=== PATIENT | female | born 1945 | race Caucasian/White ===

== ENCOUNTER 2017-11-17 15:35 | Emergency (ER) | payer OTHER ==
[~2017-11-17] VITALS: Ht 170.2 cm; Wt 63.0 kg
[~2017-11-17 15:35] MED LIST: LITHIUM; NITR-5 PO; PHEN-876 PO; PRM625 PO; SYNTHROID; TRAZODONE; ZOLOFT
[2017-11-17 15:40] VITALS: TEMP 37.1; Ht 170.2 cm; Wt 63.0 kg
[2017-11-17] MEDS ORDERED: ASPIRIN 81 MG CHEW PO STA (15:40)
--- NOTE | 2017-11-17 15:54 | EMERGENCY ROOM VISIT NOTE ---
History Report prepared by Jose: Jerilyn Lira Under the Supervision of: Dr. Randolph Bethea M.D. First contact with patient: 15:35 Chief Complaint: FLU LIKE SX Stated Complaint: FLU LIKE SX, COUGHING History of Present Illness The patient is a 72 year old female who presents to the Emergency Room with complaints of worsening flu-like symptoms beginning on Monday, three days ago. The patient states her symptoms started with a sorethroat. The patient reports cough, shortness of breath, dizziness, decreased appetite, headache, right ear pain, and chest pressure. She denies any blood in her stool, abdominal pain, or vomiting. She denies any recent episodes of syncope. The patient wears 2 liters of oxygen at baseline. The patient denies any recent long travel. The patient has a history of interstitial lung disease, IBS, and hypotension. The patient is a former smoker of 30 years. The patient reports she has adverse reactions with albuterol, saying "do not give me that, it will kill me". Source of History: patient Onset: three days ago Position: other (generalized) Quality: other (flu-like symptoms) Timing: worsening Associated Symptoms: + headache, + sorethroat, + cough, + chest pain, + SOB , No vomiting Review of Systems See HPI for pertinent positives and negatives. A total of ten systems were reviewed and were otherwise negative. Past Medical & Surgical Medical Problems: (1) Hypotension (2) IBS (irritable bowel syndrome) (3) Interstitial lung disease Family History Patient reports no known family medical history. Social History Smoking Status: Former Smoker Marital Status: single Current/Historical Medications Scheduled Budesonide (Entocort Ec), 3 CAP PO HS Cholecalciferol (Vitamin D-3), 1 TAB PO QAM Cholestyramine Light (Cholestyramine Light), 4 GM PO BID Levothyroxine Sodium (Levothyroxine Sodium), 1 TAB PO QAM Multiple Vitamins W/ Minerals (Centrum), 1 TAB PO QAM Oseltamivir (Tamiflu), 75 MG PO BID Primidone (Mysoline), 150 MG PO HS Ranitidine Hcl (Zantac), 150 MG PO BID Sertraline (Zoloft), 50 MG PO HS Scheduled PRN Benzonatate (Tessalon Perles), 100 MG PO Q8 PRN for Cough Trazodone Hcl (Trazodone), 150-300 MG PO HS PRN for Sleep Allergies Coded Allergies: Albuterol (Unverified Allergy, Severe, CONVULTIONS, 11/17/17) Hydroxyzine (Unverified Allergy, Severe, MOOD SWINGS / OUT OF CONTROL, ) Latex (Unverified Allergy, Severe, ITCH/RASH/HIVES, 11/17/17) Acetaminophen (Unverified Allergy, Intermediate, UNKNOWN, 11/17/17) Milk (Unverified Allergy, Intermediate, UPSET STOMACH, 11/17/17) Physical Exam Vital Signs Date Time Temp Pulse Resp B/P (MAP) Pulse Ox O2 Delivery O2 Flow Rate FiO2 11/17/17 21:31 20 120/66 96 11/17/17 21:08 59 11/17/17 19:32 66 16 104/62 98 Nasal Cannula 2.0 11/17/17 17:41 68 20 103/60 97 2.0 11/17/17 16:17 55 11/17/17 15:56 Nasal Cannula 2.0 11/17/17 15:40 37.1 61 20 122/67 99 Nasal Cannula 2.0 Physical Exam Physical Exam GENERAL: She is oriented to person, place, and time. She appears well- developed and well-nourished. She does not appear distressed. ____ HENT: Exam performed. Head: Normocephalic and atraumatic. Right Ear: External ear normal. No mastoid tenderness. Left Ear: External ear normal. No mastoid tenderness. Mouth/Throat: The oropharynx is clear and moist. No trismus in the jaw. No dental abscesses or uvula swelling. No oropharyngeal exudate or tonsillar abscesses. ____ EYES: Conjunctivae and EOM are normal. Pupils are equal, round, and reactive to light. Right eye exhibits no discharge. Left eye exhibits no discharge. No scleral icterus. ____ NECK: Normal range of motion. Neck supple. No JVD present. No spinous process tenderness present. No carotid bruit present. No rigidity. No tracheal deviation and normal range of motion present. No Brudzinski's sign and no Kernig 's sign noted. ____ CV: Normal rate, regular rhythm, normal heart sounds and intact distal pulses. There is no peripheral edema. Palpable radial pulses bue. ____ PULM/CHEST: Scant expiratory wheezing bilaterally. Effort normal and breath sounds normal. No respiratory distress. No stridor. She has no rales. Chest Wall: She exhibits no tenderness. ____ ABD: The abdomen is soft. Bowel sounds are normal. She has no distension. No mass is present. There is no tenderness. There is no rebound, no guarding, no Davila's sign and no tenderness at McBurney's point. Rovsig negative MUSC/SKEL: Normal range of motion. There is no peripheral edema, tenderness or deformity. LYMPH: No cervical adenopathy. ____ NEURO: She is alert and oriented to person, place, and time. SHe has normal strength. No cranial nerve deficit or sensory deficit. Coordination and gait normal. GCS eye subscore is 4. GCS verbal subscore is 5. GCS motor subscore is 6. cerbellar tests wnl. ____ SKIN: Skin is warm and dry. She is not diaphoretic. ____ PSYCH: She has a normal mood and affect. Her behavior is normal. Judgment and thought content normal. ____ Medical Decision & Procedures ER Provider Diagnostic Interpretation: Radiology results as stated below per my review and radiologist interpretation: CHEST 2 VIEWS ROUTINE FINDINGS: Cardiomediastinal and hilar silhouettes are within normal limits. Atherosclerosis of the aorta. No pneumothorax, pleural effusion, focal airspace consolidation or overt pulmonary edema. Lungs are hyperinflated with increased lucency of the upper lung zones suggesting emphysema. Degenerative changes are seen within the shoulders and spine. IMPRESSION: 1. No acute process. 2. Hyperinflation with probable emphysema. The above report was generated using voice recognition software. It may contain grammatical, syntax or spelling errors. Electronically signed by: Rakesh Serrano M.D. Laboratory Results 11/17/17 15:47 Red Blood Count 4.08, Mean Corpuscular Volume 96.3, Mean Corpuscular Hemoglobin 32.1, Mean Corpuscular Hemoglobin Concent 33.3, Mean Platelet Volume 9.4, Neutrophils (%) (Auto) 60.6, Lymphocytes (%) (Auto) 24.2, Monocytes (%) (Auto) 7.4, Eosinophils (%) (Auto) 7.0, Basophils (%) (Auto) 0.6, Neutrophils # (Auto) 3.03, Lymphocytes # (Auto) 1.21, Monocytes # (Auto) 0.37, Eosinophils # (Auto) 0.35, Basophils # (Auto) 0.03 11/17/17 15:47 Test 11/17/17 15:43 11/17/17 15:47 11/17/17 16:16 11/17/17 17:07 Influenza Type A Antigen Neg for Influ A (NEG) Influenza Type B Antigen Neg for Influ B (NEG) White Blood Count 5.00 K/uL (4.8-10.8) Red Blood Count 4.08 M/uL (4.2-5.4) Hemoglobin 13.1 g/dL (12.0-16.0) Hematocrit 39.3 % (37-47) Mean Corpuscular Volume 96.3 fL (80-100) Mean Corpuscular Hemoglobin 32.1 pg (25-34) Mean Corpuscular Hemoglobin Concent 33.3 g/dl (32-36) Platelet Count 183 K/uL (130-400) Mean Platelet Volume 9.4 fL (7.4-10.4) Neutrophils (%) (Auto) 60.6 % Lymphocytes (%) (Auto) 24.2 % Monocytes (%) (Auto) 7.4 % Eosinophils (%) (Auto) 7.0 % Basophils (%) (Auto) 0.6 % Neutrophils # (Auto) 3.03 K/uL (1.4-6.5) Lymphocytes # (Auto) 1.21 K/uL (1.2-3.4) Monocytes # (Auto) 0.37 K/uL (0.11-0.59) Eosinophils # (Auto) 0.35 K/uL (0-0.5) Basophils # (Auto) 0.03 K/uL (0-0.2) RDW Standard Deviation 49.8 fL (36.4-46.3) RDW Coefficient of Variation 14.2 % (11.5-14.5) Immature Granulocyte % (Auto) 0.2 % Immature Granulocyte # (Auto) 0.01 K/uL (0.00-0.02) Anion Gap 4.0 mmol/L (3-11) Est Creatinine Clear Calc Drug Dose 70.7 ml/min Estimated GFR () 99.3 Estimated GFR (Non- 85.7 BUN/Creatinine Ratio 22.3 (10-20) Calcium Level 9.6 mg/dl (8.5-10.1) Total Bilirubin 0.4 mg/dl (0.2-1) Aspartate Amino Transf (AST/SGOT) 45 U/L (15-37) Alanine Aminotransferase (ALT/SGPT) 67 U/L (12-78) Alkaline Phosphatase 213 U/L (45-117) Total Protein 7.5 gm/dl (6.4-8.2) Albumin 3.3 gm/dl (3.4-5.0) Globulin 4.2 gm/dl (2.5-4.0) Albumin/Globulin Ratio 0.8 (0.9-2) Lactic Acid Level 0.7 mmol/L (0.4-2.0) Prothrombin Time 10.6 SECONDS (9.0-12.0) Prothromb Time International Ratio 1.0 (0.9-1.1) Activated Partial Thromboplast Time 26.4 SECONDS (21.0-31.0) Partial Thromboplastin Ratio 1.0 Test 11/17/17 17:30 11/17/17 19:49 Urine Color YELLOW Urine Appearance CLEAR (CLEAR) Urine pH 6.0 (4.5-7.5) Urine Specific [place] 1.022 (1.000-1.030) Urine Protein NEG (NEG) Urine Glucose (UA) NEG (NEG) Urine Ketones NEG (NEG) Urine Occult Blood NEG (NEG) Urine Nitrite NEG (NEG) Urine Bilirubin NEG (NEG) Urine Urobilinogen NEG (NEG) Urine Leukocyte Esterase TRACE (NEG) Urine WBC (Auto) 1-5 /hpf (0-5) Urine RBC (Auto) 5-10 /hpf (0-4) Urine Hyaline Casts (Auto) 0 /lpf (0-5) Urine Epithelial Cells (Auto) >30 /lpf (0-5) Urine Bacteria (Auto) NEG (NEG) Troponin I < 0.015 ng/ml (0-0.045) Laboratory results reviewed by me Medications Administered Medications (Trade) Dose Ordered Sig/Alex Route Start Time Stop Time Status Last Admin Dose Admin Aspirin (Aspirin Chew) 324 mg NOW STAT PO 11/17/17 15:40 11/17/17 15:42 DC 11/17/17 15:49 324 MG Ibuprofen (Advil Tab) 400 mg NOW STAT PO 11/17/17 19:13 11/17/17 19:14 DC 11/17/17 19:31 400 MG Oseltamivir Phosphate (Tamiflu Cap) 75 mg NOW STAT PO 11/17/17 21:21 11/17/17 21:23 DC 11/17/17 21:27 75 MG Oseltamivir Phosphate (Tamiflu Cap) 150 mg BID PO 11/18/17 09:00 11/18/17 09:00 DC 11/17/17 21:29 150 MG Benzonatate (Tessalon Perles Cap) 100 mg NOW PRN PO 11/17/17 21:30 11/17/17 22:46 DC 11/17/17 21:26 100 MG ECG Indication: SOB/dyspnea Rate (beats per minute): 71 Rhythm: sinus rhythm Findings: no acute ischemic change, no ectopy, other (IL, QRS, QTC within normal limits, no ST elevation or depression ) ED Course 153: The patient was evaluated in room C10. A complete history and physical exam was performed. 1540: Ordered Aspirin 324 mg PO. 1756: Ordered Acetaminophen 1000 mg PO. 1908: Vitals stable, physical examination within normal limits. Patient tolerating by mouth in the emergency department and in no acute distress. I discussed the patients results with her. I am trying to reach the patients PCP to discuss care of plans because her PCP referred her to ED. The patient states if she is discharged home she will need an ambulance to bring her home. 1912: Ordered Ibuprofen 400 mg PO. 1920: Discussed the patient's case with Dr. James- primary special education teacher for the patients PCP. I made him aware on the patient's negative workup and that her physical exam is within normal limits besides scant expiratory wheezing. I updated him on the patient refusing breathing treatments and he states if she is refusing breathing treatments she can follow up as an outpatient. He requested the patient be discharged with Tamiflu despite the negative flu swab given the patient's history of present illness and long history of interstitial lung disease. 1929: [employer] will arrange transport home for the patient. The patient will be discharged with Tamiflu and antitussive if second troponin comes back negative. 2115: The patient is saying she cannot get to pharmacy tonight. She will be given one dose of Tamiflu and Tessalon Perles in the ED. She will be given one homepack of two Tamiflu and Tessalon Perles. 2120: Ordered Tamiflu Cap 75 mg PO. 2129: Ordered Benzonatate 100 mg PO. 2124: DISCHARGE - Plan of care discussed with patient and questions answered. The patient was given both verbal and printed discharge instructions. The patient verbalized understanding and ability to comply. The patient is to seek outpatient follow up as noted in the discharge instructions. The patient verbalized understanding and ability to comply. The patient is discharged in stable condition. The patient was instructed to return for worsening symptoms. 899: Ordered Tamiflu Cap 150 mg PO. Medical Decision 1908: Vitals stable, physical examination within normal limits. Patient tolerating by mouth in the emergency department and in no acute distress. I discussed the patients results with her. I am trying to reach the patients PCP to discuss care of plans because her PCP referred her to ED. The patient states if she is discharged home she will need an ambulance to bring her home. 1920: Discussed the patient's case with Dr. James- primary special education teacher for the patients PCP. I made him aware on the patient's negative workup and that her physical exam is within normal limits besides scant expiratory wheezing. I updated him on the patient refusing breathing treatments and he states if she is refusing breathing treatments she can follow up as an outpatient. He requested the patient be discharged with Tamiflu despite the negative flu swab given the patient's history of present illness and long history of interstitial lung disease. 1929: [employer] will arrange transport home for the patient. The patient will be discharged with Tamiflu and antitussive if second troponin comes back negative. 2114: The patient is saying she cannot get to pharmacy tonight. She will be given one dose of Tamiflu and Tessalon Perles in the ED. She will be given one homepack of two Tamiflu and Tessalon Perles. DISCHARGE - Plan of care discussed with patient and questions answered. The patient was given both verbal and printed discharge instructions. The patient verbalized understanding and ability to comply. The patient is to seek outpatient follow up as noted in the discharge instructions. The patient verbalized understanding and ability to comply. The patient is discharged in stable condition. The patient was instructed to return for worsening symptoms. Medication Reconcilliation Current Medication List: was personally reviewed by me Blood Pressure Screening Patient's blood pressure: Normal blood pressure Consults Time Called: 1914 Consulting Physician: Dr. James- primary special education teacher for the patients PCP Returned Call: 1920 Discussed the patient's case with Dr. James- primary special education teacher for the patients PCP. I made him aware on the patient's negative workup and that her physical exam is within normal limits besides scant expiratory wheezing. I updated him on the patient refusing breathing treatments and he states if she is refusing breathing treatments she can follow up as an outpatient. Impression Primary Impression: Upper respiratory infection Additional Impression: Influenza-like symptoms Scribe Attestation The scribe's documentation has been prepared under my direction and personally reviewed by me in its entirety. I confirm that the note above accurately reflects all work, treatment, procedures, and medical decision making performed by me. The chart was completed utilizing [employer] Speech voice recognition software. Grammatical errors, random word insertions, pronoun errors, and incomplete sentences are an occasional consequence of this system due to software limitations, ambient noise, and hardware issues. Any formal questions or concerns about the content, text, or information contained within the body of this dictation should be directly addressed to the physician for clarification. Departure Information Dispostion Home / Self-Care Prescriptions Benzonatate (TESSALON PERLES) 100 Mg Cap 100 MG PO Q8 Y for Cough, #21 CAP Prov: Randolph Bethea M.D. 11/17/17 Oseltamivir (Tamiflu) 75 Mg Cap 75 MG PO BID for 5 Days, #10 CAP Prov: Randolph Bethea M.D. 11/17/17 Referrals No Doctor, Assigned (PCP) Forms HOME CARE DOCUMENTATION FORM, IMPORTANT VISIT INFORMATION Patient Instructions ED URI Viral, My [facility] Problem Qualifiers Primary Impression: Upper respiratory infection URI type: unspecified viral URI Qualified Codes: J06.9 - Acute upper respiratory infection, unspecified
[2017-11-17 16:11] LABS: BASO % 0.6 %; BASO ABS # 0.03 K/uL (0-0.2); EOS ABS # 0.35 K/uL (0-0.5); HEMATOCRIT 39.3 % (37-47); HEMOGLOBIN 13.1 g/dL (12.0-16.0); IG# 0.01 K/uL (0.00-0.02); LYMPH % 24.2 %; LYMPH ABS # 1.21 K/uL (1.2-3.4); MEAN CELL VOLUME 96.3 fL (80-100); MEAN CORPUSCULAR HEMOGLOBIN 32.1 pg (25-34); MEAN CORPUSCULAR HGB CONC 33.3 g/dl (32-36); MEAN PLATELET VOLUME 9.4 fL (7.4-10.4); MONO % 7.4 %; MONO ABS # 0.37 K/uL (0.11-0.59); NEUT % 60.6 %; NEUT ABS # 3.03 K/uL (1.4-6.5); PLATELET COUNT 183 K/uL (130-400); RED CELL DISTRIBUTION WIDTH CV 14.2 % (11.5-14.5); RED CELL DISTRIBUTION WIDTH SD 49.8 fL (36.4-46.3)
--- NOTE | 2017-11-17 16:19 | DIAGNOSTIC IMAGING REPORT ---
CHEST 2 VIEWS ROUTINE HISTORY: 72 years-old Female sob acute shortness of breath with cough and flulike symptoms COMPARISON: None available TECHNIQUE: AP and lateral views of the chest FINDINGS: Cardiomediastinal and hilar silhouettes are within normal limits. Atherosclerosis of the aorta. No pneumothorax, pleural effusion, focal airspace consolidation or overt pulmonary edema. Lungs are hyperinflated with increased lucency of the upper lung zones suggesting emphysema. Degenerative changes are seen within the shoulders and spine. IMPRESSION: 1. No acute process. 2. Hyperinflation with probable emphysema. The above report was generated using voice recognition software. It may contain grammatical, syntax or spelling errors. Electronically signed by: Rakesh Serrano M.D. 11/17/2017 4:18 PM Dictated Date/Time: 11/17/2017 4:16 PM
[2017-11-17 16:33] LABS: ALBUMIN 3.3 gm/dl (3.4-5.0); ALT/SGPT 67 U/L (12-78); AST/SGOT 45 U/L (15-37); BLOOD UREA NITROGEN 16 mg/dl (7-18); CALCIUM 9.6 mg/dl (8.5-10.1); CARBON DIOXIDE 32 mmol/L (21-32); CREATININE 0.71 mg/dl (0.60-1.20); GLUCOSE 81 mg/dl (70-99); POTASSIUM 4.1 mmol/L (3.5-5.1); SODIUM 137 mmol/L (136-145)
[2017-11-17 16:38] LABS: ALKALINE PHOSPHATASE 213 U/L (45-117); TOTAL PROTEIN 7.5 gm/dl (6.4-8.2)
[2017-11-17] MEDS ORDERED: MULTTAB5 PO (17:04)
[2017-11-17] MEDS ORDERED: CHOL1TAB2 PO (17:04)
[2017-11-17] MEDS ORDERED: PRIM50TA29 PO (17:05)
[2017-11-17] MEDS ORDERED: SERT50TA PO (17:11)
[2017-11-17] MEDS ORDERED: RANI150T3 PO (17:11)
[2017-11-17] MEDS ORDERED: BUDE1CAP6 PO (17:11)
[2017-11-17] MEDS ORDERED: TRAZ100T29 PO (17:11)
[2017-11-17] MEDS ORDERED: LEVO125T5 PO (17:11)
[2017-11-17] MEDS ORDERED: CHOL4POW PO (17:11)
[2017-11-17 17:40] LABS: PTT PATIENT 26.4 SECONDS (21.0-31.0)
[2017-11-17] MEDS ORDERED: ACETAMINOPHEN 500 MG TAB PO STA (17:57)
[2017-11-17 18:21] LABS: INFLUENZA B ANTIGEN Neg for Influ B (NEG)
[2017-11-17] MEDS ORDERED: IBUPROFEN 200 MG TAB PO STA (19:13)
[2017-11-17 21:08] VITALS: PULSE 59
[2017-11-17] MEDS ORDERED: OSEL75CA12 PO (21:09)
[2017-11-17] MEDS ORDERED: BENZ100C18 PO (21:10)
[2017-11-17] MEDS ORDERED: OSELTAMIVIR PHOSPHATE 75 MG CAP PO STA (21:21)
[2017-11-17] MEDS ORDERED: EMPTY 8 DRAM VIAL ONE (21:26)
[2017-11-17] MEDS ORDERED: BENZONATATE 100MG CAP PO PRN (21:30)
[2017-11-17 21:31] VITALS: BP 120/66; O2SAT 96
[2017-11-18] MEDS ORDERED: OSELTAMIVIR PHOSPHATE 75 MG CAP PO SCH (09:00)
== END 2017-11-17 21:33 | disposition home or self-care (01) ==
LOC: C.EDC 15:35 → EDBD 15:35 → C.EDC 21:33
DX: J06.9 Acute upper respiratory infection, unspecified (principal); Z99.81 Dependence on supplemental oxygen; K58.9 Irritable bowel syndrome, unspecified; Z87.891 Personal history of nicotine dependence; J84.9 Interstitial pulmonary disease, unspecified; Z79.899 Other long term (current) drug therapy

== ENCOUNTER → 2018-01-04 | Day surgery (SDC) | payer OTHER ==
[2017-12-26 11:40] VITALS: Ht 170.2 cm; Wt 63.6 kg
[~2018-01-04] VITALS: Ht 170.2 cm; Wt 63.6 kg
[~2018-01-04] MED LIST changes: +ALPR-385 PO; +BUDE1CAP6 PO; +CHOL1000 PO; +CHOL4POW2 PO; +COEN50CA22 PO; +DIVA250T PO; +EpHEDrine SULFATE 50MG/5ML SYR ONE; +FRCT/ PO; +IMD/2 PO; +LEVO125T5 PO; +LIDOCAINE HCL 2% 2 ML VIAL (20MG/ML) ONE; -LITHIUM; +MULT-506 PO; -NITR-5 PO; +ONDANSETRON INJ 2 MG/ML 2 ML VIAL IV PRN; +OXYC-57 PO; -PHEN-876 PO; +PRIM50TA29 PO; -PRM625 PO; +PROPOFOL IV EMULSION 10 MG/ML 20 ML VIAL IV ONE; +RANI150T85 PO; +SERT50TA PO; -SYNTHROID; +TRAZ1TAB52 PO; -TRAZODONE; -ZOLOFT
--- NOTE | 2018-01-04 10:54 | Endo History and Physical ---
History & Physical Date of Service: Jan 04, 2018. Chief Complaint: CHRONIC DIARRHEA Referring Physician: DR. CUEVAS History of Present Illness History of diarrhea, referred for flexible sigmoidoscopy to further evaluate Past Surgical History Hx Cardiac Surgery: No Hx Internal Defibrillator: No Hx Pacemaker: No Hx Abdominal Surgery: Yes (, ABDOMINAL TUMOR REMOVED, PARTIAL HYSTERECTOMY) Hx of Implantable Prosthesis: No Hx Post-Op Nausea and Vomiting: No Hx Cancer Surgery: Yes (COMPLETE HYSTERECTOMY) Hx Thoracic Surgery: No Hx Orthopedic: No Hx Urinary Tract Surgery: No Family History IBD Social History Smoking Status: Former Smoker Hx Substance Use: Yes Hx Alcohol Use: Yes (OCCASIONALLY) Allergies Coded Allergies: Albuterol (Verified Allergy, Severe, CONVULTIONS, 01/04/18) Hydroxyzine (Verified Allergy, Severe, MOOD SWINGS / OUT OF CONTROL, ) Latex (Verified Allergy, Severe, ITCH/RASH/HIVES, 01/04/18) Acetaminophen (Verified Allergy, Intermediate, ITCH ALL OVER, 01/04/18) Milk (Verified Allergy, Intermediate, UPSET STOMACH, 01/04/18) Uncoded Allergies: VISTARIL (Allergy, Unknown, AGITATED, 12/26/17) Current Medications Reported Home Medications Medications Dose Route/Sig Max Daily Dose Days Date Category Dose Instructions Desyrel (Trazodone Hcl) 150 Mg Tab 2 Tab PO HS 12/26/17 Reported Zoloft (Sertraline HCl) 50 Mg Tab 50 Mg PO HS 12/26/17 Reported Zantac (Ranitidine HCl) 150 Mg Tab 150 Mg PO DAILY PRN 12/26/17 Reported Mysoline (Primidone) 50 Mg Tab 3 Tab PO HS 12/26/17 Reported Percocet 5MG/325MG (Oxycodone/Acetaminophen) Tab 1-2 Tablets PO Q8H PRN 12/26/17 Reported PAIN Multivitamin (Multivitamins) Tab 1 Tab PO QAM 12/26/17 Reported Imodium (Loperamide HCl) 2 Mg Cap 2 Mg PO QAM 12/26/17 Reported Depakote Er (Divalproex Sodium) 250 Mg Tab 1 Tab PO HS 30 12/26/17 Reported Coq10 (Coenzyme Q10 (Ubidecarenone)) 50 Mg Cap 1 Cap PO QAM 12/26/17 Reported Questran Powder Light (Cholestyramine Light) 4 Gm Pow 1 Dose PO DAILY 12/26/17 Reported Vitamin D3 (Cholecalciferol) 1,000 Unit Tab 1 Tab PO QAM 12/26/17 Reported Fioricet (Acetaminophen/Butalbital/Caffeine) 1 Ea Tab 1 Tab PO DIRECTED PRN 12/26/17 Reported Entocort Ec (Budesonide) 3 Mg Cap 3 Cap PO HS 12/26/17 Reported Xanax (Alprazolam) 1 Mg Tab 1 Mg PO BID PRN 12/26/17 Reported Levothyroxine Sodium 125 Mcg Tab 1 Tab PO QAM 11/17/17 Reported Vital Signs Weight (Kilograms): 63.64 Height (Feet): 5 Height (Inches): 7 Date Time Temp Pulse Resp B/P (MAP) Pulse Ox O2 Delivery O2 Flow Rate FiO2 01/04/18 09:56 36.4 64 16 105/61 (76) 94 Room Air Physical Exam General Appearance: no apparent distress Respiratory/Chest: Auscultation: decreased breath sounds Abdomen: Inspection & Palpation: soft Assessment and Plan Paient for sigmoidoscopy to evaluate a history of diarrhea. We have discussed the risks to include bleeding, infection, perforation, pain and infection.
--- NOTE | 2018-01-04 11:14 | Discharge Instructions ---
Endoscopy Patient Instructions Date / Procedure(s) Performed Jan 04, 2018. Flex Sig Allergy Information Coded Allergies: Albuterol (Verified Allergy, Severe, CONVULTIONS, 01/04/18) Hydroxyzine (Verified Allergy, Severe, MOOD SWINGS / OUT OF CONTROL, ) Latex (Verified Allergy, Severe, ITCH/RASH/HIVES, 01/04/18) Acetaminophen (Verified Allergy, Intermediate, ITCH ALL OVER, 01/04/18) Milk (Verified Allergy, Intermediate, UPSET STOMACH, 01/04/18) Uncoded Allergies: VISTARIL (Allergy, Unknown, AGITATED, 12/26/17) Discharge Date / Findings Jan 04, 2018. Hemorrhoids Diverticulosis Medication Instructions Stopped Medication(s): IMODIUM CHOLESTYRAMINE POWDER Reported Home Medications Medications Dose Route/Sig Max Daily Dose Days Date Category Dose Instructions Desyrel (Trazodone Hcl) 150 Mg Tab 2 Tab PO HS 12/26/17 Reported Zoloft (Sertraline HCl) 50 Mg Tab 50 Mg PO HS 12/26/17 Reported Zantac (Ranitidine HCl) 150 Mg Tab 150 Mg PO DAILY PRN 12/26/17 Reported Mysoline (Primidone) 50 Mg Tab 3 Tab PO HS 12/26/17 Reported Percocet 5MG/325MG (Oxycodone/Acetaminophen) Tab 1-2 Tablets PO Q8H PRN 12/26/17 Reported PAIN Multivitamin (Multivitamins) Tab 1 Tab PO QAM 12/26/17 Reported Imodium (Loperamide HCl) 2 Mg Cap 2 Mg PO QAM 12/26/17 Reported Depakote Er (Divalproex Sodium) 250 Mg Tab 1 Tab PO HS 30 12/26/17 Reported Coq10 (Coenzyme Q10 (Ubidecarenone)) 50 Mg Cap 1 Cap PO QAM 12/26/17 Reported Questran Powder Light (Cholestyramine Light) 4 Gm Pow 1 Dose PO DAILY 12/26/17 Reported Vitamin D3 (Cholecalciferol) 1,000 Unit Tab 1 Tab PO QAM 12/26/17 Reported Fioricet (Acetaminophen/Butalbital/Caffeine) 1 Ea Tab 1 Tab PO DIRECTED PRN 12/26/17 Reported Entocort Ec (Budesonide) 3 Mg Cap 3 Cap PO HS 12/26/17 Reported Xanax (Alprazolam) 1 Mg Tab 1 Mg PO BID PRN 12/26/17 Reported Levothyroxine Sodium 125 Mcg Tab 1 Tab PO QAM 11/17/17 Reported Provider Instructions Activity Restrictions - No exercising or heavy lifting for 24 hours. - Do not drink alcohol the day of the procedure. - Do not drive a car or operate machinery until the day after the procedure. - Do not make any important decisions or sign important papers in 24 hours after the procedure. Following Day: - Return to full activity which may include returning to work/school. Diet Start your diet with liquids and light foods (jello, soup, juice, toast). Then eat your usual diet if not nauseated. Treatment For Common After Affects For mild abdominal pain, bloating, or excessive gas: - Rest - Eat lightly - Lie on right side Follow-Up Information Follow-up with DR. CUEVAS and Ms. Wang as scheduled If symptoms persist would consider a completion colonoscopy and evaluation for Celiac disease. Anesthesia Information What You Should Know You have had a procedure that required some medicine to reduce anxiety and discomfort. This treatment is called moderate sedation. After receiving the treatment, you may be sleepy, but you will be able to breathe on your own. The effects of the treatment may last for several hours. Follow these instructions along with Activity/Diet recommendations noted above: * Do NOT do anything where dizziness or clumsiness would be dangerous. * Rest quietly at home today, then you can be up and about tomorrow. * Have a responsible person stay with you the rest of today. * You may have had an I.V. today. If so, you may take the dressing off later today. Recommendations Call your doctor if: * Trouble breathing * Continuous vomiting for more than 24 hours * Temperature above 101 degrees * Severe abdominal pain or bloating * Pain not relieved by pain medicine ordered * There is increased drainage or redness from any incision * A large amount of rectal bleeding greater than 2-3 tablespoons. (If you had a polyp/s removed or have hemorrhoids, a small amount of blood - from the rectum is to be expected.) * You have any unanswered questions or concerns. IN THE EVENT OF A SERIOUS EMERGENCY, GO TO THE NEAREST EMERGENCY ROOM Your discharge instructions were prepared by provider River Mcgrath. Patient Instructions Signature Page Brittany Eric Patient (or Guardian) Signature/Date: I have read and understand the instructions given to me by my caregivers. Caregiver/RN/Doctor Signature/Date: The above-named patient and/or guardian has received patient instructions on this date. + Original Patient Signature Page (only) stays with chart. Please make copy for patient.
--- NOTE | 2018-01-04 11:30 | GI REPORT ---
Procedure Date: 01/04/2018 10:51 AM Procedure: Flexible Sigmoidoscopy Indications: Diarrhea Medicines: Monitored Anesthesia Care Complications: No immediate complications. Estimated blood loss: Minimal. Estimated Blood Loss: Estimated blood loss was minimal. Procedure: Pre-Anesthesia Assessment: - Prior to the procedure, a History and Physical was performed, and patient medications, allergies and sensitivities were reviewed. The patient's tolerance of previous anesthesia was reviewed. - The risks and benefits of the procedure and the sedation options and risks were discussed with the patient. All questions were answered and informed consent was obtained. - Patient identification and proposed procedure were verified prior to the procedure by the physician, the nurse and the lining finisher. The procedure was verified in the procedure room. - Pre-procedure physical examination revealed no contraindications to sedation. - ASA Grade Assessment: III - A patient with severe systemic disease. - After reviewing the risks and benefits, the patient was deemed in satisfactory condition to undergo the procedure. - The anesthesia plan was to use monitored anesthesia care (MAC). - Immediately prior to administration of medications, the patient was re-assessed for adequacy to receive sedatives. - The heart rate, respiratory rate, oxygen saturations, blood pressure, adequacy of pulmonary ventilation, and response to care were monitored throughout the procedure. - The physical status of the patient was re-assessed after the procedure. After obtaining informed consent, the endoscope was passed under direct vision. Throughout the procedure, the patient's blood pressure, pulse, and oxygen saturations were monitored continuously. The scope was introduced through the anus and advanced to the left transverse colon. The flexible sigmoidoscopy was accomplished without difficulty. The patient tolerated the procedure well. The quality of the bowel preparation was good. Findings: The digital rectal exam findings include non-thrombosed external hemorrhoids. Pertinent negatives include normal sphincter tone. Normal mucosa was found in the rectum, in the sigmoid colon, in the descending colon and in the transverse colon. Biopsies for histology were taken with a cold forceps from the entire colon for evaluation of microscopic colitis. Fluid aspiration was performed through the scope suction channel. Sample(s) were sent for bacterial cultures, Clostridium difficile and ova and parasites. There was evidence of a prior surgical anastomosis in the recto-sigmoid colon. This was patent and was characterized by healthy appearing mucosa. The anastomosis was traversed. A few medium-mouthed diverticula were found in the sigmoid colon. Internal hemorrhoids were found during retroflexion. The hemorrhoids were moderate. The exam was otherwise without abnormality. Impression: - Non-thrombosed external hemorrhoids found on digital rectal exam. - Normal mucosa in the rectum, in the sigmoid colon, in the descending colon and in the transverse colon. Biopsied. Fluid aspiration performed. - Patent surgical anastomosis, characterized by healthy appearing mucosa. - Internal hemorrhoids. - The examination was otherwise normal. Recommendation: - Discharge patient to home (ambulatory). - Advance diet as tolerated today. - Await pathology results. - If symptoms persist would consider a complete colonoscopy. River Mcgrath D.O. River Mcgrath, DO 01/04/2018 11:29:52 AM This report has been signed electronically. Note Initiated On: 01/04/2018 10:51 AM I attest to the content of the Intraoperative Record and orders documented therein, exceptions below
--- NOTE | 2018-01-04 11:31 | Discharge Instructions ---
Endoscopy Patient Instructions Date / Procedure(s) Performed Jan 04, 2018. Flex Sig Allergy Information Coded Allergies: Albuterol (Verified Allergy, Severe, CONVULTIONS, 01/04/18) Hydroxyzine (Verified Allergy, Severe, MOOD SWINGS / OUT OF CONTROL, ) Latex (Verified Allergy, Severe, ITCH/RASH/HIVES, 01/04/18) Acetaminophen (Verified Allergy, Intermediate, ITCH ALL OVER, 01/04/18) Milk (Verified Allergy, Intermediate, UPSET STOMACH, 01/04/18) Uncoded Allergies: VISTARIL (Allergy, Unknown, AGITATED, 12/26/17) Discharge Date / Findings Jan 04, 2018. Hemorrhoids Mild diverticulosis Normal appearing colonic mucosa to the transverse colon. Medication Instructions Stopped Medication(s): IMODIUM CHOLESTYRAMINE POWDER Provider Instructions Activity Restrictions - No exercising or heavy lifting for 24 hours. - Do not drink alcohol the day of the procedure. - Do not drive a car or operate machinery until the day after the procedure. - Do not make any important decisions or sign important papers in 24 hours after the procedure. Following Day: - Return to full activity which may include returning to work/school. Diet Start your diet with liquids and light foods (jello, soup, juice, toast). Then eat your usual diet if not nauseated. Treatment For Common After Affects For mild abdominal pain, bloating, or excessive gas: - Rest - Eat lightly - Lie on right side Follow-Up Information Follow-up with DR. CUEVAS and Ms. Wang as scheduled Anesthesia Information What You Should Know You have had a procedure that required some medicine to reduce anxiety and discomfort. This treatment is called moderate sedation. After receiving the treatment, you may be sleepy, but you will be able to breathe on your own. The effects of the treatment may last for several hours. Follow these instructions along with Activity/Diet recommendations noted above: * Do NOT do anything where dizziness or clumsiness would be dangerous. * Rest quietly at home today, then you can be up and about tomorrow. * Have a responsible person stay with you the rest of today. * You may have had an I.V. today. If so, you may take the dressing off later today. Recommendations Call your doctor if: * Trouble breathing * Continuous vomiting for more than 24 hours * Temperature above 101 degrees * Severe abdominal pain or bloating * Pain not relieved by pain medicine ordered * There is increased drainage or redness from any incision * A large amount of rectal bleeding greater than 2-3 tablespoons. (If you had a polyp/s removed or have hemorrhoids, a small amount of blood - from the rectum is to be expected.) * You have any unanswered questions or concerns. IN THE EVENT OF A SERIOUS EMERGENCY, GO TO THE NEAREST EMERGENCY ROOM Your discharge instructions were prepared by provider River Mcgrath. Patient Instructions Signature Page Brittany Eric Patient (or Guardian) Signature/Date: I have read and understand the instructions given to me by my caregivers. Caregiver/RN/Doctor Signature/Date: The above-named patient and/or guardian has received patient instructions on this date. + Original Patient Signature Page (only) stays with chart. Please make copy for patient.
--- NOTE | 2018-01-04 11:40 | Anesthesiology Progress Note ---
Anesthesia Post Op Note Date & Time Jan 04, 2018 at 11:40 Vital Signs Pain Intensity: 0 Vital Signs Past 12 Hours Date Time Temp Pulse Resp B/P (MAP) Pulse Ox O2 Delivery O2 Flow Rate FiO2 01/04/18 11:35 80 16 123/66 (85) 97 Room Air 01/04/18 11:18 72 16 108/56 (73) 94 Room Air 01/04/18 09:56 36.4 64 16 105/61 (76) 94 Room Air Notes Mental Status: alert / awake / arousable, participated in evaluation Pt Amnestic to Procedure: Yes Nausea / Vomiting: adequately controlled Pain: adequately controlled Airway Patency, RR, SpO2: stable & adequate BP & HR: stable & adequate Hydration State: stable & adequate Anesthetic Complications: no major complications apparent
[2018-01-04 12:01] VITALS: BP 120/64; PULSE 72; O2SAT 95
== END | disposition home or self-care (01) ==
LOC: C.GI 09:38
PROVIDERS: ATTEND Internal Medicine Gastroenterology
DX: K52.9 Noninfective gastroenteritis and colitis, unspecified (principal); K64.4 Residual hemorrhoidal skin tags; K64.8 Other hemorrhoids; Z90.710 Acquired absence of both cervix and uterus; Z87.891 Personal history of nicotine dependence; Z88.8 Allergy status to other drugs, medicaments and biological substances; Z91.040 Latex allergy status; Z88.6 Allergy status to analgesic agent; Z91.011 Allergy to milk products; J44.9 Chronic obstructive pulmonary disease, unspecified; I34.1 Nonrheumatic mitral (valve) prolapse; F41.9 Anxiety disorder, unspecified; F32.9 Major depressive disorder, single episode, unspecified

== ENCOUNTER 2019-07-15 16:42 | Inpatient (IN) ==
[2019-07-15] MEDS ORDERED: fentaNYL citrate 100 MCG/2 ML VIAL IV STA (17:57)
[2019-07-15] MEDS ORDERED: ONDANSETRON INJ 2 MG/ML 2 ML VIAL IV STA (17:57)
[2019-07-15] MEDS ORDERED: SODIUM CHLORIDE 0.9% 1000ML 1,000 ML IV ONE (17:57)
[2019-07-15 18:07] LABS: Basophils # (auto) 0.03 K/uL (0-0.2); Basophils % (auto) 0.6 %; Eosinophils # (auto) 0.42 K/uL (0-0.5); Eosinophils % (auto) 7.8 %; Hematocrit (blood only) 40.9 % (37-47); Hemoglobin 13.6 g/dL (12.0-16.0); Immature Granulocytes # (auto) 0.01 K/uL (0.00-0.02); Immature Granulocytes % (auto) 0.2 %; Lymphocytes # (auto) 1.04 K/uL (1.2-3.4); Lymphocytes % (auto) 19.3 %; Mean Corpuscular Hemoglobin 31.8 pg (25-34); Mean Corpuscular Hgb Conc 33.3 g/dL (32-36); Mean Corpuscular Volume 95.6 fL (80-100); Mean Platelet Volume 10.1 fL (7.4-10.4); Monocytes # (auto) 0.36 K/uL (0.11-0.59); Monocytes % (auto) 6.7 %; Neutrophils # (auto) 3.54 K/uL (1.4-6.5); Neutrophils % (auto) 65.4 %; Platelet Count 225 K/uL (130-400); RDW Standard Deviation 48.5 fL (36.4-46.3); Red Blood Count 4.28 M/uL (4.2-5.4)
[2019-07-15 18:39] LABS: Alanine Aminotransferase 46 U/L (12-78); Albumin Globulin Ratio 0.9 (0.9-2); Albumin Level 3.6 gm/dl (3.4-5.0); Alkaline Phosphatase 145 U/L (45-117); BUN Creatinine Ratio 14.2 (10-20); Bilirubin,Total 0.4 mg/dl (0.2-1); Blood Urea Nitrogen 12 mg/dl (7-18); Calcium 9.9 mg/dl (8.5-10.1); Carbon Dioxide 30 mmol/L (21-32); Chloride 105 mmol/L (98-107); Est GFR (African American) 79.9; Globulin 4.1 gm/dl (2.5-4.0); Glucose 113 mg/dl (70-99); Lipase 94 U/L (73-393); NT Pro B Type Natriuretic Pept 69 pg/ml (0-900); Sodium 140 mmol/L (136-145); Thyroid Stimulating Hormone 0.318 uIu/ml (0.300-4.500); Total Protein 7.7 gm/dl (6.4-8.2); Troponin I < 0.015 ng/ml (0-0.045)
[2019-07-15 19:14] LABS: Appearance Urine Clear (Clear); Bilirubin Urine Negative (Negative); Blood Urine Negative (Negative); Color Urine Yellow; Glucose Urine UA Negative (Negative); Ketones Urine Negative (Negative); Leukocyte Esterase Urine Negative (Negative); Nitrite Urine Negative (Negative); Protein Urine Negative (Negative); Specific Gravity Urine 1.015 (1.000-1.030); Urobilinogen Urine Negative (Negative)
[2019-07-15 19:19] LABS: Potassium 4.1 mmol/L (3.5-5.1)
[2019-07-15 19:24] LABS: Magnesium 2.1 mg/dl (1.8-2.4)
[2019-07-15] MEDS ORDERED: OPTIRAY 320 125ml IV PRN (19:43)
--- NOTE | 2019-07-15 20:02 | CT Scan Report ---
CT head/brain wo con CLINICAL HISTORY: 74 years-old Female with atypical headache. Acute headache TECHNIQUE: Multiple axial CT images of the head were obtained without contrast. A dose lowering tech nique was utilized adhering to the principles of ALARA. CT DOSE: 1088.90 mGy.cm COMPARISON: CTA head neck of same day FINDINGS: No acute intracranial hemorrhage, midline shift, intracranial mass, hydrocephalus, territorial ischem ia or abnormal extra-axial collection. Age-related involutional changes. Mild patchy white matter hyp odensities suggest microvascular ischemic disease. Streak artifact from metallic density structure of the right sylvian fissure distribution limits evaluation of the adjacent structures. Prominent periv ascular space versus remote lacunar infarct of the left lentiform nucleus distribution, 5 mm. The calvarium is intact. The paranasal sinuses, mastoid air cells, and middle ear cavities are clear . IMPRESSION: No acute intracranial abnormality. The above report was generated using voice recognition software. It may contain grammatical, syntax o r spelling errors. Electronically signed by: Rakesh Serrano M.D. 07/15/2019 8:00 PM
--- NOTE | 2019-07-15 20:16 | CT Scan Report ---
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 Acute atypical headache with history of aneurysm COMPARISON STUDY: Head CT of same day TECHNIQUE: Following the IV administration of 120 mL of Optiray 320, CT angiogram of the head and nec k was performed from the aortic arch to the skull base. Images are reviewed in the axial, sagittal, a nd coronal planes. 3-D MIPS images are created and assessed. IV contrast was administered without com plication. All measurements were calculated based on NASCET criteria. A dose lowering technique was utilized adhering to the principles of ALARA. FINDINGS: Imaged pulmonary arteries appear unremarkable. Three-vessel morphology of aortic arch. Patency of the imaged bilateral subclavian arteries. Bilateral common carotid arteries are widely patent. Mild mixe d plaque of the bilateral carotid bulbs results in less than 50% luminal narrowing bilaterally. Metal lic density structure of the right sylvian fissure distribution is suggestive of prior aneurysm repai r. Streak artifact limits evaluation of the adjacent structures. Bilateral middle and anterior cerebr al arteries appear patent. Dominant left vertebral artery. Bilateral vertebral arteries appear patent . The right PICA originates from the distal portion of the right V3 segment. Basilar artery and bilat eral posterior cerebral arteries are unremarkable. Mild multifocal luminal narrowing of less than 50% involves the bilateral posterior cerebral arteries, likely secondary to atherosclerotic vascular dis ease. No aneurysm, dissection, high-grade stenosis or proximal branch occlusion identified. Cerebral venous sinuses appear patent. Emphysema with bilateral bronchial wall thickening suggestive of bronchitis. No pneumothorax. Calcifi cations noted about the bilateral parotid glands. Prior bilateral cataract repair. Degenerative black es of the spine. IMPRESSION: 1. Evidence of prior aneurysm repair in the distribution of the right carotid terminus. Otherwise unr emarkable CTA of the head and neck. 2. Emphysema with bronchitis. The above report was generated using voice recognition software. It may contain grammatical, syntax o r spelling errors. Electronically signed by: Rakesh Serrano M.D. 07/15/2019 8:14 PM
[2019-07-15] MEDS ORDERED: KETOROLAC TROMETHAMINE 15 MG/ML VIAL IV STA (20:22)
[2019-07-15] MEDS ORDERED: MoRPHine SULFATE 4 MG/ML 1 ML CARP\\VIAL IV STA (22:27)
[2019-07-15] MEDS ORDERED: PHARMACIST DISCHARGE MED REC CONSULT PRN (23:32)
[2019-07-15] MEDS ORDERED: ALBUTEROL 0.083% NEBU SOLN 3 ML VIAL INH PRN (23:32)
[2019-07-15] MEDS ORDERED: CHOLESTYRAMINE LIGHT 4 GM PKT PO PRN (23:32)
[2019-07-15] MEDS ORDERED: NITROGLYCERIN SL 0.4 MG/TAB TAB SL PRN (23:32)
[2019-07-15] MEDS ORDERED: BUTALBITAL/ACETAMIN/CAFFEINE TAB PO PRN (23:32)
[2019-07-15] MEDS ORDERED: ONDANSETRON INJ 2 MG/ML 2 ML VIAL IV PRN (23:32)
[2019-07-15] MEDS ORDERED: LOPERAMIDE LIQUID 120 ML BOTTLE PO PRN (23:40)
--- NOTE | 2019-07-16 01:09 | Emergency Department Note ---
Entered by Katherine Traylor acting as a scribe for Yanira Johnson DO History of Present Illness General Chief complaint: Stroke/CVA Symptoms Stated complaint: SHORTNESS OF BREATH, POSSIBLE STROKE Time Seen by Provider: 07/15/19 17:34 Source: patient History of Present Illness Onset (ago): hour(s) 6 Location: head Severity: similar to prior episodes Pain Consistency: + constant Maximum Pain Intensity: 8 Quality: + other (Headache) Associated symptoms: + confusion, + fever/chills (Positive chills. Negative fever.), + headaches, + shortness of breath and + other (Lower back pain, abdominal cramping); no syncope Treatments prior to arrival: other (Supplemental oxygen) The patient is a 74 year old female presenting to the Emergency Department complaining of constant headache starting 6 hours ago. The patient reports that she has a severe headache. She states that earlier at her home she became very confused while playing a computer game that she normally plays every day. She ex plains that she experienced chills and now has lower back pain and abdominal cramping. She notes that she was off balance and bumping into palmer almost causing her to fall PLANT CHIEF. She adds that her ears are ringing. Patient takes it took 3 to 4 hours before she felt like she was getting back to normal again. The patient reports that she has had multiple brain aneurysms and that she current has one that is growing. She states that PL[employer] she had to use supplemental oxygen via nasal cannula because she was short of breath. She explains that she doesnt use supplemental oxygen all the time, only as needed. The patient denies fevers, syncope, vision changes and recently being around anybody who has been sick. Patient states she does have a prior history of strokes. No recent illness or change in medications. Patient denies any trauma. Home Medications Home Medications Medication Instructions Recorded Confirmed Type albuterol sulfate 2.5 mg INHALATION Q4 PRN 07/15/19 07/15/19 History alprazolam [Xanax] 1 mg PO BID PRN 07/15/19 07/15/19 History [id number]-[id number]-[id number] 1 cap PO TID PRN 07/15/19 07/15/19 History [Fioricet] cholestyramine (with sugar) 4 g PO BID PRN 07/15/19 07/15/19 History [Questran] coenzyme Q10 [CoQ-10] 50 mg PO DAILY 07/15/19 07/15/19 History cyanocobalamin (vitamin B-12) 100 mcg PO DAILY 07/15/19 07/15/19 History [Vitamin B-12] famotidine [Pepcid] 40 mg PO DAILY 07/15/19 07/15/19 History levothyroxine 112 mcg PO DAILY 07/15/19 07/15/19 History loperamide [Imodium A-D] 1 mg PO DAILY PRN 07/15/19 07/15/19 History multivitamin 1 tab PO DAILY 07/15/19 07/15/19 History primidone [Mysoline] 100 mg PO HS 07/15/19 07/15/19 History sertraline [Zoloft] 50 mg PO DAILY 07/15/19 07/15/19 History trazodone 100 mg PO HS 07/15/19 07/15/19 History turmeric root extract 500 mg PO DAILY 07/15/19 07/15/19 History umeclidinium-vilanterol [Anoro 1 inh INHALATION DAILY 07/15/19 07/15/19 History Ellipta] Allergies Allergy/AdvReac Type Severity Reaction Status Date / Time albuterol Allergy Severe CONVULTIONS Verified 07/15/19 17:49 hydroxyzine Allergy Severe MOOD Verified 07/15/19 17:49 SWINGS / OUT OF CONTROL latex Allergy Severe ITCH/RASH/H Verified 07/15/19 17:49 MAIA acetaminophen Allergy Intermediate ITCH ALL Verified 07/15/19 17:49 OVER milk Allergy Intermediate UPSET Verified 07/15/19 17:49 STOMACH VISTARIL Allergy Unknown AGITATED Uncoded 07/15/19 17:49 Past Med/Surg History Medical History History of CVA (cerebrovascular accident) History of migraine Brain aneurysm COPD (chronic obstructive pulmonary disease) Interstitial lung disease (Chronic) Hypotension (Chronic) IBS (irritable bowel syndrome) (Chronic) Surgical History History of brain surgery Social History Preferred Language: Italian Communication Ability: Effective Director Of Strategic Programs Required: No Beliefs That Will Affect Care: None Current Living Situation: Alone Other Information That Helps Us Care for You: No Feels Safe at Home: Yes Safety Concerns: Feels Safe At This Time Smoking Status: Former smoker Hx Alcohol Use: Yes Alcohol type: wine Hx Substance Use: No Review of Systems See HPI for pertinent positives & negatives. and A total of 10 systems reviewed and were otherwise negative Physical Exam Vital Signs Vital Signs - 24 hr 07/15/19 16:46 07/15/19 19:02 07/15/19 19:54 Temperature 36.8 C Temperature Source Oral Sepsis Recent Fever Within 48 Hours No Sepsis Action Taken by Nursing No Action Required Pulse Rate 72 Pulse Rate [Apical] 60 77 Pulse Rate from SpO2 Sensor Respiratory Rate 20 15 20 Respiratory Effort / Characteristics Non-Labored Respiratory Depth Normal Blood Pressure 117/74 Blood Pressure [Left Arm] 131/71 127/68 Blood Pressure Mean 88 Blood Pressure Mean [Left Arm] 91 87 Blood Pressure Position [Left Arm] Pulse Oximetry 93 99 96 Oxygen Delivery Method Nasal Cannula Nasal Cannula Oxygen Flow Rate 2 2 07/15/19 19:55 07/15/19 20:30 07/15/19 22:00 Temperature Temperature Source Sepsis Recent Fever Within 48 Hours Sepsis Action Taken by Nursing Pulse Rate 59 L Pulse Rate [Apical] 76 52 L Pulse Rate from SpO2 Sensor 58 L Respiratory Rate 24 22 15 Respiratory Effort / Characteristics Respiratory Depth Blood Pressure 141/71 H Blood Pressure [Left Arm] 127/68 127/68 Blood Pressure Mean 94 Blood Pressure Mean [Left Arm] 87 87 Blood Pressure Position [Left Arm] Lying Pulse Oximetry 97 96 100 Oxygen Delivery Method Nasal Cannula Nasal Cannula Oxygen Flow Rate 2 2 GENERAL: alert, well appearing, well nourished, no distress, non-toxic EYE EXAM: normal conjunctiva, PERRL and EOM's grossly intact. No nystagmus. OROPHARYNX: no exudate, no erythema, lips, buccal mucosa, and tongue normal and mucous membranes are moist NECK: supple, no nuchal rigidity, no adenopathy, non-tender LUNGS: Clear to auscultation. Normal chest wall mechanics, no w/r/r HEART: no murmurs, S1 normal and S2 normal ABDOMEN: abdomen soft, non-tender, normo-active bowel sounds, no masses, no rebound or guarding. BACK: Back is symmetrical on inspection and there is no deformity, no midline tenderness, no CVA tenderness. SKIN: no rashes and no bruising UPPER EXTREMITIES: upper extremities are grossly normal. FROM, nml pulses b/l. LOWER EXTREMITIES: No pitting edema. FROM, nml pulses b/l. NEURO EXAM: Odd affect. cranial nerves II-XII grossly intact, normal speech, no gross weakness of arms, no gross weakness of legs. No drift. Finger to nose intact. Gross sensation intact. NIH stroke score 0 Course 1751: The patient was evaluated in room A10, and a complete history and physical examination were performed. 1758: I spoke to the patient at this time. Patient is a poor historian. 2049: I reevaluated the patient at this time who reports that her headache is gone. She is agreeable to inpatient evaluation. 2100: I discussed the patients case with Dr. Jose Benito hospitalist. He will evaluate the patient for further management. Consultations Consultation #1: I discussed the patients case with Dr. Jose Benito hospitaljs. He will evaluate the patient for further management. Time: 21:00 Administered Medications Miscellaneous (Order Awaiting Action) 1 ea N/A QS BEENA Stop: 08/15/19 00:00 Last Admin: 07/16/19 00:19 Dose: Not Given Documented by: [id number] Discontinued Medications Fentanyl Citrate (Fentanyl Citrate) 50 mcg IV NOW STA Stop: 07/15/19 17:58 Last Admin: 07/15/19 18:57 Dose: 50 mcg Documented by: [id number] Sodium Chloride (Nss 1000ml) 1,000 mls @ 999 mls/hr IV .Q1H1M ONE Stop: 07/15/19 18:57 Last Infusion: 07/15/19 19:56 Dose: 0 mls/hr Documented by: [id number] Admin: 07/15/19 18:55 Dose: 999 mls/hr Documented by: [id number] Ioversol (Optiray 320 125ml) 120 ml IV ONCE PRN PRN Reason: Interaction Checking Stop: 07/19/19 19:42 Last Admin: 07/15/19 19:43 Dose: 120 ml Documented by: [id number] Ketorolac Tromethamine (Toradol) 10 mg IV NOW STA Stop: 07/15/19 20:23 Last Admin: 07/15/19 20:27 Dose: 10 mg Documented by: [id number] Morphine Sulfate (Morphine Sulfate) 3 mg IV NOW STA Stop: 07/15/19 22:28 Last Admin: 07/15/19 22:33 Dose: 3 mg Documented by: [id number] Ondansetron HCl (Zofran) 4 mg IV NOW STA Stop: 07/15/19 17:58 Last Admin: 07/15/19 18:56 Dose: 4 mg Documented by: [id number] Medical Decision Making Differential Diagnosis Differential Diagnosis includes but is not limited to headache, tension headache, cluster headache, migraine, subarachnoid hemorrhage, meningitis, mass, central venous thrombus, concussion, trauma and epidural/subdural hemorrhage. Medical Records Attestation: I reviewed the patient's medical records. Home Medications Current Medication List: was personally reviewed by me Laboratory Data Attestation: I reviewed the patient's lab results. Result diagrams: 07/15/19 17:05 07/15/19 19:00 Lab Results 07/15/19 07/15/19 07/15/19 Range/Units 17:05 17:05 19:00 WBC 5.40 (4.8-10.8) K/uL RBC 4.28 (4.2-5.4) M/uL Hgb 13.6 (12.0-16.0) g/dL Hct 40.9 (37-47) % MCV 95.6 (80-100) fL MCH 31.8 (25-34) pg MCHC 33.3 (32-36) g/dL RDW Std Deviation 48.5 H (36.4-46.3) fL RDW Coeff of Kimberly 14.0 (11.5-14.5) % Plt Count 225 (130-400) K/uL MPV 10.1 (7.4-10.4) fL Immature Gran % (Auto) 0.2 % Neut % (Auto) 65.4 % Lymph % (Auto) 19.3 % [place] % (Auto) 6.7 % Eos % (Auto) 7.8 % Baso % (Auto) 0.6 % Immature Gran # (Auto) 0.01 (0.00-0.02) K/uL Neut # (Auto) 3.54 (1.4-6.5) K/uL Lymph # (Auto) 1.04 L (1.2-3.4) K/uL [place] # (Auto) 0.36 (0.11-0.59) K/uL Eos # (Auto) 0.42 (0-0.5) K/uL Baso # (Auto) 0.03 (0-0.2) K/uL Sodium 140 (136-145) mmol/L Potassium 4.1 (3.5-5.1) mmol/L Chloride 105 (98-107) mmol/L Carbon Dioxide 30 (21-32) mmol/L Anion Gap 6.0 (3-11) BUN 12 (7-18) mg/dl Creatinine 0.84 (0.6-1.2) mg/dl Est Cr Clr Drug Dosing Not Reportable Est GFR ( Amer) 79.9 Est GFR (Non-Af Amer) 69.0 BUN/Creatinine Ratio 14.2 (10-20) Glucose 113 H (70-99) mg/dl Calcium 9.9 (8.5-10.1) mg/dl Magnesium 2.1 (1.8-2.4) mg/dl Total Bilirubin 0.4 (0.2-1) mg/dl AST 20 (15-37) U/L ALT 46 (12-78) U/L Alkaline Phosphatase 145 H (45-117) U/L Troponin I < 0.015 (0-0.045) ng/ml NT-Pro-B Natriuret Pep 69 (0-900) pg/ml Total Protein 7.7 (6.4-8.2) gm/dl Albumin 3.6 (3.4-5.0) gm/dl Globulin 4.1 H (2.5-4.0) gm/dl Albumin/Globulin Ratio 0.9 (0.9-2) Lipase 94 (73-393) U/L TSH 0.318 (0.300-4.500) uIu/ml Urine Color Urine Appearance (Clear) Urine pH (4.5-7.5) Ur Specific [place] (1.000-1.030) Urine Protein (Negative) Urine Glucose (UA) (Negative) Urine Ketones (Negative) Urine Blood (Negative) Urine Nitrite (Negative) Urine Bilirubin (Negative) Urine Urobilinogen (Negative) Ur Leukocyte Esterase (Negative) 07/15/19 Range/Units 19:04 WBC (4.8-10.8) K/uL RBC (4.2-5.4) M/uL Hgb (12.0-16.0) g/dL Hct (37-47) % MCV (80-100) fL MCH (25-34) pg MCHC (32-36) g/dL RDW Std Deviation (36.4-46.3) fL RDW Coeff of Kimberly (11.5-14.5) % Plt Count (130-400) K/uL MPV (7.4-10.4) fL Immature Gran % (Auto) % Neut % (Auto) % Lymph % (Auto) % [place] % (Auto) % Eos % (Auto) % Baso % (Auto) % Immature Gran # (Auto) (0.00-0.02) K/uL Neut # (Auto) (1.4-6.5) K/uL Lymph # (Auto) (1.2-3.4) K/uL [place] # (Auto) (0.11-0.59) K/uL Eos # (Auto) (0-0.5) K/uL Baso # (Auto) (0-0.2) K/uL Sodium (136-145) mmol/L Potassium (3.5-5.1) mmol/L Chloride (98-107) mmol/L Carbon Dioxide (21-32) mmol/L Anion Gap (3-11) BUN (7-18) mg/dl Creatinine (0.6-1.2) mg/dl Est Cr Clr Drug Dosing Est GFR ( Amer) Est GFR (Non-Af Amer) BUN/Creatinine Ratio (10-20) Glucose (70-99) mg/dl Calcium (8.5-10.1) mg/dl Magnesium (1.8-2.4) mg/dl Total Bilirubin (0.2-1) mg/dl AST (15-37) U/L ALT (12-78) U/L Alkaline Phosphatase (45-117) U/L Troponin I (0-0.045) ng/ml NT-Pro-B Natriuret Pep (0-900) pg/ml Total Protein (6.4-8.2) gm/dl Albumin (3.4-5.0) gm/dl Globulin (2.5-4.0) gm/dl Albumin/Globulin Ratio (0.9-2) Lipase (73-393) U/L TSH (0.300-4.500) uIu/ml Urine Color Yellow Urine Appearance Clear (Clear) Urine pH 7.0 (4.5-7.5) Ur Specific [place] 1.015 (1.000-1.030) Urine Protein Negative (Negative) Urine Glucose (UA) Negative (Negative) Urine Ketones Negative (Negative) Urine Blood Negative (Negative) Urine Nitrite Negative (Negative) Urine Bilirubin Negative (Negative) Urine Urobilinogen Negative (Negative) Ur Leukocyte Esterase Negative (Negative) Imaging Data Radiologist's Impression: Radiology results as stated below per my review and the radiologist's interpretation: CT angio neck with con, CT angio head w con CLINICAL HISTORY: 74 years-old Female with prior aneurysm. Acute atypical headache with history of aneurysm COMPARISON STUDY: Head CT of same day TECHNIQUE: Following the IV administration of 120 mL of Optiray 320, CT angiogram of the head and neck was performed from the aortic arch to the skull base. Images are reviewed in the axial, sagittal, and coronal planes. 3-D MIPS images are created and assessed. IV contrast was administered without complication. All measurements were calculated based on NASCET criteria. A dose lowering technique was utilized adhering to the principles of ALARA. FINDINGS: Imaged pulmonary arteries appear unremarkable. Three-vessel morphology of aortic arch. Patency of the imaged bilateral subclavian arteries. Bilateral common carotid arteries are widely patent. Mild mixed plaque of the bilateral carotid bulbs results in less than 50% luminal narrowing bilaterally. Metallic density structure of the right sylvian fissure distribution is suggestive of prior aneurysm repair. Streak artifact limits evaluation of the adjacent structures. Bilateral middle and anterior cerebral arteries appear patent. Dominant left vertebral artery. Bilateral vertebral arteries appear patent. The right PICA originates from the distal portion of the right V3 segment. Basilar artery and bilateral posterior cerebral arteries are unremarkable. Mild multifocal luminal narrowing of less than 50% involves the bilateral posterior cerebral arteries, likely secondary to atherosclerotic vascular disease. No aneurysm, dissection, high-grade stenosis or proximal branch occlusion identified. Cerebral venous sinuses appear patent. Emphysema with bilateral bronchial wall thickening suggestive of bronchitis. No pneumothorax. Calcifications noted about the bilateral parotid glands. Prior bilateral cataract repair. Degenerative changes of the spine. IMPRESSION: 1. Evidence of prior aneurysm repair in the distribution of the right carotid terminus. Otherwise unremarkable CTA of the head and neck. 2. Emphysema with bronchitis. The above report was generated using voice recognition software. It may contain grammatical, syntax or spelling errors. Electronically signed by: Rakesh Serrano M.D. 07/15/2019 8:[address] head/brain wo con CLINICAL HISTORY: 74 years-old Female with atypical headache. Acute headache TECHNIQUE: Multiple axial CT images of the head were obtained without contrast. A dose lowering technique was utilized adhering to the principles of ALARA. CT DOSE: 1088.90 mGy.cm COMPARISON: CTA head neck of same day FINDINGS: No acute intracranial hemorrhage, midline shift, intracranial mass, hydrocephalus, territorial ischemia or abnormal extra-axial collection. Age- related involutional changes. Mild patchy white matter hypodensities suggest microvascular ischemic disease. Streak artifact from metallic density structure of the right sylvian fissure distribution limits evaluation of the adjacent structures. Prominent perivascular space versus remote lacunar infarct of the left lentiform nucleus distribution, 5 mm. The calvarium is intact. The paranasal sinuses, mastoid air cells, and middle ear cavities are clear. IMPRESSION: No acute intracranial abnormality. The above report was generated using voice recognition software. It may contain grammatical, syntax or spelling errors. Electronically signed by: Rakesh Serrano M.D. 07/15/2019 8:[address] angio neck with con, CT angio head w con CLINICAL HISTORY: 74 years-old Female with prior aneurysm. Acute atypical headache with history of aneurysm COMPARISON STUDY: Head CT of same day TECHNIQUE: Following the IV administration of 120 mL of Optiray 320, CT angiogram of the head and neck was performed from the aortic arch to the skull base. Images are reviewed in the axial, sagittal, and coronal planes. 3-D MIPS images are created and assessed. IV contrast was administered without complication. All measurements were calculated based on NASCET criteria. A dose lowering technique was utilized adhering to the principles of ALARA. FINDINGS: Imaged pulmonary arteries appear unremarkable. Three-vessel morphology of aortic arch. Patency of the imaged bilateral subclavian arteries. Bilateral common carotid arteries are widely patent. Mild mixed plaque of the bilateral carotid bulbs results in less than 50% luminal narrowing bilaterally. Metallic density structure of the right sylvian fissure distribution is suggestive of prior aneurysm repair. Streak artifact limits evaluation of the adjacent structures. Bilateral middle and anterior cerebral arteries appear patent. Dominant left vertebral artery. Bilateral vertebral arteries appear patent. The right PICA originates from the distal portion of the right V3 segment. Basilar artery and bilateral posterior cerebral arteries are unremarkable. Mild multifocal luminal narrowing of less than 50% involves the bilateral posterior cerebral arteries, likely secondary to atherosclerotic vascular disease. No aneurysm, dissection, high-grade stenosis or proximal branch occlusion identified. Cerebral venous sinuses appear patent. Emphysema with bilateral bronchial wall thickening suggestive of bronchitis. No pneumothorax. Calcifications noted about the bilateral parotid glands. Prior bilateral cataract repair. Degenerative changes of the spine. IMPRESSION: 1. Evidence of prior aneurysm repair in the distribution of the right carotid terminus. Otherwise unremarkable CTA of the head and neck. 2. Emphysema with bronchitis. The above report was generated using voice recognition software. It may contain grammatical, syntax or spelling errors. Electronically signed by: Rakesh Serrano M.D. 07/15/2019 8:14 PM ECG Data Attestation: I personally reviewed and interpreted this ECG as follows: Indication: other (Stroke/CVA symptoms, headache) Rate (beats per minute): 64 Rhythm: sinus rhythm Findings: + other (Normal axis. Normal intervals. Low voltage throughout. ); no acute ischemic change Blood Pressure Blood Pressure Findings: Elevated blood pressure Blood Pressure Disposition: further management by hospitalist KAREEN Narrative Patient here well-appearing at this time, however with concerning story for acute confusion and ataxia happening at home. Patient states symptoms took approximately 3 to 4 hours to resolve at which time she called family and friends who eventually brought her to the emergency room. Concern given patient's prior history of strokes. Patient sent for CT including angiography of the head neck due to prior history of aneurysm and repair. These are reassuring. Patient's other labs reassuring. Headache improved with additional medications and IV fluids here. Due to atypical episode and concern for recurrent stroke, as well as patient's past medical history, case discussed with hospitalist for additional evaluation and management. Patient was in agreement with this plan. Patient remained hemodynamically stable in the emergency room. Impression & Plan TIA (transient ischemic attack), Headache Discharge Plan Visit Data *Final* Discharge Date/Time: 07/15/19 23:13 Chief Complaint: Stroke/CVA Symptoms Stated Complaint: SHORTNESS OF BREATH, POSSIBLE STROKE ED Provider: Yanira Johnson Discharge Problem: TIA (transient ischemic attack), Headache Patient Disposition: Admitted As Inpatient Discharge Instructions Interventions: ED Discharge Assessment Last Done: 07/15/19 23:13 Discharge Problem: Headache Qualifiers: Headache type: unspecified Headache chronicity pattern: acute headache Intractability: not intractable Qualified Code(s): R51 - Headache The scribe's documentation has been prepared under my direction and personally reviewed by me in its entirety. I confirm that the note above accurately reflects all work, treatment, procedures, and medical decision making performed by me.
--- NOTE | 2019-07-16 01:26 | History and Physical Report ---
DATE OF ADMISSION: 07/15/2019 CHIEF COMPLAINT: Stroke-like symptoms. HISTORY OF PRESENT ILLNESS: This is a 74-year-old female with past medical history significant for chronic hypoxic respiratory failure, COPD, questionable possible interstitial lung disease, hypothyroidism, right pulmonary nodule, history of SVT, GERD, depression, bipolar disorder, history of tobacco abuse, history of brain aneurysm repair a few years back in [place]. The patient says after the procedure she had stroke and she could not walk, could not talk for some time and after that she also had few TIAs. She moved to [place] about 2 years ago to live close with her son. Son lives about 5 miles from her house. Son and [id number]-od-ukh went to [place] about 8 days ago and they would come back tomorrow. She plays solitaire and puzzles online. At 11:00am, she started to play and they were easy puzzles where she could not figure it out. She seemed confused. She states when she was walking she was falling into the palmer and she felt very cold. She went to bed and put a quilt and slept and then she called her friend and she advised to call the doctor. She called her PCP and advised to come to the ER . Seems she is back to her baseline. Seems her episode lasted a few hours. Her initial CT of the head and CTA of the head and neck are unremarkable. Vitals are stable, labs are okay. So we are consulted for admitting her for workup for stroke-like symptoms. She also recently saw pulmonary for her lung disease and the plan is for CAT scan in the near future. The patient has a cane at home, but she ambulates without any help. Currently, she is having headache. She is requesting for some pain medication. No blurred visions, no earache. She always has a runny nose, no sore throat. She on and off sometimes gets difficulty swallowing both solids and liquids. No cough, no shortness of breath, no nausea, no vomiting, no chest pain, no abdominal pain. She always has chronic diarrhea. She uses Imodium at home. She did not check color of her stools recently. Normal bladder movements. No burning micturitions, no hematuria. She says she lately has some ankle swelling, no rash. Currently, resting comfortably and hemodynamically stable. ALLERGIES: ALBUTEROL, HYDROXYZINE, LATEX, ACETAMINOPHEN, MILK, VISTARIL. PAST MEDICAL HISTORY: As mentioned above. PAST SURGICAL HISTORY: Sigmoidoscopy with biopsy, brain aneurysm repair. MEDICATIONS: The patient is on Pepcid 40 mg p.o. daily, oxygen 2 liters with moderate exertion and 2.5 liters during sleep, [id number] mg p.o. at bedtime, Zoloft 50 mg p.o. daily, trazodone 100 mg p.o. at bedtime, Anoro Ellipta 62.5/25 mcg 1 dose inhalation daily, vitamin B12 100 mcg daily, turmeric 500 mg p.o. daily, cholestyramine 4 grams 1 or 2 times daily, levothyroxine 112 mcg daily, alprazolam 1 mg p.o. b.i.d. p.r.n., vitamin D 1000 units p.o. daily, Coenzyme Q10 daily, Imodium 2 mg daily p.r.n., Centrum Silver one tablet daily, Fioricet 1 tablet every 4 hours p.r.n. FAMILY HISTORY: No family history on file. SOCIAL HISTORY: Single, son and [id number] live close by. Quit smoking in 2011, smoked 1/4 pack a day for 35 years. No drug use. REVIEW OF SYSTEMS: As per HPI. Rest of review of systems negative. PHYSICAL EXAMINATION: GENERAL: The patient is of moderate build, not in acute distress. VITAL SIGNS: Temperature 36.8, pulse 59, respiratory rate 15, blood pressure 141/71, oxygen 100% on 2 liters. HEENT: No pallor, no icterus. Pupils equal, round, reactive to light. Extraocular muscles intact. NECK: No JVD, no neck masses, no carotid bruits. CARDIOVASCULAR: S1, S2 heard, regular rate and rhythm, no murmur, no gallop. RESPIRATORY SYSTEM: Normal AP diameter. No accessory muscle use. No wheezing, no crackles. ABDOMEN: Soft, bowel sounds present, nontender. No distention. CENTRAL NERVOUS SYSTEM: Alert and oriented x3. Recent and remote memory intact. Power 5/5 in all extremities. Sensation is intact. Position is intact. Coordination of movements normal. No pronator drift. Dyfkbo-tv-jdkr test normal. EXTREMITIES: No edema, no erythema. LABORATORY DATA: WBC 5.4, hemoglobin 13.6, hematocrit 40.9, platelets 225. Sodium 140, potassium 4.1, chloride 105, CO2 of 30, BUN 12, creatinine 0.8, serum glucose 113, calcium 9.9, magnesium 2.1, total bilirubin 0.4, AST 20, ALT 46, alkaline phosphatase 145. Troponin I less than 0.015. BNP 69, lipase 94. TSH 0.3. Urinalysis negative. IMAGING DATA: CT of the head, no acute intracranial abnormality seen. CT of the head and neck, evidence of prior aneurysm repair in the distribution of the right carotid terminus. Otherwise unremarkable CT of the head and neck. Emphysema with bronchitis. EKG: Normal sinus rhythm, rate of 64, no acute ST changes seen. ASSESSMENT AND PLAN: This is a 74-year-old female who presents with stroke-like symptoms. 1. Stroke-like symptoms, was confused and somewhat imbalanced for a few hours starting at 11:00 a.m. History of transient ischemic attacks in the past, history of stroke post brain aneurysm repair a few years back. Initial workup with CT of the head and CT head and neck unremarkable. We will admit to tele floor. We will get MRI scan of the head. To get records of aneurysm repair before MRI is done.. Neuro checks per protocol. Neurology consult in a.m. Speech evaluation and PT/OT. Social service to help with discharge planning. Monitor on the tele floor. 3. History of chronic respiratory failure, history of chronic obstructive pulmonary disease, interstitial lung disease. Follow with pulmonary. Continue her home inhalers, currently stable. 4. History of bipolar depression. Continue Zoloft, trazodone, also on Ativan p.r.n. 5. Hypothyroidism. Continue Synthroid. 6. Chronic diarrhea, on Imodium p.r.n. 7. Gastroesophageal reflux disease, on Pepcid. 8. Deep venous thrombosis prophylaxis, sequential compression devices for now. 9. Disposition: Monitor in tele floor. Expect to discharge home. PT/OT prior to discharge. Social service to help with discharge planning. Level 1 full code. MTDD
[2019-07-16] MEDS: ALPRAZolam 0.5 MG TABLET PO PRN ×2 (02:32→23:21)
[2019-07-16] MEDS: LEVOTHYROXINE SODIUM 112 MCG TABLET PO SCH (05:38)
[2019-07-16 06:56] LABS: Basophils # (auto) 0.03 K/uL (0-0.2); Basophils % (auto) 0.5 %; Eosinophils # (auto) 0.53 K/uL (0-0.5); Eosinophils % (auto) 8.9 %; Hematocrit (blood only) 37.9 % (37-47); Hemoglobin 12.5 g/dL (12.0-16.0); Immature Granulocytes # (auto) 0.02 K/uL (0.00-0.02); Immature Granulocytes % (auto) 0.3 %; Lymphocytes # (auto) 1.05 K/uL (1.2-3.4); Lymphocytes % (auto) 17.6 %; Mean Corpuscular Hemoglobin 31.9 pg (25-34); Mean Corpuscular Volume 96.7 fL (80-100); Mean Platelet Volume 8.9 fL (7.4-10.4); Monocytes # (auto) 0.42 K/uL (0.11-0.59); Monocytes % (auto) 7.1 %; Neutrophils % (auto) 65.6 %; Platelet Count 172 K/uL (130-400); RDW Standard Deviation 49.9 fL (36.4-46.3); Red Blood Count 3.92 M/uL (4.2-5.4); White Blood Count 5.95 K/uL (4.8-10.8)
[2019-07-16 07:26] LABS: BUN Creatinine Ratio 15.8 (10-20); Calcium 9.3 mg/dl (8.5-10.1); Creatinine Clr Calc Pharmacy 71.8 ml/min; Est GFR (African American) 90.2; Est GFR (Non-African American) 77.8; Potassium 3.8 mmol/L (3.5-5.1)
[2019-07-16 07:37] LABS: Estimated Average Glucose 91 mg/dl; Hemoglobin A1C 4.8 % (4.5-5.6)
[2019-07-16] MEDS ORDERED: INFLUENZA VIRUS QUAD VACCINE 0.5 ML SYR IM ONE (08:00)
[2019-07-16] MEDS ORDERED: INFLUENZA ADMINISTRATION CHARGE ONE (08:00)
[2019-07-16] MEDS ORDERED: ACETAMINOPHEN 325 MG TAB PO STA (08:09)
[2019-07-16] MEDS ORDERED: DiphenhydrAMINE HCL 50 MG/ML VIAL IV PRN (08:10)
[2019-07-16] MEDS ORDERED: OXYCODONE HCL IR 5 MG TAB (IMMEDIATE RELEASE) PO PRN (08:10)
[2019-07-16] MEDS: SERTRALINE HCL 50 MG TABLET PO SCH (08:47)
[2019-07-16] MEDS: FAMOTIDINE 20 MG TAB PO SCH (08:47)
[2019-07-16] MEDS: MULTIVITAMIN TAB PO SCH (08:47)
[2019-07-16] MEDS: ASPIRIN 81 MG ECTAB PO SCH (08:47)
[2019-07-16] MEDS: CYANOCOBALAMIN (VITAMIN B-12) 100 MCG TABLET PO SCH (08:48)
[2019-07-16] MEDS ORDERED: COENZYME Q10 50 MG PO SCH (09:00)
--- NOTE | 2019-07-16 09:48 | Hospitalist Progress Note ---
Date of Service July 16, 2019 Assessment & Plan (1) Headache: Migraine Headache admission concerns for "Stroke -Like Symptoms" Brain Aneurysms (reported) -This is a 74 year old patient who has history of brain aneurysms (history of brain aneurysm repair a few years back in [place]) -who as per patient's reported baseline has trouble with walking at home - she reports that she would hold on to the palmer to ambulate when not using her cane or rolling walker -history of migraine headaches -who at home enjoys doing online puzzle activities and at night of 07/15/19 felt unwell and she reported that she could not feel that she could complete the online activities, then felt like she was stumbling around in her house, and went to her bed to try to sleep, also developed headaches. She became concerned that she was having an acute brain event given her history of aneurysm. Her son is out of town. she called her primary care doctor's office who instructed her to go to the emergency room but patient able to call neighbor to drive her by car. -Head CT: No acute intracranial abnormality. Prominent perivascular space versus remote lacunar infarct of the left lentiform nucleus distribution, 5 mm -Head CTA/ Neck CTA: Evidence of prior aneurysm repair in the distribution of the right carotid terminus. Otherwise unremarkable CTA of the head and neck. Emphysema with bronchitis. -No acute telemetry events to date. has been in normal sinus rhythm -analgesics for headache -brain MRI was ordered by admitting hospitalist but it is uncertain at this time whether history of aneurysm repair consists of MRI compatibility -Neurology consult requested -Patient also passed initial speech and swallow screening and was seen in 07/16/19 AM drinking liquids and eating the bed. but patient complaint of feeling more issues with swallowing. Nurse have re-called speech and swallow services to re-assess -PT/OT chronic hypoxemic respiratory failure chronic obstructive pulmonary disease (COPD, Gold D) History of tobacco use (26 yr smoking history, quit 2011. 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 Hypothyroidism. -continue Levothyroxine history of Chronic diarrhea -on Imodium p.r.n. Gastroesophageal reflux disease -on Pepcid. Deep venous thrombosis prophylaxis, sequential compression devices for now son Devyn [phone] who is returning form out of state on 07/16/19 upcoming PCP appointment 07/22/2019 2:20 PM Provider John Roa MD [facility] Subjective -This is a 74 year old patient who has history of brain aneurysms (history of brain aneurysm repair a few years back in [place]) -who as per patient's reported baseline has trouble with walking at home - she reports that she would hold on to the palmer to ambulate when not using her cane or rolling walker -history of migraine headaches -who at home enjoys doing online puzzle activities and at night of 07/15/19 felt unwell and she reported that she could not feel that she could complete the online activities, then felt like she was stumbling around in her house, and went to her bed to try to sleep, also developed headaches. She became concerned that she was having an acute brain event given her history of aneurysm. Her son is out of town. she called her primary care doctor's office who instructed her to go to the emergency room but patient able to call neighbor to drive her by car. -Patient also passed initial speech and swallow screening and was seen in 07/16/19 AM drinking liquids and eating the bed. but patient complaint of feeling more issues with swallowing. Nurse have re-called speech and swallow services to re-assess on exam in AM patient also complained of headache coming back again. No focal motor or sensory deficits on exam Physical Exam Constitutional: WD/WN, vitals as above Eyes: PERRL, conjunctivae normal, anicteric sclerae EOM intact bilaterally ENMT: external ear and nose normal, oropharynx normal Neck: normal visual inspection Respiratory: normal respiratory effort, lungs clear to auscultation Cardiovascular: Rate/Rhythm: regular rhythm and + bradycardic Gastrointestinal (Abdomen): normal bowel sounds, soft, nontender, no hepatosplenomegaly Musculoskeletal: no cyanosis or clubbing, extremities motor strength 5/5 Head/Neck/Chest: normocephalic and head atraumatic Neurologic: PERRL, EOMI, accommodation nl, no face palsy, no dysarthria CN's II-XI intact bilaterally Psychiatric: A+Ox3, euthymic affect Results & Data Vital Signs (Past 12 Hours) Vital Signs Temp Pulse Pulse Pulse Resp BP BP 07/16/19 07:48 36.4 C L 67 16 07/16/19 03:24 36.5 C 65 15 07/15/19 23:47 36.5 C 60 20 110/67 07/15/19 23:01 58 L 13 152/79 H 07/15/19 22:30 53 L 21 134/73 07/15/19 22:00 59 L 15 141/71 H BP Pulse Ox 07/16/19 07:48 97/63 L 98 07/16/19 03:24 96/61 L 99 07/15/19 23:47 97 07/15/19 23:01 99 07/15/19 22:30 99 07/15/19 22:00 100 (1) Headache Headache chronicity pattern: acute headache Headache type: unspecified Intractability: not intractable Qualified Code(s): R51 - Headache
[2019-07-16] MEDS ORDERED: SODIUM CHLORIDE 0.9% 1000ML 250 ML IV ONE (12:16)
[2019-07-16] MEDS ORDERED: GADOBUTROL 65ML VIAL IV PRN (13:37)
--- NOTE | 2019-07-16 13:50 | Magnetic Resonance Report ---
MR brain wo/w con HISTORY: 74 years-old Female cva/tia acute headaches with fall. History of prior aneurysm repair wit h coiling COMPARISON: CTA head and neck 07/15/2019 TECHNIQUE: Multiplanar multisequence MRI of the brain was obtained both with and without the use of 8 .0 mL Gadavist FINDINGS: The large field of view precision lens grinder apprentice localizer images demonstrate no gross extracranial abnormality. There i s no restricted diffusion to suggest acute or subacute infarction. Midline structures including the c orpus callosum, brainstem, optic chiasm, pituitary and pineal glands appear unremarkable on the sagit luis T1 series. No cerebellar tonsillar herniation. Degenerative changes noted about the imaged cervic al spine. No acute intracranial hemorrhage, midline shift, abnormal extra axial collection, hydrocephalus or in tracranial mass. Mild age-related involutional changes. There are a few subtle subcentimeter scattere d foci of T2/FLAIR hyperintensity throughout the white matter suggestive of probable mild chronic mayra rovascular ischemic disease. Mildly increased cortically based T2/STIR signal about the right occipit al lobe, for example image 21 series 8 may reflect gliosis from chronic infarct. Major flow voids at the level of the skull base appear patent. Prominent perivascular space about the left inferior lenti form nucleus is noted. Trace bilateral mastoid effusions. Mild mucosal thickening of the nasal turbin ates, nasopharynx and ethmoid air cells. Prior bilateral cataract repair. Skull and soft tissues are unremarkable. No abnormal intra-axial or extra-axial enhancement. IMPRESSION: 1. No acute intracranial abnormality. 2. No abnormal enhancement. 3. Chronic appearing findings as above. The above report was generated using voice recognition software. It may contain grammatical, syntax o r spelling errors. Electronically signed by: Rakesh Serrano M.D. 07/16/2019 1:48 PM
[2019-07-16] MEDS: TIOTROPIUM BROMIDE 5 PUFF/90 MCG INH INH SCH (14:40)
--- NOTE | 2019-07-16 14:49 | Neurology Consultation ---
Date of Consultation July 16, 2019 Assessment & Plan (1) TIA (transient ischemic attack): 1. MRI no evidence of new stroke 2. CTA head and neck no new vascular findings 3. TTE- pendings 4. PT/OT speech for discharge needs 5. optimize HTN, HLD LDL <70 6. polypharmacy treatment for migraine headache- may medication can cause dizziness, and confusion in woman this age 7. post aneurysm treat for headaches gabepentin may be helpful and change current regime. this can be worked on as outpatient 8. home safety check for help with medications compliance 9. EEG as an outpatient (2) Headache: Supervising Physician Co-Signing Physician Notes Patient was seen and examined. No family at bedside. Reports having daily headaches and using Fioricet or NSAID. SHe has history of migraines headaches with visual aura. Complaining of 8/10 headache currently. She states yesterday she had a felt confused when attempted to solve her puzzles and felt like " i lost my brain". She did note a severe headache. She called for help and was directed to the ED. She was admitted due to concern for stroke and had MRI imaging and CTA imaging which showed no LVO or high grade stenosis or no evidence of acute ischemic stroke. A/P: A 74 year old woman admitted with subjective confusion in the setting of a severe headache. Differential diagnosis certainly includes migraine headache with language aura. Patient has known history of migraine with visua aura. Neuro examine non focal. MRI brain reviewed and shows no acute intracranial process. - Recommend migraine cocktail while inpatient (Reglan 10 mg IV Q8hr, Benadryl 25 mg IV Q8hr, Magsulfate 1000 mg IV Q8hr, Toradol 30 IV Q8hr). - Recommend starting Gabapentin 100 mg TID for headache prophylaxis - Would avoid Narcotics or Fioricet which was discussed with patient. - Routine EEG as outpatient Neurology follow up as outpatient. History of Present Illness Reason for Consultation: Confusion Requesting Physician: Ramu Ramos MD Attending Physician: Ramu Ramos MD History of Present Illness Brittany is a 74 year old female with a H brain aneurysm s/p coiling, stroke, IBS, COPD, interstitial lung disease who presented to [facility] with a constant headache starting 6 hours prior to her arrival. She moved to [place] about 2 years ago to be closer to her son but currently he is out of town. At home she became very confused while playing a computer game that she normally plays every day. She explains that she experienced chills and now has lower back pain and abdominal cramping. She was off balance and bumping into palmer almost causing her to fall and her ears were ringing. She states the confusion took about 3 to 4 hours before she felt like she was getting back to normal again. She uses supplemental oxygen via nasal cannula because she was short of breath. She explains that she doesnt use supplemental oxygen all the time, only as needed. She does not sellp well at night because her father was a convicted pedophile so she takes Xanax prn, trazadone hs, and primidone hs. She has been trying to cut back on these medications. she has chronic migraines and takes fiorocet, oxycodone, motrin and Excedrin migraine. She was a 35 year ppd smoker. denies CP, SOB, abdominal pain, one sided weakness, numbness tingling slurred speech, bowel or bladder issues, falls, vision changes, swallowing issues, +headaches Allergies Allergy/AdvReac Type Severity Reaction Status Date / Time albuterol Allergy Severe CONVULSIONS Verified 07/16/19 12:14 latex Allergy Severe ITCH/RASH/H Verified 07/15/19 17:49 MAIA acetaminophen Allergy Intermediate ITCH ALL Verified 07/15/19 17:49 OVER hydroxyzine AdvReac Severe MOOD Verified 07/16/19 10:25 SWINGS / OUT OF CONTROL Home Medications Home Medications Medication Instructions Recorded Confirmed Type albuterol sulfate 2.5 mg INHALATION Q4 PRN 07/15/19 07/15/19 History alprazolam [Xanax] 1 mg PO BID PRN 07/15/19 07/15/19 History mokqcwfjvk-vzexpjyocycyy-gojq 1 cap PO TID PRN 07/15/19 07/15/19 History [Fioricet] cholestyramine (with sugar) 4 g PO BID PRN 07/15/19 07/15/19 History [Questran] coenzyme Q10 [CoQ-10] 50 mg PO DAILY 07/15/19 07/15/19 History cyanocobalamin (vitamin B-12) 100 mcg PO DAILY 07/15/19 07/15/19 History [Vitamin B-12] famotidine [Pepcid] 40 mg PO DAILY 07/15/19 07/15/19 History levothyroxine 112 mcg PO DAILY 07/15/19 07/15/19 History loperamide [Imodium A-D] 1 mg PO DAILY PRN 07/15/19 07/15/19 History multivitamin 1 tab PO DAILY 07/15/19 07/15/19 History primidone [Mysoline] 100 mg PO HS 07/15/19 07/15/19 History sertraline [Zoloft] 50 mg PO DAILY 07/15/19 07/15/19 History trazodone 100 mg PO HS 07/15/19 07/15/19 History turmeric root extract 500 mg PO DAILY 07/15/19 07/15/19 History umeclidinium-vilanterol [Anoro 1 inh INHALATION DAILY 07/15/19 07/15/19 History Ellipta] Patient History Medical History History of CVA (cerebrovascular accident) History of migraine Brain aneurysm COPD (chronic obstructive pulmonary disease) Interstitial lung disease (Chronic) Hypotension (Chronic) IBS (irritable bowel syndrome) (Chronic) Surgical History History of brain surgery Social History Preferred Language: Wolof Communication Ability: Effective Econometrician Required: No Beliefs That Will Affect Care: None Current Living Situation: Alone Other Information That Helps Us Care for You: No Feels Safe at Home: Yes Safety Concerns: Feels Safe At This Time Smoking Status: Former smoker Hx Alcohol Use: Yes Alcohol type: wine Hx Substance Use: No Physical Exam Physical Exam: Physical Exam: Constitutional: appearance nourished, healthy and normal, wearing NC O2 2L Ears, Nose, Mouth and Throat: mucous membranes moist, no injection and skin normal, eyes normal Cardiovascular: normal S-1 and S-2 and regular rate and rhythm Respiratory: course breath sounds Musculoskeletal: no peripheral edema and good distal pulses Skin: no stigmata of neurocutaneous disease noted and normal and intact Eyes: extraocular muscles intact (EOMI) and pupils equal, round and reactive to light (PERRL) NEUROLOGIC EXAMINATION: Mental status: Alert and interactive Oriented to full date and location Oriented to person Speech fluent with no evidence of aphasia Cranial Nerves smile eye brow raise symmetric, tongue midline Reflexes: Deep tendon reflexes were symmetrical and graded 2/5. down going toes. Sensory: intact to light and cool touch Coordination: finger to nose no bi pass Gait/Stance: Posture normal. lying in bed able to move and reposition without assistance . Motor: Negative for pronator drift of out stretched arms with eyes closed. Strength: biceps triceps hand bit setter bilaterally 5/5, hip flex 5/5 bilaterally Results & Data Vital Signs (Past 12 Hours) Vital Signs Temp Pulse Pulse Resp BP Pulse Ox 07/16/19 11:28 36.4 C L 52 L 16 83/52 L 99 07/16/19 08:00 61 07/16/19 07:48 36.4 C L 67 16 97/63 L 98 07/16/19 03:24 36.5 C 65 15 96/61 L 99 Laboratory Results Abnormal lab results 07/15/19 07/15/19 07/16/19 Range/Units 17:05 17:05 06:42 RBC 3.92 L (4.2-5.4) M/uL RDW Std Deviation 48.5 H 49.9 H (36.4-46.3) fL Lymph # (Auto) 1.04 L 1.05 L (1.2-3.4) K/uL Eos # (Auto) 0.53 H (0-0.5) K/uL Glucose 113 H (70-99) mg/dl Alkaline Phosphatase 145 H (45-117) U/L Globulin 4.1 H (2.5-4.0) gm/dl Diagnostic Findings MRI brain -No acute intracranial abnormality. No abnormal enhancement. Chronic appearing findings CT head- No acute intracranial abnormality. CTA head and neck -evidence of prior aneurysm repair in the distribution of the right carotid terminus. Otherwise unremarkable CTA of the head and neck. Emphysema with bronchitis. (1) Headache Headache chronicity pattern: acute headache Headache type: unspecified Intractability: not intractable Qualified Code(s): R51 - Headache
[2019-07-16] MEDS: ACETAMINOPHEN 325 MG TAB PO PRN (17:05)
[2019-07-16] MEDS ORDERED: KETOROLAC TROMETHAMINE 15 MG/ML VIAL IV PRN (17:52)
[2019-07-16] MEDS ORDERED: PRIMIDONE 50 MG TAB PO SCH (21:00)
[2019-07-16] MEDS ORDERED: TRAZODONE HCL 100 MG TAB PO SCH (21:00)
[2019-07-17] MEDS: LEVOTHYROXINE SODIUM 112 MCG TABLET PO SCH (05:42)
[2019-07-17 06:53] LABS: Basophils # (auto) 0.03 K/uL (0-0.2); Basophils % (auto) 0.8 %; Eosinophils # (auto) 0.53 K/uL (0-0.5); Eosinophils % (auto) 13.5 %; Lymphocytes # (auto) 1.21 K/uL (1.2-3.4); Lymphocytes % (auto) 30.7 %; Mean Corpuscular Hemoglobin 31.7 pg (25-34); Mean Corpuscular Hgb Conc 32.4 g/dL (32-36); Mean Corpuscular Volume 97.6 fL (80-100); Monocytes # (auto) 0.35 K/uL (0.11-0.59); Monocytes % (auto) 8.9 %; Neutrophils # (auto) 1.82 K/uL (1.4-6.5); Neutrophils % (auto) 46.1 %; Platelet Count 172 K/uL (130-400); RDW Coefficient of Variation 13.9 % (11.5-14.5); RDW Standard Deviation 49.5 fL (36.4-46.3); Red Blood Count 3.79 M/uL (4.2-5.4); White Blood Count 3.94 K/uL (4.8-10.8)
[2019-07-17 07:31] LABS: BUN Creatinine Ratio 16.1 (10-20); Calcium 9.1 mg/dl (8.5-10.1); Creatinine Clr Calc Pharmacy 61.9 ml/min; Est GFR (African American) 75.5; Est GFR (Non-African American) 65.2; Potassium 4.2 mmol/L (3.5-5.1)
[2019-07-17] MEDS: CYANOCOBALAMIN (VITAMIN B-12) 100 MCG TABLET PO SCH (08:00)
[2019-07-17] MEDS: FAMOTIDINE 20 MG TAB PO SCH (08:00)
[2019-07-17] MEDS: SERTRALINE HCL 50 MG TABLET PO SCH (08:00)
[2019-07-17] MEDS: MULTIVITAMIN TAB PO SCH (08:00)
[2019-07-17] MEDS: ASPIRIN 81 MG ECTAB PO SCH (08:00)
[2019-07-17] MEDS: TIOTROPIUM BROMIDE 5 PUFF/90 MCG INH INH SCH (08:04)
[2019-07-17] MEDS: ACETAMINOPHEN 325 MG TAB PO PRN ×2 (08:12→14:59)
[2019-07-17] MEDS ORDERED: TRAMADOL HCL 50 MG TABLET PO SCH (12:45)
--- NOTE | 2019-07-17 14:00 | Discharge Summary ---
Date of Service July 17, 2019 Discharge Data Allergies Allergy/AdvReac Type Severity Reaction Status Date / Time albuterol Allergy Severe CONVULSIONS Verified 07/16/19 12:14 latex Allergy Severe ITCH/RASH/H Verified 07/15/19 17:49 MAIA acetaminophen Allergy Intermediate ITCH ALL Verified 07/15/19 17:49 OVER hydroxyzine AdvReac Severe MOOD Verified 07/16/19 10:25 SWINGS / OUT OF CONTROL Consultations 07/15/19 21:03 ED Decision to Admit Stat 07/15/19 23:32 Consult Case Management - Discharge Planning Routine Consult Case Management - Discharge Planning Routine 07/16/19 08:00 Consult Neurology Routine Ordered Studies 07/15/19 17:57 CT angio head w con Stat CT angio neck with con Stat CT head/brain wo con Stat 07/16/19 05:02 MR brain wo/w con Routine Hospital Course (1) Headache: Migraine Headache admission concerns for "Stroke -Like Symptoms" Brain Aneurysms (reported) -This is a 74 year old patient who has history of brain aneurysms (history of brain aneurysm repair a few years back in [place]) -who as per patient's reported baseline has trouble with walking at home - she reports that she would hold on to the palmer to ambulate when not using her cane or rolling walker -history of migraine headaches -who at home enjoys doing online puzzle activities and at night of 07/15/19 felt unwell and she reported that she could not feel that she could complete the online activities, then felt like she was stumbling around in her house, and went to her bed to try to sleep, also developed headaches. She became concerned that she was having an acute brain event given her history of aneurysm. Her son is out of town. she called her primary care doctor's office who instructed her to go to the emergency room but patient able to call neighbor to drive her by car. -Head CT: No acute intracranial abnormality. Prominent perivascular space versus remote lacunar infarct of the left lentiform nucleus distribution, 5 mm -Head CTA/ Neck CTA: Evidence of prior aneurysm repair in the distribution of the right carotid terminus. Otherwise unremarkable CTA of the head and neck. Emphysema with bronchitis. -No acute telemetry events to date. has been in normal sinus rhythm -analgesics for headache -brain MRI was ordered by admitting hospitalist but it is uncertain at this time whether history of aneurysm repair consists of MRI compatibility -Neurology consult requested -Patient also passed initial speech and swallow screening and was seen in 07/16/19 AM drinking liquids and eating the bed. but patient complaint of feeling more issues with swallowing. Nurse have re-called speech and swallow services to re-assess -PT/OT chronic hypoxemic respiratory failure chronic obstructive pulmonary disease (COPD, Gold D) History of tobacco use (26 yr smoking history, quit 2011. 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 Hypothyroidism. -continue Levothyroxine history of Chronic diarrhea -on Imodium p.r.n. Gastroesophageal reflux disease -on Pepcid. Deep venous thrombosis prophylaxis, sequential compression devices for now son Devyn [phone] who is returning form out of state on 07/16/19 upcoming PCP appointment 07/22/2019 2:20 PM Provider John Roa MD Department [facility] Discharge Plan Discharge Items Patient Disposition: Home - Self-Care Reason For Visit: STROKE LIKE SYMPTOMS Discharge Diagnosis: TIA Uncontrolled migraine headaches Condition on Discharge: Good Goals: Achieve control of daily headaches. Activity: Resume your previous activity Non-emergency contact: Primary Care Provider and Neurologist Call non-emergency contact if: you have any medication questions, your symptoms worsen, your pain is not controlled, your pain is worsening, your pain is unusual for you and your pain is concerning for you Follow-up/Referrals: John Roa MD [Primary Care Provider] - Tesha Sanchez MD [Physician] - Diet: Heart Healthy Addtl Attending Provider Instructions: Risk Factors for Stroke: You can reduce your chances of stroke by working with your medical provider to adopt a healthy lifestyle. Some specific ways to lower your chance of stroke are: * If you are a smoker, now is the time to stop smoking cigarettes * If you are diabetic, improve the control of your blood sugars * Avoid excessive amounts of alcohol * Control high blood pressure * Lose weight if you are overweight * Be sure to lead an active lifestyle * Eat a healthy diet low in salt, cholesterol and fat You should know about other risk factors for stroke that you are unable to control. These include: * Age 55 years or older * Male gender * Certain racial groups: , or / * Family History of Stroke, Mini stroke or Heart Attack * Sickle Cell Disease Follow Up: It is important for you to keep your follow up appointments with your medical provider. Who to Call and When: Medical Emergencies: Call 911 immediately if you experience any of the following warning signs and symptoms of Stroke: * Sudden numbness or weakness of the face, arm or leg, especially on one side of the body * Sudden confusion, trouble speaking or understanding * Sudden trouble seeing in one or both eyes * Sudden trouble walking, dizziness, loss of balance or coordination * Sudden severe headache with no cause Do not delay calling 911 if you experience any warning signs or symptoms of a stroke. Delay in seeking medical attention may affect what treatments can be given to you. . Please take all medications as instructed on discharge list below. It is recommended that you follow-up with your primary care provider within 1 week of discharge from the hospital. The following appointment has been booked for you: 07/22/2019 2:20 PM [address]a MD [facility] Please follow-up with [facility] Neurology in 4 to 6 weeks for continued management of your headache medications. It is recommended that you undergo an outpatient electroencephalogram (EEG), which can be ordered by your neurologist. Please continue to work with your providers to avoid taking narcotics such as oxycodone for headache treatment. It was a pleasure taking care of you! Please call if you have any questions or problems. You can reach a [facility] hospitalist on duty at [facility] 24 hours a day by calling [phone]. Take care of yourself. Reanna Go, [facility] Pending Studies at Discharge: No Stand-Alone Forms: My [facility] Medications and DC Order Prescriptions: Continued multivitamin Tablet 1 tab PO DAILY RF: 0 primidone [Mysoline] 50 mg tablet 100 mg PO HS RF: 0 cyanocobalamin (vitamin B-12) [Vitamin B-12] 100 mcg Tablet 100 mcg PO DAILY RF: 0 albuterol sulfate 2.5 mg /3 mL (0.083 %) Solution For Nebulization 2.5 mg INHALATION Q4 PRN (Reason: Shortness Of Breath Or Wheezing) RF: 0 loperamide [Imodium A-D] 2 mg Capsule 1 mg PO DAILY PRN (Reason: Diarrhea) RF: 0 alprazolam [Xanax] 1 mg Tablet 1 mg PO BID PRN (Reason: nerves) RF: 0 sertraline [Zoloft] 50 mg tablet 50 mg PO DAILY RF: 0 levothyroxine 112 mcg tablet 112 mcg PO DAILY RF: 0 coenzyme Q10 [CoQ-10] 100 mg Capsule 50 mg PO DAILY RF: 0 cholestyramine (with sugar) [Questran] 4 gram powder in packet 4 g PO BID PRN (Reason: Constipation) RF: 0 hrzmfnsryd-kjlmwcapbvtpd-crpc [Fioricet] 50-300-40 mg Capsule 1 cap PO TID PRN (Reason: Migraine Headache) RF: 0 turmeric root extract 500 mg Capsule 500 mg PO DAILY RF: 0 Anoro Ellipta 62.5-25 mcg/actuation blister with device 1 inh inhalation DAILY RF: 0 famotidine [Pepcid] 40 mg tablet 40 mg PO DAILY RF: 0 Discontinued trazodone 100 mg tablet 100 mg PO HS RF: 0 Admission Data Admit Date/Time: 07/15/19 22:26 Attending Provider: Reanna Go Admit Provider: Shaun Garcia Primary Care Provider: John Roa Other Providers: Shaun Garcia ; Tesha Sanchez
[2019-07-17] MEDS ORDERED: STROKE PATIENT DISCHARGE STA (16:50)
--- NOTE | 2019-07-23 06:17 | Discharge Summary ---
Date of Service July 23, 2019 Admission HPI Per Admitting Provider HISTORY OF PRESENT ILLNESS: This is a 74-year-old female with past medical history significant for chronic hypoxic respiratory failure, COPD, questionable possible interstitial lung disease, hypothyroidism, right pulmonary nodule, history of SVT, GERD, depression, bipolar disorder, history of tobacco abuse, history of brain aneurysm repair a few years back in [place]. The patient says after the procedure she had stroke and she could not walk, could not talk for some time and after that she also had few TIAs. She moved to [place] about 2 years ago to live close with her son. Son lives about 5 miles from her house. Son and [id number] went to [place] about 8 days ago and they would come back tomorrow. She plays solitaire and puzzles online. At 11:00am, she started to play and they were easy puzzles where she could not figure it out. She seemed confused. She states when she was walking she was falling into the palmer and she felt very cold. She went to bed and put a quilt and slept and then she called her friend and she advised to call the doctor. She called her PCP and advised to come to the ER . Seems she is back to her baseline. Seems her episode lasted a few hours. Her initial CT of the head and CTA of the head and neck are unremarkable. Vitals are stable, labs are okay. So we are consulted for admitting her for workup for stroke-like symptoms. She also recently saw pulmonary for her lung disease and the plan is for CAT scan in the near future. The patient has a cane at home, but she ambulates without any help. Currently, she is having headache. She is requesting for some pain medication. No blurred visions, no earache. She always has a runny nose, no sore throat. She on and off sometimes gets difficulty swallowing both solids and liquids. No cough, no shortness of breath, no nausea, no vomiting, no chest pain, no abdominal pain. She always has chronic diarrhea. She uses Imodium at home. She did not check color of her stools recently. Normal bladder movements. No burning micturitions, no hematuria. She says she lately has some ankle swelling, no rash. Currently, resting comfortably and hemodynamically stable. Admission Exam Per Admitting Provider PHYSICAL EXAMINATION: GENERAL: The patient is of moderate build, not in acute distress. VITAL SIGNS: Temperature 36.8, pulse 59, respiratory rate 15, blood pressure 141/71, oxygen 100% on 2 liters. HEENT: No pallor, no icterus. Pupils equal, round, reactive to light. Extraocular muscles intact. NECK: No JVD, no neck masses, no carotid bruits. CARDIOVASCULAR: S1, S2 heard, regular rate and rhythm, no murmur, no gallop. RESPIRATORY SYSTEM: Normal AP diameter. No accessory muscle use. No wheezing, no crackles. ABDOMEN: Soft, bowel sounds present, nontender. No distention. CENTRAL NERVOUS SYSTEM: Alert and oriented x3. Recent and remote memory intact. Power 5/5 in all extremities. Sensation is intact. Position is intact. Coordination of movements normal. No pronator drift. Fjmktp-vf-kodf test normal. EXTREMITIES: No edema, no erythema. Principal Diagnosis TIA Uncontrolled migraine headaches Discharge Data Allergies Allergy/AdvReac Type Severity Reaction Status Date / Time albuterol Allergy Severe CONVULSIONS Verified 07/16/19 12:14 latex Allergy Severe ITCH/RASH/H Verified 07/15/19 17:49 MAIA acetaminophen Allergy Intermediate ITCH ALL Verified 07/15/19 17:49 OVER hydroxyzine AdvReac Severe MOOD Verified 07/16/19 10:25 SWINGS / OUT OF CONTROL Consultations 07/15/19 21:03 ED Decision to Admit Stat 07/15/19 23:32 Consult Case Management - Discharge Planning Routine Consult Case Management - Discharge Planning Routine 07/16/19 08:00 Consult Neurology Routine Ordered Studies 07/15/19 17:57 CT angio head w con Stat CT angio neck with con Stat CT head/brain wo con Stat 07/16/19 05:02 MR brain wo/w con Routine Hospital Course (1) TIA (transient ischemic attack): (2) Headache: 34-year-old female presented to the ER after periods of confusion while at home alone. She was admitted to the hospitalist service for workup of stroke. Initial work-up with CT studies, including vascular studies, were unremarkable. Neurology consultation was placed. Brain MRI revealed no acute intracranial abnormality, no abnormal enhancement and chronic appearing findings. She was seen by physical and Occupational Therapy and deemed safe to return home. She was seen by speech therapy and they regular diet was continued with aspiration precautions recommended. No overt aspiration was noted on evaluation. An echocardiogram with bubble study was performed revealing no evidence of atrial septal defect. Study notes the resolution of the test did not allow assessment for patent foramen ovale. Left ventricular wall motion was normal and a calculated EF was 69%. The patient was always also reporting daily headaches and using Fioricet or NSAIDs for these she has a history of migraine headaches with visual aura. She reported to neurology that she was having a severe headache at the time of her confusion at home. Gabapentin was initially recommended for headache prophylaxis, however, after speaking with the patient she has dysequilibrium at baseline. Topamax was thought to be a better alternative to this, however, the patient was more comfortable with the primary care doctor starting this. Of note, gabapentin was the initial recommendation for headache prophylaxis in the post-aneurysm setting. Neurology recommended avoiding narcotics or Fioricet and a routine EEG as outpatient. Differential diagnosis for the episode at home included but was not limited to migraine headache with aura versus TIA. At time of discharge she was placed on a baby aspirin daily and should follow-up with neurology. At time of discharge a heyb-ea-miee examination was performed revealing hemodynamically stable and afebrile patient whose headache was controlled. Neurology exam revealed no gross focal deficits. Heart and lung exam were otherwise normal. She was mentating ambulating at baseline. She was discharged in stable condition with close primary care follow-up recommended. Total Time Total Time Spent Total Time Spent (In Minutes): 60 Total Time Includes: Examination of the Patient, Discharge Planning, Medication Reconciliation and Communication With Other Providers Discharge Plan Discharge Items Patient Disposition: Home - Home Health Services Reason For Visit: STROKE LIKE SYMPTOMS Discharge Diagnosis: TIA Uncontrolled migraine headaches Condition on Discharge: Good Goals: Achieve control of daily headaches. Activity: Resume your previous activity Non-emergency contact: Primary Care Provider and Neurologist Call non-emergency contact if: you have any medication questions, your symptoms worsen, your pain is not controlled, your pain is worsening, your pain is unusual for you and your pain is concerning for you Follow-up/Referrals: John Roa MD [Primary Care Provider] - Tesha Sanchez MD [Physician] - Diet: Heart Healthy Addtl Attending Provider Instructions: Risk Factors for Stroke: You can reduce your chances of stroke by working with your medical provider to adopt a healthy lifestyle. Some specific ways to lower your chance of stroke are: * If you are a smoker, now is the time to stop smoking cigarettes * If you are diabetic, improve the control of your blood sugars * Avoid excessive amounts of alcohol * Control high blood pressure * Lose weight if you are overweight * Be sure to lead an active lifestyle * Eat a healthy diet low in salt, cholesterol and fat You should know about other risk factors for stroke that you are unable to control. These include: * Age 55 years or older * Male gender * Certain racial groups: , or / * Family History of Stroke, Mini stroke or Heart Attack * Sickle Cell Disease Follow Up: It is important for you to keep your follow up appointments with your medical provider. Who to Call and When: Medical Emergencies: Call 911 immediately if you experience any of the following warning signs and symptoms of Stroke: * Sudden numbness or weakness of the face, arm or leg, especially on one side of the body * Sudden confusion, trouble speaking or understanding * Sudden trouble seeing in one or both eyes * Sudden trouble walking, dizziness, loss of balance or coordination * Sudden severe headache with no cause Do not delay calling 911 if you experience any warning signs or symptoms of a stroke. Delay in seeking medical attention may affect what treatments can be given to you. . Please take all medications as instructed on discharge list below. It is recommended that you follow-up with your primary care provider within 1 week of discharge from the hospital. Please discuss using TOPIRAMATE as a possible medication to prevent daily headaches, which was a recommendation by the Neurologist who saw you in the hospital. The following appointment has been booked for you: 07/22/2019 2:20 PM John Roa MD [facility] Please follow-up with [facility] Neurology in 4 to 6 weeks for continued management of your headache medications. It is recommended that you undergo an outpatient electroencephalogram (EEG), which can be ordered by your neurologist. Please continue to work with your providers to avoid taking narcotics such as oxycodone for headache treatment. It was a pleasure taking care of you! Please call if you have any questions or problems. You can reach a [facility] Hospitalist on duty at [facility] 24 hours a day by calling [phone]. Take care of yourself. Reanna Go, [facility] Hospitalist Pending Studies at Discharge: No Stand-Alone Forms: My [facility] Medications and DC Order Prescriptions: New aspirin 81 mg tablet,delayed release (DR/EC) 81 mg PO DAILY Qty: 90 RF: 1 Continued multivitamin Tablet 1 tab PO DAILY RF: 0 primidone [Mysoline] 50 mg tablet 100 mg PO HS RF: 0 cyanocobalamin (vitamin B-12) [Vitamin B-12] 100 mcg Tablet 100 mcg PO DAILY RF: 0 albuterol sulfate 2.5 mg /3 mL (0.083 %) Solution For Nebulization 2.5 mg INHALATION Q4 PRN (Reason: Shortness Of Breath Or Wheezing) RF: 0 loperamide [Imodium A-D] 2 mg Capsule 1 mg PO DAILY PRN (Reason: Diarrhea) RF: 0 alprazolam [Xanax] 1 mg Tablet 1 mg PO BID PRN (Reason: nerves) RF: 0 sertraline [Zoloft] 50 mg tablet 50 mg PO DAILY RF: 0 levothyroxine 112 mcg tablet 112 mcg PO DAILY RF: 0 coenzyme Q10 [CoQ-10] 100 mg Capsule 50 mg PO DAILY RF: 0 cholestyramine (with sugar) [Questran] 4 gram powder in packet 4 g PO BID PRN (Reason: Constipation) RF: 0 [id number]-njlcywzggdkoq-eguv [Fioricet] 50-300-40 mg Capsule 1 cap PO TID PRN (Reason: Migraine Headache) RF: 0 turmeric root extract 500 mg Capsule 500 mg PO DAILY RF: 0 Anoro Ellipta 62.5-25 mcg/actuation blister with device 1 inh inhalation DAILY RF: 0 famotidine [Pepcid] 40 mg tablet 40 mg PO DAILY RF: 0 Discontinued trazodone 100 mg tablet 100 mg PO HS RF: 0 Discharge Orders: Discharge Order (Routine); Ordered 07/17/19 Ordered By: Reanna Go Admission Data Admit Date/Time: 07/15/19 22:26 Attending Provider: Reanna Go Admit Provider: Shaun Garcia Primary Care Provider: John Roa Other Providers: Shaun Garcia ; Tesha Sanchez ; [facility] Other Interventions: Discharge Summary Assessment (RN) Last Done: 07/17/19 17:35 DC Date/Time DO NOT enter until pt leaves facility: 07/17/19 18:01
== END 2019-07-17 18:01 | disposition home health service (06) | DRG 69 ==
LOC: ED 16:42 → 2S 22:26 → SUATTDRO 22:26 → 2S 23:13

== ENCOUNTER 2020-06-07 14:34 | Observation (INO) ==
[2020-06-07] MEDS ORDERED: ASPIRIN CHEW 324 MG PO STA (15:07)
--- NOTE | 2020-06-07 15:07 | Emergency Department Note ---
Impression & Plan Chest pain, COPD (chronic obstructive pulmonary disease), Abnormal albumin ED Provider Note NAME: ALIX ANTONY AGE: 75 SEX: F : 1945 ARRIVES VIA: Walk-In INFORMANT: Patient ED PROVIDER(S): Tahir Olivares DO CHIEF COMPLAINT: Chest pain and abnormal EKG HPI: Patient is a 75-year-old female who presents the ER referred in by PCP. Patient has been sleeping almost constantly for the past 48 hours. She notes she has only been awake for about 7 to 8 hours. She has been feeling very weak and rundown. In combination with this she has been having chest pressure over her left chest. This has been coming and going for the past 3 days. It has been fairly constant today but now has completely resolved. Pain is a 0 out of 10. Was focal over the left chest. She did have some left shoulder pain but is uncertain if this is completely related. She admits to shortness of breath as well. She does have a slight change in sputum. Always has a runny nose and no change. Chronically wearing 2 L nasal cannula. No exposure to anyone with COVID or any recent trips or travel. ROS: See above HPI for pertinent positives & negatives. A total of 10 systems reviewed and were otherwise negative. PAST MEDICAL HISTORY:See Below PAST SURGICAL HISTORY:See Below FAMILY HISTORY:See Below SOCIAL HISTORY:See Below HOME MEDICATIONS:See Below ALLERGIES:See Below VITALS:See Below PHYSICAL EXAMINATION: GENERAL: Sitting up in bed, alert, Chronically ill-appearing, disheveled on 2 L nasal cannula EYE EXAM: normal conjunctiva. OROPHARYNX: no exudate, no erythema, lips, buccal mucosa, and tongue normal and mucous membranes are moist NECK: supple, no nuchal rigidity, no adenopathy, non-tender LUNGS: Clear to auscultation. Normal chest wall mechanics HEART: no murmurs, S1 normal and S2 normal ABDOMEN: abdomen soft, non-tender, normo-active bowel sounds, no masses, no rebound or guarding. BACK: Back is symmetrical on inspection and there is no deformity, no midline tenderness, no CVA tenderness. SKIN: no rashes and no bruising UPPER EXTREMITIES: upper extremities are grossly normal. LOWER EXTREMITIES: No pitting edema. NEURO EXAM: Normal sensorium, cranial nerves II-XII grossly intact, normal speech, no gross weakness of arms, no gross weakness of legs. MEDICAL DECISION MAKING: Patient is a 75-year-old female referred in by PCP for chest pain associate with shortness of breath. Mild change in cough. Cough is chronic. Chronically on 2 L. No exposure for COVID. Labs show no significant leukocytosis or anemia. INR unremarkable. BMP low with LFTs bilirubin was unremarkable as well. Troponin was undetectable. Lipase was normal. Chest x-ray without any focal infiltrate. Patient had no pain upon arrival. She was given aspirin. She was updated at bedside. Discussed with the hospitalist for further evaluation due to her chest pain. Triage Nursing notes reviewed. Prior medical records reviewed Vital Signs: reviewed and remarkable for HTN Differential diagnosis: Differential diagnoses includes but is not limited to acute coronary syndrome, myocardial infarction, pericarditis, pulmonary embolus, aortic dissection, pneumonia, pneumothorax, musculoskeletal, shingles, esophageal. ER treatment provided: See below Diagnostics interpreted by me: ECG: Sinus bradycardia rate of 57 Normal axis No PVCs Low voltage Normal QTC T wave flattening in aVL T wave flattening is new from June 2019 Cardiac Monitoring: An order was placed for continuous cardiac monitoring. The monitor shows a rate of 62 with sinus rhythm. Laboratory studies: As stated above and show below. Imaging studies: Portable AP upright 1 view of the chest shows no focal infiltrate or pneumothorax Consultation(s): Discussed with hospitalist for further evaluation ED COURSE: Procedures: none Critical Care: None Past Med/Surg History Medical History (Updated 06/07/20 @ 19:01 by Tahir Olivares DO) Brain aneurysm COPD (chronic obstructive pulmonary disease) Depression History of CVA (cerebrovascular accident) History of migraine Hypotension Hypothyroidism IBS (irritable bowel syndrome) Interstitial lung disease Surgical History (Updated 06/07/20 @ 17:28 by Krystle Kellogg PA-C) History of brain surgery s/p coil and stent History of cholecystectomy History of colonoscopy Family History Denies family history of Diabetes Heart disease Social History Smoking Status: Former smoker Tobacco Type: Cigarettes packs per day: 1; Years Smoked: 35; Number of Years Since Quit: 10; Hx Alcohol Use: Yes Alcohol type: wine Alcohol Intake Frequency: 2-3 x/Week Hx Substance Use: No Preferred Language: Bengali Communication Ability: Effective 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 Beliefs That Will Affect Care: None marital status: Single Current Living Situation: Alone Feels Safe at Home: No Is there a partner from a previous relationship who is making you feel unsafe now?: No Allergies Allergies Allergy/AdvReac Type Severity Reaction Status Date / Time albuterol Allergy Severe CONVULSIONS Verified 06/07/20 16:20 latex Allergy Severe ITCH/RASH/H Verified 06/07/20 16:20 MAIA acetaminophen Allergy Intermediate ITCH ALL Verified 06/07/20 16:20 OVER hydroxyzine AdvReac Severe MOOD Verified 06/07/20 16:20 SWINGS / OUT OF CONTROL Home Meds Home Medications Medication Instructions Recorded Confirmed Anoro Ellipta 1 inh INHALATION Q OTHER DAY 07/15/19 06/07/20 alprazolam [Xanax] 1 mg PO BID PRN 07/15/19 06/07/20 [id number]-tzjjanxtkmwwk-[id number] 1 cap PO TID PRN 07/15/19 06/07/20 [Fioricet] cholestyramine (with sugar) 4 g PO BID PRN 07/15/19 06/07/20 [Questran] coenzyme Q10 [CoQ-10] 50 mg PO DAILY 07/15/19 06/07/20 cyanocobalamin (vitamin B-12) 100 mcg PO DAILY 07/15/19 06/07/20 [Vitamin B-12] levothyroxine 112 mcg PO DAILY 07/15/19 06/07/20 loperamide [Imodium A-D] 1 mg PO DAILY 07/15/19 06/07/20 multivitamin 1 tab PO DAILY 07/15/19 06/07/20 primidone [Mysoline] 100 mg PO HS 07/15/19 06/07/20 turmeric root extract 500 mg PO DAILY 07/15/19 06/07/20 [id number]-balfxexmq-pvqxyahb 1 inh INHALATION Q OTHER DAY 06/07/20 06/07/20 [Trelegy Ellipta] gabapentin [Neurontin] 100 mg PO AMHS 06/07/20 06/07/20 omeprazole magnesium [Prilosec OTC] 20 mg PO DAILY PRN 06/07/20 06/07/20 sertraline [Zoloft] 100 mg PO DAILY 06/07/20 06/07/20 trazodone 100 mg PO HS 06/07/20 06/07/20 Previous Rx's Medication Instructions Recorded aspirin 81 mg PO DAILY #90 tab 07/17/19 Results & Data (ED) Vital Signs Vital Signs - 24 hr 06/07/20 14:42 06/07/20 15:06 06/07/20 15:11 Temperature 36.9 C Temperature Source Oral Pulse Rate 65 54 L 55 L Pulse Rate from SpO2 Sensor Respiratory Rate 20 18 20 Respiratory Effort / Characteristics Non-Labored Spontaneous Respiratory Depth Normal Blood Pressure 158/74 H 128/112 H Blood Pressure Mean 102 117 Blood Pressure Position Sitting Pulse Oximetry 96 96 Oxygen Delivery Method Nasal Cannula Oxygen Flow Rate 2 Sepsis Recent Fever Within 48 Hours No Sepsis New/Unexplained Change in Mental Status N/A Sepsis Action Taken by Nursing No Action Required 06/07/20 15:12 06/07/20 15:16 06/07/20 15:30 Temperature Temperature Source Pulse Rate 58 L 55 L 65 Pulse Rate from SpO2 Sensor 58 L 61 Respiratory Rate 20 Respiratory Effort / Characteristics Respiratory Depth Blood Pressure Blood Pressure Mean Blood Pressure Position Pulse Oximetry 97 95 92 Oxygen Delivery Method Room Air Oxygen Flow Rate Sepsis Recent Fever Within 48 Hours Sepsis New/Unexplained Change in Mental Status Sepsis Action Taken by Nursing 06/07/20 15:31 06/07/20 15:32 06/07/20 16:00 Temperature Temperature Source Pulse Rate 57 L 56 L 52 L Pulse Rate from SpO2 Sensor 57 L 58 L 53 L Respiratory Rate Respiratory Effort / Characteristics Respiratory Depth Blood Pressure 154/85 H 133/75 Blood Pressure Mean 122 89 Blood Pressure Position Pulse Oximetry 95 96 94 Oxygen Delivery Method Oxygen Flow Rate Sepsis Recent Fever Within 48 Hours Sepsis New/Unexplained Change in Mental Status Sepsis Action Taken by Nursing 06/07/20 16:01 06/07/20 16:30 06/07/20 16:31 Temperature Temperature Source Pulse Rate 54 L 52 L 54 L Pulse Rate from SpO2 Sensor 54 L 52 L 55 L Respiratory Rate Respiratory Effort / Characteristics Respiratory Depth Blood Pressure 146/66 H Blood Pressure Mean 89 Blood Pressure Position Pulse Oximetry 94 99 99 Oxygen Delivery Method Nasal Cannula Nasal Cannula Oxygen Flow Rate 2 2 Sepsis Recent Fever Within 48 Hours Sepsis New/Unexplained Change in Mental Status Sepsis Action Taken by Nursing 06/07/20 17:00 06/07/20 17:01 06/07/20 17:02 Temperature Temperature Source Pulse Rate 53 L 53 L 54 L Pulse Rate from SpO2 Sensor 53 L 54 L Respiratory Rate Respiratory Effort / Characteristics Respiratory Depth Blood Pressure 132/68 Blood Pressure Mean 76 Blood Pressure Position Pulse Oximetry 100 100 Oxygen Delivery Method Nasal Cannula Nasal Cannula Oxygen Flow Rate 2 2 Sepsis Recent Fever Within 48 Hours Sepsis New/Unexplained Change in Mental Status Sepsis Action Taken by Nursing 06/07/20 17:30 06/07/20 17:31 06/07/20 18:00 Temperature Temperature Source Pulse Rate 52 L 54 L 56 L Pulse Rate from SpO2 Sensor 52 L 53 L 58 L Respiratory Rate 21 Respiratory Effort / Characteristics Respiratory Depth Blood Pressure 137/61 Blood Pressure Mean 81 Blood Pressure Position Pulse Oximetry 99 99 Oxygen Delivery Method Nasal Cannula Nasal Cannula Oxygen Flow Rate 2 2 Sepsis Recent Fever Within 48 Hours Sepsis New/Unexplained Change in Mental Status Sepsis Action Taken by Nursing 06/07/20 18:02 06/07/20 18:03 06/07/20 18:30 Temperature Temperature Source Pulse Rate 56 L 66 57 L Pulse Rate from SpO2 Sensor 57 L 56 L Respiratory Rate 23 19 17 Respiratory Effort / Characteristics Respiratory Depth Blood Pressure 96/57 L 117/68 Blood Pressure Mean 60 75 Blood Pressure Position Pulse Oximetry 100 Oxygen Delivery Method Nasal Cannula Oxygen Flow Rate 2 Sepsis Recent Fever Within 48 Hours Sepsis New/Unexplained Change in Mental Status Sepsis Action Taken by Nursing 06/07/20 18:31 Temperature Temperature Source Pulse Rate 56 L Pulse Rate from SpO2 Sensor 57 L Respiratory Rate 18 Respiratory Effort / Characteristics Respiratory Depth Blood Pressure Blood Pressure Mean Blood Pressure Position Pulse Oximetry 98 Oxygen Delivery Method Nasal Cannula Oxygen Flow Rate 2 Sepsis Recent Fever Within 48 Hours Sepsis New/Unexplained Change in Mental Status Sepsis Action Taken by Nursing Laboratory Data Result diagrams: 06/07/20 15:10 06/07/20 15:10 Lab Results 06/07/20 06/07/20 06/07/20 Range/Units 15:10 15:10 15:10 WBC 4.81 (4.8-10.8) K/uL RBC 4.15 L (4.2-5.4) M/uL Hgb 12.6 (12.0-16.0) g/dL Hct 39.2 (37-47) % MCV 94.5 (80-100) fL MCH 30.4 (25-34) pg MCHC 32.1 (32-36) g/dL RDW Std Deviation 49.0 H (36.4-46.3) fL RDW Coeff of Kimberly 14.3 (11.5-14.5) % Plt Count 236 (130-400) K/uL MPV 9.0 (7.4-10.4) fL Immature Gran % (Auto) 0.0 % Neut % (Auto) 63.2 % Lymph % (Auto) 24.7 % [place] % (Auto) 7.1 % Eos % (Auto) 4.4 % Baso % (Auto) 0.6 % Neut # (Auto) 3.04 (1.4-6.5) K/uL Lymph # (Auto) 1.19 L (1.2-3.4) K/uL [place] # (Auto) 0.34 (0.11-0.59) K/uL Eos # (Auto) 0.21 (0-0.5) K/uL Baso # (Auto) 0.03 (0-0.2) K/uL Immature Gran # (Auto) 0.00 (0.00-0.02) K/uL PT 10.2 (9.0-12.0) Seconds INR 1.0 (0.9-1.1) APTT 24.6 (21.0-31.0) Seconds PTT Ratio 0.9 ABG pH (7.35-7.45) ABG pCO2 (35-46) mmHg ABG pO2 (80-95) mmHg ABG HCO3 (19-24) mmol/L ABG O2 Saturation (90-95) % ABG Base Excess (-9-1.8) mEq/L Sharan Test (Pos) Barometric Pressure mm/Hg Oxygen Given Sodium 138 (136-145) mmol/L Potassium 3.8 (3.5-5.1) mmol/L Chloride 105 (98-107) mmol/L Carbon Dioxide 30 (21-32) mmol/L Anion Gap 3.0 (3-11) BUN 12 (7-18) mg/dl Creatinine 0.79 (0.6-1.2) mg/dl Est Cr Clr Drug Dosing 68.8 ml/min Est GFR ( Amer) 85.5 Est GFR (Non-Af Amer) 73.7 BUN/Creatinine Ratio 14.6 (10-20) Glucose 74 (70-99) mg/dl Calcium 9.5 (8.5-10.1) mg/dl Total Bilirubin 0.4 (0.2-1) mg/dl AST 18 (15-37) U/L ALT 33 (12-78) U/L Alkaline Phosphatase 119 H (45-117) U/L Total Creatine Kinase (26-192) U/L Troponin I < 0.015 (0-0.045) ng/ml Total Protein 7.0 (6.4-8.2) gm/dl Albumin 3.3 L (3.4-5.0) gm/dl Globulin 3.7 (2.5-4.0) gm/dl Albumin/Globulin Ratio 0.9 (0.9-2) Lipase 90 (73-393) U/L TSH (0.300-4.500) uIu/ml COVID-19 Eval Order COVID-19 PCR (Negative) 06/07/20 06/07/20 06/07/20 Range/Units 15:10 17:24 17:34 WBC (4.8-10.8) K/uL RBC (4.2-5.4) M/uL Hgb (12.0-16.0) g/dL Hct (37-47) % MCV (80-100) fL MCH (25-34) pg MCHC (32-36) g/dL RDW Std Deviation (36.4-46.3) fL RDW Coeff of Kimberly (11.5-14.5) % Plt Count (130-400) K/uL MPV (7.4-10.4) fL Immature Gran % (Auto) % Neut % (Auto) % Lymph % (Auto) % [place] % (Auto) % Eos % (Auto) % Baso % (Auto) % Neut # (Auto) (1.4-6.5) K/uL Lymph # (Auto) (1.2-3.4) K/uL [place] # (Auto) (0.11-0.59) K/uL Eos # (Auto) (0-0.5) K/uL Baso # (Auto) (0-0.2) K/uL Immature Gran # (Auto) (0.00-0.02) K/uL PT (9.0-12.0) Seconds INR (0.9-1.1) APTT (21.0-31.0) Seconds PTT Ratio ABG pH 7.38 (7.35-7.45) ABG pCO2 48 H (35-46) mmHg ABG pO2 112 H (80-95) mmHg ABG HCO3 28 H (19-24) mmol/L ABG O2 Saturation 98.1 H (90-95) % ABG Base Excess 2.4 H (-9-1.8) mEq/L Sharan Test Pos (Pos) Barometric Pressure 729.9 mm/Hg Oxygen Given 2L Sodium (136-145) mmol/L Potassium (3.5-5.1) mmol/L Chloride (98-107) mmol/L Carbon Dioxide (21-32) mmol/L Anion Gap (3-11) BUN (7-18) mg/dl Creatinine (0.6-1.2) mg/dl Est Cr Clr Drug Dosing ml/min Est GFR ( Amer) Est GFR (Non-Af Amer) BUN/Creatinine Ratio (10-20) Glucose (70-99) mg/dl Calcium (8.5-10.1) mg/dl Total Bilirubin (0.2-1) mg/dl AST (15-37) U/L ALT (12-78) U/L Alkaline Phosphatase (45-117) U/L Total Creatine Kinase 39 (26-192) U/L Troponin I (0-0.045) ng/ml Total Protein (6.4-8.2) gm/dl Albumin (3.4-5.0) gm/dl Globulin (2.5-4.0) gm/dl Albumin/Globulin Ratio (0.9-2) Lipase (73-393) U/L TSH 0.522 (0.300-4.500) uIu/ml COVID-19 Eval Order Covid19 Done at [facility] COVID-19 PCR (Negative) 06/07/20 Range/Units 17:34 WBC (4.8-10.8) K/uL RBC (4.2-5.4) M/uL Hgb (12.0-16.0) g/dL Hct (37-47) % MCV (80-100) fL MCH (25-34) pg MCHC (32-36) g/dL RDW Std Deviation (36.4-46.3) fL RDW Coeff of Kimberly (11.5-14.5) % Plt Count (130-400) K/uL MPV (7.4-10.4) fL Immature Gran % (Auto) % Neut % (Auto) % Lymph % (Auto) % [place] % (Auto) % Eos % (Auto) % Baso % (Auto) % Neut # (Auto) (1.4-6.5) K/uL Lymph # (Auto) (1.2-3.4) K/uL [place] # (Auto) (0.11-0.59) K/uL Eos # (Auto) (0-0.5) K/uL Baso # (Auto) (0-0.2) K/uL Immature Gran # (Auto) (0.00-0.02) K/uL PT (9.0-12.0) Seconds INR (0.9-1.1) APTT (21.0-31.0) Seconds PTT Ratio ABG pH (7.35-7.45) ABG pCO2 (35-46) mmHg ABG pO2 (80-95) mmHg ABG HCO3 (19-24) mmol/L ABG O2 Saturation (90-95) % ABG Base Excess (-9-1.8) mEq/L Sharan Test (Pos) Barometric Pressure mm/Hg Oxygen Given Sodium (136-145) mmol/L Potassium (3.5-5.1) mmol/L Chloride (98-107) mmol/L Carbon Dioxide (21-32) mmol/L Anion Gap (3-11) BUN (7-18) mg/dl Creatinine (0.6-1.2) mg/dl Est Cr Clr Drug Dosing ml/min Est GFR ( Amer) Est GFR (Non-Af Amer) BUN/Creatinine Ratio (10-20) Glucose (70-99) mg/dl Calcium (8.5-10.1) mg/dl Total Bilirubin (0.2-1) mg/dl AST (15-37) U/L ALT (12-78) U/L Alkaline Phosphatase (45-117) U/L Total Creatine Kinase (26-192) U/L Troponin I (0-0.045) ng/ml Total Protein (6.4-8.2) gm/dl Albumin (3.4-5.0) gm/dl Globulin (2.5-4.0) gm/dl Albumin/Globulin Ratio (0.9-2) Lipase (73-393) U/L TSH (0.300-4.500) uIu/ml COVID-19 Eval Order COVID-19 PCR NEGATIVE (Negative) Administered Medications Discontinued Medications Aspirin (Aspirin Chew 324 Mg) 324 mg PO NOW STA Stop: 06/07/20 15:08 Last Admin: 06/07/20 15:22 Dose: 324 mg Documented by: [id number] Sodium Chloride (Nss 1000ml) 1,000 mls @ 999 mls/hr IV .Q1H1M BEENA Stop: 06/07/20 16:15 Last Infusion: 06/07/20 16:29 Dose: 0 mls/hr Documented by: [id number] Admin: 06/07/20 15:22 Dose: 999 mls/hr Documented by: [id number] Discharge Plan Visit Data Chief Complaint: Cardiac Assessment Stated Complaint: SENT BY DR - HEART PAIN ED Provider: Tahir Olivares Discharge Problem: Chest pain, COPD (chronic obstructive pulmonary disease), Abnormal albumin Discharge Instructions Soniyames/Other Patient Handouts: 2019-nCoV Forms Stand Alone Forms: My Mosa Records Prescriptions Prescriptions: No Action multivitamin Tablet 1 tab PO DAILY RF: 0 primidone [Mysoline] 50 mg tablet 100 mg PO HS RF: 0 cyanocobalamin (vitamin B-12) [Vitamin B-12] 100 mcg Tablet 100 mcg PO DAILY RF: 0 loperamide [Imodium A-D] 2 mg Capsule 1 mg PO DAILY RF: 0 alprazolam [Xanax] 1 mg Tablet 1 mg PO BID PRN (Reason: nerves) RF: 0 levothyroxine 112 mcg tablet 112 mcg PO DAILY RF: 0 coenzyme Q10 [CoQ-10] 100 mg Capsule 50 mg PO DAILY RF: 0 cholestyramine (with sugar) [Questran] 4 gram powder in packet 4 g PO BID PRN (Reason: Constipation) RF: 0 zkgdnrjybv-aihklkjrpgqdm-pfiy [Fioricet] 50-300-40 mg Capsule 1 cap PO TID PRN (Reason: Migraine Headache) RF: 0 turmeric root extract 500 mg Capsule 500 mg PO DAILY RF: 0 Anoro Ellipta 62.5-25 mcg/actuation blister with device 1 inh inhalation Q OTHER DAY RF: 0 aspirin 81 mg tablet,delayed release (DR/EC) 81 mg PO DAILY Qty: 90 RF: 1 sertraline [Zoloft] 100 mg tablet 100 mg PO DAILY RF: 0 trazodone 100 mg tablet 100 mg PO HS RF: 0 gabapentin [Neurontin] 100 mg capsule 100 mg PO AMHS RF: 0 omeprazole magnesium [Prilosec OTC] 20 mg Tablet,Delayed Release (Dr/Ec) 20 mg PO DAILY PRN (Reason: Acid Reflux) RF: 0 Trelegy Ellipta 100-62.5-25 mcg blister with device 1 inh INHALATION Q OTHER DAY RF: 0 Referrals Referrals: John Roa MD [Primary Care Provider] - Discharge Problem: Chest pain Qualifiers: Chest pain type: unspecified Qualified Code(s): R07.9 - Chest pain, unspecified COPD (chronic obstructive pulmonary disease) Qualifiers: COPD type: unspecified COPD Qualified Code(s): J44.9 - Chronic obstructive pulmonary disease, unspecified
[2020-06-07] MEDS ORDERED: SODIUM CHLORIDE 0.9% 1000ML 1,000 ML IV SCH (15:15)
[2020-06-07 15:22] LABS: Basophils # (auto) 0.03 K/uL (0-0.2); Basophils % (auto) 0.6 %; Eosinophils # (auto) 0.21 K/uL (0-0.5); Eosinophils % (auto) 4.4 %; Hematocrit (blood only) 39.2 % (37-47); Hemoglobin 12.6 g/dL (12.0-16.0); Lymphocytes # (auto) 1.19 K/uL (1.2-3.4); Lymphocytes % (auto) 24.7 %; Mean Corpuscular Hemoglobin 30.4 pg (25-34); Mean Corpuscular Hgb Conc 32.1 g/dL (32-36); Mean Corpuscular Volume 94.5 fL (80-100); Monocytes # (auto) 0.34 K/uL (0.11-0.59); Monocytes % (auto) 7.1 %; Neutrophils # (auto) 3.04 K/uL (1.4-6.5); Neutrophils % (auto) 63.2 %; Platelet Count 236 K/uL (130-400); RDW Coefficient of Variation 14.3 % (11.5-14.5); Red Blood Count 4.15 M/uL (4.2-5.4); White Blood Count 4.81 K/uL (4.8-10.8)
--- NOTE | 2020-06-07 15:30 | XRay Report ---
XR chest 1V portable HISTORY: 75 years-old Female Chest Pain acute atypical chest pain COMPARISON: Chest radiograph 11/17/2017 TECHNIQUE: Portable AP view of the chest FINDINGS: Cardiomediastinal and hilar silhouettes are within normal limits. Calcified plaque of the thoracic ao rtic arch. No pneumothorax, pleural effusion, airspace consolidation or overt pulmonary edema. Degene rative changes of the shoulders and spine. IMPRESSION: No acute process. ACT 112: Negative or not required by law. The above report was generated using voice recognition software. It may contain grammatical, syntax o r spelling errors. Electronically signed by: Rakesh Serrano M.D. 06/07/2020 3:29 PM
[2020-06-07 15:35] LABS: Partial Thromboplastin Ratio 0.9; Partial Thromboplastin Time 24.6 Seconds (21.0-31.0); Prothrombin Time 10.2 Seconds (9.0-12.0)
[2020-06-07 15:39] LABS: Alanine Aminotransferase 33 U/L (12-78); Albumin Level 3.3 gm/dl (3.4-5.0); Aspartate Aminotransferase 18 U/L (15-37); BUN Creatinine Ratio 14.6 (10-20); Blood Urea Nitrogen 12 mg/dl (7-18); Calcium 9.5 mg/dl (8.5-10.1); Carbon Dioxide 30 mmol/L (21-32); Chloride 105 mmol/L (98-107); Creatinine Clr Calc Pharmacy 68.8 ml/min; Est GFR (African American) 85.5; Est GFR (Non-African American) 73.7; Glucose 74 mg/dl (70-99); Lipase 90 U/L (73-393); Potassium 3.8 mmol/L (3.5-5.1); Sodium 138 mmol/L (136-145)
[2020-06-07 15:43] LABS: Albumin Globulin Ratio 0.9 (0.9-2); Alkaline Phosphatase 119 U/L (45-117); Bilirubin,Total 0.4 mg/dl (0.2-1); Globulin 3.7 gm/dl (2.5-4.0); Troponin I < 0.015 ng/ml (0-0.045)
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
[2020-06-07 17:34] LABS: Allen Test Pos (Pos); Base Excess ABG 2.4 mEq/L (-9-1.8); HCO3 ABG 28 mmol/L (19-24); Oxygen Saturation ABG 98.1 % (90-95); PCO2 ABG 48 mmHg (35-46); PO2 ABG 112 mmHg (80-95); pH ABG 7.38 (7.35-7.45)
[2020-06-07 17:59] LABS: Thyroid Stimulating Hormone 0.522 uIu/ml (0.300-4.500)
[2020-06-07] MEDS ORDERED: ALPRAZolam 0.5 MG TABLET PO PRN (19:41)
[2020-06-07] MEDS ORDERED: ONDANSETRON INJ 2 MG/ML 2 ML VIAL IV PRN (19:41)
[2020-06-07] MEDS ORDERED: POLYETHYLENE (MIRALAX) 17 GM PACK PO PRN (19:41)
[2020-06-07] MEDS ORDERED: ALUMINUM/MAGNESIUM SUSP 30 ML UDC PO PRN (19:41)
[2020-06-07] MEDS ORDERED: NITROGLYCERIN SL 0.4 MG/TAB TAB SL PRN (19:41)
[2020-06-07] MEDS ORDERED: CHOLESTYRAMINE LIGHT 4 GM PKT PO PRN (19:53)
[2020-06-07] MEDS ORDERED: PANTOprazole 40 MG TAB PO PRN (19:56)
[2020-06-07] MEDS ORDERED: PRIMIDONE 50 MG TAB PO SCH (21:00)
[2020-06-07] MEDS ORDERED: TRAZODONE HCL 100 MG TAB PO SCH (21:00)
[2020-06-07] MEDS: predniSONE 20 MG TAB PO SCH (21:16)
[2020-06-07] MEDS: GABAPENTIN 100 MG CAP PO SCH (21:18)
[2020-06-07] MEDS: DOXYCYCLINE HYCLATE 100 MG CAP PO SCH (21:18)
[2020-06-07 21:33] LABS: Appearance Urine Clear (Clear); Bilirubin Urine Negative (Negative); Blood Urine Trace (Negative); Color Urine Yellow; Glucose Urine UA Negative (Negative); Ketones Urine Negative (Negative); Leukocyte Esterase Urine Trace (Negative); Nitrite Urine Negative (Negative); Protein Urine Negative (Negative); Specific Gravity Urine 1.015 (1.000-1.030); Urobilinogen Urine Negative (Negative)
[2020-06-07 21:42] LABS: Bacteria Urine Negative (Negative); Hyaline Casts Urine 0-5 /lpf (0-5); RBC Urine 0-4 /hpf (0-4); WBC Urine 0-5 /hpf (0-5)
[2020-06-07 21:54] LABS: Amphetamines+Metham, Urine Neg (Neg); Barbiturates, Urine Pos (Neg); Benzodiazepine, Urine Pos (Neg); Cocaine, Urine Neg (Neg); MDMA (Ecstacy), Urine Neg (Neg); Methadone, Urine Neg (Neg); Opiate, Urine Neg (Neg); Phencyclidine, Urine Neg (Neg)
[2020-06-07] MEDS ORDERED: GUAIFENESIN/CODEINE 200MG/20MG 10ML UDC PO PRN (22:25)
[2020-06-07] MEDS ORDERED: GUAIFENESIN/CODEINE 200MG/20MG 10ML UDC PO ONE (22:30)
[2020-06-07] MEDS ORDERED: SERTRALINE HCL 100 MG TABLET PO SCH (22:30)
--- NOTE | 2020-06-08 00:07 | Electrocardiogram Report ---
Test Reason : Blood Pressure : / mmHG Vent. Rate : 057 BPM Atrial Rate : 057 BPM P-R Int : 156 ms QRS Dur : 084 ms QT Int : 404 ms P-R-T Axes : 076 -05 059 degrees QTc Int : 393 ms Sinus bradycardia with Premature supraventricular complexes Low voltage QRS Possible Inferior infarct , age undetermined Abnormal ECG When compared with ECG of 15-JUL-2019 16:58, Premature supraventricular complexes are now Present Borderline criteria for Inferior infarct are now Present Nonspecific T wave abnormality no longer evident in Anterior leads Confirmed by Rene Spann ([id number]) on 06/08/2020 12:07:29 AM Referred By: REFERRED SELF Confirmed By:Rene Spann
[2020-06-08 03:29] LABS: Chol HDL Ratio 2; Cholesterol 204 mg/dl (0-200); HDL Cholesterol 86 mg/dl; LDL Cholesterol Calculated 105 mg/dl; Triglycerides 65 mg/dl (0-150); Troponin I < 0.015 ng/ml (0-0.045); VLDL Cholesterol 13 mg/dl
[2020-06-08] MEDS: BUTALBITAL/ACETAMIN/CAFFEINE TAB PO PRN ×2 (05:50→11:10)
[2020-06-08 05:56] LABS: Estimated Average Glucose 88 mg/dl; Hemoglobin A1C 4.7 % (4.5-5.6)
[2020-06-08] MEDS ORDERED: LEVOTHYROXINE SODIUM 112 MCG TABLET PO SCH (06:30)
--- NOTE | 2020-06-08 07:50 | Hospitalist Progress Note ---
Date of Service June 08, 2020 Assessment & Plan (1) Chest pain: This is a 75-year-old female who has significant past medical history of chronic respiratory failure secondary to COPD on 2.5 L of O2, hypothyroidism, bipolar disorder, depression, GERD, history of TIA, migraine, mitral regurg who presents to ED secondary to chest pain x1.5 days of hypersomnolence x2 days. In ED she remained hemodynamically stable. Her lab work was generally unremarkable including CBC, CMP, troponin WNL. Chest x-ray revealed no acute process. She received ASA 325mg while in ED. She has been chest pain free while in ED. EKG revealed 57 bpm, sinus bradycardia, low voltage QRS, PAC, QTC 393 MS, no ST or T wave changes. Chest pain reproducible. CP possibly secondary to MSK but must rule out ACS vs arrhythmia given pt complaint of palpitations Chest pain although constant past 1.5 days is not new and patient has been experiencing off and on for some time. Pt does appear to be anxious. Currently denies any chest pain. Admitted to [facility] troponins x3 - negative repeat ECG unremarkable Consulted cardiology -believe her chest pain is noncardiac, musculoskeletal in origin, no further testing recommended Placed on prednisone for COPD, which may help if related to inflammation from MSK continue daily ASA obtained lipid panel, a1c 4.7% (2) Chronic respiratory failure: on 2.5L O2 via NC 2/2 to COPD no increase O2 requirement (3) COPD exacerbation: Follows [facility] pulmonology Recently stepped up from anoro to Trelegy Allergy to ZULEMA pt reports worsening shortness of breath, wheezing and increased sputum production, no wheezing on my exam Currently breathing comfortably, on her baseline oxygen Placed on oral prednisone 40 mg daily x5 days and doxycycline 100 mg twice daily x7 days pt requested covid testing on admission, this was negative (4) Hypersomnolence: Patient reports hypersomnolence for the past 48 hours, sleeping well but 7 to 8 hours on admission Patient is now alert and oriented ABG without hypercapnia, unremarkable, TSH wnl Monitor (5) Hypothyroidism: continue levothyroxine check tsh (6) History of migraine: Had SAINI this AM, responded to fioricet prn fioricet Discussed possible polypharmacy with the patient, recommend follow-up with PCP (7) Depression: pt tearful, mood otherwise stable continue zoloft, trazodone pt with hx of bipoloar disorder Discussed possible polypharmacy with the patient, and recommended follow-up with PCP (8) DVT prophylaxis: SCDS/TEDS Disposition:d/c home Follow up: PCP Dr. Roa upon discharge Admission and Anticipated Discharge Date Admission Date: June 07, 2020 Subjective Patient is currently lying in bed, in no acute distress. She had her echocardiogram done, and was evaluated by cardiology. Chest pain believed to be musculoskeletal in nature, troponins were negative. Echocardiogram unremarkable. Currently denies any chest pain, shortness of breath, abdominal pain, nausea vomiting. She is complaining of headache. States that her breathing is been getting progressively worse, however she remains on her home baseline oxygen. Denies any fevers or chills. Occasionally gets teary, says that COVID time has been very difficult for her, as she lives alone. She does have a son who visits her about every 2 weeks. Review of Systems Review of Systems: All systems reviewed & are unremarkable except as noted in HPI & below Constitutional: no fever and no chills Respiratory: no cough and no dyspnea Cardiovascular: no chest pain and no palpitations Gastrointestinal: no abdominal pain and no vomiting Physical Exam Physical Exam: Constitutional: WD/WN, female sitting up in bed, vitals as above, NAD Head: Normocephalic, Atraumatic Eyes: PERRL, conjunctivae normal, anicteric sclerae ENMT: external ear and nose normal, oropharynx normal Neck: trachea midline, no thyromegaly normal visual inspection Respiratory: normal respiratory effort, lungs clear to auscultation, no wheeze, rales, rhonchi. Normal insp/exp effort, no accessory muscle use Cardiovascular: RRR, no murmur, no edema Vessels: no JVD or carotid bruit Chest: normal inspection of chest, pain to palpation of left anterior chest wall and pain with range of motion to left upper extremity Abdomen: normal bowel sounds, soft, nontender Musculoskeletal: no cyanosis or clubbing, extremities motor strength 5/5 Skin: no rashes, warm and dry normal turgor Neurologic: PERRL, EOMI, accommodation nl, no face palsy, no dysarthria CN's II-XI intact bilaterally and moves all extremities Psychiatric: A+Ox3, euthymic affect Results & Data Results & Data (MN) Vital Signs (Past 12 Hours) Vital Signs Temp Pulse Pulse Resp BP Pulse Ox 06/08/20 04:50 36.6 C 59 L 18 97/64 L 97 06/08/20 01:15 57 L 06/07/20 23:33 36.6 C 57 L 18 142/63 H 95 Laboratory Results 06/08/20 06/08/20 06/08/20 Range/Units 02:51 02:51 02:51 WBC (4.8-10.8) K/uL RBC (4.2-5.4) M/uL Hgb (12.0-16.0) g/dL Hct (37-47) % MCV (80-100) fL MCH (25-34) pg MCHC (32-36) g/dL RDW Std Deviation (36.4-46.3) fL RDW Coeff of Kimberly (11.5-14.5) % Plt Count (130-400) K/uL MPV (7.4-10.4) fL Immature Gran % (Auto) % Neut % (Auto) % Lymph % (Auto) % Bartholomew % (Auto) % Eos % (Auto) % Baso % (Auto) % Neut # (Auto) (1.4-6.5) K/uL Lymph # (Auto) (1.2-3.4) K/uL Bartholomew # (Auto) (0.11-0.59) K/uL Eos # (Auto) (0-0.5) K/uL Baso # (Auto) (0-0.2) K/uL Immature Gran # (Auto) (0.00-0.02) K/uL PT (9.0-12.0) Seconds INR (0.9-1.1) APTT (21.0-31.0) Seconds PTT Ratio ABG pH (7.35-7.45) ABG pCO2 (35-46) mmHg ABG pO2 (80-95) mmHg ABG HCO3 (19-24) mmol/L ABG O2 Saturation (90-95) % ABG Base Excess (-9-1.8) mEq/L Sharan Test (Pos) Barometric Pressure mm/Hg Oxygen Given Sodium (136-145) mmol/L Potassium (3.5-5.1) mmol/L Chloride (98-107) mmol/L Carbon Dioxide (21-32) mmol/L Anion Gap (3-11) BUN (7-18) mg/dl Creatinine (0.6-1.2) mg/dl Est Cr Clr Drug Dosing ml/min Est GFR ( Amer) Est GFR (Non-Af Amer) BUN/Creatinine Ratio (10-20) Glucose (70-99) mg/dl Estimat Average Glucose 88 mg/dl Hemoglobin A1c 4.7 (4.5-5.6) % Calcium (8.5-10.1) mg/dl Total Bilirubin (0.2-1) mg/dl AST (15-37) U/L ALT (12-78) U/L Alkaline Phosphatase (45-117) U/L Total Creatine Kinase (26-192) U/L Troponin I < 0.015 (0-0.045) ng/ml Total Protein (6.4-8.2) gm/dl Albumin (3.4-5.0) gm/dl Globulin (2.5-4.0) gm/dl Albumin/Globulin Ratio (0.9-2) Triglycerides 65 (0-150) mg/dl Cholesterol 204 H (0-200) mg/dl LDL Cholesterol, Calc 105 mg/dl VLDL Cholesterol, Calc 13 mg/dl HDL Cholesterol 86 mg/dl Cholesterol/HDL Ratio 2 Lipase (73-393) U/L TSH (0.300-4.500) uIu/ml Urine Color Urine Appearance (Clear) Urine pH (4.5-7.5) Ur Specific [place] (1.000-1.030) Urine Protein (Negative) Urine Glucose (UA) (Negative) Urine Ketones (Negative) Urine Blood (Negative) Urine Nitrite (Negative) Urine Bilirubin (Negative) Urine Urobilinogen (Negative) Ur Leukocyte Esterase (Negative) Urine RBC (0-4) /hpf Urine WBC (0-5) /hpf Ur Epithelial Cells (0-5) /lpf Urine Bacteria (Negative) Hyaline Casts (0-5) /lpf Urine Butalbital Urine Opiates Screen (Neg) Ur Methadone, Qual (Neg) Urine Barbiturates (Neg) Ur Phencyclidine (PCP) (Neg) U Amphetamin/Meth Scrn (Neg) MDMA (Ecstasy) Screen (Neg) Urine Amobarbital Urine Pentobarbital Urine Phenobarbital Urine Secobarbital U OH-Alprazolam Confrm U Benzodiazepines Scrn (Neg) 7-Amino Clonazepam Ur Nordiazepam Confirm U OH-ethylflurazepam U Lorazepam Cnf GC/MS U Oxazepam Confm GC/MS Ur Temazepam Confirm U OH-Triazolam Confirm U OH-Midazolam Confirm Ur Cocaine Metabolite (Neg) U Marijuana (THC) Screen (Neg) Drug Screen Comment COVID-19 Eval Order COVID-19 PCR (Negative) Hepatitis C Ab Screen Neg (Neg) 06/07/20 06/07/20 06/07/20 Range/Units 21:00 21:00 21:00 WBC (4.8-10.8) K/uL RBC (4.2-5.4) M/uL Hgb (12.0-16.0) g/dL Hct (37-47) % MCV (80-100) fL MCH (25-34) pg MCHC (32-36) g/dL RDW Std Deviation (36.4-46.3) fL RDW Coeff of Kimberly (11.5-14.5) % Plt Count (130-400) K/uL MPV (7.4-10.4) fL Immature Gran % (Auto) % Neut % (Auto) % Lymph % (Auto) % Bartholomew % (Auto) % Eos % (Auto) % Baso % (Auto) % Neut # (Auto) (1.4-6.5) K/uL Lymph # (Auto) (1.2-3.4) K/uL Bartholomew # (Auto) (0.11-0.59) K/uL Eos # (Auto) (0-0.5) K/uL Baso # (Auto) (0-0.2) K/uL Immature Gran # (Auto) (0.00-0.02) K/uL PT (9.0-12.0) Seconds INR (0.9-1.1) APTT (21.0-31.0) Seconds PTT Ratio ABG pH (7.35-7.45) ABG pCO2 (35-46) mmHg ABG pO2 (80-95) mmHg ABG HCO3 (19-24) mmol/L ABG O2 Saturation (90-95) % ABG Base Excess (-9-1.8) mEq/L Sharan Test (Pos) Barometric Pressure mm/Hg Oxygen Given Sodium (136-145) mmol/L Potassium (3.5-5.1) mmol/L Chloride (98-107) mmol/L Carbon Dioxide (21-32) mmol/L Anion Gap (3-11) BUN (7-18) mg/dl Creatinine (0.6-1.2) mg/dl Est Cr Clr Drug Dosing ml/min Est GFR ( Amer) Est GFR (Non-Af Amer) BUN/Creatinine Ratio (10-20) Glucose (70-99) mg/dl Estimat Average Glucose mg/dl Hemoglobin A1c (4.5-5.6) % Calcium (8.5-10.1) mg/dl Total Bilirubin (0.2-1) mg/dl AST (15-37) U/L ALT (12-78) U/L Alkaline Phosphatase (45-117) U/L Total Creatine Kinase (26-192) U/L Troponin I (0-0.045) ng/ml Total Protein (6.4-8.2) gm/dl Albumin (3.4-5.0) gm/dl Globulin (2.5-4.0) gm/dl Albumin/Globulin Ratio (0.9-2) Triglycerides (0-150) mg/dl Cholesterol (0-200) mg/dl LDL Cholesterol, Calc mg/dl VLDL Cholesterol, Calc mg/dl HDL Cholesterol mg/dl Cholesterol/HDL Ratio Lipase (73-393) U/L TSH (0.300-4.500) uIu/ml Urine Color Yellow Urine Appearance Clear (Clear) Urine pH 6.0 (4.5-7.5) Ur Specific [place] 1.015 (1.000-1.030) Urine Protein Negative (Negative) Urine Glucose (UA) Negative (Negative) Urine Ketones Negative (Negative) Urine Blood Trace H (Negative) Urine Nitrite Negative (Negative) Urine Bilirubin Negative (Negative) Urine Urobilinogen Negative (Negative) Ur Leukocyte Esterase Trace H (Negative) Urine RBC 0-4 (0-4) /hpf Urine WBC 0-5 (0-5) /hpf Ur Epithelial Cells 5-10 H (0-5) /lpf Urine Bacteria Negative (Negative) Hyaline Casts 0-5 (0-5) /lpf Urine Butalbital Pending Urine Opiates Screen Neg (Neg) Ur Methadone, Qual Neg (Neg) Urine Barbiturates Pos H (Neg) Ur Phencyclidine (PCP) Neg (Neg) U Amphetamin/Meth Scrn Neg (Neg) MDMA (Ecstasy) Screen Neg (Neg) Urine Amobarbital Pending Urine Pentobarbital Pending Urine Phenobarbital Pending Urine Secobarbital Pending U OH-Alprazolam Confrm Pending U Benzodiazepines Scrn Pos H (Neg) 7-Amino Clonazepam Pending Ur Nordiazepam Confirm Pending U OH-ethylflurazepam Pending U Lorazepam Cnf GC/MS Pending U Oxazepam Confm GC/MS Pending Ur Temazepam Confirm Pending U OH-Triazolam Confirm Pending U OH-Midazolam Confirm Pending Ur Cocaine Metabolite Neg (Neg) U Marijuana (THC) Screen Neg (Neg) Drug Screen Comment Pending COVID-19 Eval Order COVID-19 PCR (Negative) Hepatitis C Ab Screen (Neg) 06/07/20 06/07/20 06/07/20 Range/Units 20:49 17:34 17:34 WBC (4.8-10.8) K/uL RBC (4.2-5.4) M/uL Hgb (12.0-16.0) g/dL Hct (37-47) % MCV (80-100) fL MCH (25-34) pg MCHC (32-36) g/dL RDW Std Deviation (36.4-46.3) fL RDW Coeff of Kimberly (11.5-14.5) % Plt Count (130-400) K/uL MPV (7.4-10.4) fL Immature Gran % (Auto) % Neut % (Auto) % Lymph % (Auto) % Bartholomew % (Auto) % Eos % (Auto) % Baso % (Auto) % Neut # (Auto) (1.4-6.5) K/uL Lymph # (Auto) (1.2-3.4) K/uL Bartholomew # (Auto) (0.11-0.59) K/uL Eos # (Auto) (0-0.5) K/uL Baso # (Auto) (0-0.2) K/uL Immature Gran # (Auto) (0.00-0.02) K/uL PT (9.0-12.0) Seconds INR (0.9-1.1) APTT (21.0-31.0) Seconds PTT Ratio ABG pH (7.35-7.45) ABG pCO2 (35-46) mmHg ABG pO2 (80-95) mmHg ABG HCO3 (19-24) mmol/L ABG O2 Saturation (90-95) % ABG Base Excess (-9-1.8) mEq/L Sharan Test (Pos) Barometric Pressure mm/Hg Oxygen Given Sodium (136-145) mmol/L Potassium (3.5-5.1) mmol/L Chloride (98-107) mmol/L Carbon Dioxide (21-32) mmol/L Anion Gap (3-11) BUN (7-18) mg/dl Creatinine (0.6-1.2) mg/dl Est Cr Clr Drug Dosing ml/min Est GFR ( Amer) Est GFR (Non-Af Amer) BUN/Creatinine Ratio (10-20) Glucose (70-99) mg/dl Estimat Average Glucose mg/dl Hemoglobin A1c (4.5-5.6) % Calcium (8.5-10.1) mg/dl Total Bilirubin (0.2-1) mg/dl AST (15-37) U/L ALT (12-78) U/L Alkaline Phosphatase (45-117) U/L Total Creatine Kinase (26-192) U/L Troponin I < 0.015 (0-0.045) ng/ml Total Protein (6.4-8.2) gm/dl Albumin (3.4-5.0) gm/dl Globulin (2.5-4.0) gm/dl Albumin/Globulin Ratio (0.9-2) Triglycerides (0-150) mg/dl Cholesterol (0-200) mg/dl LDL Cholesterol, Calc mg/dl VLDL Cholesterol, Calc mg/dl HDL Cholesterol mg/dl Cholesterol/HDL Ratio Lipase (73-393) U/L TSH (0.300-4.500) uIu/ml Urine Color Urine Appearance (Clear) Urine pH (4.5-7.5) Ur Specific [place] (1.000-1.030) Urine Protein (Negative) Urine Glucose (UA) (Negative) Urine Ketones (Negative) Urine Blood (Negative) Urine Nitrite (Negative) Urine Bilirubin (Negative) Urine Urobilinogen (Negative) Ur Leukocyte Esterase (Negative) Urine RBC (0-4) /hpf Urine WBC (0-5) /hpf Ur Epithelial Cells (0-5) /lpf Urine Bacteria (Negative) Hyaline Casts (0-5) /lpf Urine Butalbital Urine Opiates Screen (Neg) Ur Methadone, Qual (Neg) Urine Barbiturates (Neg) Ur Phencyclidine (PCP) (Neg) U Amphetamin/Meth Scrn (Neg) MDMA (Ecstasy) Screen (Neg) Urine Amobarbital Urine Pentobarbital Urine Phenobarbital Urine Secobarbital U OH-Alprazolam Confrm U Benzodiazepines Scrn (Neg) 7-Amino Clonazepam Ur Nordiazepam Confirm U OH-ethylflurazepam U Lorazepam Cnf GC/MS U Oxazepam Confm GC/MS Ur Temazepam Confirm U OH-Triazolam Confirm U OH-Midazolam Confirm Ur Cocaine Metabolite (Neg) U Marijuana (THC) Screen (Neg) Drug Screen Comment COVID-19 Eval Order Covid[address] [facility] COVID-19 PCR NEGATIVE (Negative) Hepatitis C Ab Screen (Neg) 06/07/20 06/07/20 06/07/20 Range/Units 17:24 15:10 15:10 WBC (4.8-10.8) K/uL RBC (4.2-5.4) M/uL Hgb (12.0-16.0) g/dL Hct (37-47) % MCV (80-100) fL MCH (25-34) pg MCHC (32-36) g/dL RDW Std Deviation (36.4-46.3) fL RDW Coeff of Kimberly (11.5-14.5) % Plt Count (130-400) K/uL MPV (7.4-10.4) fL Immature Gran % (Auto) % Neut % (Auto) % Lymph % (Auto) % Bartholomew % (Auto) % Eos % (Auto) % Baso % (Auto) % Neut # (Auto) (1.4-6.5) K/uL Lymph # (Auto) (1.2-3.4) K/uL Bartholomew # (Auto) (0.11-0.59) K/uL Eos # (Auto) (0-0.5) K/uL Baso # (Auto) (0-0.2) K/uL Immature Gran # (Auto) (0.00-0.02) K/uL PT (9.0-12.0) Seconds INR (0.9-1.1) APTT (21.0-31.0) Seconds PTT Ratio ABG pH 7.38 (7.35-7.45) ABG pCO2 48 H (35-46) mmHg ABG pO2 112 H (80-95) mmHg ABG HCO3 28 H (19-24) mmol/L ABG O2 Saturation 98.1 H (90-95) % ABG Base Excess 2.4 H (-9-1.8) mEq/L Sharan Test Pos (Pos) Barometric Pressure 729.9 mm/Hg Oxygen Given 2L Sodium 138 (136-145) mmol/L Potassium 3.8 (3.5-5.1) mmol/L Chloride 105 (98-107) mmol/L Carbon Dioxide 30 (21-32) mmol/L Anion Gap 3.0 (3-11) BUN 12 (7-18) mg/dl Creatinine 0.79 (0.6-1.2) mg/dl Est Cr Clr Drug Dosing 68.8 ml/min Est GFR ( Amer) 85.5 Est GFR (Non-Af Amer) 73.7 BUN/Creatinine Ratio 14.6 (10-20) Glucose 74 (70-99) mg/dl Estimat Average Glucose mg/dl Hemoglobin A1c (4.5-5.6) % Calcium 9.5 (8.5-10.1) mg/dl Total Bilirubin 0.4 (0.2-1) mg/dl AST 18 (15-37) U/L ALT 33 (12-78) U/L Alkaline Phosphatase 119 H (45-117) U/L Total Creatine Kinase 39 (26-192) U/L Troponin I < 0.015 (0-0.045) ng/ml Total Protein 7.0 (6.4-8.2) gm/dl Albumin 3.3 L (3.4-5.0) gm/dl Globulin 3.7 (2.5-4.0) gm/dl Albumin/Globulin Ratio 0.9 (0.9-2) Triglycerides (0-150) mg/dl Cholesterol (0-200) mg/dl LDL Cholesterol, Calc mg/dl VLDL Cholesterol, Calc mg/dl HDL Cholesterol mg/dl Cholesterol/HDL Ratio Lipase 90 (73-393) U/L TSH 0.522 (0.300-4.500) uIu/ml Urine Color Urine Appearance (Clear) Urine pH (4.5-7.5) Ur Specific [place] (1.000-1.030) Urine Protein (Negative) Urine Glucose (UA) (Negative) Urine Ketones (Negative) Urine Blood (Negative) Urine Nitrite (Negative) Urine Bilirubin (Negative) Urine Urobilinogen (Negative) Ur Leukocyte Esterase (Negative) Urine RBC (0-4) /hpf Urine WBC (0-5) /hpf Ur Epithelial Cells (0-5) /lpf Urine Bacteria (Negative) Hyaline Casts (0-5) /lpf Urine Butalbital Urine Opiates Screen (Neg) Ur Methadone, Qual (Neg) Urine Barbiturates (Neg) Ur Phencyclidine (PCP) (Neg) U Amphetamin/Meth Scrn (Neg) MDMA (Ecstasy) Screen (Neg) Urine Amobarbital Urine Pentobarbital Urine Phenobarbital Urine Secobarbital U OH-Alprazolam Confrm U Benzodiazepines Scrn (Neg) 7-Amino Clonazepam Ur Nordiazepam Confirm U OH-ethylflurazepam U Lorazepam Cnf GC/MS U Oxazepam Confm GC/MS Ur Temazepam Confirm U OH-Triazolam Confirm U OH-Midazolam Confirm Ur Cocaine Metabolite (Neg) U Marijuana (THC) Screen (Neg) Drug Screen Comment COVID-19 Eval Order COVID-19 PCR (Negative) Hepatitis C Ab Screen (Neg) 06/07/20 06/07/20 Range/Units 15:10 15:10 WBC 4.81 (4.8-10.8) K/uL RBC 4.15 L (4.2-5.4) M/uL Hgb 12.6 (12.0-16.0) g/dL Hct 39.2 (37-47) % MCV 94.5 (80-100) fL MCH 30.4 (25-34) pg MCHC 32.1 (32-36) g/dL RDW Std Deviation 49.0 H (36.4-46.3) fL RDW Coeff of Kimberly 14.3 (11.5-14.5) % Plt Count 236 (130-400) K/uL MPV 9.0 (7.4-10.4) fL Immature Gran % (Auto) 0.0 % Neut % (Auto) 63.2 % Lymph % (Auto) 24.7 % Bartholomew % (Auto) 7.1 % Eos % (Auto) 4.4 % Baso % (Auto) 0.6 % Neut # (Auto) 3.04 (1.4-6.5) K/uL Lymph # (Auto) 1.19 L (1.2-3.4) K/uL Bartholomew # (Auto) 0.34 (0.11-0.59) K/uL Eos # (Auto) 0.21 (0-0.5) K/uL Baso # (Auto) 0.03 (0-0.2) K/uL Immature Gran # (Auto) 0.00 (0.00-0.02) K/uL PT 10.2 (9.0-12.0) Seconds INR 1.0 (0.9-1.1) APTT 24.6 (21.0-31.0) Seconds PTT Ratio 0.9 ABG pH (7.35-7.45) ABG pCO2 (35-46) mmHg ABG pO2 (80-95) mmHg ABG HCO3 (19-24) mmol/L ABG O2 Saturation (90-95) % ABG Base Excess (-9-1.8) mEq/L Sharan Test (Pos) Barometric Pressure mm/Hg Oxygen Given Sodium (136-145) mmol/L Potassium (3.5-5.1) mmol/L Chloride (98-107) mmol/L Carbon Dioxide (21-32) mmol/L Anion Gap (3-11) BUN (7-18) mg/dl Creatinine (0.6-1.2) mg/dl Est Cr Clr Drug Dosing ml/min Est GFR ( Amer) Est GFR (Non-Af Amer) BUN/Creatinine Ratio (10-20) Glucose (70-99) mg/dl Estimat Average Glucose mg/dl Hemoglobin A1c (4.5-5.6) % Calcium (8.5-10.1) mg/dl Total Bilirubin (0.2-1) mg/dl AST (15-37) U/L ALT (12-78) U/L Alkaline Phosphatase (45-117) U/L Total Creatine Kinase (26-192) U/L Troponin I (0-0.045) ng/ml Total Protein (6.4-8.2) gm/dl Albumin (3.4-5.0) gm/dl Globulin (2.5-4.0) gm/dl Albumin/Globulin Ratio (0.9-2) Triglycerides (0-150) mg/dl Cholesterol (0-200) mg/dl LDL Cholesterol, Calc mg/dl VLDL Cholesterol, Calc mg/dl HDL Cholesterol mg/dl Cholesterol/HDL Ratio Lipase (73-393) U/L TSH (0.300-4.500) uIu/ml Urine Color Urine Appearance (Clear) Urine pH (4.5-7.5) Ur Specific [place] (1.000-1.030) Urine Protein (Negative) Urine Glucose (UA) (Negative) Urine Ketones (Negative) Urine Blood (Negative) Urine Nitrite (Negative) Urine Bilirubin (Negative) Urine Urobilinogen (Negative) Ur Leukocyte Esterase (Negative) Urine RBC (0-4) /hpf Urine WBC (0-5) /hpf Ur Epithelial Cells (0-5) /lpf Urine Bacteria (Negative) Hyaline Casts (0-5) /lpf Urine Butalbital Urine Opiates Screen (Neg) Ur Methadone, Qual (Neg) Urine Barbiturates (Neg) Ur Phencyclidine (PCP) (Neg) U Amphetamin/Meth Scrn (Neg) MDMA (Ecstasy) Screen (Neg) Urine Amobarbital Urine Pentobarbital Urine Phenobarbital Urine Secobarbital U OH-Alprazolam Confrm U Benzodiazepines Scrn (Neg) 7-Amino Clonazepam Ur Nordiazepam Confirm U OH-ethylflurazepam U Lorazepam Cnf GC/MS U Oxazepam Confm GC/MS Ur Temazepam Confirm U OH-Triazolam Confirm U OH-Midazolam Confirm Ur Cocaine Metabolite (Neg) U Marijuana (THC) Screen (Neg) Drug Screen Comment COVID-19 Eval Order COVID-19 PCR (Negative) Hepatitis C Ab Screen (Neg) Medications Administered Current Inpatient Medications Acetaminophen/Butalbital/Caffeine (Butalbital/Acetamin/Caffeine Tab) 1 tab PO TID PRN PRN Reason: Migraine Headache Stop: 07/07/20 20:00 Last Admin: 06/08/20 05:50 Dose: 1 tab Documented by: Al Hydrox/Mg Hydrox/Simethicone (Aluminum/Magnesium Susp 30 Ml Udc) 15 ml PO Q4H PRN PRN Reason: Dyspepsia Stop: 07/07/20 19:40 Alprazolam (Alprazolam 0.5 Mg Tablet) 1 mg PO BID PRN PRN Reason: nerves Stop: 07/07/20 19:40 Aspirin (Aspirin 81 Mg Ectab) 81 mg PO DAILY [facility] Stop: 07/08/20 08:59 Cholestyramine Resin (Cholestyramine Light 4 Gm Pkt) 4 gm PO BID PRN PRN Reason: Constipation Stop: 07/07/20 19:52 Cyanocobalamin (Cyanocobalamin (Vitamin B-12) 100 Mcg Tablet) 100 mcg PO DAILY [facility] Stop: 07/08/20 08:59 Doxycycline Hyclate (Doxycycline Hyclate 100 Mg Cap) 100 mg PO BID [facility]; Protocol Stop: 06/14/20 20:59 Last Admin: 06/07/20 21:18 Dose: 100 mg Documented by: Fluticasone Furoate (Fluticasone Furoate 100mcg 14 Puffs/Inhaler) 1 puffs INH Q2D [facility] Stop: 07/08/20 08:59 Gabapentin (Gabapentin 100 Mg Cap) 100 mg PO [facility] Stop: 07/07/20 20:59 Last Admin: 06/07/20 21:18 Dose: 100 mg Documented by: Guaifenesin/Codeine Phosphate (Guaifenesin/Codeine 200mg/20mg 10ml Udc) 10 ml PO Q6H PRN PRN Reason: Cough Stop: 07/07/20 22:24 Levothyroxine Sodium (Levothyroxine Sodium 112 Mcg Tablet) 112 mcg PO DAILYBB [facility] Stop: 07/08/20 06:29 Last Admin: 06/08/20 05:30 Dose: 112 mcg Documented by: Loperamide HCl (Loperamide Hcl 2 Mg Cap) 1 mg PO DAILY [facility] Stop: 07/08/20 08:59 Multivitamins (Multivitamin Tab) 1 tab PO DAILY [facility] Stop: 07/08/20 08:59 Nitroglycerin (Nitroglycerin Sl 0.4 Mg/Tab Tab) 0.4 mg SL PRN PRN PRN Reason: chest pain Stop: 07/07/20 19:40 Ondansetron HCl (Ondansetron Inj 2 Mg/Ml 2 Ml Vial) 4 mg IV Q6H PRN PRN Reason: Nausea Stop: 07/07/20 19:40 Last Admin: 06/08/20 05:24 Dose: 4 mg Documented by: Pantoprazole Sodium (Pantoprazole 40 Mg Tab) 40 mg PO DAILY PRN PRN Reason: Acid Reflux Stop: 07/07/20 19:55 Polyethylene Glycol (Polyethylene (Miralax) 17 Gm Pack) 17 gm PO DAILY PRN PRN Reason: Constipation Stop: 07/07/20 19:40 Prednisone (Prednisone 20 Mg Tab) 40 mg PO DAILY [facility] Stop: 06/11/20 20:14 Last Admin: 06/07/20 21:16 Dose: 40 mg Documented by: Primidone (Primidone 50 Mg Tab) 100 mg PO HS [facility] Stop: 07/07/20 20:59 Last Admin: 06/07/20 21:18 Dose: 100 mg Documented by: Sertraline HCl (Sertraline Hcl 100 Mg Tablet) 100 mg PO HS [facility] Stop: 07/07/20 22:29 Last Admin: 06/07/20 23:49 Dose: 100 mg Documented by: Trazodone HCl (Trazodone Hcl 100 Mg Tab) 100 mg PO HS [facility] Stop: 07/07/20 20:59 Last Admin: 06/07/20 21:17 Dose: 100 mg Documented by: Umeclidinium/Vilanterol (Umeclidinium/Vilanterol 62.5/25mcg 7 Puffs/Inhaler) 1 puffs INH DAILY [facility] Stop: 07/08/20 08:59 (1) Chest pain Chest pain type: unspecified Qualified Code(s): R07.9 - Chest pain, unspecified
[2020-06-08] MEDS: predniSONE 20 MG TAB PO SCH (08:44)
[2020-06-08] MEDS: GABAPENTIN 100 MG CAP PO SCH (08:44)
[2020-06-08] MEDS: DOXYCYCLINE HYCLATE 100 MG CAP PO SCH (08:45)
[2020-06-08] MEDS ORDERED: ASPIRIN 81 MG ECTAB PO SCH (09:00)
[2020-06-08] MEDS ORDERED: CYANOCOBALAMIN (VITAMIN B-12) 100 MCG TABLET PO SCH (09:00)
[2020-06-08] MEDS ORDERED: FLUTICASONE FUROATE 100MCG 14 PUFFS/INHALER INH SCH (09:00)
[2020-06-08] MEDS ORDERED: UMECLIDINIUM/VILANTEROL 62.5/25MCG 7 PUFFS/INHALER INH SCH ×2 (09:00)
[2020-06-08] MEDS ORDERED: SERTRALINE HCL 100 MG TABLET PO SCH (09:00)
[2020-06-08] MEDS ORDERED: COENZYME Q10 50 MG PO SCH (09:00)
[2020-06-08] MEDS ORDERED: LOPERAMIDE HCL 2 MG CAP PO SCH ×2 (09:00)
[2020-06-08] MEDS ORDERED: MULTIVITAMIN TAB PO SCH (09:00)
--- NOTE | 2020-06-08 10:09 | Cardiology Consultation ---
Date of Consultation June 08, 2020 Assessment & Plan (1) Chest pain: (2) Depression: (3) Hypersomnolence: (4) COPD exacerbation: (5) History of CVA (cerebrovascular accident): (6) Mitral regurgitation: Given that her chest pain is reproducible along with an unremarkable work- up including negative troponins, unremarkable EKG and 2D echocardiogram showing normal wall motion abnormality no further cardiac testing or intervention is necessary at this time. Her pain is musculoskeletal in nature and suggest supportive care. She also states that she has a history of mitral valve prolapse which the most 2 recent echocardiograms have shown normal mitral valve anatomy with mild mitral r egurgitation. Okay to discharge from a cardiac standpoint. Would not schedule cardiac follow-up at this time but would recommend follow-up with PCP as an outpatient. She is welcome return to see us should the need arise. History of Present Illness Reason for Consultation: chest pain Requesting Physician: Dr. Chaves Attending Physician: Riley Chaves MD History of Present Illness Ms. Nino is a 75-year-old woman who presented to [facility] emergency department with complaints of fatigue. She states that over 48 hours she slept for approximately 40 hours which is very unusual for her. She fell asleep upright in a chair and came into the emergency department. She also states that her chronic left-sided chest pain seems to be worsening. She states it is very tender to the touch and worse with inspiration. She describes as a sharp stabbing pain without radiation and she denies any associated shortness of breath, nausea, diaphoresis, lightheadedness, dizziness or syncope. She states that the pain is similar to the pain she had in 2018 when she was seen by Dr. Canales of our cardiology practice and her ischemic work-up came back unremarkable. Allergies Allergy/AdvReac Type Severity Reaction Status Date / Time albuterol Allergy Severe CONVULSIONS Verified 06/07/20 16:20 latex Allergy Severe ITCH/RASH/H Verified 06/07/20 16:20 MAIA acetaminophen Allergy Intermediate ITCH ALL Verified 06/07/20 16:20 OVER hydroxyzine AdvReac Severe MOOD Verified 06/07/20 16:20 SWINGS / OUT OF CONTROL Home Medications Home Medications Medication Instructions Recorded Confirmed Type Anoro Ellipta 1 inh INHALATION Q OTHER DAY 07/15/19 06/07/20 History alprazolam [Xanax] 1 mg PO BID PRN 07/15/19 06/07/20 History [id number]-jjnj 1 cap PO TID PRN 07/15/19 06/07/20 History [Fioricet] cholestyramine (with sugar) 4 g PO BID PRN 07/15/19 06/07/20 History [Questran] coenzyme Q10 [CoQ-10] 50 mg PO DAILY 07/15/19 06/07/20 History cyanocobalamin (vitamin B-12) 100 mcg PO DAILY 07/15/19 06/07/20 History [Vitamin B-12] levothyroxine 112 mcg PO DAILY 07/15/19 06/07/20 History loperamide [Imodium A-D] 1 mg PO DAILY 07/15/19 06/07/20 History multivitamin 1 tab PO DAILY 07/15/19 06/07/20 History primidone [Mysoline] 100 mg PO HS 07/15/19 06/07/20 History turmeric root extract 500 mg PO DAILY 07/15/19 06/07/20 History aspirin 81 mg PO DAILY #90 tab 07/17/19 06/07/20 Rx [id number]-[id number] 1 inh INHALATION Q OTHER DAY 06/07/20 06/07/20 History [Trelegy Ellipta] gabapentin [Neurontin] 100 mg PO AMHS 06/07/20 06/07/20 History omeprazole magnesium [Prilosec OTC] 20 mg PO DAILY PRN 06/07/20 06/07/20 History sertraline [Zoloft] 100 mg PO DAILY 06/07/20 06/07/20 History trazodone 100 mg PO HS 06/07/20 06/07/20 History Patient History Medical History Brain aneurysm COPD (chronic obstructive pulmonary disease) Depression History of CVA (cerebrovascular accident) History of migraine Hypotension Hypothyroidism IBS (irritable bowel syndrome) Interstitial lung disease Surgical History History of brain surgery s/p coil and stent History of cholecystectomy History of colonoscopy Family History Denies family history of Diabetes Heart disease Social History Smoking Status: Former smoker Tobacco Type: Cigarettes packs per day: 1; Years Smoked: 35; Smoking End Date: 10 years ago, smoked for 30 years; Number of Years Since Quit: 10; Hx Alcohol Use: Yes Alcohol type: wine Alcohol Intake Frequency: 2-3 x/Week Hx Substance Use: No Preferred Language: Frisian Communication Ability: Effective Storage Manager Required: No Beliefs That Will Affect Care: None marital status: Single Current Living Situation: Alone Feels Safe at Home: Yes Safety Concerns: Feels Safe At This Time Review of Systems Review of Systems: All systems reviewed & are unremarkable except as noted in HPI & below Physical Exam Physical Exam: General: Awake, alert and oriented x 3. No acute distress. HEENT: Normocephalic, atraumatic. Pupils equal, round and reactive to light and accommodation. Extraocular muscles are intact. Anicteric sclera. Moist mucous membranes. Neck: No JVD. No bruit. Cardiovascular: Regular. Positive S-4. Normal S-1 and S-2. No S-3. 3/6 holosystolic ejection murmur, left sternal border, mid-clavicular line with radiation to the axilla. No rubs. Pulmonary: Clear to auscultation bilaterally. No rales, rhonchi, or wheezing. Abdomen: Bowel sounds x 4, soft. No rebound, guarding or tenderness. No organomegaly. Extremities: No clubbing, cyanosis or edema. +2 pedal pulses bilaterally. Skin: Warm and dry. Musculoskeletal: Left ribs 4 and 5 stuck in exhalation. Direct palpation was able to reproduce her chest pain. Results & Data ([facility]) Vital Signs (Past 12 Hours) Vital Signs Temp Pulse Pulse Resp BP Pulse Ox 06/08/20 09:00 54 L 06/08/20 07:26 36.6 C 54 L 18 127/80 98 06/08/20 04:50 36.6 C 59 L 18 97/64 L 97 06/08/20 01:15 57 L 06/07/20 23:33 36.6 C 57 L 18 142/63 H 95 Laboratory Results Laboratory Results - last 24 hr 06/07/20 06/07/20 06/07/20 15:10 15:10 15:10 WBC 4.81 RBC 4.15 L Hgb 12.6 Hct 39.2 MCV 94.5 MCH 30.4 MCHC 32.1 RDW Std Deviation 49.0 H RDW Coeff of Kimberly 14.3 Plt Count 236 MPV 9.0 Immature Gran % (Auto) 0.0 Neut % (Auto) 63.2 Lymph % (Auto) 24.7 [place] % (Auto) 7.1 Eos % (Auto) 4.4 Baso % (Auto) 0.6 Neut # (Auto) 3.04 Lymph # (Auto) 1.19 L [place] # (Auto) 0.34 Eos # (Auto) 0.21 Baso # (Auto) 0.03 Immature Gran # (Auto) 0.00 PT 10.2 INR 1.0 APTT 24.6 PTT Ratio 0.9 ABG pH ABG pCO2 ABG pO2 ABG HCO3 ABG O2 Saturation ABG Base Excess Sharan Test Barometric Pressure Oxygen Given Sodium 138 Potassium 3.8 Chloride 105 Carbon Dioxide 30 Anion Gap 3.0 BUN 12 Creatinine 0.79 Est Cr Clr Drug Dosing 68.8 Est GFR ( Amer) 85.5 Est GFR (Non-Af Amer) 73.7 BUN/Creatinine Ratio 14.6 Glucose 74 Estimat Average Glucose Hemoglobin A1c Calcium 9.5 Total Bilirubin 0.4 AST 18 ALT 33 Alkaline Phosphatase 119 H Total Creatine Kinase Troponin I < 0.015 Total Protein 7.0 Albumin 3.3 L Globulin 3.7 Albumin/Globulin Ratio 0.9 Triglycerides Cholesterol LDL Cholesterol, Calc VLDL Cholesterol, Calc HDL Cholesterol Cholesterol/HDL Ratio Lipase 90 TSH Urine Color Urine Appearance Urine pH Ur Specific Weed Urine Protein Urine Glucose (UA) Urine Ketones Urine Blood Urine Nitrite Urine Bilirubin Urine Urobilinogen Ur Leukocyte Esterase Urine RBC Urine WBC Ur Epithelial Cells Urine Bacteria Hyaline Casts Urine Butalbital Urine Opiates Screen Ur Methadone, Qual Urine Barbiturates Ur Phencyclidine (PCP) U Amphetamin/Meth Scrn MDMA (Ecstasy) Screen Urine Amobarbital Urine Pentobarbital Urine Phenobarbital Urine Secobarbital U OH-Alprazolam Confrm U Benzodiazepines Scrn 7-Amino Clonazepam Ur Nordiazepam Confirm U OH-ethylflurazepam U Lorazepam Cnf GC/MS U Oxazepam Confm GC/MS Ur Temazepam Confirm U OH-Triazolam Confirm U OH-Midazolam Confirm Ur Cocaine Metabolite U Marijuana (THC) Screen Drug Screen Comment COVID-19 Eval Order COVID-19 PCR Hepatitis C Ab Screen 06/07/20 06/07/20 06/07/20 15:10 17:24 17:34 WBC RBC Hgb Hct MCV MCH MCHC RDW Std Deviation RDW Coeff of Kimberly Plt Count MPV Immature Gran % (Auto) Neut % (Auto) Lymph % (Auto) [place] % (Auto) Eos % (Auto) Baso % (Auto) Neut # (Auto) Lymph # (Auto) [place] # (Auto) Eos # (Auto) Baso # (Auto) Immature Gran # (Auto) PT INR APTT PTT Ratio ABG pH 7.38 ABG pCO2 48 H ABG pO2 112 H ABG HCO3 28 H ABG O2 Saturation 98.1 H ABG Base Excess 2.4 H Sharan Test Pos Barometric Pressure 729.9 Oxygen Given 2L Sodium Potassium Chloride Carbon Dioxide Anion Gap BUN Creatinine Est Cr Clr Drug Dosing Est GFR ( Amer) Est GFR (Non-Af Amer) BUN/Creatinine Ratio Glucose Estimat Average Glucose Hemoglobin A1c Calcium Total Bilirubin AST ALT Alkaline Phosphatase Total Creatine Kinase 39 Troponin I Total Protein Albumin Globulin Albumin/Globulin Ratio Triglycerides Cholesterol LDL Cholesterol, Calc VLDL Cholesterol, Calc HDL Cholesterol Cholesterol/HDL Ratio Lipase TSH 0.522 Urine Color Urine Appearance Urine pH Ur Specific Weed Urine Protein Urine Glucose (UA) Urine Ketones Urine Blood Urine Nitrite Urine Bilirubin Urine Urobilinogen Ur Leukocyte Esterase Urine RBC Urine WBC Ur Epithelial Cells Urine Bacteria Hyaline Casts Urine Butalbital Urine Opiates Screen Ur Methadone, Qual Urine Barbiturates Ur Phencyclidine (PCP) U Amphetamin/Meth Scrn MDMA (Ecstasy) Screen Urine Amobarbital Urine Pentobarbital Urine Phenobarbital Urine Secobarbital U OH-Alprazolam Confrm U Benzodiazepines Scrn 7-Amino Clonazepam Ur Nordiazepam Confirm U OH-ethylflurazepam U Lorazepam Cnf GC/MS U Oxazepam Confm GC/MS Ur Temazepam Confirm U OH-Triazolam Confirm U OH-Midazolam Confirm Ur Cocaine Metabolite U Marijuana (THC) Screen Drug Screen Comment COVID-19 Eval Order Covid19 Done at [facility] COVID-19 PCR Hepatitis C Ab Screen 06/07/20 06/07/20 06/07/20 17:34 20:49 21:00 WBC RBC Hgb Hct MCV MCH MCHC RDW Std Deviation RDW Coeff of Kimberly Plt Count MPV Immature Gran % (Auto) Neut % (Auto) Lymph % (Auto) [place] % (Auto) Eos % (Auto) Baso % (Auto) Neut # (Auto) Lymph # (Auto) [place] # (Auto) Eos # (Auto) Baso # (Auto) Immature Gran # (Auto) PT INR APTT PTT Ratio ABG pH ABG pCO2 ABG pO2 ABG HCO3 ABG O2 Saturation ABG Base Excess Sharan Test Barometric Pressure Oxygen Given Sodium Potassium Chloride Carbon Dioxide Anion Gap BUN Creatinine Est Cr Clr Drug Dosing Est GFR ( Amer) Est GFR (Non-Af Amer) BUN/Creatinine Ratio Glucose Estimat Average Glucose Hemoglobin A1c Calcium Total Bilirubin AST ALT Alkaline Phosphatase Total Creatine Kinase Troponin I < 0.015 Total Protein Albumin Globulin Albumin/Globulin Ratio Triglycerides Cholesterol LDL Cholesterol, Calc VLDL Cholesterol, Calc HDL Cholesterol Cholesterol/HDL Ratio Lipase TSH Urine Color Yellow Urine Appearance Clear Urine pH 6.0 Ur Specific Weed 1.015 Urine Protein Negative Urine Glucose (UA) Negative Urine Ketones Negative Urine Blood Trace H Urine Nitrite Negative Urine Bilirubin Negative Urine Urobilinogen Negative Ur Leukocyte Esterase Trace H Urine RBC 0-4 Urine WBC 0-5 Ur Epithelial Cells 5-10 H Urine Bacteria Negative Hyaline Casts 0-5 Urine Butalbital Urine Opiates Screen Ur Methadone, Qual Urine Barbiturates Ur Phencyclidine (PCP) U Amphetamin/Meth Scrn MDMA (Ecstasy) Screen Urine Amobarbital Urine Pentobarbital Urine Phenobarbital Urine Secobarbital U OH-Alprazolam Confrm U Benzodiazepines Scrn 7-Amino Clonazepam Ur Nordiazepam Confirm U OH-ethylflurazepam U Lorazepam Cnf GC/MS U Oxazepam Confm GC/MS Ur Temazepam Confirm U OH-Triazolam Confirm U OH-Midazolam Confirm Ur Cocaine Metabolite U Marijuana (THC) Screen Drug Screen Comment COVID-19 Eval Order COVID-19 PCR NEGATIVE Hepatitis C Ab Screen 06/07/20 06/07/20 06/08/20 21:00 21:00 02:51 WBC RBC Hgb Hct MCV MCH MCHC RDW Std Deviation RDW Coeff of Kimberly Plt Count MPV Immature Gran % (Auto) Neut % (Auto) Lymph % (Auto) [place] % (Auto) Eos % (Auto) Baso % (Auto) Neut # (Auto) Lymph # (Auto) [place] # (Auto) Eos # (Auto) Baso # (Auto) Immature Gran # (Auto) PT INR APTT PTT Ratio ABG pH ABG pCO2 ABG pO2 ABG HCO3 ABG O2 Saturation ABG Base Excess Sharan Test Barometric Pressure Oxygen Given Sodium Potassium Chloride Carbon Dioxide Anion Gap BUN Creatinine Est Cr Clr Drug Dosing Est GFR ( Amer) Est GFR (Non-Af Amer) BUN/Creatinine Ratio Glucose Estimat Average Glucose Hemoglobin A1c Calcium Total Bilirubin AST ALT Alkaline Phosphatase Total Creatine Kinase Troponin I < 0.015 Total Protein Albumin Globulin Albumin/Globulin Ratio Triglycerides 65 Cholesterol 204 H LDL Cholesterol, Calc 105 VLDL Cholesterol, Calc 13 HDL Cholesterol 86 Cholesterol/HDL Ratio 2 Lipase TSH Urine Color Urine Appearance Urine pH Ur Specific Weed Urine Protein Urine Glucose (UA) Urine Ketones Urine Blood Urine Nitrite Urine Bilirubin Urine Urobilinogen Ur Leukocyte Esterase Urine RBC Urine WBC Ur Epithelial Cells Urine Bacteria Hyaline Casts Urine Butalbital Pending Urine Opiates Screen Neg Ur Methadone, Qual Neg Urine Barbiturates Pos H Ur Phencyclidine (PCP) Neg U Amphetamin/Meth Scrn Neg MDMA (Ecstasy) Screen Neg Urine Amobarbital Pending Urine Pentobarbital Pending Urine Phenobarbital Pending Urine Secobarbital Pending U OH-Alprazolam Confrm Pending U Benzodiazepines Scrn Pos H 7-Amino Clonazepam Pending Ur Nordiazepam Confirm Pending U OH-ethylflurazepam Pending U Lorazepam Cnf GC/MS Pending U Oxazepam Confm GC/MS Pending Ur Temazepam Confirm Pending U OH-Triazolam Confirm Pending U OH-Midazolam Confirm Pending Ur Cocaine Metabolite Neg U Marijuana (THC) Screen Neg Drug Screen Comment Pending COVID-19 Eval Order COVID-19 PCR Hepatitis C Ab Screen 06/08/20 06/08/20 02:51 02:51 WBC RBC Hgb Hct MCV MCH MCHC RDW Std Deviation RDW Coeff of Kimberly Plt Count MPV Immature Gran % (Auto) Neut % (Auto) Lymph % (Auto) [place] % (Auto) Eos % (Auto) Baso % (Auto) Neut # (Auto) Lymph # (Auto) [place] # (Auto) Eos # (Auto) Baso # (Auto) Immature Gran # (Auto) PT INR APTT PTT Ratio ABG pH ABG pCO2 ABG pO2 ABG HCO3 ABG O2 Saturation ABG Base Excess Sharan Test Barometric Pressure Oxygen Given Sodium Potassium Chloride Carbon Dioxide Anion Gap BUN Creatinine Est Cr Clr Drug Dosing Est GFR ( Amer) Est GFR (Non-Af Amer) BUN/Creatinine Ratio Glucose Estimat Average Glucose 88 Hemoglobin A1c 4.7 Calcium Total Bilirubin AST ALT Alkaline Phosphatase Total Creatine Kinase Troponin I Total Protein Albumin Globulin Albumin/Globulin Ratio Triglycerides Cholesterol LDL Cholesterol, Calc VLDL Cholesterol, Calc HDL Cholesterol Cholesterol/HDL Ratio Lipase TSH Urine Color Urine Appearance Urine pH Ur Specific Weed Urine Protein Urine Glucose (UA) Urine Ketones Urine Blood Urine Nitrite Urine Bilirubin Urine Urobilinogen Ur Leukocyte Esterase Urine RBC Urine WBC Ur Epithelial Cells Urine Bacteria Hyaline Casts Urine Butalbital Urine Opiates Screen Ur Methadone, Qual Urine Barbiturates Ur Phencyclidine (PCP) U Amphetamin/Meth Scrn MDMA (Ecstasy) Screen Urine Amobarbital Urine Pentobarbital Urine Phenobarbital Urine Secobarbital U OH-Alprazolam Confrm U Benzodiazepines Scrn 7-Amino Clonazepam Ur Nordiazepam Confirm U OH-ethylflurazepam U Lorazepam Cnf GC/MS U Oxazepam Confm GC/MS Ur Temazepam Confirm U OH-Triazolam Confirm U OH-Midazolam Confirm Ur Cocaine Metabolite U Marijuana (THC) Screen Drug Screen Comment COVID-19 Eval Order COVID-19 PCR Hepatitis C Ab Screen Neg Medications Administered Current Inpatient Medications Acetaminophen/Butalbital/Caffeine (Butalbital/Acetamin/Caffeine Tab) 1 tab PO TID PRN PRN Reason: Migraine Headache Stop: 07/07/20 20:00 Last Admin: 06/08/20 05:50 Dose: 1 tab Documented by: Al Hydrox/Mg Hydrox/Simethicone (Aluminum/Magnesium Susp 30 Ml Udc) 15 ml PO Q4H PRN PRN Reason: Dyspepsia Stop: 07/07/20 19:40 Alprazolam (Alprazolam 0.5 Mg Tablet) 1 mg PO BID PRN PRN Reason: nerves Stop: 07/07/20 19:40 Aspirin (Aspirin 81 Mg Ectab) 81 mg PO DAILY [facility] Stop: 07/08/20 08:59 Last Admin: 06/08/20 08:45 Dose: 81 mg Documented by: Cholestyramine Resin (Cholestyramine Light 4 Gm Pkt) 4 gm PO BID PRN PRN Reason: Constipation Stop: 07/07/20 19:52 Cyanocobalamin (Cyanocobalamin (Vitamin B-12) 100 Mcg Tablet) 100 mcg PO DAILY [facility] Stop: 07/08/20 08:59 Last Admin: 06/08/20 08:45 Dose: 100 mcg Documented by: Doxycycline Hyclate (Doxycycline Hyclate 100 Mg Cap) 100 mg PO BID [facility]; Protocol Stop: 06/14/20 20:59 Last Admin: 06/08/20 08:45 Dose: 100 mg Documented by: Fluticasone Furoate (Fluticasone Furoate 100mcg 14 Puffs/Inhaler) 1 puffs INH Q2D [facility] Stop: 07/08/20 08:59 Last Admin: 06/08/20 08:44 Dose: Not Given Documented by: Gabapentin (Gabapentin 100 Mg Cap) 100 mg PO AMHS [facility] Stop: 07/07/20 20:59 Last Admin: 06/08/20 08:44 Dose: 100 mg Documented by: Guaifenesin/Codeine Phosphate (Guaifenesin/Codeine 200mg/20mg 10ml Udc) 10 ml PO Q6H PRN PRN Reason: Cough Stop: 07/07/20 22:24 Levothyroxine Sodium (Levothyroxine Sodium 112 Mcg Tablet) 112 mcg PO DAILYBB [facility] Stop: 07/08/20 06:29 Last Admin: 06/08/20 05:30 Dose: 112 mcg Documented by: Loperamide HCl (Loperamide Hcl 2 Mg Cap) 2 mg PO DAILY [facility] Stop: 07/08/20 08:59 Last Admin: 06/08/20 09:20 Dose: 2 mg Documented by: Multivitamins (Multivitamin Tab) 1 tab PO DAILY [facility] Stop: 07/08/20 08:59 Last Admin: 06/08/20 08:45 Dose: 1 tab Documented by: Nitroglycerin (Nitroglycerin Sl 0.4 Mg/Tab Tab) 0.4 mg SL PRN PRN PRN Reason: chest pain Stop: 07/07/20 19:40 Ondansetron HCl (Ondansetron Inj 2 Mg/Ml 2 Ml Vial) 4 mg IV Q6H PRN PRN Reason: Nausea Stop: 07/07/20 19:40 Last Admin: 06/08/20 05:24 Dose: 4 mg Documented by: Pantoprazole Sodium (Pantoprazole 40 Mg Tab) 40 mg PO DAILY PRN PRN Reason: Acid Reflux Stop: 07/07/20 19:55 Polyethylene Glycol (Polyethylene (Miralax) 17 Gm Pack) 17 gm PO DAILY PRN PRN Reason: Constipation Stop: 07/07/20 19:40 Prednisone (Prednisone 20 Mg Tab) 40 mg PO DAILY [facility] Stop: 06/11/20 20:14 Last Admin: 06/08/20 08:44 Dose: 40 mg Documented by: Primidone (Primidone 50 Mg Tab) 100 mg PO HS [facility] Stop: 07/07/20 20:59 Last Admin: 06/07/20 21:18 Dose: 100 mg Documented by: Sertraline HCl (Sertraline Hcl 100 Mg Tablet) 100 mg PO HS [facility] Stop: 07/07/20 22:29 Last Admin: 06/07/20 23:49 Dose: 100 mg Documented by: Trazodone HCl (Trazodone Hcl 100 Mg Tab) 100 mg PO HS [facility] Stop: 07/07/20 20:59 Last Admin: 06/07/20 21:17 Dose: 100 mg Documented by: Umeclidinium/Vilanterol (Umeclidinium/Vilanterol 62.5/25mcg 7 Puffs/Inhaler) 1 puffs INH DAILY [facility] Stop: 07/08/20 08:59 Last Admin: 06/08/20 08:43 Dose: 1 puffs Documented by: (1) Chest pain Chest pain type: unspecified Qualified Code(s): R07.9 - Chest pain, unspecified
--- NOTE | 2020-06-08 12:50 | Electrocardiogram Report ---
Test Reason : Blood Pressure : / mmHG Vent. Rate : 059 BPM Atrial Rate : 059 BPM P-R Int : 156 ms QRS Dur : 084 ms QT Int : 422 ms P-R-T Axes : 065 002 061 degrees QTc Int : 417 ms Sinus bradycardia Low voltage QRS Borderline ECG When compared with ECG of 07-JUN-2020 15:01, Premature supraventricular complexes are no longer Present Borderline criteria for Inferior infarct are no longer Present Confirmed by Jus José ([id number]) on 06/08/2020 12:50:05 PM Referred By: Gray Cordon Confirmed By:Jus José
[2020-06-08] MEDS ORDERED: BUTALBITAL/ACETAMIN/CAFFEINE TAB PO STA (15:44)
--- NOTE | 2020-06-08 19:05 | Discharge Summary ---
Date of Service June 08, 2020 Admission HPI Per Admitting Provider This is a 75-year-old female who has significant past medical history of chronic respiratory failure secondary to COPD on 2.5 L of O2, hypothyroidism, bipolar disorder, depression, GERD, history of TIA, migraine, mitral regurg who presents to ED secondary to chest pain x1.5 days of hypersomnolence x2 days. She elicits not including today, but the past 2 days she has only been awake for 7 to 8 hours and has slept the rest of the 48 hours. This is never happened to her before. Yesterday afternoon she developed left anterior chest wall discomfort with radiation to left shoulder. Pain was worse with movement on the left arm. Also elicits pins and needles sensation down left arm but this has been present for, "weeks." Does not feel pain was related to exertion and would occur at rest. Nothing seemed to improve symptoms, they would just resolve on own. Left-sided chest discomfort returned this morning at rest and was constant. Pain was present for approximately 4 to 5 hours. Seen and evaluated by out patient [facility] PCP who sent patient to ED due to concern for possible EKG changes. She denies any prior history of heart disease. She also elicits associated with palpitations, which is not new for her. She does also elicit a recent fall approximately 3 days ago which she hit her left hip on a countertop. She further elicits increased arthralgias and myalgias including neck, shoulder, hips and legs. She further elicits worsening COPD symptoms including a productive cough of occasionally purulent sputum, increasing dyspnea on exertion. "I think my COPD is getting worse." She is requesting a COVID-19 test. She denies any known positive exposures but states she had a 3 and 5-year-old in house and is unknown of their status. She denies any documented fever but does complain of night sweats. She also elicits dizziness and feelings of passing out but denies any paresh syncope. She denies any nausea, vomiting, abdominal pain, diarrhea, dysuria, increased urgency or frequency with urination, melena, hematochezia, hematuria. Her appetite has been reduced. She also feels she has increased swelling in her lower extremities and has been reducing her salt intake. In ED she remained hemodynamically stable. Her lab work was generally unremarkable including CBC, CMP, troponin WNL. Chest x-ray revealed no acute process. She received ASA 325mg while in ED. She has been chest pain free while in ED. EKG revealed 57 bpm, sinus bradycardia, low voltage QRS, PAC, QTC 393 MS, no ST or T wave changes. Admission Exam Per Admitting Provider Constitutional: WD/WN, female, vitals as above, NAD, sitting up in bed, pleasant, conversing easily, flight of ideas Head: Normocephalic, Atraumatic Eyes: PERRL, conjunctivae normal, anicteric sclerae ENMT: external ear and nose normal, oropharynx normal Neck: trachea midline, no thyromegaly normal visual inspection Respiratory: normal respiratory effort, lungs clear to auscultation, no wheeze, rales, rhonchi. Normal insp/exp effort, no accessory muscle use Cardiovascular: RRR, no murmur, no edema Vessels: no JVD or carotid bruit Chest: normal inspection of chest, pain to palpation of left anterior chest wall and pain with range of motion to left upper extremity but patient expresses pain is different than, "heart pain" she experienced earlier Abdomen: normal bowel sounds, soft, nontender, no hepatosplenomegaly Musculoskeletal: no cyanosis or clubbing, extremities motor strength 5/5 Skin: no rashes, warm and dry normal turgor Neurologic: PERRL, EOMI, accommodation nl, no face palsy, no dysarthria CN's II-XI intact bilaterally and moves all extremities Psychiatric: A+Ox3, euthymic affect Lymphatic: no cervical or axillary lymphadenopathy : deferred Principal Diagnosis Chest pain, noncardiac Somnolence, likely secondary to polypharmacy COPD exacerbation Discharge Exam Constitutional: WD/WN, female sitting up in bed, vitals as above, NAD Head: Normocephalic, Atraumatic Eyes: PERRL, conjunctivae normal, anicteric sclerae ENMT: external ear and nose normal, oropharynx normal Neck: trachea midline, no thyromegaly normal visual inspection Respiratory: normal respiratory effort, lungs clear to auscultation, no wheeze, rales, rhonchi. Normal insp/exp effort, no accessory muscle use Cardiovascular: RRR, no murmur, no edema Vessels: no JVD or carotid bruit Chest: normal inspection of chest, pain to palpation of left anterior chest wall and pain with range of motion to left upper extremity Abdomen: normal bowel sounds, soft, nontender Musculoskeletal: no cyanosis or clubbing, extremities motor strength 5/5 Skin: no rashes, warm and dry normal turgor Neurologic: PERRL, EOMI, accommodation nl, no face palsy, no dysarthria CN's II-XI intact bilaterally and moves all extremities Psychiatric: A+Ox3, euthymic affect Discharge Data Allergies Allergy/AdvReac Type Severity Reaction Status Date / Time albuterol Allergy Severe CONVULSIONS Verified 06/07/20 16:20 latex Allergy Severe ITCH/RASH/H Verified 06/07/20 16:20 MAIA acetaminophen Allergy Intermediate ITCH ALL Verified 06/07/20 16:20 OVER hydroxyzine AdvReac Severe MOOD Verified 06/07/20 16:20 SWINGS / OUT OF CONTROL Consultations 06/07/20 16:02 ED Decision to Admit Stat 06/07/20 19:41 Consult Cardiology Routine Hospital Course (1) Chest pain: This is a 75-year-old female who has significant past medical history of chronic respiratory failure secondary to COPD on 2.5 L of O2, hypothyroidism, bipolar disorder, depression, GERD, history of TIA, migraine, mitral regurg who presents to ED secondary to chest pain x1.5 days of hypersomnolence x2 days. In ED she remained hemodynamically stable. Her lab work was generally unremarkable including CBC, CMP, troponin WNL. Chest x-ray revealed no acute process. She received ASA 325mg while in ED. She has been chest pain free while in ED. EKG revealed 57 bpm, sinus bradycardia, low voltage QRS, PAC, QTC 393 MS, no ST or T wave changes. Chest pain reproducible. CP possibly secondary to MSK but must rule out ACS vs arrhythmia given pt complaint of palpitations Chest pain although constant past 1.5 days is not new and patient has been experiencing off and on for some time. Pt does appear to be anxious. Currently denies any chest pain. Admitted to [facility] tele troponins x3 - negative repeat ECG unremarkable Consulted cardiology - believe her chest pain is noncardiac, musculoskeletal in origin, no further testing recommended Placed on prednisone for COPD, which may help if related to inflammation from MSK continue daily ASA obtained lipid panel, a1c 4.7% (2) Chronic respiratory failure: on 2.5L O2 via [place] 11/24 to COPD no increase O2 requirement (3) COPD exacerbation: Follows [facility] pulmonology Recently stepped up from anoro to Trelegy Allergy to ZULEMA pt reports worsening shortness of breath, wheezing and increased sputum production, no wheezing on my exam Currently breathing comfortably, on her baseline oxygen Placed on oral prednisone 40 mg daily x5 days and doxycycline 100 mg twice daily x7 days pt requested covid testing on admission, this was negative (4) Hypersomnolence: Patient reports hypersomnolence for the past 48 hours, sleeping well but 7 to 8 hours on admission Patient is now alert and oriented ABG without hypercapnia, unremarkable, TSH wnl Monitor (5) Hypothyroidism: continue levothyroxine check tsh (6) History of migraine: Had SAINI this AM, responded to fioricet prn fioricet Discussed possible polypharmacy with the patient, recommend follow-up with PCP (7) Depression: pt tearful, mood otherwise stable continue zoloft, trazodone pt with hx of bipoloar disorder Discussed possible polypharmacy with the patient, and recommended follow-up with PCP (8) DVT prophylaxis: SCDS/TEDS Disposition:d/c home Follow up: PCP Dr. Roa upon discharge Total Time Total Time Spent Total Time Spent (In Minutes): 40 Total Time Includes: Examination of the Patient, Discharge Planning and Medication Reconciliation Discharge Plan Discharge Items Patient Disposition: Home - Self-Care Reason For Visit: CHEST PAIN,SOB Discharge Diagnosis: Chest pain, noncardiac Somnolence, likely secondary to polypharmacy Activity: Per Instructions section Non-emergency contact: Primary Care Provider and Break Out Worker Call non-emergency contact if: you have any medication questions and your symptoms worsen Follow-up/Referrals: John Roa MD [Primary Care Provider] - Diet: Heart Healthy Addtl Attending Provider Instructions: Recommend to follow-up with your primary care provider within 1 week. You may also need to follow-up with your criminal researcher. Please take doxycycline and prednisone as prescribed. Pending Studies at Discharge: No Stand-Alone Forms: My [facility], Smoking Cessation Medications and DC Order Prescriptions: New doxycycline hyclate 100 mg Capsule 100 mg PO BID 6 Days Qty: 12 RF: 0 prednisone 20 mg Tablet 40 mg PO DAILY 3 Days Qty: 6 RF: 0 Continued multivitamin Tablet 1 tab PO DAILY RF: 0 primidone [Mysoline] 50 mg tablet 100 mg PO HS RF: 0 cyanocobalamin (vitamin B-12) [Vitamin B-12] 100 mcg Tablet 100 mcg PO DAILY RF: 0 loperamide [Imodium A-D] 2 mg Capsule 1 mg PO DAILY RF: 0 alprazolam [Xanax] 1 mg Tablet 1 mg PO BID PRN (Reason: nerves) RF: 0 levothyroxine 112 mcg tablet 112 mcg PO DAILY RF: 0 coenzyme Q10 [CoQ-10] 100 mg Capsule 50 mg PO DAILY RF: 0 cholestyramine (with sugar) [Questran] 4 gram powder in packet 4 g PO BID PRN (Reason: Constipation) RF: 0 [id number] [Fioricet] 50-300-40 mg Capsule 1 cap PO TID PRN (Reason: Migraine Headache) RF: 0 turmeric root extract 500 mg Capsule 500 mg PO DAILY RF: 0 Anoro Ellipta 62.5-25 mcg/actuation blister with device 1 inh inhalation Q OTHER DAY RF: 0 aspirin 81 mg tablet,delayed release (DR/EC) 81 mg PO DAILY Qty: 90 RF: 1 sertraline [Zoloft] 100 mg tablet 100 mg PO DAILY RF: 0 trazodone 100 mg tablet 100 mg PO HS RF: 0 gabapentin [Neurontin] 100 mg capsule 100 mg PO AMHS RF: 0 omeprazole magnesium [Prilosec OTC] 20 mg Tablet,Delayed Release (Dr/Ec) 20 mg PO DAILY PRN (Reason: Acid Reflux) RF: 0 Trelegy Ellipta 100-62.5-25 mcg blister with device 1 inh INHALATION Q OTHER DAY RF: 0 Discharge Orders: Discharge Order (Routine); Ordered 06/08/20 Ordered By: Riley Chaves Admission Data Admit Date/Time: 06/07/20 16:12 Attending Provider: Riley Chaves Admit Provider: Reanna Go Primary Care Provider: John Roa Other Providers: Reanna Go ; Vick Josue
[2020-06-08 19:47] VITALS: BP 118/78; PULSE 54; TEMP 98.2; O2SAT 93
[2020-06-10 14:38] LABS: 7-Aminoclonaz, Confirm NEGATIVE ng/mL (<25); Amobarbital, Urine Conf NEGATIVE ng/mL (<100); Butalbital, Urine NEGATIVE ng/mL (<100); Hydro-Alp Ur, GC/MS 88 ng/mL (<25); Hydroxyethylflurazepam, Conf NEGATIVE ng/mL (<50); Hydroxymidazolam Ur, GC/MS NEGATIVE ng/mL (<50); Hydroxytriazolam NEGATIVE ng/mL (<50); Lorazepam, Ur GC/MS NEGATIVE ng/mL (<50); Nordiazepam, Confirm NEGATIVE ng/mL (<50); Oxazepam Ur, GC/MS NEGATIVE ng/mL (<50); Pentobarbital, Urine Conf NEGATIVE ng/mL (<100); Phenobarbital, Urine 936 ng/mL (<100); Secobarbital, Urine Conf NEGATIVE ng/mL (<100); Temazepam, Confirm NEGATIVE ng/mL (<50)
== END 2020-06-08 20:23 | disposition home or self-care (01) ==
LOC: ED 14:34 → 2W 14:34 → SUATTDRO 16:12 → 2W 19:37

== ENCOUNTER 2024-03-19 11:38 | Inpatient (IN) ==
[2024-03-19 13:01] LABS: Albumin Globulin Ratio 1.4 (0.9-2); BUN Creatinine Ratio 26.9 (10-20); Bilirubin,Total 0.6 mg/dl (0.2-1.0); Calcium 9.9 mg/dl (8.6-10.3); Creatinine Clr Calc Pharmacy 60.8 ml/min; Est GFR (Non-African American) 73.3 ml/min; Globulin 2.8 gm/dl (2.5-4.0); Potassium 3.9 mmol/L (3.5-5.1); Total Protein 6.8 gm/dl (6.0-8.3)
[2024-03-19 13:05] LABS: Basophils # (auto) 0.05 K/uL (0.00-0.20); Basophils % (auto) 0.6 %; Eosinophils # (auto) 0.74 K/uL (0.00-0.50); Eosinophils % (auto) 9.4 %; Hematocrit (blood only) 41.4 % (37.0-47.0); Hemoglobin 13.5 g/dl (12.0-16.0); Immature Granulocytes # (auto) 0.03 K/uL (0.01-0.20); Immature Granulocytes % (auto) 0.4 %; Lymphocytes # (auto) 0.93 K/uL (1.20-3.40); Lymphocytes % (auto) 11.8 %; Mean Corpuscular Hemoglobin 31.2 pg (25.0-34.0); Mean Corpuscular Hgb Conc 32.6 g/dL (32.0-36.0); Mean Corpuscular Volume 95.6 fL (80.0-100.0); Mean Platelet Volume 9.6 fL (9.4-12.4); Monocytes # (auto) 0.59 K/uL (0.11-0.59); Monocytes % (auto) 7.5 %; Neutrophils # (auto) 5.53 K/uL (1.40-6.50); Neutrophils % (auto) 70.3 %; Platelet Count 236 K/uL (130-400); RDW Coefficient of Variation 14.6 % (11.5-14.5); RDW Standard Deviation 51.2 fL (36.4-46.3); Red Blood Count 4.33 M/uL (4.20-5.40); White Blood Count 7.87 K/ul (4.8-10.8)
--- NOTE | 2024-03-19 13:28 | Emergency Department Note ---
Impression & Plan Compression fracture of T11 vertebra, Nausea, GERD (gastroesophageal reflux disease) ED Provider Note Provider: Memo Bustamante MD DATE OF SERVICE: 03/19/2024 CHIEF COMPLAINT: Left back and side pain, cough, fell, urinary symptoms/burning HISTORY OF PRESENT ILLNESS: Patient is a 78-year-old female history of hypothyroidism, TIA, COPD on 2 L of oxygen, CVA, interstitial lung disease, and IBS presenting via ambulance from home today. States last week started have some breathing issues. Seen by her doctor and started on a steroid pack and later concern for pneumonia on Monday when seen in the [facility] office after x- rays started on doxycycline and azithromycin. No improvement in pain with movement of the left flank and low back region. Reports some burning with urination and some persistent cough issues. States the other day she did fall when she was trying to use her cane to adjust the ceiling fan and did strike her head but did not lose consciousness. Patient is on aspirin. Received some fentanyl Zofran and route with minimal improvement of her pain and minimal improvement of nausea she has had for a day or 2. No vomiting. No diarrhea. Did finish the steroid course and states her breathing still not back to normal. Is normally again on 2 L which she is stable on at this time. PAST MEDICAL HISTORY: As noted above MEDICATIONS: Reviewed home medications SOCIAL HISTORY: Lives by herself PHYSICAL EXAM: GENERAL: alert and oriented in no acute distress on stretcher Head: normocephalic and atraumatic EYES: No injection, discharge or icterus. NECK: Trachea midline. ENT: Mucous membranes pink and moist. LUNGS: Airway patent. No retractions. Breath sounds faint expiratory wheeze, occasionally coughing HEART: Regular rate and rhythm. No chest wall tenderness ABDOMEN: Soft and non-tender, without guarding or rebound. No significant flank tenderness. Pain worse with certain movements however on exam such as abdominal and left lower leg flexion. SKIN: Acyanotic, warm, dry EXTREMITIES: Without swelling, tenderness or deformity patient with resolving rash over the right thumb she states she gets every time she has steroids as well as a little bit of soreness to her left grove. NEUROLOGICAL: No focal deficits. No aphasia. No facial droop or slurred speech. Normal strength and tone in the extremities. Sensation to gross touch normal. EK bpm normal sinus rhythm. No PVC or PAC. No acute ST segment elevation or depression with a QTc of 387. Nonspecific T wave flattening. CONTINUOUS CARDIAC MONITORING: was ordered and showed a heart rate of 50s-60s bpm in normal sinus rhythm to sinus bradycardia PDMP was checked without noted issue. GCS 15. Patient's laboratory studies and imaging reviewed. Differential includes Renal colic, UTI, appendicitis, diverticulitis, mesenteric ischemia, aortic pathology, infections, inflammatory bowel disease, PUD, biliary pathology, pneumonia, ACS, PE, head injury, as well as other pathologies. IMPRESSION/MEDICAL DECISION MAKING: Patient with several complaints. Having ongoing cough and some breathing issues with pain into the left flank and side from lower chest wall but not significant tender but is worse with movement. Does report that she also fell and did strike her head several days ago. Is on aspirin. Patient stable on her chronic 2 L of oxygen. Will complete respiratory viral panel and incomplete imaging given the fact she fell of the head as well as a CT of the chest and abdomen pelvis to look for possible etiology of her pain. Will complete a PE study to exclude this as well. Given a bit of regular she did have that much improvement with Zofran for nausea as well as a little bit of morphine and some IV fluid as she is report some decreased intake. CT of the head without acute abnormality per radiology. CT of the chest as well as abdomen pelvis per radiology report with evidence of PE, pneumonia, or kidney stone with a right adrenal nodule incidentally noted as well as some possible esophagitis and likely an acute T11 compression fracture but no rib fractures. This thoracic fracture could be explaining her pain prickly with movement that she is experiencing. Morphine minimal help and given some fentanyl here. Will need to monitor given her history of COPD. Urinalysis not indicative of infection at this time. No clear explanation for the mild dysuria she is experiencing. Respiratory viral panel negative and troponin normal I doubt acute ACS. Discussed with the patient. Given her poor pain control and chronic oxygen use in shared decision-making the patient wishes to come in for further symptom control and pain control. For further pain control and symptom control. Given a dose of Toradol here. Did make patient aware of an incidental small right adrenal nodule for follow-up purposes. Esophagitis noted and again the patient is normally on a PPI but has been using doxycycline may be irritating this will give additional PPI here. Hospitalist contacted for further evaluation and observation. Patient eager for intake and given some water here and a sandwich. DIAGNOSIS: T11 compression fracture, cough, COPD, nausea DISPOSITION: Hospitalist will evaluate Patient was agreeable with this plan. Past Med/Surg History Problem List (Updated 03/19/24 @ 15:29 by Memo Bustamante M.D.) GERD (gastroesophageal reflux disease) (Acute) Nausea (Acute) Compression fracture of T11 vertebra (Acute) Mitral regurgitation Abnormal albumin (Acute) Depression Hypothyroidism DVT prophylaxis Hypersomnolence COPD exacerbation Chronic respiratory failure Chest pain (Acute) History of hysterectomy TIA (transient ischemic attack) (Acute) Headache (Acute) History of brain surgery s/p coil and stent History of CVA (cerebrovascular accident) History of migraine Brain aneurysm COPD (chronic obstructive pulmonary disease) (Acute) Interstitial lung disease (Chronic) Hypotension (Chronic) IBS (irritable bowel syndrome) (Chronic) Surgical History History of colonoscopy History of cholecystectomy Family History Denies family history of Diabetes Heart disease Social History Smoking Status: Never smoker Tobacco Type: Cigarettes packs per day: 1; Hx Alcohol Use: Yes Alcohol type: wine Alcohol Intake Frequency: 2-3 x/Week Hx Substance Use: No Preferred Language: Danish Communication Ability: Effective 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 Beliefs That Will Affect Care: None marital status: Single Current Living Situation: Alone Feels Safe at Home: Yes Assistive Devices: Oxygen - Continuous Allergies Allergies Allergy/AdvReac Type Severity Reaction Status Date / Time albuterol Allergy Severe CONVULSIONS Verified 06/07/20 16:20 latex Allergy Severe ITCH/RASH/H Verified 06/07/20 16:20 MAIA acetaminophen Allergy Intermediate ITCH ALL Verified 06/07/20 16:20 OVER hydroxyzine AdvReac Severe MOOD Verified 06/07/20 16:20 SWINGS / OUT OF CONTROL Home Meds Home Medications Medication Instructions Recorded Confirmed alprazolam 1 mg tablet (Xanax) 1 mg PO BID PRN nerves 07/15/19 06/07/20 idotcwxwxu-[id number]-[id number] 1 cap PO TID PRN Migraine Headache 07/15/19 06/07/20 50 mg-300 mg-40 mg capsule (Fioricet) cholestyramine (with sugar) 4 gram 4 g PO BID PRN Constipation 07/15/19 06/07/20 powder for susp in a packet (Questran) coenzyme Q10 100 mg capsule 50 mg PO DAILY 07/15/19 06/07/20 (CoQ-10) cyanocobalamin (vitamin B-12) 100 100 mcg PO DAILY 07/15/19 06/07/20 mcg tablet (Vitamin B-12) levothyroxine 112 mcg tablet 112 mcg PO DAILY 07/15/19 06/07/20 loperamide 2 mg capsule (Imodium 1 mg PO DAILY 07/15/19 06/07/20 A-D) multivitamin 1 tab PO DAILY 07/15/19 06/07/20 primidone 50 mg tablet (Mysoline) 100 mg PO HS 07/15/19 06/07/20 turmeric root extract 500 mg 500 mg PO DAILY 07/15/19 06/07/20 capsule umeclidinium 62.5 mcg-vilanterol 1 inh inhalation Q OTHER DAY 07/15/19 06/07/20 25 mcg/actuation powdr for inhalation (Anoro Ellipta) fluticasone fur. 100 mcg-umeclid 1 inh inhalation Q OTHER DAY 06/07/20 06/07/20 62.5 mcg-vilant 25 mcg inhalat.powder (Trelegy Ellipta) gabapentin 100 mg capsule 100 mg PO AMHS 06/07/20 06/07/20 (Neurontin) omeprazole magnesium 20 mg 20 mg PO DAILY PRN Acid Reflux 06/07/20 06/07/20 tablet,delayed release (Prilosec OTC) sertraline 100 mg tablet (Zoloft) 100 mg PO DAILY 06/07/20 06/07/20 trazodone 100 mg tablet 100 mg PO HS 06/07/20 06/07/20 Previous Rx's Medication Instructions Recorded aspirin 81 mg tablet,delayed 81 mg PO DAILY #90 tabs 07/17/19 release Results & Data (ED) Vital Signs Vital Signs - 24 hr 03/19/24 11:43 03/19/24 11:43 03/19/24 11:44 Temperature Temperature Source Pulse Rate 71 71 Pulse Rate from SpO2 Sensor 72 Respiratory Rate 18 Blood Pressure 137/80 Blood Pressure Mean 94 Pulse Oximetry 98 Oxygen Delivery Method Oxygen Flow Rate Sepsis Recent Fever Within 48 Hours Sepsis New/Unexplained Change in Mental Status Sepsis Action Taken by Nursing 03/19/24 11:49 03/19/24 12:00 03/19/24 12:30 Temperature 37.1 C Temperature Source Oral Pulse Rate 74 63 Pulse Rate from SpO2 Sensor 63 Respiratory Rate 20 12 Blood Pressure 134/84 121/72 Blood Pressure Mean 100 86 Pulse Oximetry 97 97 Oxygen Delivery Method Room Air Oxygen Flow Rate Sepsis Recent Fever Within 48 Hours No Sepsis New/Unexplained Change in Mental Status No Sepsis Action Taken by Nursing No Action Required 03/19/24 12:30 03/19/24 13:00 03/19/24 13:00 Temperature Temperature Source Pulse Rate 63 58 L Pulse Rate from SpO2 Sensor 63 58 L Respiratory Rate 17 15 Blood Pressure 133/74 Blood Pressure Mean 89 Pulse Oximetry 97 99 Oxygen Delivery Method Oxygen Flow Rate Sepsis Recent Fever Within 48 Hours Sepsis New/Unexplained Change in Mental Status Sepsis Action Taken by Nursing 03/19/24 13:30 03/19/24 13:32 03/19/24 13:32 Temperature Temperature Source Pulse Rate 57 L 65 Pulse Rate from SpO2 Sensor 58 L 63 Respiratory Rate 16 24 Blood Pressure 152/69 H Blood Pressure Mean 92 Pulse Oximetry 97 98 Oxygen Delivery Method Oxygen Flow Rate Sepsis Recent Fever Within 48 Hours Sepsis New/Unexplained Change in Mental Status Sepsis Action Taken by Nursing 03/19/24 14:04 03/19/24 14:30 03/19/24 14:30 Temperature Temperature Source Pulse Rate 54 L Pulse Rate from SpO2 Sensor 52 L Respiratory Rate 17 16 Blood Pressure 141/72 H Blood Pressure Mean 97 Pulse Oximetry 97 95 Oxygen Delivery Method Nasal Cannula Oxygen Flow Rate 4 Sepsis Recent Fever Within 48 Hours Sepsis New/Unexplained Change in Mental Status Sepsis Action Taken by Nursing 03/19/24 15:00 03/19/24 15:42 Temperature Temperature Source Pulse Rate 58 L 55 L Pulse Rate from SpO2 Sensor 57 L Respiratory Rate 15 Blood Pressure Blood Pressure Mean Pulse Oximetry 98 Oxygen Delivery Method Oxygen Flow Rate Sepsis Recent Fever Within 48 Hours Sepsis New/Unexplained Change in Mental Status Sepsis Action Taken by Nursing Laboratory Data 03/19/24 11:46 03/19/24 11:46 Lab Results 03/19/24 03/19/24 03/19/24 Range/Units 11:46 13:40 13:50 WBC 7.87 (4.8-10.8) K/ul RBC 4.33 (4.20-5.40) M/uL Hgb 13.5 (12.0-16.0) g/dl Hct 41.4 (37.0-47.0) % MCV 95.6 (80.0-100.0) fL MCH 31.2 (25.0-34.0) pg MCHC 32.6 (32.0-36.0) g/dL RDW Std Deviation 51.2 H (36.4-46.3) fL RDW Coeff of Kimberly 14.6 H (11.5-14.5) % Plt Count 236 (130-400) K/uL MPV 9.6 (9.4-12.4) fL Immature Gran % (Auto) 0.4 % Neut % (Auto) 70.3 % Lymph % (Auto) 11.8 % [place] % (Auto) 7.5 % Eos % (Auto) 9.4 % Baso % (Auto) 0.6 % Neut # (Auto) 5.53 (1.40-6.50) K/uL Lymph # (Auto) 0.93 L (1.20-3.40) K/uL [place] # (Auto) 0.59 (0.11-0.59) K/uL Eos # (Auto) 0.74 H (0.00-0.50) K/uL Baso # (Auto) 0.05 (0.00-0.20) K/uL Immature Gran # (Auto) 0.03 (0.01-0.20) K/uL Sodium 138 (136-145) mmol/L Potassium 3.9 (3.5-5.1) mmol/L Chloride 101 (98-107) mmol/L Carbon Dioxide 32 (21-32) mmol/L Anion Gap 5 (3-11) BUN 21 (6-23) mg/dl Creatinine 0.78 (0.6-1.2) mg/dl Est Cr Clr Drug Dosing 60.8 ml/min Est GFR ( Amer) 85.0 ml/min Est GFR (Non-Af Amer) 73.3 ml/min BUN/Creatinine Ratio 26.9 H (10-20) Glucose 82 (70-99(Fasting)) mg/dl Calcium 9.9 (8.6-10.3) mg/dl Total Bilirubin 0.6 (0.2-1.0) mg/dl AST 16 (13-39) U/L ALT 24 (7-52) U/L Alkaline Phosphatase 248 H (34-104) U/L Troponin I High Sens 2.6 (0-14) pg/ml Total Protein 6.8 (6.0-8.3) gm/dl Albumin 4.0 (3.4-5.0) gm/dl Globulin 2.8 (2.5-4.0) gm/dl Albumin/Globulin Ratio 1.4 (0.9-2) Urine Color Yellow Urine Appearance Clear (Clear) Urine pH 6.5 (4.5-7.5) Ur Specific [place] 1.012 (1.000-1.030) Urine Protein Negative (Negative) Urine Glucose (UA) Negative (Negative) Urine Ketones Negative (Negative) Urine Blood Negative (Negative) Urine Nitrite Negative (Negative) Urine Bilirubin Negative (Negative) Urine Urobilinogen Negative (Negative) Ur Leukocyte Esterase Trace H (Negative) Urine WBC (Auto) 0-5 (0-5) /hpf Urine RBC (Auto) 0-2 (0-2) /hpf U Hyaline Cast (Auto) 0-2 (0-2) /lpf U Epithel Cells (Auto) 0-2 (0-2) /hpf Urine Bacteria (Auto) None Seen (None Seen) Adenovirus (PCR) Not Detected (NotDetected) B. pertussis DNA (PCR) Not Detected (NotDetected) B.parapertussis DNA PCR Not Detected (NotDetected) C. pneumoniae DNA (PCR) Not Detected (NotDetected) Coronavirus OC43 (PCR) Not Detected (NotDetected) Coronavirus HKU1 (PCR) Not Detected (NotDetected) Coronavirus 229E (PCR) Not Detected (NotDetected) SARS-CoV-2 (PCR) Not Detected (NotDetected) Coronavirus NL63 (PCR) Not Detected (NotDetected) Human Metapneumovir PCR Not Detected (NotDetected) Influenza Type A (PCR) Not Detected (NotDetected) Influenza Type B (PCR) Not Detected (NotDetected) M. pneumoniae (PCR) Not Detected (NotDetected) Parainfluenza 1 (PCR) Not Detected (NotDetected) Parainfluenza 2 (PCR) Not Detected (NotDetected) Parainfluenza 3 (PCR) Not Detected (NotDetected) Parainfluenza 4 (PCR) Not Detected (NotDetected) RSV (PCR) Not Detected (NotDetected) Entero/Rhino (PCR) Not Detected (NotDetected) Administered Medications Discontinued Medications Fentanyl Citrate (Fentanyl Citrate Pf 100 Mcg/2 Ml Vial) 100 mcg IV NOW STA Stop: 03/19/24 14:25 Last Admin: 03/19/24 14:30 Dose: 100 mcg Documented By: PROSPER Sodium Chloride (Nss) 500 mls @ 999 mls/hr IV .Q31M ONE Stop: 03/19/24 13:45 Last Infusion: 03/19/24 14:43 Dose: Infused Documented By: Admin: 03/19/24 13:41 Dose: 999 mls/hr Documented By: PROSPER Famotidine (Pepcid 20mg Iv Push) 20 mg in 5 mls @ 2.5 mls/min IV NOW STA Stop: 03/19/24 15:30 Last Admin: 03/19/24 15:42 Dose: 2.5 mls/min Documented By: RAKAN Ioversol (Optiray 320 125ml) 120 ml IV ONCE ONE Stop: 03/19/24 13:55 Last Admin: 03/19/24 13:54 Dose: 120 ml Documented By: VICKIE Ketorolac Tromethamine (Ketorolac Tromethamine 15 Mg/Ml Vial) 10 mg IV NOW STA Stop: 03/19/24 15:25 Last Admin: 03/19/24 15:42 Dose: 10 mg Documented By: RAKAN Metoclopramide HCl (Metoclopramide Hcl Inj 5 Mg/Ml 2 Ml Vial) 5 mg IV ONE ONE Stop: 03/19/24 13:18 Last Admin: 03/19/24 13:45 Dose: 5 mg Documented By: PROSPER Morphine Sulfate (Morphine Sulfate 2 Mg/Ml Carp) 2 mg IV NOW STA Stop: 03/19/24 13:16 Last Admin: 03/19/24 13:46 Dose: 2 mg Documented By: Admin: 03/19/24 13:41 Dose: 2 mg Documented By: HS Imaging Data Radiologist's Impression: Abdomen/Pelvis CT 03/19/24 13:13 CT abd pelvis IV con only CLINICAL HISTORY: left flank pain urinary symptoms, sob TECHNIQUE: Helical axial images of the abdomen and pelvis were obtained and displayed. Automated dose lowering techniques and/or adjustment according to patient size were utilized for this exam. This exam was performed with intravenous contrast. COMPARISON: None available at the time of this dictation. FINDINGS: Lower chest: Emphysema is seen. Liver: Unremarkable. No focal lesions are seen. Gallbladder and biliary tree: Patient is status post cholecystectomy. Physiologic prominence of the biliary ducts is noted. Pancreas: Unremarkable, no focal lesions. Spleen: Hypodensity in the spleen measuring 14 mm. Adrenals: Right adrenal nodule measuring 16 mm noted. Kidneys and ureters: Renal cysts are seen. Bladder: Limited evaluation due to underdistention. Reproductive organs: Patient is status post hysterectomy. Bowel: Postsurgical changes of partial colectomy noted. Diverticulosis without diverticulitis. Patient is status post appendectomy. There is a small hiatal hernia. Lymph nodes Retroperitoneal: Unremarkable. Pelvic: Unremarkable. Mesenteric: Unremarkable. Peritoneum: Normal. Vessels: Atherosclerotic calcifications are seen. Infrarenal aortic aneurysm measures 23 mm. Abdominal wall: Fat-containing midline hernia is seen above the umbilicus. Bones: Minimal degenerative changes are seen. IMPRESSION: 1. No acute abnormality to explain left-sided flank pain, in particular there is no evidence of obstructive stones. 2. Postsurgical changes of cholecystomy. 3. Right adrenal nodule is seen. If not previously evaluated, nonemergent adrenal mass protocol CT or MRI can be performed. 4. Additional findings as above. ACT 112: Negative or not required by law. Electronically signed by: Harpreet Sommer M.D. 03/19/2024 2:15 PM Chest CTA 03/19/24 13:13 CT ANGIOGRAPHY OF THE CHEST, PULMONARY EMBOLUS PROTOCOL CLINICAL HISTORY: PE, cough, recent pna, Left chest to flank pain COMPARISON STUDY: Chest radiograph March 14, 2023. TECHNIQUE: Following IV administration of 120 mL of Optiray, helical axial images of the chest were obtained utilizing the pulmonary embolus protocol. Maximal intensity projections and sagittal and coronal reformats were viewed on an independent 3D workstation. IV contrast was administered without complication. Automated exposure control was utilized for the study. A dose lowering technique was utilized adhering to the principles of ALARA. CT DOSE: 2889.39 mGy.cm FINDINGS: No pulmonary emboli are identified. There is no pericardial effusion. Size of the heart is at the upper limits of normal. There is no thoracic aortic dissection although opacification is suboptimal. No enlarged thoracic lymph nodes are present. Mild wall thickening of the midesophagus is present. There is moderate emphysema. Groundglass subpleural right lower opacities favor atelectasis. There is no consolidation to suggest pneumonia. There are no pulmonary nodules. No pneumothorax or pleural effusion is present. No acute rib fractures are identified. Concavity of the inferior endplate of T11 is noted with 30% loss of vertebral body height. There is no retropulsion. There is mild paravertebral stranding. Slight loss of height of the superior endplate of T4 is likely chronic. IMPRESSION: 1. No pulmonary emboli identified. 2. Mild compression fracture of the inferior endplate of T11 with 30% loss of vertebral body height. This fracture is likely acute. No acute rib fractures. 3. Emphysema. No consolidation to suggest pneumonia. 4. Mild circumferential wall thickening of the mid esophagus. This may reflect esophagitis. ACT 112: Negative or not required by law. Electronically signed by: Terry López M.D. 03/19/2024 2:[address] 03/19/24 13:14 CT SCAN OF THE BRAIN WITHOUT IV CONTRAST CLINICAL HISTORY: Fall. Head injury. COMPARISON STUDY: CT of the brain dated 03/11/2022. TECHNIQUE: Unenhanced axial CT scan of the brain is performed from the vertex to the skull base. A dose lowering technique was utilized adhering to the principles of ALARA. FINDINGS: Brain parenchyma: There is age-related involutional change noting mild to moderate subcortical and periventricular microangiopathic disease. There is no hemorrhage, mass effect, or evidence of acute territorial ischemia by CT criteria. Tracy-white matter differentiation is preserved. No extra-axial fluid collection is seen. Ventricles, sulci, cisterns: Prominent secondary to involutional change. Intracranial vasculature: There is atherosclerotic calcification of the cavernous carotid arteries. Aneurysm coils are noted in the right suprasellar region. Calvarium: Unremarkable. Sinuses and mastoids: The visualized paranasal sinuses are clear. The mastoid air cells are well pneumatized. Orbits: The bony orbits are grossly intact. There are bilateral ocular lens implants. IMPRESSION: There is no hemorrhage, mass effect, or evidence of acute territorial ischemia by CT criteria. ACT 112: Negative or not required by law. Electronically signed by: Sean Baugh M.D. 03/19/2024 2:12 PM Discharge Plan Visit Data Chief Complaint: Flank Pain Stated Complaint: FLANK PAIN ED Provider: Memo Bustamante Discharge Problem: Compression fracture of T11 vertebra, Nausea, GERD (gastroesophageal reflux disease) Patient Disposition: Being Evaluated by Hospitalist Forms Stand Alone Forms: [facility] Prescriptions Prescriptions: No Action multivitamin Tablet 1 tab PO DAILY primidone [Mysoline] 50 mg tablet 100 mg PO HS cyanocobalamin (vitamin B-12) [Vitamin B-12] 100 mcg Tablet 100 mcg PO DAILY loperamide [Imodium A-D] 2 mg Capsule 1 mg PO DAILY alprazolam [Xanax] 1 mg Tablet 1 mg PO BID PRN (Reason: nerves) levothyroxine 112 mcg tablet 112 mcg PO DAILY coenzyme Q10 [CoQ-10] 100 mg Capsule 50 mg PO DAILY cholestyramine (with sugar) [Questran] 4 gram powder in packet 4 g PO BID PRN (Reason: Constipation) ledsvuryeu-qoiuvjqubvqfu-qzbv [Fioricet] 50-300-40 mg Capsule 1 cap PO TID PRN (Reason: Migraine Headache) turmeric root extract 500 mg Capsule 500 mg PO DAILY Anoro Ellipta 62.5-25 mcg/actuation blister with device 1 inh inhalation Q OTHER DAY Rx Instructions: is alternating with trelegy QOD UNIL ANORO IS USED UP aspirin 81 mg tablet,delayed release (DR/EC) 81 mg PO DAILY Qty: 90 1RF sertraline [Zoloft] 100 mg tablet 100 mg PO DAILY trazodone 100 mg tablet 100 mg PO HS gabapentin [Neurontin] 100 mg capsule 100 mg PO AMHS omeprazole magnesium [Prilosec OTC] 20 mg Tablet,Delayed Release (Dr/Ec) 20 mg PO DAILY PRN (Reason: Acid Reflux) Trelegy Ellipta 100-62.5-25 mcg blister with device 1 inh INHALATION Q OTHER DAY Rx Instructions: IS ALTERNATING WITH ANORA QOD Referrals Referrals: John Roa MD [Primary Care Provider] -
[2024-03-19] MEDS: SODIUM CHLORIDE 0.9% 500 ML IV ONE (13:41)
[2024-03-19] MEDS: MoRPHine SULFATE 2 MG/ML CARP IV STA (13:41)
[2024-03-19] MEDS: METOCLOPRAMIDE HCL INJ 5 MG/ML 2 ML VIAL IV ONE (13:45)
[2024-03-19] MEDS: OPTIRAY 320 125ml IV ONE (13:54)
[2024-03-19 14:08] LABS: Appearance Urine Clear (Clear); Bacteria Urine Automated None Seen (None Seen); Bilirubin Urine Negative (Negative); Blood Urine Negative (Negative); Cast Urine Automated 0-2 /lpf (0-2); Color Urine Yellow; Epithelial Cell Urine Auto 0-2 /hpf (0-2); Glucose Urine UA Negative (Negative); Ketones Urine Negative (Negative); Leukocyte Esterase Urine Trace (Negative); Nitrite Urine Negative (Negative); Protein Urine Negative (Negative); RBC Urine Automated 0-2 /hpf (0-2); Specific Gravity Urine 1.012 (1.000-1.030); Urobilinogen Urine Negative (Negative); WBC Urine Automated 0-5 /hpf (0-5); pH Urine 6.5 (4.5-7.5)
--- NOTE | 2024-03-19 14:14 | CT Scan Report ---
CT SCAN OF THE BRAIN WITHOUT IV CONTRAST CLINICAL HISTORY: Fall. Head injury. COMPARISON STUDY: CT of the brain dated 03/11/2022. TECHNIQUE: Unenhanced axial CT scan of the brain is performed from the vertex to the skull base. A do se lowering technique was utilized adhering to the principles of ALARA. FINDINGS: Brain parenchyma: There is age-related involutional change noting mild to moderate subcortical and pe riventricular microangiopathic disease. There is no hemorrhage, mass effect, or evidence of acute ter ritorial ischemia by CT criteria. Tracy-white matter differentiation is preserved. No extra-axial flui d collection is seen. Ventricles, sulci, cisterns: Prominent secondary to involutional change. Intracranial vasculature: There is atherosclerotic calcification of the cavernous carotid arteries. A neurysm coils are noted in the right suprasellar region. Calvarium: Unremarkable. Sinuses and mastoids: The visualized paranasal sinuses are clear. The mastoid air cells are well pneu matized. Orbits: The bony orbits are grossly intact. There are bilateral ocular lens implants. IMPRESSION: There is no hemorrhage, mass effect, or evidence of acute territorial ischemia by CT roberto nash. ACT 112: Negative or not required by law. Electronically signed by: Sean Baugh M.D. 03/19/2024 2:12 PM
--- NOTE | 2024-03-19 14:17 | CT Scan Report ---
CT abd pelvis IV con only CLINICAL HISTORY: left flank pain urinary symptoms, sob TECHNIQUE: Helical axial images of the abdomen and pelvis were obtained and displayed. Automated dose lowering techniques and/or adjustment according to patient size were utilized for this exam. This e xam was performed with intravenous contrast. COMPARISON: None available at the time of this dictation. FINDINGS: Lower chest: Emphysema is seen. Liver: Unremarkable. No focal lesions are seen. Gallbladder and biliary tree: Patient is status post cholecystectomy. Physiologic prominence of the b iliary ducts is noted. Pancreas: Unremarkable, no focal lesions. Spleen: Hypodensity in the spleen measuring 14 mm. Adrenals: Right adrenal nodule measuring 16 mm noted. Kidneys and ureters: Renal cysts are seen. Bladder: Limited evaluation due to underdistention. Reproductive organs: Patient is status post hysterectomy. Bowel: Postsurgical changes of partial colectomy noted. Diverticulosis without diverticulitis. Patien t is status post appendectomy. There is a small hiatal hernia. Lymph nodes Retroperitoneal: Unremarkable. Pelvic: Unremarkable. Mesenteric: Unremarkable. Peritoneum: Normal. Vessels: Atherosclerotic calcifications are seen. Infrarenal aortic aneurysm measures 23 mm. Abdominal wall: Fat-containing midline hernia is seen above the umbilicus. Bones: Minimal degenerative changes are seen. IMPRESSION: 1. No acute abnormality to explain left-sided flank pain, in particular there is no evidence of obst ructive stones. 2. Postsurgical changes of cholecystomy. 3. Right adrenal nodule is seen. If not previously evaluated, nonemergent adrenal mass protocol CT o r MRI can be performed. 4. Additional findings as above. ACT 112: Negative or not required by law. Electronically signed by: Harpreet Sommer M.D. 03/19/2024 2:15 PM
--- NOTE | 2024-03-19 14:17 | CT Scan Report ---
CT ANGIOGRAPHY OF THE CHEST, PULMONARY EMBOLUS PROTOCOL CLINICAL HISTORY: PE, cough, recent pna, Left chest to flank pain COMPARISON STUDY: Chest radiograph March 14, 2023. TECHNIQUE: Following IV administration of 120 mL of Optiray, helical axial images of the chest were o btained utilizing the pulmonary embolus protocol. Maximal intensity projections and sagittal and cor onal reformats were viewed on an independent 3D workstation. IV contrast was administered without co mplication. Automated exposure control was utilized for the study. A dose lowering technique was ut ilized adhering to the principles of ALARA. CT DOSE: 2889.39 mGy.cm FINDINGS: No pulmonary emboli are identified. There is no pericardial effusion. Size of the heart is at the upper limits of normal. There is no thoracic aortic dissection although opacification is subo ptimal. No enlarged thoracic lymph nodes are present. Mild wall thickening of the midesophagus is pre sent. There is moderate emphysema. Groundglass subpleural right lower opacities favor atelectasis. Th ere is no consolidation to suggest pneumonia. There are no pulmonary nodules. No pneumothorax or pleu ral effusion is present. No acute rib fractures are identified. Concavity of the inferior endplate of T11 is noted with 30% loss of vertebral body height. There is no retropulsion. There is mild paraver tebral stranding. Slight loss of height of the superior endplate of T4 is likely chronic. IMPRESSION: 1. No pulmonary emboli identified. 2. Mild compression fracture of the inferior endplate of T11 with 30% loss of vertebral body height. This fracture is likely acute. No acute rib fractures. 3. Emphysema. No consolidation to suggest pneumonia. 4. Mild circumferential wall thickening of the mid esophagus. This may reflect esophagitis. ACT 112: Negative or not required by law. Electronically signed by: Terry López M.D. 03/19/2024 2:16 PM
[2024-03-19] MEDS: fentaNYL citrate PF 100 MCG/2 ML VIAL IV STA (14:30)
[2024-03-19 14:59] LABS: Adenovirus PCR Not Detected (NotDetected); Bordetella parapertussis PCR Not Detected (NotDetected); Bordetella pertussis PCR Not Detected (NotDetected); Chlamydia pneumoniae PCR Not Detected (NotDetected); Coronavirus 229E PCR Not Detected (NotDetected); Coronavirus CoV-2 (COVID19)PCR Not Detected (NotDetected); Coronavirus HKU1 PCR Not Detected (NotDetected); Coronavirus NL63 PCR Not Detected (NotDetected); Coronavirus OC43PCR Not Detected (NotDetected); Human Metapneumovirus PCR Not Detected (NotDetected); Influenza A PCR Not Detected (NotDetected); Influenza B PCR Not Detected (NotDetected); Mycoplasma pneumoniae PCR Not Detected (NotDetected); Parainfluenza Virus 1 PCR Not Detected (NotDetected); Parainfluenza Virus 2 PCR Not Detected (NotDetected); Parainfluenza Virus 3 PCR Not Detected (NotDetected); Parainfluenza Virus 4 PCR Not Detected (NotDetected); Respiratory Syncytial VirusPCR Not Detected (NotDetected); Rhinovirus/Enterovirus PCR Not Detected (NotDetected)
[2024-03-19] MEDS: KETOROLAC TROMETHAMINE 15 MG/ML VIAL IV STA (15:42)
[2024-03-19] MEDS: FAMOTIDINE 20MG IV PUSH 20 MG/5 ML SYR IV STA (15:42)
[2024-03-19] MEDS: PANTOprazole 80 MG in DEXTROSE 5% 100 ML IV STA (16:07)
--- NOTE | 2024-03-19 16:14 | History & Physical Report ---
Date of Service March 19, 2024 Assessment & Plan (1) Compression fracture of T11 vertebra: (2) GERD (gastroesophageal reflux disease): (3) Hypothyroidism: (4) Chronic respiratory failure: (5) COPD (chronic obstructive pulmonary disease): (6) Interstitial lung disease: Plan: T11 compression fracture - Admit to [facility] - Fall 4 days ago, from small step stool while reaching to turn on a ceiling fan - Ortho consult for possible TSLO bracing - Pain control with lidocaine patch, heat, toradol IV. Pt has listed allergy to acetaminophen, reports it makes her itch all over, but at home she states that she trialed Tylenol/Aleve without improvement. Unsure that this is really a true allergy. May consider MS at low-dose for severe/breakthrough pain - PT/OT consults Chronic respiratory failure Supplemental O2 2 L at all times History of COPD History of tobacco use remotely Interstitial lung disease -Patient recently completed a course of Medrol Dosepak last evening, and is on doxycycline 100 mg twice daily which is scheduled to finish on 03/25 for COPD exacerbation -She reports her breathing is improved at this point - Cont trelegy, and rescue inhalers GERD Hiatal hernia -Patient reports history of nausea/vomiting, here vomited in the ER, denies history of aspiration, she states hiatal hernia is stable, follows with GI as outpatient -Soft bite sized foods allowed for now Hypothyroidism - Chronic, stable, continue levothyroxine Anxiety Depression Bipolar Type II - Continue on sertraline 100 mg daily - Pt uses lorazepam for anxiety: takes 0.5 mg maybe 2-3 times per week per report, is prescribed 1 mg BID daily on Rx. - Hold trazodone with hx of falls DVT ppx: teds, scds Lines: 2 PIV FEN/GI: Soft bite sized foods CODE: Full code Dispo: From home, likely to remain in the hospital x 1-2 days A total of 75 minutes were spent with greater than 50% of that time face to face with the patient, personally reviewing all current laboratories, imaging studies, past medication reconciliation, outpatient chart review, and discussion with specialists to collaborate care for the patient with attending. Please see attending documentation for corrections and/or additions. History of Present Illness Primary Care Provider: John Roa MD This is a 78 yo F with PMHx of chronic respiratory failure secondary to COPD on 2 L nasal cannula O2 at all times, hypothyroidism, hiatal hernia, hx of severe colon injury during colonoscopy s/p colostomy and reversal over 10 years ago, bipolar disorder, depression, GERD, history of TIA, migraine mitral regurg who presents with complaints of back pain. Pt with recent bronchitis/pneumonia where she completed a course of steroid yesterday and was placed on a course of doxycycline for suspected COPD exacerbation. Pt has been home and fell 4 days ago while she was reaching up with her cane on a small step stool while trying trying to turn the ceiling fan on by pulling the little cord. She admits to some weakness back at that time, but didn't seem out of the normal. She was sore around both sides of her chest, the following day after her fall. She did not seek out medical care at that time as her son is currently out of town, scheduled to come back at the end of the week from a trip. The pain seems to have concentrated around the left flank region. Pt reports at home trialed tylenol, aleve and even had a leftover oxycodone tablet which she took last night to help her sleep her pain was so bad. She now presents with flank pain, back pain, and feeling sore all over. She has a life alert bracelet and hit the button this morning due to her pain and was transported by EMS here to the hospital. Pt is slightly nauseated here and vomited up a sandwich in the ER. She has been found to have a new T11 compression fracture. Allergies Allergy/AdvReac Type Severity Reaction Status Date / Time albuterol Allergy Severe CONVULSIONS Verified 03/19/24 16:19 latex Allergy Severe ITCH/RASH/H Verified 03/19/24 16:19 MAIA acetaminophen Allergy Intermediate ITCH ALL Verified 03/19/24 16:19 OVER hydroxyzine AdvReac Severe MOOD Verified 03/19/24 16:19 SWINGS / OUT OF CONTROL Home Medications Medication Instructions Recorded Confirmed Type alprazolam 1 mg tablet (Xanax) 0.5 mg PO DAILY PRN Anxiety 07/15/19 03/19/24 History coenzyme Q10 100 mg capsule 50 mg PO DAILY 07/15/19 03/19/24 History (CoQ-10) cyanocobalamin (vitamin B-12) 100 100 mcg PO .MON/MON/FRI ONLY 07/15/19 03/19/24 History mcg tablet (Vitamin B-12) levothyroxine 112 mcg tablet 112 mcg PO DAILY 07/15/19 03/19/24 History aspirin 81 mg tablet,delayed 81 mg PO DAILY #90 tabs 07/17/19 03/19/24 Rx release fluticasone fur. 100 mcg-umeclid 1 inh inhalation DAILY 06/07/20 03/19/24 History 62.5 mcg-vilant 25 mcg inhalat.powder (Trelegy Ellipta) omeprazole magnesium 20 mg 20 mg PO DAILY PRN Acid Reflux 06/07/20 03/19/24 History tablet,delayed release (Prilosec OTC) sertraline 100 mg tablet (Zoloft) 100 mg PO DAILY 06/07/20 03/19/24 History trazodone 100 mg tablet 100 mg PO HS 06/07/20 03/19/24 History atorvastatin 20 mg tablet 20 mg PO DAILY 03/19/24 03/19/24 History clindamycin phosphate 1 % topical 1 applic topical BID PRN acne 03/19/24 03/19/24 History gel flares doxycycline hyclate 100 mg capsule 100 mg PO AMHS 03/19/24 03/19/24 History ipratropium bromide 17 2 puff inhalation Q6 PRN as 03/19/24 03/19/24 History mcg/actuation HFA aerosol inhaler directed (Atrovent HFA) ketoconazole 2 % shampoo 1 applic topical [id number] 03/19/24 03/19/24 History [id number] 8 mg-folic 400 1 tab PO DAILY 03/19/24 03/19/24 History mcg-K 50 mcg-lutein 300 mcg tablet (Centrum Silver Women) Past Med/Surg History Problem List (Updated 03/19/24 @ 15:29 by Memo Bustamante M.D.) GERD (gastroesophageal reflux disease) (Acute) Nausea (Acute) Compression fracture of T11 vertebra (Acute) Mitral regurgitation Abnormal albumin (Acute) Depression Hypothyroidism DVT prophylaxis Hypersomnolence COPD exacerbation Chronic respiratory failure Chest pain (Acute) History of hysterectomy TIA (transient ischemic attack) (Acute) Headache (Acute) History of brain surgery s/p coil and stent History of CVA (cerebrovascular accident) History of migraine Brain aneurysm COPD (chronic obstructive pulmonary disease) (Acute) Interstitial lung disease (Chronic) Hypotension (Chronic) IBS (irritable bowel syndrome) (Chronic) Surgical History History of colonoscopy History of cholecystectomy Family History Denies family history of Diabetes Heart disease Social History Smoking Status: Former smoker Tobacco Type: Cigarettes packs per day: 1; Second Hand Exposure: No; Do You Dip or Chew Tobacco: No; Hx Alcohol Use: Yes Alcohol type: wine Alcohol Intake Frequency: 2-3 x/Week Hx Substance Use: No Preferred Language: Dutch Communication Ability: Effective Meter Reader Inspector Required: No Beliefs That Will Affect Care: None marital status: Single Current Living Situation: Alone Other Information That Helps Us Care for You: No Feels Safe at Home: Yes Safety Concerns: Feels Safe At This Time Assistive Devices: Cane and Walker Review of Systems Review of Systems: Constitutional: No fever, sweats or chills, +soreness Eyes: No diplopia, no worsening or blurred vision ENT: normal hearing, no trouble swallowing Respiratory: No cough, sputum, dyspnea at rest or on exertion Cardiovascular: No chest pain, tightness or palpitations Abdomen: No pain, +nausea, +vomiting, no diarrhea or constipation Musculoskeletal: No joint pain, calf pain, swelling, + lesion over the left grove, R hand with increased erythema pt reports worsens with taking steroids. Neurologic: No weakness, numbness/tingling, or balance problems Psychiatric: No anxiety or depression Skin: No rash or itch Physical Exam Physical Exam: General: awake, alert, no apparent distress, unkempt Head: Normocephalic, atraumatic ENT: PERRL, EOMI, no pharyngeal exudate, mucous membranes moist Chest: Clear to auscultation, on 2L via NC, no adventitious breath sounds Cardiac: Regular rate and rhythm, no murmur, no JVD, normal peripheral pulses, good capillary refill Abdominal: NABS x 4 quadrants, soft, nondistended, nontender to palpation, no rebound or guarding Back: tenderness over T11 spinal process, radiates pain around the left flank region Extremities: Normal inspection, no peripheral edema or erythema, calfs nontender to palpation, + lesion over the left grove, R hand with increased erythema Psych: Normal mood and affect Neuro: AAO x 3, strength intact bilaterally and rated 5/5, no motor deficits, speech is clear, no peripheral sensory deficits Results & Data Results & Data Vital Signs (Past 12 Hours) Vital Signs Temp Pulse Resp BP Pulse Ox O2 Del Method O2 Flow Rate 03/19/24 15:42 55 L 03/19/24 15:00 58 L 15 98 03/19/24 14:30 141/72 H 03/19/24 14:30 54 L 16 95 03/19/24 14:04 17 97 Nasal Cannula 4 03/19/24 13:32 152/69 H 03/19/24 13:32 65 24 98 03/19/24 13:30 57 L 16 97 03/19/24 13:00 133/74 03/19/24 13:00 58 L 15 99 03/19/24 12:30 63 17 97 03/19/24 12:30 121/72 03/19/24 12:00 63 12 97 03/19/24 11:49 37.1 C 74 20 134/84 97 Room Air 03/19/24 11:44 71 03/19/24 11:43 71 18 98 03/19/24 11:43 137/80 Laboratory Results 03/19/24 03/19/24 03/19/24 13:50 13:40 11:46 WBC 7.87 RBC 4.33 Hgb 13.5 Hct 41.4 MCV 95.6 MCH 31.2 MCHC 32.6 RDW Std Deviation 51.2 H RDW Coeff of Kimberly 14.6 H Plt Count 236 MPV 9.6 Immature Gran % (Auto) 0.4 Neut % (Auto) 70.3 Lymph % (Auto) 11.8 Jefferson % (Auto) 7.5 Eos % (Auto) 9.4 Baso % (Auto) 0.6 Neut # (Auto) 5.53 Lymph # (Auto) 0.93 L Jefferson # (Auto) 0.59 Eos # (Auto) 0.74 H Baso # (Auto) 0.05 Immature Gran # (Auto) 0.03 Sodium 138 Potassium 3.9 Chloride 101 Carbon Dioxide 32 Anion Gap 5 BUN 21 Creatinine 0.78 Est Cr Clr Drug Dosing 60.8 Est GFR ( Amer) 85.0 Est GFR (Non-Af Amer) 73.3 BUN/Creatinine Ratio 26.9 H Glucose 82 Calcium 9.9 Total Bilirubin 0.6 AST 16 ALT 24 Alkaline Phosphatase 248 H Troponin I High Sens 2.6 Total Protein 6.8 Albumin 4.0 Globulin 2.8 Albumin/Globulin Ratio 1.4 Urine Color Yellow Urine Appearance Clear Urine pH 6.5 Ur Specific [place] 1.012 Urine Protein Negative Urine Glucose (UA) Negative Urine Ketones Negative Urine Blood Negative Urine Nitrite Negative Urine Bilirubin Negative Urine Urobilinogen Negative Ur Leukocyte Esterase Trace H Urine WBC (Auto) 0-5 Urine RBC (Auto) 0-2 U Hyaline Cast (Auto) 0-2 U Epithel Cells (Auto) 0-2 Urine Bacteria (Auto) None Seen Adenovirus (PCR) Not Detected B. pertussis DNA (PCR) Not Detected B.parapertussis DNA PCR Not Detected C. pneumoniae DNA (PCR) Not Detected Coronavirus OC43 (PCR) Not Detected Coronavirus HKU1 (PCR) Not Detected Coronavirus 229E (PCR) Not Detected SARS-CoV-2 (PCR) Not Detected Coronavirus NL63 (PCR) Not Detected Human Metapneumovir PCR Not Detected Influenza Type A (PCR) Not Detected Influenza Type B (PCR) Not Detected M. pneumoniae (PCR) Not Detected Parainfluenza 1 (PCR) Not Detected Parainfluenza 2 (PCR) Not Detected Parainfluenza 3 (PCR) Not Detected Parainfluenza 4 (PCR) Not Detected RSV (PCR) Not Detected Entero/Rhino (PCR) Not Detected Diagnostic Findings Abdomen/Pelvis CT 03/19/24 13:13 CT abd pelvis IV con only CLINICAL HISTORY: left flank pain urinary symptoms, sob TECHNIQUE: Helical axial images of the abdomen and pelvis were obtained and displayed. Automated dose lowering techniques and/or adjustment according to patient size were utilized for this exam. This exam was performed with intravenous contrast. COMPARISON: None available at the time of this dictation. FINDINGS: Lower chest: Emphysema is seen. Liver: Unremarkable. No focal lesions are seen. Gallbladder and biliary tree: Patient is status post cholecystectomy. Physiologic prominence of the biliary ducts is noted. Pancreas: Unremarkable, no focal lesions. Spleen: Hypodensity in the spleen measuring 14 mm. Adrenals: Right adrenal nodule measuring 16 mm noted. Kidneys and ureters: Renal cysts are seen. Bladder: Limited evaluation due to underdistention. Reproductive organs: Patient is status post hysterectomy. Bowel: Postsurgical changes of partial colectomy noted. Diverticulosis without diverticulitis. Patient is status post appendectomy. There is a small hiatal hernia. Lymph nodes Retroperitoneal: Unremarkable. Pelvic: Unremarkable. Mesenteric: Unremarkable. Peritoneum: Normal. Vessels: Atherosclerotic calcifications are seen. Infrarenal aortic aneurysm lissy sures 23 mm. Abdominal wall: Fat-containing midline hernia is seen above the umbilicus. Bones: Minimal degenerative changes are seen. IMPRESSION: 1. No acute abnormality to explain left-sided flank pain, in particular there is no evidence of obstructive stones. 2. Postsurgical changes of cholecystomy. 3. Right adrenal nodule is seen. If not previously evaluated, nonemergent adrenal mass protocol CT or MRI can be performed. 4. Additional findings as above. ACT 112: Negative or not required by law. Electronically signed by: Harpreet Sommer M.D. 03/19/2024 2:15 PM Chest CTA 03/19/24 13:13 CT ANGIOGRAPHY OF THE CHEST, PULMONARY EMBOLUS PROTOCOL CLINICAL HISTORY: PE, cough, recent pna, Left chest to flank pain COMPARISON STUDY: Chest radiograph March 14, 2023. TECHNIQUE: Following IV administration of 120 mL of Optiray, helical axial images of the chest were obtained utilizing the pulmonary embolus protocol. Maximal intensity projections and sagittal and coronal reformats were viewed on an independent 3D workstation. IV contrast was administered without complication. Automated exposure control was utilized for the study. A dose lowering technique was utilized adhering to the principles of ALARA. CT DOSE: 2889.39 mGy.cm FINDINGS: No pulmonary emboli are identified. There is no pericardial effusion. Size of the heart is at the upper limits of normal. There is no thoracic aortic dissection although opacification is suboptimal. No enlarged thoracic lymph nodes are present. Mild wall thickening of the midesophagus is present. There is moderate emphysema. Groundglass subpleural right lower opacities favor atelectasis. There is no consolidation to suggest pneumonia. There are no pulmonary nodules. No pneumothorax or pleural effusion is present. No acute rib fractures are identified. Concavity of the inferior endplate of T11 is noted with 30% loss of vertebral body height. There is no retropulsion. There is mild paravertebral stranding. Slight loss of height of the superior endplate of T4 is likely chronic. IMPRESSION: 1. No pulmonary emboli identified. 2. Mild compression fracture of the inferior endplate of T11 with 30% loss of vertebral body height. This fracture is likely acute. No acute rib fractures. 3. Emphysema. No consolidation to suggest pneumonia. 4. Mild circumferential wall thickening of the mid esophagus. This may reflect esophagitis. ACT 112: Negative or not required by law. Electronically signed by: Terry López M.D. 03/19/2024 2:[address] 03/19/24 13:14 CT SCAN OF THE BRAIN WITHOUT IV CONTRAST CLINICAL HISTORY: Fall. Head injury. COMPARISON STUDY: CT of the brain dated 03/11/2022. TECHNIQUE: Unenhanced axial CT scan of the brain is performed from the vertex to the skull base. A dose lowering technique was utilized adhering to the principles of ALARA. FINDINGS: Brain parenchyma: There is age-related involutional change noting mild to moderate subcortical and periventricular microangiopathic disease. There is no hemorrhage, mass effect, or evidence of acute territorial ischemia by CT criteria. Tracy-white matter differentiation is preserved. No extra-axial fluid collection is seen. Ventricles, sulci, cisterns: Prominent secondary to involutional change. Intracranial vasculature: There is atherosclerotic calcification of the cavernous carotid arteries. Aneurysm coils are noted in the right suprasellar region. Calvarium: Unremarkable. Sinuses and mastoids: The visualized paranasal sinuses are clear. The mastoid air cells are well pneumatized. Orbits: The bony orbits are grossly intact. There are bilateral ocular lens implants. IMPRESSION: There is no hemorrhage, mass effect, or evidence of acute territorial ischemia by CT criteria. ACT 112: Negative or not required by law. Electronically signed by: Sean Baugh M.D. 03/19/2024 2:12 PM Code Status & VTE Plan Code Status Full code -discussed with pt at bedside Supervising Physician Co-Signing Physician Notes Pt was seen and examined by myself, Mali Hooker MD on the day of service. Care was coordinated with Alaina Alejo PA-C. 78yoF admitted with concern for SOB and compression fracture after presenting with trouble breathing and back pain after a fall. Was being treated outpt with antibiotics and steroids, uses 2L of oxygen at baseline. CTA chest noting emphysema and acute T1 fracture. XRAY thoracic spine order, consider MRI, ortho spine consult, pain control. Completed course of steroids. No indication of pneumonia, pt on baseline oxygen requirement. Otherwise as above. I spent a total [id number] coordinating, documenting, and providing care for this patient excluding time spent in the performance of separately billed services (5) COPD (chronic obstructive pulmonary disease) COPD type: unspecified COPD Qualified Code(s): J44.9 - Chronic obstructive pulmonary disease, unspecified
--- NOTE | 2024-03-19 17:50 | Electrocardiogram Report ---
Test Reason : Blood Pressure : / mmHG Vent. Rate : 064 BPM Atrial Rate : 064 BPM P-R Int : 130 ms QRS Dur : 078 ms QT Int : 376 ms P-R-T Axes : 047 -13 028 degrees QTc Int : 387 ms Normal sinus rhythm Low voltage QRS Diffuse Minor Nonspecific T wave abnormality Abnormal ECG When compared with ECG of 14-MAR-2023 16:22, Premature atrial complexes are no longer Present Borderline criteria for Anterolateral infarct are no longer Present Nonspecific T wave abnormality now present Confirmed by Alexis Lim ([id number]) on 03/19/2024 5:50:12 PM Referred By: REFERRED SELF Confirmed By:Alexis Lim
[2024-03-19] MEDS ORDERED: ONDANSETRON INJ 2 MG/ML 2 ML VIAL IV PRN (21:18)
[2024-03-19] MEDS: MoRPHine SULFATE 2 MG/ML CARP IV PRN (21:44)
[2024-03-19] MEDS: LIDOCAINE 5% 1 PATCH TD STA (22:09)
[2024-03-19] MEDS: DOXYCYCLINE HYCLATE 100 MG CAP PO SCH (22:11)
--- OUTSIDE RECORDS SUMMARY | 2024-03-19 23:21 | External Medical Summary ---
Author Name Unknown Address Unknown Organization [id number] [place] [id number] Laboratory Report Ordering Provider Test Date Status WILFRED BURNETT JR 03/16/2024 13:45:58 Final Observation Date Value Abnormality Reference (Units ) Status BUN 03/16/2024 13:45:58 19 6-20 (mg/dL) Final Creatinine 03/16/2024 13:45:58 0.9 0.5-1.0 (mg/dL) Final Glomerular filtration rate/1.73 sq M.predicted [Volume Rate/Area] in Serum, Plasma or Blood by Creatinine-based formula (CKD-EPI) 03/16/2024 13:45:58 68 >=60 (mL/min) Final eGFR is calculated based on the CKD-EPI 2020 equation Sodium 03/16/2024 13:45:58 140 135-146 (m mol/L) Final Potassium 03/16/2024 13:45:58 4.5 3.5-5.1 (m mol/L) Final Cl 03/16/2024 13:45:58 101 98-107 (mm ol/L) Final CO2 03/16/2024 13:45:58 28 22-32 (mmo l/L) Final Anion gap 03/16/2024 13:45:58 11 7-15 (mmol /L) Final Glucose 03/16/2024 13:45:58 95 70-120 (mg /dL) Final Calcium 03/16/2024 13:45:58 10.5 Above high normal 8. 4-10.2 (mg/dL) Final Performing Location [facility] [place] [id number]
--- OUTSIDE RECORDS SUMMARY | 2024-03-19 23:21 | External Medical Summary | Summary of Care ---
Author Name Unknown Organization [facility] Address [address] [place] [address] Phone [phone] Care Team Providers Care [employer] Name Role Phone John Roa MD Primary Care Provider [phone] Reason for Visit * Reason Comments Outpatient Testing Encounter Details Date Type Department Care Team (Late st Contact Info) Description 03/16/2024 1:40 PM EDT Laboratory Laboratory, [facility] [address] [place] [id number] [facility] [address] [place] [address] SOB (shortness of breath); Rib pain Allergies Active Allergy Reactions Criticality Noted Date Comments Acetaminophen Abdominal pain High 08/17/2017 Other reaction(s): ITCH ALL OVER Albuterol High 09/07/2017 States was given during a breathing test and had convulsions. Other reaction(s): CONVULSIONS Hydroxyzine High 06/07/2020 Other reaction(s): MOOD SWINGS / OUT OF CONTROL Latex Itching Low 11/27/2017 Hydroxyzine Pamoate Psych complications 017 documented as of this encounter (statuses as of 03/16/2024) Medications Medication Sig Dispensed Refills Start Date End Date Status Multiple Vitamins-Minerals (CENTRUM SILVER 50+WOMEN) TABS Take by mouth. Active Coenzyme Q10 50 MG Oral Tablet Chewable Take by mouth. Active Turmeric 500 MG CapsuleIndications:U nsure of dosage Take 1 Capsule by mouth once a week. Active Cyanocobalamin (VITAMIN B12) 100 MCG TABSIndications:Unsu re of dosage Take 1 Tablet by mouth once a day on Monday, Monday, and Monday only. Active Aspirin 81 MG Oral Tablet Delayed Release Take 1 Tablet by mouth in the morning. Active ibuprofen (MOTRIN) 200 MG Tablet Take 1 Tablet by mouth every 4 hours as needed for Pain. Active omeprazole (PRILOSEC) 20 MG CPDR Take 1 Capsule by mouth in the morning. Active Ginseng 100 MG Oral Capsule Take by mouth. Active oxygen IN GASIndications:or as directed via nasal cannula 1 LPM with exertion, 2.5 LPM during sleep. Keep sats 89-94%. 1 Each 02/22/2022 Active Betamethasone Dipropionate 0.05 % External Cream (Diprosone)Indicatio ns:Dermatitis Apply sparingly to affected area of right hand twice per day as needed for up to 1 week 15 g 06/01/2022 Active Loperamide HCl 2 MG Oral Capsule (Imodium) TAKE 1 CAPSULE BY MOUTH THREE TIMES DAILY 90 Capsule 5 07/06/2022 Active Fluocinonide 0.05 % External CreamIndications:Davin matitis Apply topically to affected area 2 times a day. Apply sparingly to affected area of hands twice per day as needed for up to 1 week at a time. 30 g 11/28/2022 Active Dextromethorphan-gua iFENesin 10-100 MG/5ML Oral Liquid (Robitussin DM) Take 5 mL by mouth every 4 hours as needed for Cough. 120 mL 03/29/2023 Active Trelegy Ellipta 100-62.5-25 MCG/ACT Aerosol Powder Breath Activated (Fluticasone-Umeclid inium-Vilanterol)Ind ications:Chronic hypoxemic respiratory failure (HCC) INHALE ONE PUFF BY MOUTH daily. rinse mouth after use 180 Blister Dosing Unit 3 05/19/2023 Active Levothyroxine Sodium 112 MCG Oral Tablet (Levoxyl) Take one tablet by mouth daily at least 30 minutes before breakfast and other medications 90 Tablet 1 08/14/2023 Active oxyCODONE HCl 5 MG Oral Tablet Abuse-DeterrentIndic ations:Migraine without aura and without status migrainosus, not intractable Take 5 mg by mouth every 8 hours as needed for Pain, Severe. 6 Tablet 12/18/2023 Active ALPRAZolam 1 MG Oral Tablet (xaNAX)Indications:A nxiety TAKE ONE TABLET BY MOUTH TWICE DAILY NEEDED FOR ANXIETY 180 Tablet 12/18/2023 Active Ipratropium [place] HFA 17 MCG/ACT Inhalation Aerosol Solution (Atrovent Hfa)Indications:COPD , group D, by GOLD 2017 classification ([facility]) Inhale 2 puffs every 6 hours as needed 12.9 g 5 12/18/2023 Active Clindamycin Phosphate 1 % External GelIndications:Acne vulgaris Apply to acne lesions on face 2x daily until resolved, then when flaring 60 g 2 01/11/2024 Active Ketoconazole 2 % External Shampoo (Nizoral)Indications :Seborrheic dermatitis of scalp Massage into scalp, rinse out after 5-10 minutes, use 3x weekly. 120 mL 2 01/11/2024 Active traZODone HCl 100 MG Oral Tablet (Desyrel) TAKE 1 TABLET BY MOUTH ONCE DAILY 90 Tablet 1 02/13/2024 Active Sertraline HCl 100 MG Oral Tablet (Zoloft) TAKE 1 TABLET BY MOUTH ONCE DAILY 90 Tablet 1 02/13/2024 Active Atorvastatin Calcium 20 MG Oral Tablet (Lipitor)Indications :Dyslipidemia, goal LDL below 130 Take 1 Tablet by mouth daily. 90 Tablet 3 02/23/2024 Active Azithromycin 250 MG Oral Tablet (Zithromax)Indicatio ns:COPD, group D, by GOLD 2017 classification ([facility]) Take 2 tabs by mouth on the first day, then 1 tab daily on days two through five 6 Tablet 03/12/2024 4 Active methylPREDNISolone 4 MG Oral Tablet Therapy Pack (Medrol Dosepack)Indications :COPD, group D, by GOLD 2017 classification ([facility]) follow package directions 21 Tablet 03/12/2024 Active Doxycycline Hyclate 100 MG Oral Capsule Take 1 Capsule by mouth in the morning and 1 Capsule before bedtime. Do all this for 10 days. Until gone.. 20 Capsule 03/15/2024 4 Active documented as of this encounter (statuses as of 03/16/2024) Active Problems Problem Noted Date Diagnosed Date Food insecurity 06/05/2023 Overview: Per [facility] Protocol Leg mass, left 10/13/2022 Migraine 02/23/2022 Pulmonary nodule, right 05/17/2019 History of tobacco use 03/28/2019 COPD, group D, by GOLD 2017 classification 03/20 Bipolar disorder, in full re mission, most recent episode depressed 02/06/2018 Hypothyroidism 12/23/2017 Gastroesophageal reflux disease 12/23/2017 Major depressive disorder wi th single episode, in partial remission 12/23/2017 documented as of this encounter (statuses as of 03/16/2024) Resolved Problems Problem Noted Date Diagnosed Date Resolved Date Food insecurity 05/31/2021 02/03/2022 Overview: Per [facility] Protocol Chronic hypoxemic respiratory failure 03/28/2019 01/08/2024 SVT (supraventricular tachycardia) 03/20/2019 06/07/2020 Interstitial lung disease 03/20/2019 documented as of this encounter (statuses as of 03/16/2024) Immunizations Name Administration Dates Next Due COVID-19 mRNA, LNP-s, No Pre serve, 2-Dose Series (Moderna) 08/31/2021,12/25/2020,11/27/2020 COVID-19, LNP-s, No Preserve , Bk-sucrose, Ages 12+ (Pfizer) 02/22/2022 Covid-19, Mrna, Lnp-s, Pf, B ivalent, 30 Mcg, IM, 12 yrs and above (Pfizer) 09/29/2022,07/29/2022 Pneumococcal Conjugate Vacc, 13 Valent (Prevnar) 08/22/2018 Pneumococcal Polysaccharide PPV23 (Pneumovax) 11/13/2019 Rabies Vaccine Diploid cell (Imovax) ,07/06/2022,07/02/2022,06/29 Season Influenza, Quad, PF, Adjuvanted, 65+ Yrs, IM (FLUAD) 08/13/2020 Seasonal Influenza, PF, 6 M & above, IM , (FluLaval or Fluzone) 07/21/2021,07/16/2019,08/22/2018,06/22 Seasonal Influenza, Quadriva lent Hd (Fluzone Hd) 12/18/2023,07/28/2022 TDAP (age 10 and older)(Boostrix) 06/19/2020 Zoster Vaccine Recombinant (Shingrix) 07/21/2021 ,04/13/2021 documented as of this encounter Social History Tobacco Use Types Packs/Day Years Used Date Smoking Tobacco: Former Cigarettes 0.8 35 1 - 08/17/2012 Smokeless Tobacco: Never Alcohol Use Standard Drinks/Week Comments Yes 4 (1 standard drink = 0.6 oz pur e alcohol) 2 shots several times a week PHQ-2 Answer Date Recorded PHQ Adult Total Score 3 06/02/2022 Hunger Vital Sign Answer Date Recorded Within the past 12 months, y ou worried that your food would run out before you got the money to buy more. Sometimes true Within the past 12 months, t he food you bought just didn't last and you didn't have money to get more. Sometimes true 09/2024 Sex and Gender Information Value Date Recorded Sex Assigned at Female 11/13/2019 3:20 PM EST Gender Identity Female 11/13/2019 3:20 PM EST Sexual Orientation Straight 11/13/2019 3: 20 PM EST Job Start Date Occupation Industry Not on file Not on file Not on file documented as of this encounter Plan of Treatment Upcoming Encounters Date Type Department Care Team (Late st Contact Info) Description 04/02/2024 1:30 PM EDT Imaging Radiology [address] [address] 04/03/2024 1:00 PM EDT Telemedicine Psychiatry [facility] [place] [address] [place] [phone] Arleen Crowder, [address] [facility] [place] [address] 07/03/2024 1:30 PM EDT Cardiac Studies Cardiac Studies, [address] [place] [address] 07/25/2024 11:20 AM EDT Office Visit Dermatology[address] [address] Renetta Clay PA-C [address] [place] [address] [place] [address] 08/29/2024 1:30 PM EST Office Visit Cardiology, [facility] [address] [place] [address] Leonel Wilde PA-C [address] [place] [address] Pending Results Name Type Priority Associated Diagnoses Date /Time D-DIMER Lab Routine SOB (shortness of breath) Rib pain 03/16/2024 1:45 PM EDT BASIC METABOLIC PANEL Lab Routine SOB (shortness of breath) Rib pain 03/16/2024 1:45 PM EDT Health Maintenance Due Date Last Done Comments Alpha-1 Antitrypsin 1963 Hepatitis C Screening 1963 *ADVANCE DIRECTIVE NOT ON FILE 05/12/2019 COVID-19 Vaccine ( season) 2023 09/29/2022, 07/29/2022, 02/22/2022, Additional history exists TSH 11/15/2024 11/15/2023, 03/2022, 01/20/2022, Additional history exists O2 ASSESSMENT COMPLETED IN PAST YEAR FOR COPD 03/12/2025 03/12/2024 DXA Scan 03/07/2026 03/07/2019 DTaP,Tdap,and Td Vaccines (2 - Td or Tdap) 06/19/2030 06/19/2020 Pneumococcal Vaccine: 65+ Years Completed 11/13/2019, 08/22/2018 Zoster Vaccines Completed 07/21/2021, 04/13/2021 Influenza Vaccine (FLU shot) Completed , 07/28/2022, 07/21/2021, Additional history exists GARDASIL-HPV IMMUNIZATION SERIES Aged Out No longer eligible based on patient's age to complete this topic Hepatitis B Aged Out No longer eligi ble based on patient's age to complete this topic MENINGOCOCCAL (MENACTRA/MENVEO) Aged Out No longer eligible based on patient's age to complete this topic documented as of this encounter Medical Devices Not on filedocumented as of this encounter Procedures Procedure Name Priority Date/Time Associated Diagnosis Comments DIFFERENTIAL, AUTOMATED Routine 03/16/2024 1:45 PM EDT SOB (shortness of breath) Rib pain CBC Routine 03/16/2024 1:45 PM EDT SOB (shortness of breath) Rib pain CBC Routine 03/16/2024 1:45 PM EDT SOB (shortness of breath) Rib pain documented in this encounter Results * (ABNORMAL) DIFFERENTIAL, AUTOMATED (03/16/2024 1:45 PM EDT) WBC 7.96 4.00 - 10.80 K/uL 03/16/2024 2:01 PM EDT [facility] Neutrophils % 74.8 40.0 - 75.0 % 03/16/2024 2:01 PM EDT [facility] [place] [facility] Lymphocytes % 15.6(L) 18.0 - 42.0 % 03/16/2024 2:01 PM EDT [facility] [place] [facility] Monocytes % 7.2 1.0 - 11.0 % 03/16/2024 2:01 PM EDT [facility] [place] [facility] Eosinophils % 2.0 0.0 - 6.0 % 03/16/2024 2:01 PM EDT [facility] [place] [facility] Basophils % 0.4 0.0 - 2.0 % 03/16/2024 2:01 PM EDT [facility] [place] [facility] Absolute Neutrophils 5.96 1.80 - 7.70 K/uL 03/16/2024 2:01 PM EDT [facility] [place] [facility] Absolute Lymphocytes 1.24 1.00 - 4.80 K/ul 03/16/2024 2:01 PM EDT [facility] [place] [facility] Absolute Monocytes 0.57 0.00 - 1.10 K/uL 03/16/2024 2:01 PM EDT [facility] [place] [facility] [facility] Absolute Eosinophils 0.16 0.00 - 0.70 K/uL 03/16/2024 2:01 PM EDT [facility]10 Absolute Basophils 0.03 0.00 - 0.20 K/uL 03/16/2024 2:01 PM EDT [facility]10 Blood Venous blood specimen / Unknown Venipuncture / Unknown 03/16/2024 1:45 PM EDT 03/16/2024 1:45 PM EDT John Smith Jr., DO LAB BLOOD OR DERABLES [facility] [place] [address] * CBC (03/16/2024 1:45 PM EDT) WBC 7.96 4.00 - 10.80 K/uL 03/16/2024 2:01 PM EDT [facility]10 RBC 4.53 3.85 - 5.15 M/uL 03/16/2024 2:01 PM EDT [facility] HGB 14.2 12.0 - 15.3 g/dL 03/16/2024 2:01 PM EDT [facility] HCT 43.7 36.0 - 45.2 % 03/16/2024 2:01 PM EDT [facility] MCV 96.5 81.5 - 97.5 fL 03/16/2024 2:01 PM EDT [facility] MCH 31.3 27.0 - 34.0 pg 03/16/2024 2:01 PM EDT [facility] MCHC 32.5 32.0 - 36.0 g/dL 03/16/2024 2:01 PM EDT [facility]10 RDW 14.9 11.5 - 15.5 % 03/16/2024 2:01 PM EDT [facility] PLT 261 140 - 400 K/uL 03/16/2024 2:01 PM EDT [facility] MPV 9.1 6.6 - 11.1 fL 03/16/2024 2:01 PM EDT [facility] Blood Venous blood specimen / Unknown Venipuncture / Unknown 03/16/2024 1:45 PM EDT 03/16/2024 1:45 PM EDT John Smith Jr., DO LAB BLOOD OR DERABLES [facility] [facility] [place] [address] documented in this encounter Visit Diagnoses Diagnosis SOB (shortness of breath) Shortness of breath Rib pain Chest pain, unspecified documented in this encounter Advance Directives Documents on File Type Date Recorded Patient Automatic Machine Attendant Expl anation Power of Mosaic Tiler 02/14/2011 POWER OF A TTORNEY POA- UPDATE 06/17/20 Care Teams [employer] English Teacher Relationship Specialty Start Date End Date John Roa MD [address] [place] [address] PCP - General Family Medicine 09/07/17 documented as of this encounter
--- OUTSIDE RECORDS SUMMARY | 2024-03-19 23:21 | External Medical Summary ---
Author Name Unknown Address Unknown Organization [id number] [address] [place] [address] Laboratory Report Ordering Provider Test Date Status WILFRED BURNETT JR 03/16/2024 13:45:58 Final Observation Date Value Abnormality Reference (Units ) Status SYNC LEUKOCYTES IN BLOOD BY AUTOMATED COUNT 03/16/2024 13:45:58 7.96 4.00-10.80 (K/uL) Final Segs 03/16/2024 13:45:58 74.8 40.0-75.0 (%) Final Lymphs % 03/16/2024 13:45:58 15.6 Below low normal 18.0-42.0 (%) Final Monos 03/16/2024 13:45:58 7.2 1.0-11.0 (%) Final Eosinophils 03/16/2024 13:45:58 2.0 0.0-6.0 (%) Final Basos 03/16/2024 13:45:58 0.4 0.0-2.0 (%) Final Absolute Segs 03/16/2024 13:45:58 5.96 1.80-7.70 (K/uL) Final Lymphs, absolute 03/16/2024 13:45:58 1.24 1.00-4.80 (K/ul) Final Monos, Abs 03/16/2024 13:45:58 0.57 0.00-1.10 (K/uL) Final Eos, Abs 03/16/2024 13:45:58 0.16 0.00-0.70 (K/uL) Final Basos, Abs 03/16/2024 13:45:58 0.03 0.00-0.20 (K/uL) Final Performing Location [facility] [place] [address]
--- OUTSIDE RECORDS SUMMARY | 2024-03-19 23:21 | External Medical Summary ---
Author Name Unknown Address Unknown Organization [id number]:[facility] [place] [address] [place] [address] Laboratory Report Ordering Provider Test Date Status WILFRED BURNETT JR 03/16/2024 13:45:58 Final Rheumatoid factor at a level above 50 IU/mL may lead to an overestimation of the D-dimer level. A normal D-dimer result (<0.50 ug/mL FEU) has a negative predictive value of approximately 95% for the exclusion of acute pulmonary embolism (PE) or deep vein thrombosis when there is low or moderate pretest PE probability. Increased D-dimer values are abnormal but do not indicate a specific disease state and the D-dimer increase does not definitively correlate with clinical severity of disease. Observation Date Value Abnormality Reference (Units ) Status Fibrin D-dimer FEU [Mass/volume] in Platelet poor plasma by Immunoassay 03/16/2024 13:45:58 1.10 Above high normal <0.50 (ug/mL FEU) Final Performing Location [facility] [place] [address] [place] [address]
--- OUTSIDE RECORDS SUMMARY | 2024-03-19 23:21 | External Medical Summary ---
Author Name Unknown Address Unknown Organization [id number]:[facility] [address] [place] [address] Laboratory Report Ordering Provider Test Date Status WILFRED BURNETT JR 03/16/2024 13:45:58 Final Observation Date Value Abnormality Reference (Units ) Status WBC, Total 03/16/2024 13:45:58 7.96 4.00-10.8 0 (K/uL) Final RBC 03/16/2024 13:45:58 4.53 3.85-5.15 (M/uL) Final Hemoglobin 03/16/2024 13:45:58 14.2 12.0-15.3 (g/dL) Final HCT 03/16/2024 13:45:58 43.7 36.0-45.2 (%) Final MCV 03/16/2024 13:45:58 96.5 81.5-97.5 (fL) Final MCH 03/16/2024 13:45:58 31.3 27.0-34.0 (pg) Final MCHC 03/16/2024 13:45:58 32.5 32.0-36.0 (g/dL) Final RDW 03/16/2024 13:45:58 14.9 11.5-15.5 (%) Final Platelets 03/16/2024 13:45:58 261 140-400 (K /uL) Final MPV 03/16/2024 13:45:58 9.1 6.6-11.1 ( fL) Final Performing Location [facility] - [address] [place] [address]
--- OUTSIDE RECORDS SUMMARY | 2024-03-19 23:22 | External Medical Summary | Summary of Care ---
Author Name Unknown Organization [facility] Address [address] [place] [address] Phone [phone] Care Team Providers Care Site Safety Representative Name Role Phone John Roa MD Primary Care Provider [phone] Reason for Visit * Reason Onset Date Comments Appointment 01/11/2024 Return 6 months for AK/deborah derm/acne. Encounter Details Date Type Department Care Team (Late st Contact Info) Description 01/11/2024 Telephone [facility] [address] [place] [address] John Roa MD [address] [place] [address] Appointment (Return 6 months for AK/deborah de... Allergies Active Allergy Reactions Criticality Noted Date Comments Acetaminophen Abdominal pain High 08/17/2017 Other reaction(s): ITCH ALL OVER Albuterol High 09/07/2017 States was given during a breathing test and had convulsions. Other reaction(s): CONVULSIONS Hydroxyzine High 06/07/2020 Other reaction(s): MOOD SWINGS / OUT OF CONTROL Latex Itching Low 11/27/2017 Hydroxyzine Pamoate Psych complications 017 documented as of this encounter (statuses as of 01/11/2024) Medications Medication Sig Dispensed Refills Start Date End Date Status Multiple Vitamins-Minerals (CENTRUM SILVER 50+WOMEN) TABS Take by mouth. 0 Active Cholecalciferol 25 MCG (1000 UT) Oral Tablet Take 1 Tablet by mouth in the morning. 0 Active Coenzyme Q10 50 MG Oral Tablet Chewable Take by mouth. 0 Active Turmeric 500 MG CapsuleIndications:U nsure of dosage Take 1 Capsule by mouth in the morning. 0 Active Cyanocobalamin (VITAMIN B12) 100 MCG TABSIndications:Unsu re of dosage Take by mouth daily. 0 Active Aspirin 81 MG Oral Tablet Delayed Release Take 1 Tablet by mouth in the morning. 0 Active ibuprofen (MOTRIN) 200 MG Tablet Take 1 Tablet by mouth every 4 hours as needed for Pain. 0 Active omeprazole (PRILOSEC) 20 MG CPDR Take 1 Capsule by mouth in the morning. 0 Active Zoster Vac Recomb Adjuvanted 50 MCG/0.5ML Intramuscular Suspension Reconstituted (SHINGRIX)Indication s:Need for prophylactic vaccination and inoculation against influenza Inject 0.5 mL into a large muscle now and repeat dose in 60 to 180 days 1 Each 1 09/22/2020 Active Ginseng 100 MG Oral Capsule Take by mouth. 0 Active oxygen IN GASIndications:or as directed via nasal cannula 1 LPM with exertion, 2.5 LPM during sleep. Keep sats 89-94%. 1 Each 0 02/22/2022 Active Betamethasone Dipropionate 0.05 % External Cream (Diprosone)Indicatio ns:Dermatitis Apply sparingly to affected area of right hand twice per day as needed for up to 1 week 15 g 0 06/01/2022 Active Imovax Rabies 2.5 UNIT/ML Intramuscular Injectable (Rabies Virus Vaccine, HDC)Indications:Expo sure to bat without known bite 1 ml IM and repeat on day 0, 3, 7, 14 and 28 1 mL 4 06/23/2022 Active Additional Information Patient not taking.Reported on 06/13/2023 Loperamide HCl 2 MG Oral Capsule (Imodium) TAKE 1 CAPSULE BY MOUTH THREE TIMES DAILY 90 Capsule 5 07/06/2022 Active Ymszwgmryh-SBEX-Dlqg eine 50-300-40 MG Oral Capsule (Fioricet)Indication s:Pain of left lower extremity Take 1 Capsule by mouth every 6 hours as needed for Pain, Severe. 15 Capsule 0 11/28/2022 Active Fluocinonide 0.05 % External CreamIndications:Davin matitis Apply topically to affected area 2 times a day. Apply sparingly to affected area of hands twice per day as needed for up to 1 week at a time. 30 g 0 11/28/2022 Active Dextromethorphan-gua iFENesin 10-100 MG/5ML Oral Liquid (Robitussin DM) Take 5 mL by mouth every 4 hours as needed for Cough. 120 mL 0 03/29/2023 Active Trelegy Ellipta 100-62.5-25 MCG/ACT Aerosol Powder Breath Activated (Fluticasone-Umeclid inium-Vilanterol)Ind ications:Chronic hypoxemic respiratory failure (HCC) INHALE ONE PUFF BY MOUTH daily. rinse mouth after use 180 Blister Dosing Unit 3 05/19/2023 Active Levothyroxine Sodium 112 MCG Oral Tablet (Levoxyl) Take one tablet by mouth daily at least 30 minutes before breakfast and other medications 90 Tablet 1 08/14/2023 Active traZODone HCl 100 MG Oral Tablet (Desyrel) TAKE 1 TABLET BY MOUTH ONCE DAILY 90 Tablet 0 11/14/2023 Active Sertraline HCl 100 MG Oral Tablet (Zoloft) TAKE 1 TABLET BY MOUTH ONCE DAILY 90 Tablet 0 11/14/2023 Active oxyCODONE HCl 5 MG Oral Tablet Abuse-DeterrentIndic ations:Migraine without aura and without status migrainosus, not intractable Take 5 mg by mouth every 8 hours as needed for Pain, Severe. 6 Tablet 0 12/18/2023 Active ALPRAZolam 1 MG Oral Tablet (xaNAX)Indications:A nxiety TAKE ONE TABLET BY MOUTH TWICE DAILY NEEDED FOR ANXIETY 180 Tablet 0 12/18/2023 Active Ipratropium [place] HFA 17 MCG/ACT Inhalation Aerosol Solution (Atrovent Hfa)Indications:COPD , group D, by GOLD 2017 classification ([facility]) Inhale 2 puffs every 6 hours as needed 12.9 g 5 12/18/2023 Active Azithromycin 250 MG Oral Tablet (Zithromax Z-Chandan) Please take 500 mg by mouth on day one, followed by 250 mg by mouth for four days. 6 Tablet 0 12/27/2023 Active Clindamycin Phosphate 1 % External GelIndications:Acne vulgaris Apply to acne lesions on face 2x daily until resolved, then when flaring 60 g 2 01/11/2024 Active Ketoconazole 2 % External Shampoo (Nizoral)Indications :Seborrheic dermatitis of scalp Massage into scalp, rinse out after 5-10 minutes, use 3x weekly. 120 mL 2 01/11/2024 Active documented as of this encounter (statuses as of 01/11/2024) Active Problems Problem Noted Date Diagnosed Date Food insecurity 06/05/2023 Overview: Per [facility] Protocol Leg mass, left 10/13/2022 Migraine 02/23/2022 Pulmonary nodule, right 05/17/2019 History of tobacco use 03/28/2019 COPD, group D, by GOLD 2017 classification 03/20 Bipolar disorder, in full re mission, most recent episode depressed 02/06/2018 Hypothyroidism 12/23/2017 Gastroesophageal reflux disease 12/23/2017 Major depressive disorder wi th single episode, in partial remission 12/23/2017 documented as of this encounter (statuses as of 01/11/2024) Resolved Problems Problem Noted Date Diagnosed Date Resolved Date Food insecurity 05/31/2021 02/03/2022 Overview: Per [facility] Protocol Chronic hypoxemic respiratory failure 03/28/2019 01/08/2024 SVT (supraventricular tachycardia) 03/20/2019 06/07/2020 Interstitial lung disease 03/20/2019 documented as of this encounter (statuses as of 01/11/2024) Immunizations Name Administration Dates Next Due COVID-19 [...] on file documented as of this encounter Miscellaneous Notes * Telephone Encounter - Renetta Avalos OSA - 01/11/2024 1:21 PM EDT Per 01/11/2024 checkout notes: Return 6 months for AK/deborah derm/acne. Please provide date and time so that I may call patient with appt. 01/11/2024 documented in this encounter Plan of Treatment Upcoming Encounters Date Type Department Care Team (Late st Contact Info) Description 01/22/2024 1:00 PM EDT Imaging Radiology [address] [place] [address] 01/30/2024 1:00 PM EDT Telemedicine Psychiatry, [place] [address] [place] [address] Lakes[place]leen, [address] [place] [place] [address] 01/31/2024 12:30 PM EDT Laboratory Laboratory, [place] [address] [place] [id number] [facility] [address] [place] [address] 02/20/2024 10:30 AM EDT Office Visit Cardiology, [address] [place] [address] Leonel Wilde PA-C [address] [place] [address] 02/27/2024 1:15 PM EDT Imaging Radiology [address] [place] [address] 07/25/2024 11:20 AM EDT Office Visit Dermatology, [place] [address] [place] [address] Renetta Clay PA-C [address] [place] [address] ERIN Manriquez [address] Health Maintenance Due Date Last Done Comments Alpha-1 Antitrypsin 1963 Hepatitis C Screening 1963 *ADVANCE DIRECTIVE NOT ON FILE 05/12/2019 Depression Screening 06/02/2023 06/02/2022 COVID-19 Vaccine ( season) 2023 09/29/2022, 07/29/2022, 02/22/2022, Additional history exists TSH 11/15/2024 11/15/2023, 10/0 03/2022, 01/20/2022, Additional history exists O2 ASSESSMENT COMPLETED IN PAST YEAR FOR COPD 12/18/2024 12/18/2023 DXA Scan 03/07/2026 03/07/2019 DTaP,Tdap,and Td Vaccines [...] Not on filedocumented as of this encounter Advance Directives Documents on File Type Date Recorded Patient Photo Print Specialist Expl anation Power of Complementary Health Therapists 02/14/2011 POWER OF A TTORNEY POA- UPDATE 06/17/20 Care Teams Site Safety Representative Relationship Specialty Start Date End Date John Roa MD [address] [place] [address] PCP - General Family Medicine 09/07/17 documented as of this encounter
--- OUTSIDE RECORDS SUMMARY | 2024-03-19 23:22 | External Medical Summary | Summary of Care ---
Author Name Unknown Organization [facility] Address [address] [facility] [place] [address] Phone [phone] Care Team Providers Care Surgical Instrument Maker Name Role Phone John Roa MD Primary Care Provider [phone] Reason for Referral * Precert (Within 10 days (routine)) - Authorized Specialty Diagnoses / Procedures Referred By Contac t Referred To Contact Cardiac Studies Diagnoses Palpitations Nonrheumatic mitral valve regurgitation Procedures ECHO, COMPLETE (2D), TRANS-THORACIC Leonel Wilde PA-C [email or web address] [place] [address] Referral ID Status Reason Start Date Expiration Date V isits Requested Visits Authorized [id number] Authorized Precert 02/27/2024 999 999 Reason for Visit * Reason Comments Follow Up 2 year follow up. Pa lpitations ongoing and at times more noticeable. Intermittent chest pain 4-5 times a day and will vary in duration. SOB but has COPD. Minor edema in LE. Dizziness with quick movements and at times feels like she is going to fall backwards. Encounter Details Date Type Department Care Team (Late st Contact Info) Description 02/20/2024 10:30 AM EDT Office Visit Cardiology, [facility] [address] [place] [address] Leonel Wilde PA-C [address] [place] [address] Palpitations*; Nonrheumatic mitral valve regurgitation; History of tobacco use; Dyslipidemia, goal LDL below 130 Allergies Active Allergy Reactions Criticality Noted Date Comments Acetaminophen Abdominal pain High 08/17/2017 Other reaction(s): ITCH ALL OVER Albuterol High 09/07/2017 States was given during a breathing test and had convulsions. Other reaction(s): CONVULSIONS Hydroxyzine High 06/07/2020 Other reaction(s): MOOD SWINGS / OUT OF CONTROL Latex Itching Low 11/27/2017 Hydroxyzine Pamoate Psych complications 017 documented as of this encounter (statuses as of 02/20/2024) Medications Medication Sig Dispensed Refills Start Date End Date Status Multiple Vitamins-Minerals (CENTRUM SILVER 50+WOMEN) TABS Take by mouth. 0 Active Cholecalciferol 25 MCG (1000 UT) Oral Tablet Take 1 Tablet by mouth in the morning. 0 Active Coenzyme Q10 50 MG Oral Tablet Chewable Take by mouth. 0 Active Turmeric 500 MG CapsuleIndications: Unsure of dosage Take 1 Capsule by mouth once a week. 0 Active Cyanocobalamin (VITAMIN B12) 100 MCG TABSIndications:Uns ure of dosage Take 1 Tablet by mouth once a day on Monday, Monday, and Monday only. 0 Active Aspirin 81 MG Oral Tablet Delayed Release Take 1 Tablet by mouth in the morning. 0 Active ibuprofen (MOTRIN) 200 MG Tablet Take 1 Tablet by mouth every 4 hours as needed for Pain. 0 Active omeprazole (PRILOSEC) 20 MG CPDR Take 1 Capsule by mouth in the morning. 0 Active Zoster Vac Recomb Adjuvanted 50 MCG/0.5ML Intramuscular Suspension Reconstituted (SHINGRIX)Indicatio ns:Need for prophylactic vaccination and inoculation against influenza Inject 0.5 mL into a large muscle now and repeat dose in 60 to 180 days 1 Each 1 09/22/2020 Active Additional Information Patient not taking.Reported on 02/20/2024 Ginseng 100 MG Oral Capsule Take by mouth. 0 Active oxygen IN GASIndications:or as directed via nasal cannula 1 LPM with exertion, 2.5 LPM during sleep. Keep sats 89-94%. 1 Each 0 02/22/2022 Active Betamethasone Dipropionate 0.05 % External Cream (Diprosone)Indicati ons:Dermatitis Apply sparingly to affected area of right hand twice per day as needed for up to 1 week 15 g 0 06/01/2022 Active Imovax Rabies 2.5 UNIT/ML Intramuscular Injectable (Rabies Virus Vaccine, [facility])Indications:Exp osure to bat without known bite 1 ml IM and repeat on day 0, 3, 7, 14 and 28 1 mL 4 06/23/2022 Active Additional Information Patient not taking.Reported on 06/13/2023 Loperamide HCl 2 MG Oral Capsule (Imodium) TAKE 1 CAPSULE BY MOUTH THREE TIMES DAILY 90 Capsule 5 07/06/2022 Active Ejikjegcvg-ZRFA-Bro feine 50-300-40 MG Oral Capsule (Fioricet)Indicatio ns:Pain of left lower extremity Take 1 Capsule by mouth every 6 hours as needed for Pain, Severe. 15 Capsule 0 11/28/2022 Active Additional Information Patient not taking.Reported on 02/20/2024 Fluocinonide 0.05 % External CreamIndications:De rmatitis Apply topically to affected area 2 times a day. Apply sparingly to affected area of hands twice per day as needed for up to 1 week at a time. 30 g 0 11/28/2022 Active Dextromethorphan-gu aiFENesin 10-100 MG/5ML Oral Liquid (Robitussin DM) Take 5 mL by mouth every 4 hours as needed for Cough. 120 mL 0 03/29/2023 Active Trelegy Ellipta 100-62.5-25 MCG/ACT Aerosol Powder Breath Activated (Fluticasone-Umecli dinium-Vilanterol)I ndications:Chronic hypoxemic respiratory failure (HCC) INHALE ONE PUFF BY MOUTH daily. rinse mouth after use 180 Blister Dosing Unit 3 05/19/2023 Active Levothyroxine Sodium 112 MCG Oral Tablet (Levoxyl) Take one tablet by mouth daily at least 30 minutes before breakfast and other medications 90 Tablet 1 08/14/2023 Active oxyCODONE HCl 5 MG Oral Tablet Abuse-DeterrentIndi cations:Migraine without aura and without status migrainosus, not intractable Take 5 mg by mouth every 8 hours as needed for Pain, Severe. 6 Tablet 0 12/18/2023 Active ALPRAZolam 1 MG Oral Tablet (xaNAX)Indications: Anxiety TAKE ONE TABLET BY MOUTH TWICE DAILY NEEDED FOR ANXIETY 180 Tablet 0 12/18/2023 Active Ipratropium [place] HFA 17 MCG/ACT Inhalation Aerosol Solution (Atrovent Hfa)Indications:FINGERNAIL SCULPTOR D, group D, by GOLD 2017 classification (HCC) Inhale 2 puffs every 6 hours as needed 12.9 g 5 12/18/2023 Active Clindamycin Phosphate 1 % External GelIndications:Acne vulgaris Apply to acne lesions on face 2x daily until resolved, then when flaring 60 g 2 01/11/2024 Active Ketoconazole 2 % External Shampoo (Nizoral)Indication s:Seborrheic dermatitis of scalp Massage into scalp, rinse out after 5-10 minutes, use 3x weekly. 120 mL 2 01/11/2024 Active traZODone HCl 100 MG Oral Tablet (Desyrel) TAKE 1 TABLET BY MOUTH ONCE DAILY 90 Tablet 1 02/13/2024 Active Sertraline HCl 100 MG Oral Tablet (Zoloft) TAKE 1 TABLET BY MOUTH ONCE DAILY 90 Tablet 1 02/13/2024 Active Azithromycin 250 MG Oral Tablet (Zithromax Z-Chandan) Please take 500 mg by mouth on day one, followed by 250 mg by mouth for four days. 6 Tablet 0 12/27/2023 02/20/20 24 Discontinu ed(End of Procedure) documented as of this encounter (statuses as of 02/20/2024) Active Problems Problem Noted Date Diagnosed Date Food insecurity 06/05/2023 Overview: Per [facility] Protocol Leg mass, left 10/13/2022 Migraine 02/23/2022 Pulmonary nodule, right 05/17/2019 History of tobacco use 03/28/2019 COPD, group D, by GOLD 2017 classification 03/20 Bipolar disorder, in full re mission, most recent episode depressed 02/06/2018 Hypothyroidism 12/23/2017 Gastroesophageal reflux disease 12/23/2017 Major depressive disorder wi th single episode, in partial remission 12/23/2017 documented as of this encounter (statuses as of 02/20/2024) Resolved Problems Problem Noted Date Diagnosed Date Resolved Date Food insecurity 05/31/2021 02/03/2022 Overview: Per [facility] Protocol Chronic hypoxemic respiratory failure 03/28/2019 01/08/2024 SVT (supraventricular tachycardia) 03/20/2019 06/07/2020 Interstitial lung disease 03/20/2019 documented as of this encounter (statuses as of 02/20/2024) Immunizations Name Administration Dates Next Due COVID-19 [...] on file documented as of this encounter Last Filed Vital Signs Vital Sign Reading Time Taken Comments Blood Pressure 124/74 02/20/2024 10:30 AM EDT Pulse 68 02/20/2024 10:30 AM EDT Temperature - - Respiratory Rate 18 02/20/2024 10:30 AM EDT Oxygen Saturation - - Inhaled Oxygen Concentration - - Weight 75.8 kg (167 lb) 02/20/2024 10:30 AM EDT Height - - Body Mass Index 26.16 12/18/2023 12:41 PM EST documented in this encounter Progress Notes * Leonel Wilde PA-C - 02/20/2024 10:30 AM EDT History of Present Illness: Brittany Eric is a 78 year old female who returns today for routinecardiology follow-up. Patient last seen in this office by Dr. Canales in February of 2022. 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 Chest pain: Left sided chest pain, real sharp, comes in tiny waves, always lasts under one second, can happen multiple times per day. Palpitations: "I can't breath. If I take off my oxygen and try to switch the laundry I'll get it. And if I bend over I have a real hard time breathing." Can't lay down due to terrible osteoporosis and osteoarthritis, mainly sleeping on her side. No overt orthopnea or PND. No peripheral edema. Dizzy with quick positional changes, after bending over yesterday to do the trash. Mild self controlled epistaxis No peripheral edema. No syncope. No recent colds. No fevers or chills. No hemoptysis. No melena or hematochezia. No hematuria. 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 Prior imaging suggesting small lacunar infarct COPD Interstitial lung disease Chronic hypoxic respiratory failure Migraine headaches Hypothyroidism Depression Patient Active Problem List Diagnosis Code Hypothyroidism E03.9 Gastroesophageal reflux disease K21.9 Major depressive disorder with single episode, in partial remission ([facility]) F32.4 Bipolar disorder, in full remission, most recent episode depressed ([facility]) F31.76 COPD, group D, by GOLD 2017 classification ([facility]) J44.9 History of tobacco use Z87.891 Pulmonary nodule, right R91.1 Migraine G43.909 Leg mass, left R22.42 Food insecurity Z59.41 Past Medical History: Diagnosis Date Cervical cancer ([facility]) 1981 Chronic hypoxemic respiratory failure ([facility]) 03/28/2019 Colon perforation ([facility]) pt reports colon perforation during colonoscopy with emergency surgery and ostomy; unsure of the year COPD (chronic obstructive pulmonary disease) ([facility]) COPD, group D, by GOLD 2017 classification ([facility]) 03/20/2019 Depression seen on scanned records Gastroesophageal reflux disease 12/23/2017 GERD (gastroesophageal reflux disease) seen on scanned records Hypothyroidism seen on scanned records Lung nodule Past Surgical History: Procedure Laterality Date INFORMATION 2010 Coils and Stent, [facility] SIGMOIDOSCOPY, DIAGNOSTIC 01/04/2018 collagenous colitis/[facility] SIGMOIDOSCOPY/BIOPSY 2013 with erythema inthe rectum and sigmoid (scanned records) TOTAL ABD HYSTERECTOMY W/WO REMOVAL OF TUBE(S) 1981 Family History Problem Relation Age of Onset Mental Disorder Mother Depression Heart disease Mother Congenital heart disease, age 87 Diabetes Mother Hypertension Mother Breast Cancer Mother Mental Disorder Father Heart disease Father CABG Stroke Father Other (Complications of fall) Father in his late 70s Diabetes Sister Lung Disorder Sister Obesity Sister Breast Cancer Sister Heart attack Brother Fatal CA, in his late 60s Heart attack Brother Fatal CA, in his 50s Mental Disorder Grandmother (Maternal) Scizophrenia, Manic Depressive Maternal grandmother, mother, father, and both brothers with CAD Social History Socioeconomic History Marital status: Single Tobacco Use Smoking status: Former Smoker Packs/day: 0.75 Years: 35.00 Pack years: 26.25 Types: Cigarettes Quit date: 08/17/2012 Years since quittin.5 Smokeless tobacco: Never Used Substance and Sexual Activity Alcohol use: Yes Drug use: No Sexual activity: Never Complete Review of Systems is as stated above, negative, or noncontributory. Review of patient's allergies indicates: Allergen Reactions Acetaminophen Abdominal pain Other reaction(s): ITCH ALL OVER Albuterol States was given during a breathing test and had convulsions. Other reaction(s): CONVULSIONS Hydroxyzine Other reaction(s): MOOD SWINGS / OUT OF CONTROL Vistaril [Hydroxyzine Pamoate] Psych complications Latex Itching Current Outpatient Medications Medication Sig Dispense Refill Multiple Vitamins-Minerals (CENTRUM SILVER 50+WOMEN) TABS Take by mouth. Coenzyme Q10 50 MG Oral Tablet Chewable Take by mouth. Turmeric 500 MG Capsule Take 1 Capsule by mouth once a week. Cyanocobalamin (VITAMIN B12) 100 MCG TABS Take 1 Tablet by mouth once a day on Monday, Monday, and Monday only. Aspirin 81 MG Oral Tablet Delayed Release Take 1 Tablet by mouth in the morning. ibuprofen (MOTRIN) 200 MG Tablet Take 1 Tablet by mouth every 4 hours as needed for Pain. omeprazole (PRILOSEC) 20 MG CPDR Take 1 Capsule by mouth in the morning. Ginseng 100 MG Oral Capsule Take by mouth. oxygen IN GAS 1 LPM with exertion, 2.5 LPM during sleep. Keep sats 89-94%. 1 Each 0 Betamethasone Dipropionate 0.05 % External Cream (Diprosone) Apply sparingly to affected area of right hand twice per day as needed for up to 1 week 15 g 0 Fluocinonide 0.05 % External Cream Apply topically to affected area 2 times a day. Apply sparingly to affected area of hands twice per day as needed for up to 1 week at a time. 30 g 0 Trelegy Ellipta 100-62.5-25 MCG/ACT Aerosol Powder Breath Activated (Hezdvfqokgb-Tbrzqcfxanbz-Jdnwhaiues) INHALE ONE PUFF BY MOUTH daily. rinse mouth after use 180 Blister Dosing Unit 3 Levothyroxine Sodium 112 MCG Oral Tablet (Levoxyl) Take one tablet by mouth daily at least 30 minutes before breakfast and other medications 90 Tablet 1 oxyCODONE HCl 5 MG Oral Tablet Abuse-Deterrent Take 5 mg by mouth every 8 hours as needed for Pain,Severe. 6 Tablet 0 ALPRAZolam 1 MG Oral Tablet (xaNAX) TAKE ONE TABLET BY MOUTH TWICE DAILY NEEDED FOR ANXIETY 180 Tablet 0 Ipratropium [place] HFA 17 MCG/ACT Inhalation Aerosol Solution (Atrovent Hfa) Inhale 2 puffs every 6 hours as needed 12.9 g 5 Clindamycin Phosphate 1 % External Gel Apply to acne lesions on face 2x daily until resolved, then when flaring 60 g 2 Ketoconazole 2 % External Shampoo (Nizoral) Massage into scalp, rinse out after 5-10 minutes, use 3x weekly. 120 mL 2 traZODone HCl 100 MG Oral Tablet (Desyrel) TAKE 1 TABLET BY MOUTH ONCE DAILY 90 Tablet 1 Sertraline HCl 100 MG Oral Tablet (Zoloft) TAKE 1 TABLET BY MOUTH ONCE DAILY 90 Tablet 1 Cholecalciferol 25 MCG (1000 UT) Oral Tablet Take 1 Tablet by mouth in the morning. (Patient not taking: Reported on 02/20/2024) Zoster Vac Recomb Adjuvanted 50 MCG/0.5ML Intramuscular Suspension Reconstituted (SHINGRIX) Inject 0.5 mL into a large muscle now and repeat dose in 60 to 180 days (Patient not taking: Reported on 02/20/2024) 1 Each 1 Imovax Rabies 2.5 UNIT/ML Intramuscular Injectable (Rabies Virus Vaccine, [facility]) 1 ml IM and repeat on day 0, 3, 7, 14 and 28 (Patient not taking: Reported on 06/13/2023) 1 mL 4 Loperamide HCl 2 MG Oral Capsule (Imodium) TAKE 1 CAPSULE BY MOUTH THREE TIMES DAILY 90 Capsule 5 Jduhsfhdyx-FPUI-Yrnnamfz 50-300-40 MG Oral Capsule (Fioricet) Take 1 Capsule by mouth every 6 hoursas needed for Pain, Severe. (Patient not taking: Reported on 02/20/2024) 15 Capsule 0 Dextromethorphan-guaiFENesin 10-100 MG/5ML Oral Liquid (Robitussin DM) Take 5 mL by mouth every 4 hours as needed for Cough. 120 mL 0 No current facility-administered medications for this visit. OBJECTIVE/PHYSICAL EXAMINATION: BP 124/74 | Pulse 68 | Resp 18 | Wt 75.8 kg (167 lb) | BMI 26.16 kg/m | BSA 1.89 m Examined in a chair General: Alert, no distress and comfortable Skin: No rash Eyes: PER. Conjunctiva pink, sclera clear. HENT: Normocephalic. Atraumatic. Neck: No carotid bruits. No overt JVD. Heart: RRR, 64 bpm. No significant murmur appreciated. Lungs: Decreased. Diminished. Limited air exchange. On supplemental oxygen. Abdomen: +BS. Soft. Nontender. No masses. No organomegaly. Extremities: No clubbing, cyanosis, or edema. Pulses: radial=2/4, posterior tibial=2/4. Limited neurological examination: No focal deficit. Data: June 2018 Zio Monitor: Predominant rhythm sinus. Average heart rate 67 bpm. Minimum heart rate46 bpm. Maximum heart rate 184 bpm. Forty SVT runs, longest lasting 16.8 seconds with an average rate of 123 bpm. No atrial fibrillation. No high-degree heart block or pauses. No ventricular tachycardia. Symptoms correlated with sinus rhythm, sinus arrhythmia, and sensed supraventricular ectopy. September 18, 2018 Lexiscan Interpretation Summary (as per Dr. Canales): Combined low intensity exercise, pharmacologic nuclear stress test is negative for inducible ischemia. There is a small sized fixed apical perfusion defect of mild intensity that in light of the appearance of the raw data and correlation with echocardiogram performed on the same day is felt to be a normal anatomic variant rather than passenger representative of an infarct. Gated SPECT imaging reveals normal myocardial thickening and wall motion. The left ventricular ejection fraction was calculated to be > 70%. January 2022 Zio Monitor: Patient had a min HR of 46 bpm, max HR of 231 bpm, and avg HR of 72 bpm. Predominant underlying rhythm was Sinus Rhythm. 60 Supraventricular Tachycardia runs occurred, the runwith the fastest interval lasting 8 beats with a max rate of 231 bpm, the longest lasting 24.5 secswith an avg rate of 128 bpm. Isolated SVEs were rare (<1.0%), SVE Couplets were rare (<1.0%),and SVE Triplets were rare (<1.0%). Isolated VEs were rare (<1.0%), and no VE Couplets or VE Triplets were present. The patient is submitted 2 event markers and 3 diary entries with symptoms ofshortness of breath and fluttering episodes correlating with sinus rhythm with 1 episode notable for isolated ectopic atrial beats Impression (as per Dr. Josue): Sinus rhythm at 72 beats per minute with multiple short runs of atrial tachycardia. Episodes likely represent atypical atrial flutter February 01, 2022 TTE Interpretation Summary (as per Dr. Chao): The qualitative LV ejection fraction is 60-64% (normal). The LV wall thickness is mildly increased (concentric). The left ventricular diastolic function is mildly abnormal (grade I). There is mild mitral annular calcification. There is borderline posterior mitral leaflet prolapse. Mild mitral regurgitation is present. Compared to prior study of 09/18/2018, there is no significant change EKG on February 20, 2024 revealed normal sinus rhythm at 66 bpm with low-voltage QRS and a possible old inferior infarct. QTc 423 ms. When compared to prior available tracings, there is no significant change. ASSESSMENT AND RECOMMENDATIONS/PLAN: Atypical chest pain. Multiple risk factors including a very strong family history. Options discussed. Continue ASA 81 mg/day. Check LDL cholesterol. Stress testing offered and deferred at this time. Refer for resting echocardiography. Palpitations, previously documented to occur in association with sensed supraventricular ectopy only. + Asymptomatic supraventricular tachycardia and possible atypical atrial flutter via prior monitoring. General measures advised. Patient reassured. Further evaluation offered and declined. Anticoagulation risks previously felt to be greater than the benefit, and patient is adverse to anticoagulation. Mitral valve prolapse, mitral regurgitation. Refer for resting echocardiography Leonel Wilde PA-C Department of Cardiology I spent a total of 30-39 minutes (exact time 32 mins) on the date of service in preparation, delivery, and documentation of the care provided to Brittany Eric excluding any time spent in the performance of separately billed services. This visit involved medical care services related to at leastone serious condition or complex condition requiring ongoing care. This chart was completed in partutilizing [employer] Speech Voice Recognition Software. Grammatical errors, random word insertions, prounoun errors, and incomplete sentences are an occasional consequence of this system due to software limitations, ambient noise, and hardware issues. Any formal questions or concerns about the content, text, or information contained within the body of this dictation should be directly addressed to the provider for clarification. documented in this encounter Procedure Notes * De BorgiaAlcidse tyson DO - 02/20/2024 10:28 AM EDTAssociated Order(s): EKG REASON FOR STUDY: Palpitations;Palpitations CONCLUSIONS: Normal sinus rhythm Low voltage QRS, consider pulmonary disease, pericardial effusion, or normal variant Possible Inferior infarct , age undetermined Abnormal ECG When compared with ECG of 22-Feb-2022 14:26, Borderline criteria for Inferior infarct are now Present Nonspecific T wave abnormality no longer evident in Lateral leads Ventricular Rate: 66 Atrial Rate: 66 [place] Interval: 134 QRS Duration: 76 QT/QTc: 404/423 ms P-R-T [place]: 17 : -15 : 47 degrees documented in this encounter Nursing Notes * Ananda Carroll LPN - 02/20/2024 10:34 AM EDT Patient identified by full name and date of Chief Complaint Patient presents with Follow Up 2 year follow up. Palpitations ongoing and at times more noticeable. Intermittent chest pain 4-5 times a day and will vary in duration. SOB but has COPD. Minor edema in LE. Dizziness with quick movements and at times feels like she is going to fall backwards. Examination Room: 3 Name: Brittany Eric Date of : (1945). Reason for Visit: 2 year follow up Interim Hospitalization(s): Denies Problems/Concerns: See chief complaint Chest Pain/SOB: See chief complaint [facility] Discussed: Not applicable [facility] is a way you can talk to your provider online through e-mail. Would you like to sign up? I can activate it for you? ALREADY ACTIVE Patient was instructed to not get up on the exam table until directed and assisted by their provider; patient is to remain seated in the chair/ wheelchair/ exam table for fall prevention and safety reasons. Patient is aware to have assistance to step down off exam table with personnel. Patient voiced full comprehension of instructions. documented in this encounter Plan of Treatment Upcoming Encounters Date Type Department Care Team (Late st Contact Info) Description 02/27/2024 1:15 PM EDT Imaging Radiology [address] [facility] [place] [address] 04/02/2024 12:30 PM EDT Telemedicine Psychiatry, [place] [address] [place] [address] Lakesha Arleen, [address] [place] [facility] [address] 04/02/2024 1:30 PM EDT Imaging Radiology [address] [facility] [place] [address] 07/03/2024 1:30 PM EDT Cardiac Studies Cardiac Studies, [address] [place] [address] 07/25/2024 11:20 AM EDT Office Visit Dermatology[address] [address] Renetta Clay PA-C [address] [place] [address] [place] [address] 08/29/2024 1:30 PM EST Office Visit Cardiology, [facility] [address] [facility] [place] [address] Leonel Wilde PA-C [address] [facility] [place] [address] Scheduled Orders Name Type Priority Associated Diagnoses Orde r Schedule ECHO, COMPLETE (2D), TRANS-THORACIC Echocardiology Routine Palpitations Nonrheumatic mitral valve regurgitation Expected: 02/27/2024, Expires: 03/21/2026 Health Maintenance Due Date Last Done Comments [...] Procedure Name Priority Date/Time Associated Diagnosis Comments [place] ECG ROUTINE ECG W/LEAST 12 LDS I&R ONLY Routine 02/20/2024 10:28 AM EDT Palpitations documented in this encounter Results * (ABNORMAL) LDL CHOLESTEROL (DIRECT MEASURE) (02/20/2024 11:17 AM EDT) LDL Cholesterol (Direct Measure) 132(H) <=129 mg/dL 02/20/2024 7:15 PM EDT [facility] Comment: LDL Cholesterol Reference Ranges (mg/dL): <70 Target level for high risk ASCVD patient <100 Optimal for general population 100-129 Near optimal for general population 130-159 Borderline high 160-189 High >=190 Very high Blood Venous blood specimen / Unknown Venipuncture / Unknown 02/20/2024 11:17 AM EDT 02/20/2024 11:17 AM EDT Leonel Wilde PA-C LAB BLOOD ORDERABLE S LABORATORY [facility] [address] [place] [address] * EKG (02/20/2024 10:28 AM EDT) 02/20/2024 10:2 8 AM EDT Narrative Procedure Note Alcides Canales, - 02/20/2024 10:28 AM EDT REASON FOR STUDY: Palpitations;Palpitations CONCLUSIONS: Normal sinus rhythm Low voltage QRS, consider pulmonary disease, pericardial effusion, ornormal variant Possible Inferior infarct , age undetermined Abnormal ECG When compared with ECG of 22-Feb-2022 14:26, Borderline criteria for Inferior infarct are now Present Nonspecific T wave abnormality no longer evident in Lateral leads Ventricular Rate: 66 Atrial Rate: 66 [place] Interval: 134 QRS Duration: 76 QT/QTc: 404/423 ms P-R-T [place]: 17 : -15 : 47 degrees Leonel Wilde PA-C EKG [facility] documented in this encounter Visit Diagnoses Diagnosis Palpitations- Primary Nonrheumatic mitral valve regurgitation History of tobacco use Personal history of tobacco use, presenting hazards to health Dyslipidemia, goal LDL below 130 Other and unspecified hyperlipidemia documented in this encounter Advance Directives Documents on File Type Date Recorded Patient Detonator Assembler Expl anation Power of Passenger Representative 02/14/2011 POWER OF A TTORNEY POA- UPDATE 06/17/20 Care Teams Surgical Instrument Maker Relationship Specialty Start Date End Date John Roa MD [address] [place] [address] PCP - General Family Medicine 09/07/17 documented as of this encounter
--- OUTSIDE RECORDS SUMMARY | 2024-03-19 23:22 | External Medical Summary | Summary of Care ---
Author Name Unknown Organization [facility] Address [address] [facility] [address] Phone [phone] Care Team Providers Care Washhouse Worker Name Role Phone John Roa MD Primary Care Provider +1- [phone] Reason for Visit * Reason Comments Outpatient Testing Encounter Details Date Type Department Care Team (Late st Contact Info) Description 02/20/2024 11:50 AM EDT Laboratory Laboratory, [facility] [address] [facility] [place] [address] [facility] 132 [place] [address] Dyslipidemia, goal LDL below 130 Allergies Active [...] TIMES DAILY 90 Capsule 5 07/06/2022 Active Ogsurdtpyc-WGGJ-Yhtv eine 50-300-40 MG Oral Capsule (Fioricet)Indication s:Pain of left lower extremity Take 1 Capsule by mouth every 6 hours as needed for Pain, Severe. 15 Capsule 0 11/28/2022 Active Additional Information Patient not taking.Reported on 02/20/2024 Fluocinonide 0.05 % External CreamIndications:Davin matitis Apply [...] ANXIETY 180 Tablet 0 12/18/2023 Active Ipratropium [place] HFA 17 MCG/ACT Inhalation Aerosol Solution (Atrovent Hfa)Indications:COPD , group D, by GOLD 2017 classification ([facility]) Inhale 2 puffs every 6 hours as [...] ONCE DAILY 90 Tablet 1 02/13/2024 Active documented as of this encounter (statuses as of 02/20/2024) Active Problems Problem Noted Date Diagnosed Date Food insecurity 06/05/2023 Overview: Per [facility] Protocol Leg mass, left 10/13/2022 [...] Date Food insecurity 05/31/2021 02/03/2022 Overview: Per [facility] Protocol Chronic hypoxemic respiratory failure 03/28/2019 [...] Description 02/27/2024 1:15 PM EDT Imaging Radiology [address] 132 [facility] [place] [address] 04/02/2024 12:30 PM EDT Telemedicine Psychiatry, [place] [address] [place] [address] Arleen Crowder DO [address] [facility] [place] [address] 04/02/2024 1:30 PM EDT Imaging Radiology [address] 132 [facility] [place] [address] 07/03/2024 1:30 PM EDT Cardiac Studies Cardiac Studies, [facility] 132 [facility] [place] [address] 07/25/2024 11:20 AM EDT Office Visit Dermatology, [address] [place] [address] Renetta Clay PA-C [address] [place] [address] [place] [address] 08/29/2024 1:30 PM EST Office Visit Cardiology, [facility] 132 [facility] [place] [address] Leonel Wilde PA-C 132 [facility] [place] [address] Pending Results Name Type Priority Associated Diagnoses Date /Time LDL CHOLESTEROL (DIRECT MEASURE) Lab Routine Dyslipidemia, goal LDL below 130 02/20/2024 11:17 AM EDT Health Maintenance Due Date Last Done [...] Not on filedocumented as of this encounter Visit Diagnoses Diagnosis Dyslipidemia, goal LDL below 130 Other and unspecified hyperlipidemia documented in this encounter Advance Directives Documents on File Type Date Recorded Patient Icu Staff Nurse Expl anation Power of Engraving Supervisor 02/14/2011 POWER OF A TTORNEY POA- UPDATE 06/17/20 Care Teams Washhouse Worker Relationship Specialty Start Date End Date John Roa MD [address] [place] [address] PCP - General Family Medicine 09/07/17 documented as of this encounter
--- OUTSIDE RECORDS SUMMARY | 2024-03-19 23:22 | External Medical Summary | Summary of Care ---
Author Name Unknown Organization [facility] Address [address] [place] [address] Phone [phone] Care Team Providers Care Management Trainee Program Stores Name Role Phone John Roa MD Primary Care Provider +1- [phone] Reason for Visit * Reason Onset Date Comments Appointment 01/11/2024 Return 6 months for [place]/deborah derm/acne. Encounter Details Date Type Department Care Team (Late st Contact Info) Description 01/11/2024 Telephone [facility] [address] [place] [address] John Roa MD [address] [place] [address] Appointment (Return 6 months for [...] TIMES DAILY 90 Capsule 5 07/06/2022 Active Isptdtqjtd-KKMK-Vhjz eine 50-300-40 MG Oral Capsule (Fioricet)Indication s:Pain [...] ANXIETY 180 Tablet 0 12/18/2023 Active Ipratropium [place] HFA 17 MCG/ACT Inhalation Aerosol Solution (Atrovent Hfa)Indications:COPD , group D, by GOLD 2017 classification ([facility]) Inhale 2 puffs every 6 hours as [...] Diagnosed Date Food insecurity 06/05/2023 Overview: Per [facility] Protocol Leg mass, left 10/13/2022 [...] Date Food insecurity 05/31/2021 02/03/2022 Overview: Per [facility] Protocol Chronic hypoxemic respiratory failure 03/28/2019 [...] encounter Miscellaneous Notes * Telephone Encounter - Vivien Arango LPN - 01/11/2024 1:38 PM EDT Jul at 11:20 AM * Telephone Encounter - Renetta Avalos OSA - 01/11/2024 1:21 PM EDT Per 01/11/2024 checkout notes: Return 6 months for AK/deborah derm/acne. Please provide date and time so that I may call patient with appt. 01/11/2024 documented in this encounter Plan of Treatment Upcoming Encounters Date Type Department Care Team (Late st Contact Info) Description 01/22/2024 1:00 PM EDT Imaging Radiology [address] 132 [facility] [place] [address] 01/30/2024 1:00 PM ED[facility] [address] [place], [place] [id number] Arleen Crowder, [address] [place] [address] 01/31/2024 12:30 PM EDT Laboratory Laboratory, [place] [address] [place] [id number] [facility] [address] [place] [address] 02/20/2024 10:30 AM EDT Office Visit Cardiology, [address] [place] [address] Leonel Wilde PA-C [facility] [place] [address] 02/27/2024 1:15 PM EDT Imaging Radiology [address] 132 [facility] [place] [address] 07/25/2024 11:20 AM EDT Office Visit Dermatology, [address] [address] Renetta Clay PA-C [address] [place] [address] [place] [address] Health Maintenance Due Date Last Done Comments Alpha-1 Antitrypsin 1963 Hepatitis C Screening 1963 *ADVANCE DIRECTIVE NOT ON FILE 05/12/2019 Depression Screening 06/02/2023 06/02/2022 COVID-19 Vaccine ( season) 2023 09/29/2022, 07/29/2022, 02/22/2022, Additional history exists TSH 11/15/2024 11/15/2023, 10/03/2022, 01/20/2022, Additional history exists O2 ASSESSMENT COMPLETED [...] Documents on File Type Date Recorded Patient Counter Checker Expl anation Power of Oil Gas And Pipe Tester 02/14/2011 POWER OF A TTORNEY POA- UPDATE 06/17/20 Care Teams Management Trainee Program Stores Relationship Specialty Start Date End Date John Roa MD [address] [place] [address] PCP - General Family Medicine 09/07/17 documented as of this encounter
--- OUTSIDE RECORDS SUMMARY | 2024-03-19 23:22 | External Medical Summary | Summary of Care ---
Author Name Unknown Organization [facility] Address [address] [place] [address] Phone [phone] Care Team Providers Care Airline Hostess Name Role Phone Laurence Cuevas MD Primary Care Provider +1- [phone] Reason for Visit * Reason Comments eRx-Medication Refill Encounter Details Date Type Department Care Team (Late st Contact Info) Description 02/12/2024 Refill [facility] [address] [place] [address] Laurence Cuevas MD [address] [place] [address] Allergies Active Allergy Reactions Criticality Noted Date Comments Acetaminophen Abdominal pain High 08/17/2017 Other reaction(s): ITCH ALL OVER Albuterol High 09/07/2017 States was given during a breathing test and had convulsions. Other reaction(s): CONVULSIONS Hydroxyzine High 06/07/2020 Other reaction(s): MOOD SWINGS / OUT OF CONTROL Latex Itching Low 11/27/2017 Hydroxyzine Pamoate Psych complications 017 documented as of this encounter (statuses as of 02/13/2024) Medications Medication Sig Dispensed Refills Start Date [...] 100 MCG TABSIndications:Uns ure of dosage Take by mouth daily. 0 [...] 60 to 180 days 1 Each 1 0 Active Ginseng 100 MG Oral Capsule Take by mouth. 0 Active oxygen IN GASIndications:or as directed via nasal cannula 1 LPM with exertion, 2.5 LPM during sleep. Keep sats 89-94%. 1 Each 0 2 Active Betamethasone Dipropionate 0.05 % External Cream (Diprosone)Indicati ons:Dermatitis Apply sparingly to affected area of right hand twice per day as needed for up to 1 week 15 g 0 2 Active Imovax Rabies 2.5 UNIT/ML Intramuscular Injectable (Rabies Virus Vaccine, [facility])Indications:Exp osure to bat without known bite 1 ml IM and repeat on day 0, 3, 7, 14 and 28 1 mL 4 2 Active Additional Information Patient not taking.Reported on 06/13/2023 Loperamide HCl 2 MG Oral Capsule (Imodium) TAKE 1 CAPSULE BY MOUTH THREE TIMES DAILY 90 Capsule 5 2 Active Appopypsye-DZLW-Vaq feine 50-300-40 MG Oral Capsule (Fioricet)Indicatio ns:Pain of left lower extremity Take 1 Capsule by mouth every 6 hours as needed for Pain, Severe. 15 Capsule 0 3 Active Fluocinonide 0.05 % External CreamIndications:De rmatitis Apply topically to affected area 2 times a day. Apply sparingly to affected area of hands twice per day as needed for up to 1 week at a time. 30 g 0 3 Active Dextromethorphan-gu aiFENesin 10-100 MG/5ML Oral Liquid (Robitussin DM) Take 5 mL by mouth every 4 hours as needed for Cough. 120 mL 0 3 Active Trelegy Ellipta 100-62.5-25 MCG/ACT Aerosol Powder Breath Activated (Fluticasone-Umecli dinium-Vilanterol)I ndications:Chronic hypoxemic respiratory failure (HCC) INHALE ONE PUFF BY MOUTH daily. rinse mouth after use 180 Blister Dosing Unit 3 3 Active Levothyroxine Sodium 112 MCG Oral Tablet (Levoxyl) Take one tablet by mouth daily at least 30 minutes before breakfast and other medications 90 Tablet 1 3 Active oxyCODONE HCl 5 MG Oral Tablet Abuse-DeterrentIndi cations:Migraine without aura and without status migrainosus, not intractable Take 5 mg by mouth every 8 hours as needed for Pain, Severe. 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 6 Tablet 0 4 Active Clindamycin Phosphate 1 % External GelIndications:Acne vulgaris Apply to acne lesions on face 2x daily until resolved, then when flaring 60 g 2 4 Active Ketoconazole 2 % External Shampoo (Nizoral)Indication s:Seborrheic dermatitis of scalp Massage into scalp, rinse out after 5-10 minutes, use 3x weekly. 120 mL 2 4 Active traZODone HCl 100 MG Oral Tablet (Desyrel) TAKE 1 TABLET BY MOUTH ONCE DAILY 90 Tablet 1 4 Active Sertraline HCl 100 MG Oral Tablet (Zoloft) TAKE 1 TABLET BY MOUTH ONCE DAILY 90 Tablet 1 4 Active traZODone HCl 100 MG Oral Tablet (Desyrel) TAKE 1 TABLET BY MOUTH ONCE DAILY 90 Tablet 0 4 02/13/20 24 Discontinued Sertraline HCl 100 MG Oral Tablet (Zoloft) TAKE 1 TABLET BY MOUTH ONCE DAILY 90 Tablet 0 4 02/13/20 24 Discontinued documented as of this encounter (statuses as of 02/13/2024) Active Problems Problem Noted Date Diagnosed Date Food insecurity 06/05/2023 Overview: Per [facility] Protocol Leg mass, left 10/13/2022 Migraine 02/23/2022 Pulmonary nodule, right 05/17/2019 History of tobacco use 03/28/2019 COPD, group D, by GOLD 2017 classification 03/20 Bipolar disorder, in full re mission, most recent episode depressed 02/06/2018 Hypothyroidism 12/23/2017 Gastroesophageal reflux disease 12/23/2017 Major depressive disorder wi th single episode, in partial remission 12/23/2017 documented as of this encounter (statuses as of 02/13/2024) Resolved Problems Problem Noted Date Diagnosed Date Resolved Date Food insecurity 05/31/2021 02/03/2022 Overview: Per [facility] Protocol Chronic hypoxemic respiratory failure 03/28/2019 01/08/2024 SVT (supraventricular tachycardia) 03/20/2019 06/07/2020 Interstitial lung disease 03/20/2019 documented as of this encounter (statuses as of 02/13/2024) Immunizations Name Administration Dates Next Due COVID-19 [...] encounter Miscellaneous Notes * Telephone Encounter - Verónica Richter, [facility] - 02/13/2024 10:15 AM EDTSigned Prescriptions: Disp Refills traZODone HCl 100 MG Oral Tablet (Desyrel) 90 Tab*1 Sig: TAKE 1 TABLET BY MOUTH ONCE DAILYAuthorizing Provider: LAURENCE CUEVAS User: VERÓNICA RICHTER Sertraline HCl 100 MG Oral Tablet (Zoloft) 90 Tab*1 Sig: TAKE 1 TABLET BY MOUTH ONCE DAILYAuthorizingProvider: LAURENCE CUEVAS User: VERÓNICA RICHTER documented in this encounter Plan of Treatment Upcoming Encounters Date Type Department Care Team (Late st Contact Info) Description 02/20/2024 10:30 AM EDT Office Visit Cardiology, [address] [place] [address] Leonel Wilde PA-C 132 [facility] [place] [address] 02/27/2024 1:15 PM EDT [address] [place] [address] 04/02/2024 1:30 PM EDT [address] Rad[address] [place] [address] 07/25/2024 11:20 AM EDT Office [address] [address] Verónica Clay PA-C [address] [place] [address] [place] [address] Health Maintenance Due Date Last Done Comments [...] Documents on File Type Date Recorded Patient Director Of Human Resources Expl anation Power of Sourcing Assistant 02/14/2011 POWER OF A TTORNEY POA- UPDATE 06/17/20 Care Teams Airline Hostess Relationship Specialty Start Date End Date Laurence Cuevas MD [address] [place] [address] PCP - General Family Medicine 09/07/17 documented as of this encounter
--- OUTSIDE RECORDS SUMMARY | 2024-03-19 23:22 | External Medical Summary | Summary of Care ---
Author Name Unknown Organization [facility] Address [address] [facility] [place] [address] Phone [phone] Care Team Providers Care Yarn Bleaching Machine Operator Name Role Phone John Roa MD Primary Care Provider +1- [phone] Reason for Visit * Reason Onset Date Comments Test Results 02/22/2024 Encounter Details Date Type Department Care Team (Late st Contact Info) Description 02/22/2024 Telephone Cardiology, [facility] [address] [place] [address] Leonel Wilde PA-C [address] [place] [address] Test Results Allergies Active Allergy Reactions Criticality Noted Date Comments Acetaminophen Abdominal pain High 08/17/2017 Other reaction(s): ITCH ALL OVER Albuterol High 09/07/2017 States was given during a breathing test and had convulsions. Other reaction(s): CONVULSIONS Hydroxyzine High 06/07/2020 Other reaction(s): MOOD SWINGS / OUT OF CONTROL Latex Itching Low 11/27/2017 Hydroxyzine Pamoate Psych complications 017 documented as of this encounter (statuses as of 02/23/2024) Medications Medication Sig Dispensed Refills Start Date [...] TIMES DAILY 90 Capsule 5 07/06/2022 Active Vsbrgxxjao-TVOQ-Dnev eine 50-300-40 MG Oral Capsule (Fioricet)Indication s:Pain [...] ANXIETY 180 Tablet 0 12/18/2023 Active Ipratropium [place] HFA 17 MCG/ACT Inhalation Aerosol Solution (Atrovent Hfa)Indications:COPD , group D, by GOLD 2017 classification ([facility]) Inhale 2 puffs every 6 hours as [...] mouth daily. 90 Tablet 3 02/23/2024 Active documented as of this encounter (statuses as of 02/23/2024) Active Problems Problem Noted Date Diagnosed Date Food insecurity 06/05/2023 Overview: Per [facility] Protocol Leg mass, left 10/13/2022 Migraine 02/23/2022 Pulmonary nodule, right 05/17/2019 History of tobacco use 03/28/2019 COPD, group D, by GOLD 2017 classification 03/20 Bipolar disorder, in full re mission, most recent episode depressed 02/06/2018 Hypothyroidism 12/23/2017 Gastroesophageal reflux disease 12/23/2017 Major depressive disorder wi th single episode, in partial remission 12/23/2017 documented as of this encounter (statuses as of 02/23/2024) Resolved Problems Problem Noted Date Diagnosed Date Resolved Date Food insecurity 05/31/2021 02/03/2022 Overview: Per [facility] Protocol Chronic hypoxemic respiratory failure 03/28/2019 01/08/2024 SVT (supraventricular tachycardia) 03/20/2019 06/07/2020 Interstitial lung disease 03/20/2019 documented as of this encounter (statuses as of 02/23/2024) Immunizations Name Administration Dates Next Due COVID-19 mRNA, LNP-s, No Pre serve, 2-Dose Series (Moderna) 08/31/2021,12/25/2020,11/27/2020 COVID-19, LNP-s, No Preserve , Bk-sucrose, Ages 12+ (Pfizer) 02/22/2022 Covid-19, Mrna, Lnp-s, Pf, B ivalent, 30 Mcg, IM, 12 yrs and above (Pretty Simple) 09/29/2022,07/29/2022 Pneumococcal Conjugate Vacc, 13 Valent (Prevnar) [...] encounter Miscellaneous Notes * Telephone Encounter - Justin Graves RN - 02/23/2024 11:00 AM EDT Pending Prescriptions: Disp Refills Atorvastatin Calcium 20 MG Oral Tablet (L*90 Tab*3 Sig: Take 1 Tablet by mouth in the morning. Last Visit: 02/20/2024 (in office), Visit date not found (telemedicine) Next Visit: 08/29/2024 Last medication order date: new Have you choosen a preferred pharm?? yes Patient Active Problem List Diagnosis Code Hypothyroidism E03.9 Gastroesophageal reflux disease K21.9 Major depressive disorder with single episode, in partial remission ([facility]) F32.4 Bipolar disorder, in full remission, most recent episode depressed ([facility]) F31.76 COPD, group D, by GOLD 2017 classification ([facility]) J44.9 History of tobacco use Z87.891 Pulmonary nodule, right R91.1 Migraine G43.909 Leg mass, left R22.42 Food insecurity Z59.41 Labs: Lab Results Component Value Date/Time CREATININE - [facility] 0.9 11/15/2023 01:20 PM CREATININE - [facility] 0.9 11/14/2019 09:52 AM CREATININE-OUTSIDE LAB 0.84 07/15/2019 12:00 AM Lab Results Component Value Date/Time POTASSIUM - [facility] 4.3 11/15/2023 01:20 PM POTASSIUM - [facility] 4.5 11/14/2019 09:52 AM POTASSIUM-OUTSIDE LAB 4.1 07/15/2019 12:00 AM Lab Results Component Value Date/Time TSH - [facility] 0.28 11/15/2023 01:20 PM TSH - [facility] 0.54 11/14/2019 09:52 AM TSH - OUTSIDE LAB 0.318 07/15/2019 12:00 AM Lab Results Component Value Date/Time LDL CHOLESTEROL (CALCULATED) - [facility] 91 08/22/2018 11:58 AM LDL CHOLESTEROL (DIRECT MEASURE) - [facility] 132 (H) 02/20/2024 11:17 AM LDL CHOLESTEROL (DIRECT MEASURE) - [facility] NOT APPLICABLE 08/22/2018 11:58 AM Lab Results Component Value Date/Time ALT - [facility] 22 11/15/2023 01:20 PM ALT - [facility] 47 (H) 11/14/2019 09:52 AM Hemoglobin AIC Results: Lab Results Component Value Date/Time HEMOGLOBIN A1C - [facility] 5.2 03/03/2021 03:03 PM * Telephone Encounter - Ananda Carroll LPN - 02/22/2024 4:48 PM EDT Sent patient a [employer] message to make aware. Awaiting reply to pend orders. ----- Message from Leonel Wilde PA-C sent at 02/20/2024 9:15 PM EDT ----- LDL cholesterol above optimal goal in a patient with atherosclerotic plaque and multiple risk factors including a very strong family history. Recommend trial of low dose statin therapy with atorvastatin 20 mg/day. Check a follow-up fasting lipid panel with direct LDL, ast, and alt after being on atorvastatin x 10-12 weeks. documented in this encounter Plan of Treatment Upcoming Encounters Date Type Department Care Team (Late st Contact Info) Description 02/27/2024 1:15 PM EDT Imaging Radiology [address] 132 [facility] [place] [address] 04/02/2024 1:30 PM EDT Imaging Radiology [address] [place] [address] 04/03/2024 1:00 PM EDT Telemedicine Psychiatry [place] [facility] [place] 9 [facility] [id number] Arleen Crowder, [address] [facility] [address] 07/03/2024 1:30 PM EDT Cardiac Studies Cardiac Studies, [facility] 132 [facility] [place] [address] 07/25/2024 11:20 AM EDT Office Visit Dermatology[address] [place] [address] Renetta Clay PA-C [address] [place] [address] [place] [address] 08/29/2024 1:30 PM EST Office Visit Cardiology, [facility] 132 [facility] [place] [address] Leonel Wilde PA-C [address] [place] [address] Scheduled Orders Name Type Priority Associated Diagnoses Orde r Schedule LIPID PANEL WITH DIRECT LDL IF TG IS HIGH Lab Routine Dyslipidemia, goal LDL below 130 Expected: 05/03/2024 (Approximate), Expires: 02/22/2025 Health Maintenance Due Date Last Done Comments [...] Visit Diagnoses Diagnosis Dyslipidemia, goal LDL below 130- Primary Other and unspecified hyperlipidemia documented in this encounter Advance Directives Documents on File Type Date Recorded Patient Baseball Glove Stuffer Expl anation Power of Set Builder 02/14/2011 POWER OF A TTORNEY POA- UPDATE 06/17/20 Care Teams Yarn Bleaching Machine Operator Relationship Specialty Start Date End Date John Roa MD [address] [facility] [place] [address] PCP - General Family Medicine 09/07/17 documented as of this encounter
--- OUTSIDE RECORDS SUMMARY | 2024-03-19 23:22 | External Medical Summary | Summary of Care ---
Author Name Unknown Organization [facility] Address [address] [place] [address] Phone [phone] Care Team Providers Care Batch Weigher Name Role Phone John Roa MD Primary Care Provider [phone] Reason for Visit * Reason Onset Date Comments Appointment 01/11/2024 Return 6 months for AK/deborah derm/acne. Encounter Details Date Type Department Care Team (Late st Contact Info) Description 01/11/2024 Telephone [facility] [address] [place] [address] John Roa MD [address] [place] [address] Appointment (Return 6 months for [...] as of this encounter (statuses as of 01/12/2024) Medications Medication Sig Dispensed Refills Start Date [...] TIMES DAILY 90 Capsule 5 07/06/2022 Active Yyvydlapbb-AWGO-Pjrt eine 50-300-40 MG Oral Capsule (Fioricet)Indication s:Pain [...] ANXIETY 180 Tablet 0 12/18/2023 Active Ipratropium [place] HFA 17 MCG/ACT Inhalation Aerosol Solution (Atrovent Hfa)Indications:COPD , group D, by GOLD 2017 classification ([facility]) Inhale 2 puffs every [...] as of this encounter (statuses as of 01/12/2024) Active Problems Problem Noted Date Diagnosed Date Food insecurity 06/05/2023 Overview: Per [facility] Protocol Leg mass, left 10/13/2022 Migraine 02/23/2022 Pulmonary nodule, right 05/17/2019 History of tobacco use 03/28/2019 COPD, group D, by GOLD 2017 classification 03/20 Bipolar disorder, in full re mission, most recent episode depressed 02/06/2018 Hypothyroidism 12/23/2017 Gastroesophageal reflux disease 12/23/2017 Major depressive disorder wi th single episode, in partial remission 12/23/2017 documented as of this encounter (statuses as of 01/12/2024) Resolved Problems Problem Noted Date Diagnosed Date Resolved Date Food insecurity 05/31/2021 02/03/2022 Overview: Per [facility] Protocol Chronic hypoxemic respiratory failure 03/28/2019 01/08/2024 SVT (supraventricular tachycardia) 03/20/2019 06/07/2020 Interstitial lung disease 03/20/2019 documented as of this encounter (statuses as of 01/12/2024) Immunizations Name Administration Dates Next Due COVID-19 [...] Telephone Encounter - Renetta Avalos OSA - 01/12/2024 9:43 AM EDT Patient aware. 01/12/2024 * Telephone Encounter - Vivien Arango LPN [...] Description 01/22/2024 1:00 PM EDT Imaging Radiology [address] [facility] [place] [address] 01/30/2024 1:00 PM EDT [facility] [address] [place] [address] Arleen Crowder, [address] [place] [address] 01/31/2024 12:30 PM EDT Laboratory Laboratory, [place] [address] [place] [id number] [facility] [address] [place] [address] 02/20/2024 10:30 AM EDT Office Visit Cardiology, [facility] 132 [facility] [place] [address] Leonel Wilde PA-C 132 [facility] [place] [address] 02/27/2024 1:15 PM EDT Imaging Radiology [address] 132 [facility] [place] [address] 07/25/2024 11:20 AM EDT Office Visit Dermatology, [place] [address] [place] [address] Renetta lCay PA-C [address] [place] [address] [place] [address] Health Maintenance Due Date Last Done Comments [...] Documents on File Type Date Recorded 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
--- OUTSIDE RECORDS SUMMARY | 2024-03-19 23:22 | External Medical Summary | Summary of Care ---
Author Name Unknown Organization [facility] Address [address] [place] [address] Phone [phone] Care Team Providers Care Facilities Plant Engineer Name Role Phone John Roa MD Primary Care Provider [phone] Encounter Details Date Type Department Care Team (Late st Contact Info) Description 03/15/2024 4:40 PM EDT Telemedicine [facility] [address] [place] [address] John Smith Jr., [address] [place] [address] SOB (shortness of breath)*; Rib pain Allergies Active Allergy Reactions Criticality [...] as of this encounter (statuses as of 03/15/2024) Medications Medication Sig Dispensed Refills Start Date [...] FOR ANXIETY 180 Tablet 12/18/2023 Active Ipratropium [place] HFA 17 MCG/ACT Inhalation Aerosol Solution (Atrovent Hfa)Indications:COPD , group D, by GOLD 2017 classification ([facility]) Inhale 2 puffs every 6 hours [...] ns:COPD, group D, by GOLD 2017 classification ([facility]) Take 2 tabs by mouth on the first day, then 1 tab daily on days two through five 6 Tablet 03/12/2024 4 Active methylPREDNISolone 4 MG Oral Tablet Therapy Pack (Medrol Dosepack)Indications :COPD, group D, by GOLD 2017 classification ([facility]) follow package directions 21 Tablet 03/12/2024 Active Doxycycline Hyclate 100 MG Oral Capsule Take 1 Capsule by mouth in the morning and 1 Capsule before bedtime. Do all this for 10 days. Until gone.. 20 Capsule 03/15/2024 4 Active documented as of this encounter (statuses as of 03/15/2024) Active Problems Problem Noted Date Diagnosed Date Food insecurity 06/05/2023 Overview: Per [facility] Protocol Leg mass, left 10/13/2022 Migraine 02/23/2022 Pulmonary nodule, right 05/17/2019 History of tobacco use 03/28/2019 COPD, group D, by GOLD 2017 classification 03/20 Bipolar disorder, in full re mission, most recent episode depressed 02/06/2018 Hypothyroidism 12/23/2017 Gastroesophageal reflux disease 12/23/2017 Major depressive disorder wi th single episode, in partial remission 12/23/2017 documented as of this encounter (statuses as of 03/15/2024) Resolved Problems Problem Noted Date Diagnosed Date Resolved Date Food insecurity 05/31/2021 02/03/2022 Overview: Per [facility] Protocol Chronic hypoxemic respiratory failure 03/28/2019 01/08/2024 SVT (supraventricular tachycardia) 03/20/2019 06/07/2020 Interstitial lung disease 03/20/2019 documented as of this encounter (statuses as of 03/15/2024) Immunizations Name Administration Dates Next Due COVID-19 [...] on file documented as of this encounter Progress Notes * John Smith Jr., - 03/15/2024 4:34 PM EDT Patient location: HOME. I was in a hospital or clinic location. After connecting through [employer],patient was verified with two unique identifiers. 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 Methods to assure confidentiality were taken. Patient acknowledged consent and understanding of pr ivacy and security of the Telemedicine visit. The patient agreed to participate. Subjective: Brittany Eric is a 78 year old female. No chief complaint on file. HPI: Patient presents today for rib pain and SOB/cough via video visit. Seen for the same on 03/12/2024, note reviewed. Overall not improving, feels getting worse. Refuses to take prednisone due to fact feels makes other skin lesion worse. Still having pain in sides in ribs as well as coughing. Cough is productive. Taking medication otherwise as prescribed on 03/12/2024. PHM: Patient Active Problem List Diagnosis Hypothyroidism Gastroesophageal reflux disease Major depressive disorder with single episode, in partial remission ([facility]) Bipolar disorder, in full remission, most recent episode depressed ([facility]) COPD, group D, by GOLD 2017 classification ([facility]) History of tobacco use Pulmonary nodule, right Migraine Leg mass, left Food insecurity Current Outpatient Medications Medication Sig Dispense Refill Doxycycline Hyclate 100 MG Oral Capsule Take 1 Capsule by mouth in the morning and 1 Capsule beforebedtime. Do all this for 10 days. Until gone.. 20 Capsule 0 Multiple Vitamins-Minerals (CENTRUM SILVER 50+WOMEN) TABS Take [...] up to 1 week 15 g 0 Loperamide HCl 2 MG Oral Capsule (Imodium) TAKE 1 CAPSULE BY MOUTH THREE TIMES DAILY 90 Capsule 5 Fluocinonide 0.05 % External Cream Apply topically to affected area 2 times a day. Apply sparingly to affected area of hands twice per day as needed for up to 1 week at a time. 30 g 0 Dextromethorphan-guaiFENesin 10-100 MG/5ML Oral Liquid (Robitussin DM) Take 5 mL by mouth every 4 hours as needed for Cough. 120 mL 0 Trelegy Ellipta 100-62.5-25 MCG/ACT Aerosol Powder Breath Activated (Rvltgcsubqi-Vkanaowveubv-Acysademso) INHALE ONE PUFF BY MOUTH daily. rinse [...] NEEDED FOR ANXIETY 180 Tablet 0 Ipratropium [place] HFA 17 MCG/ACT Inhalation Aerosol Solution (Atrovent [...] BY MOUTH ONCE DAILY 90 Tablet 1 Atorvastatin Calcium 20 MG Oral Tablet (Lipitor) Take 1 Tablet by mouth daily. 90 Tablet 3 Azithromycin 250 MG Oral Tablet (Zithromax) Take 2 tabs by mouth on the first day, then 1 tab dailyon days two through five 6 Tablet 0 methylPREDNISolone 4 MG Oral Tablet Therapy Pack (Medrol Dosepack) follow package directions 21 Tablet 0 No current facility-administered medications for this visit. Past Medical History: Diagnosis Date Cervical cancer ([facility]) 1981 Chronic hypoxemic respiratory failure ([facility]) 03/28/2019 Colon perforation ([facility]) pt reports colon perforation during colonoscopy with emergency surgery and ostomy; unsure of the year COPD (chronic obstructive pulmonary disease) ([facility]) COPD, group D, by GOLD 2017 classification ([facility]) 03/20/2019 Depression seen on scanned records Gastroesophageal reflux disease 12/23/2017 GERD (gastroesophageal reflux disease) seen on scanned records Hypothyroidism seen on scanned records Lung nodule Past Surgical History: Procedure Laterality Date INFORMATION 2010 Coils and Stent, [facility] SIGMOIDOSCOPY, DIAGNOSTIC 01/04/2018 collagenous colitis/[facility] SIGMOIDOSCOPY/BIOPSY 2012 with erythema inthe rectum and sigmoid (scanned records) TOTAL ABD HYSTERECTOMY W/WO REMOVAL OF TUBE(S) 1981 Family History Problem Relation Name Age of Onset Heart disease Mother Congenital heart disease, age 87 Diabetes Mother Hypertension Mother Breast Cancer Mother Depression Mother Mental Disorder Father Heart disease Father CABG Stroke Father Other (Complications of fall) Father in his late 70s Diabetes Sister Rosalie Lung Disorder Sister Rosalie Obesity Sister Rosalie Breast Cancer Sister Rosalie Heart attack Brother Sidney Fatal [place], in his late 60s Heart attack Brother Ananda Fatal [place], in his 50s Mental Disorder Grandmother (Maternal) Manic Depressive Schizophrenia Grandmother (Maternal) Review of patient's allergies indicates: Allergen Reactions Acetaminophen Abdominal pain Other reaction(s): ITCH ALL OVER Albuterol States was given during a breathing test and had convulsions. Other reaction(s): CONVULSIONS Hydroxyzine Other reaction(s): MOOD SWINGS / OUT OF CONTROL Vistaril [Hydroxyzine Pamoate] Psych complications Latex Itching Extensive ROS Constitutional (f/c/wt/vision/hearing): Negative Resp (cough/sob/fiore): See above HPI CV (cp/palp/fluttering/diaphoresis/fiore/pnd):Negative GI (n/v/d/hrtburn): Negative Objective: There were no vitals taken for this visit. Physical Exam: General: alert, on oxygen. Head: Normocephalic, No atopic facies Skin: skin color, texture, turgor are normal, no rashes or significant lesions appreciated. ASSESSMENT: ICD-10-CM 1. SOB (shortness of breath) R06.02 2. Rib pain R07.81 PLAN: (R06.02) SOB (shortness of breath) (primary encounter diagnosis) (R07.81) Rib pain Plan: D-DIMER, XR CHEST 2 VIEWS, XR RIBS BILATERAL 3 VIEWS, CBC WITH WBC DIFFERENTIAL, BASIC METABOLIC PANEL Will check labs and blood work and treat accordingly. If not improving or getting worse, go to the ER. Patient acknowledged and voiced understanding. Follow Up: Return if symptoms worsen or fail to improve. Return to the office as ordered. Return sooner if having any other problems or concerns. John Smith Jr, DO documented in this encounter Plan of Treatment Upcoming Encounters Date Type Department Care Team (Late st Contact Info) Description 04/02/2024 1:30 PM EDT Imaging Radiology [facility] 1st Floor, [address] [place] [address] 04/03/2024 1:00 PM EDT Telemedicine Psychiatry [place] Kincaid [address] [place] [phone] LakeshaArleen, DO [address] [facility] [address] [place], [place] [address] 07/03/2024 1:30 PM EDT Cardiac Studies Cardiac Studies, [facility] 132 [facility] [place] [address] 07/25/2024 11:20 AM EDT Office Visit Dermatology[address] [place] [address] Renetta Clay PA-C [address] [place] [address] [place] [address] 08/29/2024 1:30 PM EST Office Visit Cardiology, [facility] 132 [facility] [place] [address] Leonel Wilde PA-C 132 [facility] [place] [address] Scheduled Orders Name Type Priority Associated Diagnoses Orde r Schedule D-DIMER Lab Routine SOB (shortness of breath) Rib pain Expected: 03/15/2024 (Approximate), Expires: 03/15/2025 XR CHEST 2 VIEWS Medical Imaging Routine SOB (shortness of breath) Rib pain Expected: 03/15/2024, Expires: 04/15/2025 XR RIBS BILATERAL 3 VIEWS Medical Imaging Routine SOB (shortness of breath) Rib pain Expected: 03/15/2024, Expires: 04/15/2025 CBC WITH WBC DIFFERENTIAL Lab Routine SOB (shortness of breath) Rib pain Expected: 03/15/2024 (Approximate), Expires: 03/15/2025 BASIC METABOLIC PANEL Lab Routine SOB (shortness of breath) Rib pain Expected: 03/15/2024 (Approximate), Expires: 03/15/2025 Health Maintenance Due Date Last Done Comments [...] as of this encounter Visit Diagnoses Diagnosis SOB (shortness of breath)- Primary Shortness of breath Rib pain Chest pain, unspecified documented in this encounter Advance Directives Documents on File Type Date Recorded 

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
--- OUTSIDE RECORDS SUMMARY | 2024-03-19 23:22 | External Medical Summary | Summary of Care ---
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 Encounter Details Date Type Department Care Team (Latest Contact Info) Description 03/12/2024 2:20 PM EDT Office Visit [facility] [address] [place] [address] Poncho Magaña MD [address] [place] [address] COPD, group D, by GOLD 2017 classification (HCC)* Allergies Active Allergy Reactions Criticality Noted Date Comments Acetaminophen Abdominal pain High 08/17/2017 Other reaction(s): ITCH ALL OVER Albuterol High 09/07/2017 States was given during a breathing test and had convulsions. Other reaction(s): CONVULSIONS Hydroxyzine High 06/07/2020 Other reaction(s): MOOD SWINGS / OUT OF CONTROL Latex Itching Low 11/27/2017 Hydroxyzine Pamoate Psych complications 017 documented as of this encounter (statuses as of 03/12/2024) Medications Medication Sig Dispensed Refills Start Date End Date Status Multiple Vitamins-Minerals (CENTRUM SILVER 50+WOMEN) TABS Take by mouth. Active Coenzyme Q10 50 MG Oral Tablet Chewable Take by mouth. Active Turmeric 500 MG CapsuleIndications: Unsure of dosage Take 1 Capsule by mouth once a week. Active Cyanocobalamin (VITAMIN B12) 100 MCG TABSIndications:Uns [...] 5 07/06/2022 Active Fluocinonide 0.05 % External CreamIndications:De rmatitis Apply topically to affected area 2 times a day. Apply sparingly to affected area of hands twice per day as needed for up to 1 week at a time. 30 g 11/28/2022 Active Dextromethorphan-gu aiFENesin 10-100 MG/5ML Oral [...] FOR ANXIETY 180 Tablet 12/18/2023 Active Ipratropium [place] HFA 17 MCG/ACT Inhalation Aerosol Solution (Atrovent Hfa)Indications:RELATIONSHIP COUNSELOR D, group D, by GOLD 2017 classification ([facility]) Inhale 2 puffs every 6 hours as [...] Active Atorvastatin Calcium 20 MG Oral Tablet (Lipitor)Indication s:Dyslipidemia, goal LDL below 130 Take 1 Tablet by mouth daily. 90 Tablet 3 02/23/2024 Active Azithromycin 250 MG Oral Tablet (Zithromax)Indicati ons:COPD, group D, by GOLD 2017 classification ([facility]) Take 2 tabs by mouth on the first day, then 1 tab daily on days two through five 6 Tablet 03/12/2024 03/17/20 24 Active methylPREDNISolone 4 MG Oral Tablet Therapy Pack (Medrol Dosepack)Indication s:COPD, group D, by GOLD 2017 classification ([facility]) follow package directions 21 Tablet 03/12/2024 Active Cholecalciferol 25 MCG (1000 UT) Oral Tablet Take 1 Tablet by mouth in the morning. 03/12/20 24 Discontinu ed(Medicat ion List Clean Up) Zoster Vac Recomb Adjuvanted 50 MCG/0.5ML Intramuscular Suspension Reconstituted (SHINGRIX)Indicatio ns:Need for prophylactic vaccination and inoculation against influenza Inject 0.5 mL into a large muscle now and repeat dose in 60 to 180 days 1 Each 1 09/22/2020 03/12/20 24 Discontinu ed(Medicat ion List Clean Up) Imovax Rabies 2.5 UNIT/ML Intramuscular Injectable (Rabies Virus Vaccine, [facility])Indications:Exp osure to bat without known bite 1 ml IM and repeat on day 0, 3, 7, 14 and 28 1 mL 4 06/23/2022 03/12/20 24 Discontinu ed(Medicat ion List Clean Up) Mnyjbggbtm-NKIF-Kcd feine 50-300-40 MG Oral Capsule (Fioricet)Indicatio ns:Pain of left lower extremity Take 1 Capsule by mouth every 6 hours as needed for Pain, Severe. 15 Capsule 11/28/2022 03/12/20 24 Discontinu ed(Medicat ion List Clean Up) Azithromycin 250 MG Oral Tablet (Zithromax)Indicati ons:Bronchitis, complicated Take 2 tabs by mouth on the first day, then 1 tab daily on days two through five 6 Tablet 12/18/2023 03/12/20 24 Discontinu ed(Medicat ion List Clean Up) documented as of this encounter (statuses as of 03/12/2024) Active Problems Problem Noted Date Diagnosed Date Food insecurity 06/05/2023 Overview: Per [facility] Protocol Leg mass, left 10/13/2022 Migraine 02/23/2022 Pulmonary nodule, right 05/17/2019 History of tobacco use 03/28/2019 COPD, group D, by GOLD 2017 classification 03/20 Bipolar disorder, in full re mission, most recent episode depressed 02/06/2018 Hypothyroidism 12/23/2017 Gastroesophageal reflux disease 12/23/2017 Major depressive disorder wi th single episode, in partial remission 12/23/2017 documented as of this encounter (statuses as of 03/12/2024) Resolved Problems Problem Noted Date Diagnosed Date Resolved Date Food insecurity 05/31/2021 02/03/2022 Overview: Per [facility] Protocol Chronic hypoxemic respiratory failure 03/28/2019 01/08/2024 SVT (supraventricular tachycardia) 03/20/2019 06/07/2020 Interstitial lung disease 03/20/2019 documented as of this encounter (statuses as of 03/12/2024) Immunizations Name Administration Dates Next Due COVID-19 [...] 35 1 - 08/17/2012 Smokeless Tobacco: Never Tobacco Cessation:Counseling Given: Not Answered Alcohol Use Standard Drinks/Week Comments Yes 4 [...] Sign Reading Time Taken Comments Blood Pressure 116/62 03/12/2024 1:23 PM EDT Pulse 78 03/12/2024 1:23 PM EDT Temperature 36.4 C (97.5 F) 03/12/2024 1:23 PM ED T Respiratory Rate 18 03/12/2024 1:23 PM EDT Oxygen Saturation 91% 03/12/2024 1:23 PM EDT Inhaled Oxygen Concentration - - Weight 76.6 kg (168 lb 12.8 oz) 03/12/2024 1:23 PM EDT Height 170.2 cm (5' 7") 03/12/2024 1:23 PM EDT Body Mass Index 26.44 03/12/2024 1:23 PM EDT documented in this encounter Progress Notes * Poncho Magaña MD - 03/12/2024 1:26 PM EDT Images from the original note were not included. Assessment and Plan I suspect patient had an exacerbation of her COPD which is slightly improving per her report today.She continues to have some chest wall pain and shortness of breath especially with exertion. We will treat as a COPD exacerbation with azithromycin and methylprednisolone. She declines prednisone as she states this specifically causes a flare of an old spider bite on her leg. Lungs are significantly diminished without wheezes. She was not have any lower extremity edema that would indicate heart failure as a cause of her symptoms. I did suggest a chest x-ray, however, she declined as she does not want to travel to [facility] to have this completed. She will notify the office in a couple of days if symptoms are not improving. At that time she will need a chest x-ray at minimum. 1. COPD, group D, by GOLD 2017 classification (HCC) - Azithromycin 250 MG Oral Tablet (Zithromax); Take 2 tabs by mouth on the first day, then 1 tab daily on days two through five Dispense: 6 Tablet; Refill: 0 - methylPREDNISolone 4 MG Oral Tablet Therapy Pack (Medrol Dosepack); follow package directions Dispense: 21 Tablet; Refill: 0 Wrap-Up Follow up as needed. History of Present Illness The patient is a 78 year old female with past medical history of COPD group D on chronic oxygen, GERD, hypothyroidism, depression, bipolar who presents for acute. Patient with 5 days of symptoms. She notes worsening shortness of breath from Monday through Monday. This was associated with cough and bilateral flank pain/chest wall pain. She denies rashes. No fevers. She does note chronic cough and mucus production. She takes Trelegy at home on a daily basis, however, notes she forgot to take this this morning. When she walked into the office today she was not wearing her oxygen and was therefore somewhat short of breath. Vital signs are notable for an oxygen saturation of 91% shortly after replacing her oxygen. Her pulse is 78. Respirations are 18. Bloodpressure is 116/62. Physical Exam Vitals: 03/12/24 1323 Temp: 36.4 C (97.5 F) Pulse: 78 Resp: 18 SpO2: 91% BP: 116/62 BMI: 26.43 Physical Exam Physical Exam Vitals reviewed. Constitutional: General: She is not in acute distress. Comments: Supplemental oxygen in place. Cardiovascular: Rate and Rhythm: Normal rate and regular rhythm. Heart sounds: No murmur heard. Pulmonary: Comments: No visible increased work of breathing. She does have significantly diminished breath sounds in all 4 quadrants. Very few wheezes or rhonchi heard given diminished breath sounds. Musculoskeletal: Cervical back: Neck supple. Right lower leg: No edema. Left lower leg: No edema. Lymphadenopathy: Cervical: No cervical adenopathy. Neurological: General: No focal deficit present. Mental Status: She is alert. Psychiatric: Mood and Affect: Mood normal. Behavior: Behavior normal. This note has been completed in part utilizing [employer] Voice Recognition Software. Due to technical limitations of the software, grammatical errors, random word insertions, prounoun errors, and incomplete sentences may occur. Any formal questions or concerns about the content, text, or information contained within the body of this dictation should be directly addressed to the provider for clarification. documented in this encounter Nursing Notes * Ashia Noland LPN - 03/12/2024 1:23 PM EDT Brittany Eric is a 78 year old female who presents today for Chief Complaint Patient presents with Acute Pt stats she is here for a pain on her muscles, she states that she feels like her lung are full ofwater. documented in this encounter Plan of Treatment Upcoming Encounters Date Type Department Care Team (Late st Contact Info) Description 04/02/2024 1:30 PM EDT Imaging Radiology [facility] [address] [place] [address] 04/03/2024 1:00 PM EDT Telemedicine Psychiatry [facility] [place] [address] [facility] [place] [id number] Arleen Crowder, [address] [facility] [place] [address] 07/03/2024 1:30 PM EDT Cardiac Studies Cardiac Studies, [address] [place] [address] 07/25/2024 11:20 AM EDT [facility] [place] [address] [place] [address] Renetta Clay PA-C [address] [place] [address] [place] [address] 08/29/2024 1:30 PM EST Office Visit Cardiology, [address] [place] [address] Leonel Wilde PA-C [address] [facility] [place] [address] Health Maintenance Due Date Last Done Comments [...] as of this encounter Visit Diagnoses Diagnosis COPD, group D, by GOLD 2017 classification (HCC)- Primary documented in this encounter Advance Directives Documents on File Type Date Recorded 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
--- OUTSIDE RECORDS SUMMARY | 2024-03-19 23:22 | External Medical Summary ---
Author Name Unknown Address Unknown Organization [id number]:[facility] [place] [address] [place] [address] Laboratory Report Ordering Provider Test Date Status SOFIA ARGUELLO 02/20/2024 11:17:52 Final Observation Date Value Abnormality Reference (Units ) Status LDL, (direct) 02/20/2024 11:17:52 132 Above high guanaco l <=129 (mg/dL) Final LDL Cholesterol Reference Ra nges (mg/dL):
<70 Target level for high risk ASCVD patient
<100 Optimal for general population
100-129 Near optimal for general population
130-159 Borderline high
160-189 High
>=190 Very high Performing Location [facility] - [address] [place] [address]
--- OUTSIDE RECORDS SUMMARY | 2024-03-19 23:23 | External Medical Summary | Summary of Care ---
Author Name Unknown Organization [facility] Address [address] [place] [address] Phone [phone] Care Team Providers Care Form Setter Steel Pan Forms Name Role Phone John Roa MD Primary Care Provider [phone]- [phone] Reason for Visit * Reason Onset Date Comments Advice 12/26/2023 Encounter Details Date Type Department Care Team (Late st Contact Info) Description 12/26/2023 Telephone [facility] [address] [place] [address] John Roa MD [address] [place] [address] Advice Allergies Active Allergy Reactions Criticality Noted Date Comments Acetaminophen Abdominal pain High 08/17/2017 Other reaction(s): ITCH ALL OVER Albuterol High 09/07/2017 States was given during a breathing test and had convulsions. Other reaction(s): CONVULSIONS Hydroxyzine High 06/07/2020 Other reaction(s): MOOD SWINGS / OUT OF CONTROL Latex Itching Low 11/27/2017 Hydroxyzine Pamoate Psych complications 017 documented as of this encounter (statuses as of 12/27/2023) Medications Medication Sig Dispensed Refills Start Date [...] TIMES DAILY 90 Capsule 5 07/06/2022 Active Zmauidwbdt-ABRZ-Btow eine 50-300-40 MG Oral Capsule (Fioricet)Indication s:Pain [...] ANXIETY 180 Tablet 0 12/18/2023 Active Ipratropium [place] HFA 17 MCG/ACT Inhalation Aerosol Solution (Atrovent Hfa)Indications:COPD , group D, by GOLD 2017 classification ([facility]) Inhale 2 puffs every 6 hours as needed 12.9 g 5 12/18/2023 Active documented as of this encounter (statuses as of 12/27/2023) Active Problems Problem Noted Date Diagnosed Date Food insecurity 06/05/2023 Overview: Per [facility] Protocol Leg mass, left 10/13/2022 Migraine 02/23/2022 Pulmonary nodule, right 05/17/2019 Chronic hypoxemic respiratory failure 03/28/2019 History of tobacco use 03/28/2019 COPD, group D, by GOLD 2017 classification 03/20 Bipolar disorder, in full re mission, most recent episode depressed 02/06/2018 Hypothyroidism 12/23/2017 Gastroesophageal reflux disease 12/23/2017 Major depressive disorder wi th single episode, in partial remission 12/23/2017 documented as of this encounter (statuses as of 12/27/2023) Resolved Problems Problem Noted Date Diagnosed Date Resolved Date Food insecurity 05/31/2021 02/03/2022 Overview: Per [facility] Protocol SVT (supraventricular tachycardia) 03/20/2019 06/07/2020 Interstitial lung disease 03/20/2019 documented as of this encounter (statuses as of 12/27/2023) Immunizations Name Administration Dates Next Due COVID-19 [...] encounter Miscellaneous Notes * Telephone Encounter - Toña Wilson LPN - 12/27/2023 8:00 AM EST Spoke with pt. She stated she doesn't want to go to the ER yet. She has multiple appointments. Pt states she will go to ER if it gets worse. * Telephone Encounter - Leonel Yanez MD - 12/26/2023 5:09 PM EST I am not sure what is going on with "leg mass". Not knowing, I would suggest she be seen in Er. They could do at least an ultrasound and start antibiotics if felt to be cellulitis. * Telephone Encounter - Aretha Paez LPN - 12/26/2023 4:12 PM EST Spoke to patient, she just went to lie down on her bed, she noted throbbing and increased redness and swelling in the left lower leg mass. Pt has a scheduled MR Tib/Fib but it isn't until 01/22/24. Shenoted some improvement with medications but since finishing them symptoms returned. Attempted to get pt scheduled in office over the next couple of days and nothing is available. Please advise on what pt should do * Telephone Encounter - Nereida Burk OSA - 12/26/2023 4:04 PM EST Patient called c/o left leg mass, hot to touch, pulse, transferred to [facility] clinic nurse. documented in this encounter Plan of Treatment Upcoming Encounters Date Type Department Care Team (Late st Contact Info) Description 12/27/2023 3:00 PM EST Telemedicine Pulmonary Medicine, [facility] [address] [facility] [place] [address] Gael Mancuso [facility] [address] [facility] [address] 12/29/2023 12:00 PM EST Laboratory Laboratory, [place] [address] [facility] [place] [address] [place], Laboratory [address] [place] [address] 01/11/2024 1:00 PM EDT Office Visit Dermatology, [place] [address] [facility] [place] [address] Renetta Clay PA-C [address] [place] [address] [place] [address] 01/22/2024 1:00 PM EDT Imaging Radiology [facility] [address] [place] [address] 01/30/2024 1:00 PM EDT Telemedicine Psychiatry, [place] [address] [place] [address] Arleen Crowder, DO [address] [place] [address] 01/31/2024 12:30 PM EDT Laboratory Laboratory, [place] [address] [place] [id number] [facility] [address] [place] [address] 02/19/2024 3:00 PM EDT Office Visit Cardiology, [facility] [address] [place] [address] Leonel Wilde PA-C [address] [place] [address] Health Maintenance Due Date Last Done Comments [...] Documents on File Type Date 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
--- OUTSIDE RECORDS SUMMARY | 2024-03-19 23:23 | External Medical Summary | Summary of Care ---
Author Name Unknown Organization [facility] Address [address] [place] [address] Phone [phone] Care Team Providers Care Member Of [employer] Legislative [employer] Name Role Phone John Roa MD Primary Care Provider [phone] Reason for Visit * Reason Comments Follow Up COPD, chronic hypoxi c respiratory status * Evaluate & Treat - Unlimited Visits (Within 30 days (routine)) - Authorized Specialty Diagnoses / Procedures Referred By Contac t Referred To Contact Pulmonary Diseases / Pulmonary Diagnoses COPD, group D, by GOLD 2017 classification ([facility]) John Roa MD [address] [place] [address] Referral ID Status Reason Start Date Expiration Date Visits Requested Visits Authorized [id number] Authorized Specialty Services Required 12/18/2023 [id number] Encounter Details Date Type Department Care Team (Latest Contact Info) Description 12/27/2023 3:00 PM EST Telemedicine Pulmonary Medicine, [facility] [address] [facility] [place] [address] Gael Mancuso MD [address] [place] [id number] COPD, group D, by GOLD 2017 classification ([facility])* Allergies Active Allergy Reactions Criticality Noted Date [...] TIMES DAILY 90 Capsule 5 07/06/2022 Active Bduytfhrdf-UPEC-Jpop eine 50-300-40 MG Oral Capsule (Fioricet)Indication s:Pain [...] ANXIETY 180 Tablet 0 12/18/2023 Active Ipratropium Bellevue HFA 17 MCG/ACT Inhalation Aerosol Solution (Atrovent Hfa)Indications:COPD , group D, by GOLD 2017 classification ([facility]) Inhale 2 puffs every 6 hours as needed 12.9 g 5 12/18/2023 Active Azithromycin 250 MG Oral Tablet (Zithromax Z-Chandan) Please take 500 mg by mouth on day one, followed by 250 mg by mouth for four days. 6 Tablet 0 12/27/2023 Active documented as of this encounter (statuses as of 12/27/2023) Active Problems Problem Noted Date Diagnosed Date Food insecurity 06/05/2023 Overview: Per [facility] Protocol Leg mass, left 10/13/2022 Migraine [...] Date Food insecurity 05/31/2021 02/03/2022 Overview: Per [facility] Protocol SVT (supraventricular tachycardia) 03/20/2019 06/07/2020 [...] as of this encounter Progress Notes * Gael Mancuso MD - 12/27/2023 2:55 PM EST Patient location: HOME. I was in a hospital or clinic location. After connecting through televideo,patient was verified with two unique identifiers. Patient (or authorized legal contact representative) was then informed that this was a Telemedicine visit and being conducted confidentially over secure lines. Methods to assure confidentiality were taken. Patient acknowledged consent and understanding of pr ivacy and security of the Telemedicine visit. The patient agreed to participate. 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 Patient describes steady respiratory symptoms status, compliant with home oxygen and current bronchodilator regimen. Describes declining exercise tolerance. Denies nocturnal respiratory flare-up episodes. Current bronchodilator regimen was reviewed. 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 Pulmonary Function Testing: Date 05/10/19 FVC - 2.57L, 77% FEV1 - 1.17L, 46% FEV1/FVC - 45% ERV - 0.48, 50% DLCO - 8.75, 35% Date 01/15/19 FVC - 2.23L, 67% FEV1 - 1.01L, 40% FEV1/FVC - 45% RV - 3.71L, 154% TLC - 5.77L, 104% RV/TLC - 64% DLCO - 6 MWT 05/10/19, RA: Resting 94%, low 89%, rashida 8, HR 81-94, 5 rest periods (0.75s), ambulated 178m ECHO 06/08/20 reviewed. Noct ox, 2 LPM 04/2019: <90% 41 mins, <88% 5 mins, ashley 86% Assessment Assessment: Brittany Eric is a 75 year old female who presented to the Pulmonary Medicine Clinic today for evaluation: COPD, GOLD D with severe obstruction, emphysema Chronic hypoxemic respiratory failure Lung nodule <6mm History of tobacco use, 26 pk yr Recommendations and Plans: Continue with Trelegy inhaler. History of albuterol inhaler allergy, using Atrovent inhaler as rescue therapy. Continue oxygen supplementation to keep sats 89-94%. Repeat PFT to reassess ventilatory parameters. Patient describes declining functional exercise tolerance. Lung nodule decreased from 6 to 4mm from 2018 to 2020. No further follow-up necessary. Importance of maintaining Smoking cessation status was discussed. Encouraged increased daily activity as tolerated, including upper body exercises. Follow up in Pulmonary Medicine Clinic in 6 months or sooner if needed. Follow Up: Return in about 6 months (around 06/28/2024) for Video to Home. | For: Video to Home Gael Mancuso MD Subjective CC: No chief complaint on file. HPI: There are no exam notes on file for this visit. Objective There were no vitals filed for this visit. Exam: Const: No signs of acute distress present. Head/Face: Normal on inspection. Eyes: Conjunctivae clear. Pupils equal round and reactive to light. ENMT: Oropharynx: No erythema, exudate or masses. Posterior pharynx is normal. Neck: Supple and symmetric. Resp: Respiratory examination as outlined above CV: Rate is regular. Rhythm is regular. No heart murmur appreciated. Extremities: No edema of the lower limbs bilaterally. Skin: Skin is warm and dry. Neuro: Coordination normal. No involuntary movement. Psych: Patient's attitude is cooperative. Mood is normal. Affect is normal. Tests reviewed with the patient: No imaging results in the last 6 months Available Radiologic data was reviewed by me in PACS. The images were shown to the patient and findings were discussed with the patient. HOME MEDICATIONS: Azithromycin 250 MG Oral Tablet (Zithromax Z-Chandan) ALPRAZolam 1 MG Oral Tablet (xaNAX) Ipratropium Bellevue HFA 17 MCG/ACT Inhalation Aerosol Solution (Atrovent Hfa) oxyCODONE HCl 5 MG Oral Tablet Abuse-Deterrent Sertraline HCl 100 MG Oral Tablet (Zoloft) traZODone HCl 100 MG Oral Tablet (Desyrel) Levothyroxine Sodium 112 MCG Oral Tablet (Levoxyl) Trelegy Ellipta 100-62.5-25 MCG/ACT Aerosol Powder Breath Activated (Sbjkzarwdlu-Mmgkcxxwsykq-Ytnrlotcca) Dextromethorphan-guaiFENesin 10-100 MG/5ML Oral Liquid (Robitussin DM) Qwnbquubnb-LIJM-Tfgriire 50-300-40 MG Oral Capsule (Fioricet) Fluocinonide 0.05 % External Cream Loperamide HCl 2 MG Oral Capsule (Imodium) Imovax Rabies 2.5 UNIT/ML Intramuscular Injectable (Rabies Virus Vaccine, HDC) Betamethasone Dipropionate 0.05 % External Cream (Diprosone) oxygen IN GAS Ginseng 100 MG Oral Capsule Zoster Vac Recomb Adjuvanted 50 MCG/0.5ML Intramuscular Suspension Reconstituted (SHINGRIX) omeprazole (PRILOSEC) 20 MG CPDR ibuprofen (MOTRIN) 200 MG Tablet Aspirin 81 MG Oral Tablet Delayed Release Cyanocobalamin (VITAMIN B12) 100 MCG TABS Turmeric 500 MG Capsule Cholecalciferol 25 MCG (1000 UT) Oral Tablet Coenzyme Q10 50 MG Oral Tablet Chewable Multiple Vitamins-Minerals (CENTRUM SILVER 50+WOMEN) TABS ROS: No reported history of Hemoptysis, Hematemesis, Melena No reported history of Dysuria, Hematuria, Flank Pain No reported history of chronic headache, seizures No reported history of Fall or trauma . No reported history of recent change in weight or appetite. Past Medical History: Diagnosis Date Cervical cancer ([facility]) 1981 Chronic hypoxemic respiratory failure ([facility]) 03/28/2019 Colon perforation ([facility]) pt reports colon perforation during colonoscopy with emergency surgery and ostomy; unsure of the year COPD (chronic obstructive pulmonary disease) ([facility]) COPD, group D, by GOLD 2017 classification ([facility]) 03/20/2019 Depression seen on scanned records Gastroesophageal reflux disease 12/23/2017 GERD (gastroesophageal reflux disease) seen on scanned records Hypothyroidism seen on scanned records Lung nodule Past Surgical History: Procedure Laterality Date INFORMATION 2010 Coils and Stent, [facility] SIGMOIDOSCOPY, DIAGNOSTIC 01/04/2018 collagenous colitis/[facility] SIGMOIDOSCOPY/BIOPSY 2012 with erythema inthe rectum and sigmoid (scanned records) TOTAL ABD HYSTERECTOMY W/WO REMOVAL OF TUBE(S) 1981 Social History Socioeconomic History Marital status: Single Tobacco Use Smoking status: Former Current packs/day: 0.00 Average packs/day: 0.8 packs/day for 35.0 years (26.3 ttl pk-yrs) Types: Cigarettes Start date: 08/17/1977 Quit date: 08/17/2012 Years since quittin.3 Smokeless tobacco: Never Vaping Use Vaping Use: Never used Substance and Sexual Activity Alcohol use: Yes Alcohol/week: 4.0 standard drinks of alcohol Types: 4 1.5 oz of liquor per week Comment: 2 shots several times a week Drug use: No Sexual activity: Never Social History Narrative 1 cockatiel in her home. No mold. Social Determinants of Health Food Insecurity: Food Insecurity Present (12/04/2023) Hunger Vital Sign Worried About Running Out of Food in the Last Year: Sometimes true Ran Out of Food in the Last Year: Sometimes true Family History Problem Relation Age of Onset Mental Disorder Mother Depression Heart disease Mother Congenital heart disease, age 87 Diabetes Mother Hypertension Mother Breast Cancer Mother Mental Disorder Father Heart disease Father CABG Stroke Father Other (Complications of fall) Father in his late 70s Diabetes Sister Lung Disorder Sister Obesity Sister Breast Cancer Sister Heart attack Brother Fatal [place], in his late 60s Heart attack Brother Fatal [place], in his 50s Mental Disorder Grandmother (Maternal) Scizophrenia, Manic Depressive Review of patient's allergies indicates: Allergen Reactions Acetaminophen Abdominal pain Other reaction(s): ITCH ALL OVER Albuterol States was given during a breathing test and had convulsions. Other reaction(s): CONVULSIONS Hydroxyzine Other reaction(s): MOOD SWINGS / OUT OF CONTROL Vistaril [Hydroxyzine Pamoate] Psych complications Latex Itching documented in this encounter Plan of Treatment Upcoming Encounters Date Type Department Care Team (Late st Contact Info) Description 12/29/2023 12:00 PM EST Laboratory Laboratory, [place] [address] [place] [id number] [place] [address] [place] [address] 01/11/2024 1:00 PM EDT Office Visit Dermatology, [place] [address] [facility], [place] [address] Renetta Clay PA-C [address] [place] [address] [place] [id number] 01/22/2024 1:00 PM EDT Imaging Radiology [facility] [address] [facility] [address] [facility] [place] [address] 01/30/2024 1:00 PM EDT Telemedicine Psychiatry, [place] [address] [place] [facility] [address] Priftmichele, Arleen, [address] [facility] [place] [address] 01/31/2024 12:30 PM EDT Laboratory Laboratory, [place] [address] [facility], [place] [id number] [place], [facility] [address] [place] [facility] [address] 02/19/2024 3:00 PM EDT Office Visit Cardiology, [facility] [address] [facility] [place] [address] Leonel Wilde PA-C [address] [facility] [place], [place] [address] Scheduled Orders Name Type Priority Associated Diagnoses Orde r Schedule DIFFUSION CAPACITY (DLCO) Procedures Routine COPD, group D, by GOLD 2017 classification ([facility]) Expected: 01/03/2024, Expires: 01/26/2025 LUNG VOLUMES (PLETHYSMOGRAPHY) Procedures Routine COPD, group D, by GOLD 2017 classification ([facility]) Expected: 01/03/2024, Expires: 01/26/2025 RESPIRATORY MUSCLE PRESSURES (BUGLE PRESSURES) Procedures Routine COPD, group D, by GOLD 2017 classification ([facility]) Ordered: 12/27/2023 SPIROMETRY B/A BRONCHODILATOR Procedures Routine COPD, group D, by GOLD 2017 classification ([facility]) Expected: 01/03/2024, Expires: 01/26/2025 Health Maintenance Due Date Last Done Comments [...] Documents on File Type Date Recorded 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
--- OUTSIDE RECORDS SUMMARY | 2024-03-19 23:23 | External Medical Summary | Summary of Care ---
Author Name Unknown Organization [facility] Address [address] [place] [address] Phone [phone] Care Team Providers Care Railcar Switchman Name Role Phone John Roa MD Primary Care Provider [phone]- [phone] Reason for Referral * Evaluate & Treat - Unlimited Visits (Within 30 days (routine)) - Authorized Specialty Diagnoses / Procedures Referred By Contact Referred To Contact Cardiovascular Medicine / Cardiology Diagnoses Nonrheumatic mitral valve regurgitation Palpitations John Roa MD [address] [place] [address] Referral ID Status Reason Start Date Expiration Date Visits Requested Visits Authorized [id number] Authorized Specialty Services Required 12/18/2023 999 999 Question Answer Referral Priority Within 30 days (routine) Where should this appointment be scheduled? [facility] To which of the following clinics are you referring your patient? [facility] * Medication Prior Authorization - Pending Review Specialty Diagnoses / Procedures Referred By Contac t Referred To Contact Diagnoses Migraine without aura and without status migrainosus, not intractable John Roa MD [address] [place] [address] Referral ID Status Reason Start Date Expiration Date V isits Requested Visits Authorized [id number] Pending Review 999 999 * Evaluate & Treat - Unlimited Visits (Within 30 days (routine)) - Authorized Specialty Diagnoses / Procedures Referred By Grant alford Referred To Contact Pulmonary Diseases / Pulmonary Diagnoses COPD, group D, by GOLD 2017 classification ([facility]) John Roa MD [address] [place] [address] Referral ID Status Reason Start Date Expiration Date Visits Requested Visits Authorized [id number] Authorized Specialty Services Required 12/18/2023 999 999 Question Answer Referral Priority Within 30 days (routine) Where should this appointment be scheduled? [facility] Primary Reason for Referral? Asthma/COPD * Precert (Within 10 days (routine)) - Authorized Specialty Diagnoses / Procedures Referred By Grant alford Referred To Contact Radiology Diagnoses Leg mass, left Procedures MR TIBIA FIBULA NO JOINT LEFT WITH WITHOUT IV CONTRAST John Roa MD [address] [place] [address] Referral ID Status Reason Start Date Expiration Date V isits Requested Visits Authorized [id number] Authorized 12/18/2023 999 999 Reason for Visit * Reason Comments Acute Follow Up Yearly visit Encounter Details Date Type Department Care Team (Latest Contact Info) Description 12/18/2023 1:00 PM EST Office Visit [facility] [address] [place] [phone] John Roa MD [address], [place] [id number] Leg mass, left*; COPD, group D, by GOLD 2017 classification ([facility]); Migraine without aura and without status migrainosus, not intractable; Anxiety; Vitamin D deficiency; Nonrheumatic mitral valve regurgitation; Palpitations; Bronchitis, complicated Allergies Active Allergy Reactions Criticality Noted Date Comments Acetaminophen Abdominal pain High 08/17/2017 Other reaction(s): ITCH ALL OVER Albuterol High 09/07/2017 States was given during a breathing test and had convulsions. Other reaction(s): CONVULSIONS Hydroxyzine High 06/07/2020 Other reaction(s): MOOD SWINGS / OUT OF CONTROL Latex Itching Low 11/27/2017 Hydroxyzine Pamoate Psych complications 017 documented as of this encounter (statuses as of 01/08/2024) Medications Medication Sig Dispensed Refills Start Date [...] 2.5 UNIT/ML Intramuscular Injectable (Rabies Virus Vaccine, HDC)Indications:Exp osure to bat without known bite 1 ml IM and repeat on day 0, 3, 7, 14 and 28 1 mL 4 2 Active Additional Information Patient not taking.Reported on 06/13/2023 Loperamide HCl 2 MG Oral Capsule (Imodium) TAKE 1 CAPSULE BY MOUTH THREE TIMES DAILY 90 Capsule 5 2 Active Tybbrltijf-FDXT-Zzu feine 50-300-40 MG Oral Capsule (Fioricet)Indicatio ns:Pain [...] other medications 90 Tablet 1 3 Active traZODone HCl 100 MG Oral Tablet (Desyrel) TAKE 1 TABLET BY MOUTH ONCE DAILY 90 Tablet 0 4 Active Sertraline HCl 100 MG Oral Tablet (Zoloft) TAKE 1 TABLET BY MOUTH ONCE DAILY 90 Tablet 0 4 Active oxyCODONE HCl 5 MG Oral Tablet Abuse-DeterrentIndi cations:Migraine without aura and without status migrainosus, not intractable Take 5 mg by mouth every 8 hours as needed for Pain, Severe. 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 6 Tablet 0 3 12/18/19 24 Discontinue d(Refill) ALPRAZolam 1 MG Oral Tablet (xaNAX) TAKE ONE TABLET BY MOUTH TWICE DAILY NEEDED FOR ANXIETY 180 Tablet 0 3 12/18/19 24 Discontinue d(Refill) Azithromycin 250 MG Oral Tablet (Zithromax)Indicati ons:Bronchitis, complicated Take 2 tabs by mouth on the first day, then 1 tab daily on days two through five 6 Tablet 0 4 12/23/19 24 documented as of this encounter (statuses as of 01/08/2024) Active Problems Problem Noted Date Diagnosed Date Food insecurity 06/05/2023 Overview: Per [facility] Protocol Leg mass, left 10/13/2022 Migraine 02/23/2022 Pulmonary nodule, right 05/17/2019 History of tobacco use 03/28/2019 COPD, group D, by GOLD 2017 classification 03/20 Bipolar disorder, in full re mission, most recent episode depressed 02/06/2018 Hypothyroidism 12/23/2017 Gastroesophageal reflux disease 12/23/2017 Major depressive disorder wi th single episode, in partial remission 12/23/2017 documented as of this encounter (statuses as of 01/08/2024) Resolved Problems Problem Noted Date Diagnosed Date Resolved Date Food insecurity 05/31/2021 02/03/2022 Overview: Per [facility] Protocol Chronic hypoxemic respiratory failure 03/28/2019 01/08/2024 SVT (supraventricular tachycardia) 03/20/2019 06/07/2020 Interstitial lung disease 03/20/2019 documented as of this encounter (statuses as of 01/08/2024) Immunizations Name Administration Dates Next Due COVID-19 [...] Sign Reading Time Taken Comments Blood Pressure 124/88 12/18/2023 12:41 PM EST Pulse 70 12/18/2023 12:41 PM EST Temperature 36.4 C (97.5 F) 12/18/2023 12:[address] Respiratory Rate 16 12/18/2023 12:41 PM EST Oxygen Saturation 95% 12/18/2023 12:41 PM EST Inhaled Oxygen Concentration - - Weight 76.7 kg (169 lb 3.2 oz) 12/18/2023 12:41 PM EST Height 170.2 cm (5' 7") 12/18/2023 12:41 PM EST Body Mass Index 26.5 12/18/2023 12:41 PM EST documented in this encounter Progress Notes * John Roa MD - 12/18/2023 1:11 PM EST Subjective: Brittany Eric is a 78 year old female here today for Chief Complaint Patient presents with Acute Follow Up Yearly visit Pt presents for routine follow up. Her biggest concern is the left lower leg mass that had previously been worked up by me and she didsee ortho. Ortho obtained an MRI in 10/13 with results: Ill-defined area of subcutaneous edema and enhancement at the anterior aspect of the left grove, with a central area of non-enhancement that may represent fat necrosis or scarring. There is no discrete mass or nodular enhancement. Ortho had a telemed visit after MRI and did not feel any intervention was needed at that time. Pt reports that the area seems to be getting larger and remains tender. Pt reports pulm issues. Green mucus production.- more in AM. Wakes up overnight with cough and shortness of breath at times. Reports increased shortness of breath. Does see improvement with trelegy. CXR, ABX, JENNIFER, PUlm Pt reports increased weakness with right thumb. Did have previous carpal tunnel surg. Past Medical History: Diagnosis Date Cervical cancer (HCC) 1981 Chronic hypoxemic respiratory failure (HCC) 03/28/2019 Colon perforation (HCC) pt reports colon perforation during colonoscopy with emergency surgery and ostomy; unsure of the year COPD (chronic obstructive pulmonary disease) ([facility]) COPD, group D, by GOLD 2017 classification ([facility]) 03/20/2019 Depression seen on scanned records Gastroesophageal reflux disease 12/23/2017 GERD (gastroesophageal reflux disease) seen on scanned records Hypothyroidism seen on scanned records Lung nodule Past Surgical History: Procedure Laterality Date INFORMATION 2010 Coils and Stent, [facility] SIGMOIDOSCOPY, DIAGNOSTIC 01/04/2018 collagenous colitis/[facility] SIGMOIDOSCOPY/BIOPSY 2012 with erythema inthe rectum and sigmoid (scanned records) TOTAL ABD HYSTERECTOMY W/WO REMOVAL OF TUBE(S) 1981 Review of patient's allergies indicates: Allergen Reactions [...] MOUTH THREE TIMES DAILY 90 Capsule 5 Bzobiqfjnc-SFUY-Jkyfahab 50-300-40 MG Oral Capsule (Fioricet) Take 1 [...] Ellipta 100-62.5-25 MCG/ACT Aerosol Powder Breath Activated (Kdbjrvcejgx-Odvtxrdmsdle-Feukidjwwr) INHALE ONE PUFF BY MOUTH daily. rinse [...] NEEDED FOR ANXIETY 180 Tablet 0 Ipratropium [place] HFA 17 MCG/ACT Inhalation Aerosol Solution (Atrovent Hfa) Inhale 2 puffs every 6 hours as needed 12.9 g 5 Imovax Rabies 2.5 UNIT/ML Intramuscular Injectable (Rabies Virus Vaccine, HDC) 1 ml IM and repeat on day 0, 3, 7, 14 and 28 (Patient not taking: Reported on 06/13/2023) 1 mL 4 Azithromycin 250 MG Oral Tablet (Zithromax Z-Chandan) Please take 500 mg by mouth on day one, followed by 250 mg by mouth for four days. 6 Tablet 0 No current facility-administered medications for this visit. Objective: BP 124/88 | Pulse 70 | Temp 36.4 C (97.5 F) (Temporal Artery) | Resp 16 | Ht 1.702 m(5' 7") | Wt 76.7 kg (169 lb 3.2 oz) | SpO2 95% | BMI 26.50 kg/m | BSA 1.9 m GEN: NAD HEENT: PERRLA, EOMI, conjunctiva not injected or icteric. EACs clear of obstruction, inflammation, drainage. TM's normal without erythema or lesion. No fluid or infection seen in middle ear space. Nares clear of obstruction, lesion, drainage. OP without tonsillar enlargement or exudate, MMM, no lesion. NECK: Supple with no LAD, TM, JVD CHEST: CTA B CV: RRR ABD: Soft, NT/ND, No HSM, NABS EXT: left leg with soft tissue swelling. Tender to palpation. No erythema, warmth. No evidence for abscess. Assessment and Plan: Leg mass, left (Primary) - MR TIBIA FIBULA NO JOINT LEFT WITH WITHOUT IV CONTRAST; Future; Expected date: 12/18/2023 -offered referral to ortho at [facility] - pt declines. She did agree to repeat MRI to assess change from previous. COPD, group D, by GOLD 2017 classification ([facility]) - PULMONARY REFERRAL OP - Ipratropium Gaston HFA 17 MCG/ACT Inhalation Aerosol Solution (Atrovent Hfa); Inhale 2 puffs every 6 hours as needed Migraine without aura and without status migrainosus, not intractable - oxyCODONE HCl 5 MG Oral Tablet Abuse-Deterrent; Take 5 mg by mouth every 8 hours as needed for Pain, Severe. Anxiety - ALPRAZolam 1 MG Oral Tablet (xaNAX); TAKE ONE TABLET BY MOUTH TWICE DAILY NEEDED FOR ANXIETY Vitamin D deficiency - 25-HYDROXY VITAMIN D; Future; Expected date: 12/18/2023 Nonrheumatic mitral valve regurgitation Palpitations - CARDIOLOGY REFERRAL OP Bronchitis, complicated - Azithromycin 250 MG Oral Tablet (Zithromax); Take 2 tabs by mouth on the first day, then 1 tab daily on days two through five Other orders - INFLUENZA VACC, QUAD, HIGH DOSE (FLUZONE HD) Follow Up: Return in about 6 months (around 06/17/2024) for recheck. | For: recheck | Check-out note: MRI left leg Pulm Wedivite Cards - Parker/Andry 42 min with pt and chart review. John Roa MD documented in this encounter Nursing Notes * Ashia Noland CCMA - 12/18/2023 12:41 PM EST Brittany Eric is a 78 year old female who presents today for Chief Complaint Patient presents with Acute Follow Up Yearly visit documented in this encounter Plan of Treatment Upcoming Encounters Date Type Department Care Team (Late st Contact Info) Description 01/11/2024 1:00 PM EDT Office Visit Dermatology, [place] [address] [place] [address] Renetta Clay PA-C [address] [place] [address] [place] [address] 01/22/2024 1:00 PM EDT Imaging Radiology [address] [facility] [place] [address] 01/30/2024 1:00 PM EDT Telemedicine Psychiatry, [place] [address] [place] [address] PriftiArleen, [address] [place] [address] 01/31/2024 12:30 PM EDT Laboratory Laboratory, [place] [address] [place] [phone] [facility] [address] [place] [address] 02/20/2024 10:30 AM EDT [facility] [place] [address] Leonel Wilde PA-C [address] [place] [address] 02/27/2024 1:15 PM EDT Imaging Radiology [facility] [address] [place] [address] Scheduled Orders Name Type Priority Associated Diagnoses Orde r Schedule MR TIBIA FIBULA NO JOINT LEFT WITH WITHOUT IV CONTRAST Medical Imaging Routine Leg mass, left Expected: 12/18/2023, Expires: 01/15/2025 Scheduled Referrals Name Type Priority Associated Diagnoses Orde r Schedule PULMONARY REFERRAL OP Referral Within 30 days (routine) COPD, group D, by GOLD 2017 classification (HCC) Ordered: 12/18/2023 CARDIOLOGY REFERRAL OP Referral Within 30 days (routine) Nonrheumatic mitral valve regurgitation Palpitations Ordered: 12/18/2023 Health Maintenance Due Date Last Done Comments Alpha-1 Antitrypsin 1963 Hepatitis C Screening 1963 *ADVANCE DIRECTIVE NOT ON FILE 05/12/2019 Depression Screening 06/02/2023 06/02/2022 COVID-19 Vaccine ( season) 2023 09/29/2022, 07/29/2022, 02/22/2022, Additional history exists TSH 11/15/2024 11/15/2023, 1003/2022, 01/20/2022, Additional history exists O2 ASSESSMENT COMPLETED [...] Not on filedocumented as of this encounter Results * 25-HYDROXY VITAMIN D (12/29/2023 11:10 AM EST) 25-Hydroxy Vitamin D 82 >19 ng/mL 12/30/2023 6:16 AM EST LABORATORY [facility] Blood Venous blood specimen / Unknown Venipuncture / Unknown 12/29/2023 11:10 AM EST 12/29/2023 11:12 AM EST Narrative LABORATORY [facility] - 12/30/2023 6:16 AM EST Deficient: <20 ng/mL Insufficient: 20-29 ng/mL Recommended/Optimum:30-50 ng/mL Vitamin D intoxication is rare. If suspicious of Vitamin D toxicity, evaluation of serum Calcium and PTH is recommended. John Roa MD LAB BLOOD ORDERABL ES LABORATORY [facility] [address] [place] [address] documented in this encounter Visit Diagnoses Diagnosis Leg mass, left- Primary COPD, group D, by GOLD 2017 classification (HCC) Migraine without aura and without status migrainosus, not intractable Migraine without aura, without mention of intractable migraine without mention of status migrainosus Anxiety Anxiety state, unspecified Vitamin D deficiency Unspecified vitamin D deficiency Nonrheumatic mitral valve regurgitation Palpitations Bronchitis, complicated Bronchitis, not specified as acute or chronic documented in this encounter Advance Directives Documents on File Type Date Recorded 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
--- OUTSIDE RECORDS SUMMARY | 2024-03-19 23:23 | External Medical Summary | Summary of Care ---
Author Name Unknown Organization [facility] Address [address] [place] [address] Phone [phone] Care Team Providers Care Translator Deaf Name Role Phone John Roa MD Primary Care Provider +1- [phone] Reason for Visit * Reason Comments Outpatient Testing Encounter Details Date Type Department Care Team (Late st Contact Info) Description 12/29/2023 12:00 PM EST Laboratory Laboratory, [place] [address] [place] [phone] [place], Laboratory [address] [place] [address] Vitamin D deficiency Allergies Active Allergy Reactions Criticality Noted Date Comments Acetaminophen Abdominal pain High 08/17/2017 Other reaction(s): ITCH ALL OVER Albuterol High 09/07/2017 States was given during a breathing test and had convulsions. Other reaction(s): CONVULSIONS Hydroxyzine High 06/07/2020 Other reaction(s): MOOD SWINGS / OUT OF CONTROL Latex Itching Low 11/27/2017 Hydroxyzine Pamoate Psych complications 017 documented as of this encounter (statuses as of 12/29/2023) Medications Medication Sig Dispensed Refills Start Date [...] 2.5 UNIT/ML Intramuscular Injectable (Rabies Virus Vaccine, [facility])Indications:Expo sure to bat without known bite 1 ml IM and repeat on day 0, 3, 7, 14 and 28 1 mL 4 06/23/2022 Active Additional Information Patient not taking.Reported on 06/13/2023 Loperamide HCl 2 MG Oral Capsule (Imodium) TAKE 1 CAPSULE BY MOUTH THREE TIMES DAILY 90 Capsule 5 07/06/2022 Active Fsaehwkuhy-QDVU-Leiy eine 50-300-40 MG Oral Capsule (Fioricet)Indication s:Pain [...] ANXIETY 180 Tablet 0 12/18/2023 Active Ipratropium [place] HFA 17 MCG/ACT Inhalation Aerosol Solution (Atrovent [...] as of this encounter (statuses as of 12/29/2023) Active Problems Problem Noted Date Diagnosed Date Food insecurity 06/05/2023 Overview: Per [facility] Protocol Leg mass, left 10/13/2022 Migraine [...] as of this encounter (statuses as of 12/29/2023) Resolved Problems Problem Noted Date Diagnosed Date Resolved Date Food insecurity 05/31/2021 02/03/2022 Overview: Per [facility] Protocol SVT (supraventricular tachycardia) 03/20/2019 06/07/2020 Interstitial lung disease 03/20/2019 documented as of this encounter (statuses as of 12/29/2023) Immunizations Name Administration Dates Next Due COVID-19 [...] 01/11/2024 1:00 PM EDT Office Visit Dermatology, [address] [address] Renetta Clay PA-C [address] [place] [address] [place] [address] 01/22/2024 1:00 PM EDT [address] [address] 01/30/2024 1:00 PM EDT Telemedicine Psychiatry, [place] [address] [facility] [place] [address] Arleen Crowder DO [address] [facility] [place] [address] 01/31/2024 12:30 PM EDT Laboratory Laboratory, [address] [phone] [place], Laboratory [address] [facility] [place] [address] 02/20/2024 10:30 AM EDT Office Visit Cardiology, [facility] [address] [place] [address] Leonel Wilde PA-C [address] [place] [address] 02/27/2024 1:15 PM EDT Imaging Radiology [facility] [place] [address] Pending Results Name Type Priority Associated Diagnoses Date /Time 25-HYDROXY VITAMIN D Lab Routine Vitamin D deficiency 12/29/2023 11:10 AM EST Health Maintenance Due Date Last Done Comments [...] as of this encounter Visit Diagnoses Diagnosis Vitamin D deficiency Unspecified vitamin D deficiency documented in this encounter Advance Directives Documents on File Type Date Recorded Patient Patient Financial Services Coordinator Expl anation Power of Mortgage Loan Officer Originator 02/14/2011 POWER OF A TTORNEY POA- UPDATE 06/17/20 Care Teams Translator Deaf Relationship Specialty Start Date End Date John Roa MD [address] [place] [address] PCP - General Family Medicine 09/07/17 documented as of this encounter
--- OUTSIDE RECORDS SUMMARY | 2024-03-19 23:23 | External Medical Summary | Summary of Care ---
Author Name Unknown Organization [facility] Address [address] [place] [address] Phone [phone] Care Team Providers Care Planetarium Sky Show Technician Name Role Phone Laurence Cuevas MD Primary Care Provider [phone] Reason for Visit * Reason Comments NEW PATIENT Referred for issues w/scalp, ?skin lesions * Evaluate & Treat - Unlimited Visits (Within 30 days (routine)) - Closed Specialty Diagnoses / Procedures Referred By Grant alford Referred To Contact Dermatology Diagnoses Skin lesions Laurence Cuevas MD [address] [place] [address] Referral ID Status Reason Start Date Expiration Date V isits Requested Visits Authorized [id number] Closed Specialty Services Required 06/13/[phone] Encounter Details Date Type Department Care Team (Late st Contact Info) Description 01/11/2024 1:00 PM EDT [facility] [address] [place] [address] Renetta Clay PA-C [address] [place] [address] [place] [id number] Actinic keratosis*; Seborrheic dermatitis of scalp; Acne vulgaris; Seborrheic keratosis Allergies Active Allergy Reactions Criticality Noted Date [...] TIMES DAILY 90 Capsule 5 07/06/2022 Active Ibffjanwax-WBDH-Zxcw eine 50-300-40 MG Oral Capsule (Fioricet)Indication s:Pain [...] ANXIETY 180 Tablet 0 12/18/2023 Active Ipratropium [place] HFA 17 MCG/ACT Inhalation Aerosol Solution (Atrovent Hfa)Indications:COPD , group D, by GOLD 2017 classification ([facility]) Inhale 2 puffs every 6 hours as [...] Diagnosed Date Food insecurity 06/05/2023 Overview: Per [facility] Protocol Leg mass, left 10/13/2022 Migraine [...] Date Food insecurity 05/31/2021 02/03/2022 Overview: Per [facility] Protocol Chronic hypoxemic respiratory failure 03/28/2019 01/08/2024 SVT (supraventricular tachycardia) 03/20/2019 06/07/2020 Interstitial lung disease 03/20/2019 documented as of this encounter (statuses as of 01/11/2024) Immunizations Name Administration Dates Next Due COVID-19 mRNA, LNP-s, No Pre serve, 2-Dose Series (Moderna) 08/31/2021,12/25/2020,11/27/2020 COVID-19, LNP-s, No Preserve , Bk-sucrose, Ages 12+ (Hyperpublic) 02/22/2022 Covid-19, Mrna, Lnp-s, Pf, B ivalent, [...] on file documented as of this encounter Patient Instructions * Patient Instructions* Renetta Clay PA-C - 01/11/2024 12:48 PM EDT SUNSCREEN USE AND SUN PROTECTION: 1. The best protection is sun avoidance. Seek shade if you can, especially between 10am to 4pm (peak sun hours). 2. Use sunscreen with an SPF (Sun Protection Factor - the number on most sunscreen bottles) of 30 or more that protects from Ultraviolet A (UVA) and Ultraviolet B (UVB) wavelength light (strongly recommend SPF 50). This is referred to as broad spectrum sun protection because it protects from most wa velengths in both spectrums of UVA and UVB light. Unfortunately, even though the protection is broad it is not complete, therefore making sun avoidance the best protection. UVB and UVA have both beenimplicated in causing skin cancers. Older sunscreens only protected from UVB and sunscreens with added UVA protection should contain Titanium dioxide, Zinc oxide, or Avobenzone. Other oil free, non-comedogenic lotion with SPF 30 or greater is fine. 3. Use sun protection if outside for 15 minutes or more. Apply 20-30 minutes before going out and reapply every 1-2 hours. No sunscreen is truly water ''proof'' and it will wash away with sweat, swimming and rubbing. 4. Wear tightly woven, loose fitting (cooler) long sleeved clothing, UV-blocking sun glasses (eyes need protection as well) and wide-brimmed hatwear (no straw hats with holes because light still getsthrough). Strongly recommended *Neutrogena Pure and Free Baby SPF 60 (have separate face and body lotions) orCeraVe AM facial lotion (with SPF 30). If looking for non toxic alternatives-look for non-vijay particle zinc. Product examples; Think sport, Think baby, Hortencia, Curvo, BalaBit, [place] baby. "Baby" products can be used for all ages. Skin Cryosurgery (FREEZING) Instructions Most areas treated by freezing will need very little care. You may wash normally with soap and water and leave any small crusts in place. Vaseline to treated areas 2-3 times per day is a good idea, you do not need to keep them covered with bandages. If a large blister forms and breaks, you will want to apply a light dressing to the area. CHANGE DRESSING ONCE DAILY 1. Wash hands and remove the original dressing(s) in 12-24 hours. 2. Gently clean wound(s) with soap and water. Rinse with water and pat the wound dry. 3. Apply a thin layer of Vaseline ointment with a Q-tip. 4. Cover with a bandage if area(s) is not on the face or scalp. A dressing is not required on the face or scalp. Use non-adherent dressing and paper tape if you are sensitive to band-aid adhesive sensitive. 5. If you have any concerns about the healing wound, please either or our main Dermatology office in [place] at [phone]. If an emergency, please go to your nearest Emergency Department. ACNE SKIN CARE REGIMEN: Consistency and Perserverance is the weldon! *Acne may worsen in the first month of treatment but will improve after *Benefits of medications may also not be seen until 6-8 weeks of treatment. MORNING and EVENIN) Wash face (and body in shower) with Benzoyl Peroxide wash (OVER THE COUNTER, start with 2-5%, then if skin more oily or not irritated, increase to 5-10%. (strongly recommend CERAVE 4% ACNE FOAMINGCREAM CLEANSER (in tube, not tall pump bottle) but able to use Panoxyl foamy wash, Acne free, Oxy creamy wash or any other brand you find with this as the only active ingredient, no salicylic or glycolic acids within the same product). Use on chest and back if has acne- wash off thoroughly, can cause white spots on towels/clothing. NO buff puffs, NO harsh washcloths, NO astringents/stridex or Oxy pads-(just use fingers to wash face/body) 2) Once pat dry, apply a thin layer of CLINDAMYCIN GEL as spot treatment to acne spots on face, allow to dry. 3) Apply sunscreen (at least SPF 30+), use moisturizer with SPF 30+ if skin is dry- see bottom of sheet for recommendations. 4) Apply makeup, if desired: mineral based or any oil free products (+/- SPF). See bottom of sheet for recommendations. If becoming dry or irritated, mix with equal parts of CERAVE PM lotion or CERAVE cream (in white jar with blue writing). For Benzoyl Peroxide wash application: 1. Apply to your ENTIRE face or affected area every morning. If using a benzoyl peroxide wash, use this in the morning during your showers. 2. BE CAREFUL: This will bleach your clothing, towels and blankets. 3. Do not spot treat your acne with this medication. 4. Do not mix with Retin-A, Differin, or Tazorac medications (if you are using them) at the same time. Use these medications at night only and the benzoyl peroxide in the morning, unless indicated otherwise. 5. Remember that the white unnoticeable pimples on your face will all turn red in the next couple weeks. This will make your acne look worse, but try to remain on the medication. 6. Resist the urge to pick at your acne as this will cause scarring. For Clindamycin/Benzoyl Peroxide, Erythromycin/ Benzoyl Peroxide, Clindamycin, Erythromycin, SodiumSulfacetamide/Sulfur, Azelaic Acid, Sulfacetaminde, Salicylic Acid, Glycolic Acid topical medication application: 1. Wash face thoroughly and pat dry. 2. Apply thin layer of medication over entire affected area (or as spot treatment if discussed withme and/or states on prescription) 3. Medication can cause dryness, redness, and irritation like the medication at nighttime (not usually as severe though). Just use your judgement, if you are having some of these issues, then cut down on amount of medication and days using. For Tretinoin/Retin-A/Differin/Adapalene topical medication application: 1. Wait about a half hour after washing/drying your face before applying medication at bedtime. Applying it earlier will make your skin more irritated. 2. Apply a M and M or pea-sized amount to your ENTIRE face/chest/back, not just to individual pimples. Also, more is not better, and you will only experience more side effects this way. Everyone can tolerate this medication overtime. Start with once a week for the 1st week, and if notdry and irritated, then increase to twice a week (Monday, ) for the 2nd week, and if not dry and irritated then increased to three times per week (Monday, Monday, Monday) the 3rd week, andso on. 3. Can mix equal parts of moisturizer with medication for first few weeks until skin becomes used to medication. 4. Do not mix with Benzoyl Peroxide medications (if you are using them) at the same time. 5. Do not spot treat your acne with this medication. 6. You will notice some drying in the applied areas, which is to be expected. 7. If your skin becomes very irritated and cook excessively, try using the medication every other day. Call before discontinuing the medication. 8. Remember that the white unnoticeable pimples on your face will all turn red in the next couple weeks. This will make your acne look worse, but try to remain on the medication. You should notice a definite improvement within a month or so. 9. Resist the urge to pick at your acne as this will cause scarring. DO NOT wax facial hair while using this product, only tweeze or thread instead. Will burn skin inareas waxed. ADDITONAL INFORMATION: -start taking control pill (Tri-sprintec or Aviane) the monday after the first day of your next period and make sure to read the package insert on possible side effects -Recommended moisturizers for face-oil free with SPF (Neutrogena pure and free baby SPF 60, Cetaphil with SPF50 or CeraVe AM) -Cerave products can be found at all local pharmacies ([facility] has own brand of Cerave which is $1-2 cheaper per product). Coupons can be found online for most products. Ask pharmacist is not found on shelves, can order in for you at no additional charge. -Makeup: [employer]- more pure mineral and non pore clogging line Alternative: [employer] has a product called "Bicycle Subassembler Kit"- the best cover up makeup I have found! Whole line of products (powder foundations especially) are acne-friendly and have a very pure mineral composition- I highly recommend them. Can buy online at various dermatology websites. -Dermatology at Pfbkpuisk-[phone] for any questions or concerns. documented in this encounter Progress Notes * Yonis Arellano MD - 01/11/2024 1:21 PM EDT I have seen and examined the patient via teledermatology review of chart note and photos with Renetta Clay PA-C. I have reviewed and agree with the assessment and plan. * Renetta Clay PA-C - 01/11/2024 12:47 PM EDT SUBJECTIVE: HPI: Brittany Eric is a 78 year old female seen at the request of Laurence Cuevas MD for evaluation and treatment of scalp issue. Pt. declined full skin exam. No new or changing lesions, per pt. Can be painful and itchy, washes hair every other day. Using some hair growth shampoo and condition. REVIEW OF SYSTEMS: SKIN: No other new or changing moles. HEME/LYMPH: No new or enlarging lumps or bumps. CONSTITUTIONAL: No nausea, vomiting, fevers, chills, diarrhea. No recent unintended weight loss, night sweats, appetite or malaise. RESP: negative MSK/EXT: Negative or as per HPI GI: negative CV: (+ CP and plans to have cardio workup soon) Rest of systems are negative or as per HPI SKIN CANCER HX: NONE Reviewed, same day as visit, [facility] Dermatology lab work(s)/pathology report(s) as well as those sent by referring provider prior to seeing pt. Past Medical History: Diagnosis Date Cervical cancer ([facility]) 1982 Chronic hypoxemic respiratory failure ([facility]) 03/28/2019 Colon perforation ([facility]) pt reports colon perforation during colonoscopy with emergency surgery and ostomy; unsure of the year COPD (chronic obstructive pulmonary disease) ([facility]) COPD, group D, by GOLD 2017 classification ([facility]) 03/20/2019 Depression seen on scanned records Gastroesophageal reflux disease 12/23/2017 GERD (gastroesophageal reflux disease) seen on scanned records Hypothyroidism seen on scanned records Lung nodule FAMILY HISTORY: Skin CA: unknown skin cancer (possibly melanoma) in mother Skin Disorders: none SOCIAL HISTORY: Social History Tobacco Use Smoking status: Former Current packs/day: 0.00 Average packs/day: 0.8 packs/day for 35.0 years (26.3 ttl pk-yrs) Types: Cigarettes Start date: 08/17/1977 Quit date: 08/17/2012 Years since quittin.4 Smokeless tobacco: Never Substance Use Topics Alcohol use: Yes Alcohol/week: 4.0 standard drinks of alcohol Types: 4 1.5 oz of liquor per week Comment: 2 shots several times a week Vaping/E-Cigarette Use Vaping/E-Cigarette Use Never User Vaping/E-Cigarette Substances Nicotine No Other No Flavoring No THC No Cannabidiol (CBD) No Vaping/E-Cigarette Devices Disposable No Pre-filled or Refillable Cartridge No Refillable Tank No Pre-filled Pod No MEDICA TIONS: Current Outpatient Medications Medication Sig Dispense Refill [...] MOUTH THREE TIMES DAILY 90 Capsule 5 Mzdyeudasi-RMKI-Fzqcufob 50-300-40 MG Oral Capsule (Fioricet) Take 1 [...] Ellipta 100-62.5-25 MCG/ACT Aerosol Powder Breath Activated (Uwqkveeoasc-Iztczjnstpag-Mjyiibugql) INHALE ONE PUFF BY MOUTH daily. rinse [...] NEEDED FOR ANXIETY 180 Tablet 0 Ipratropium [place] HFA 17 MCG/ACT Inhalation Aerosol Solution (Atrovent Hfa) Inhale 2 puffs every 6 hours as needed 12.9 g 5 Azithromycin 250 MG Oral Tablet (Zithromax Z-Chandan) Please take 500 mg by mouth on day one, followed by 250 mg by mouth for four days. 6 Tablet 0 No current facility-administered medications for this visit. ALLERGY: Acetaminophen, Albuterol, Hydroxyzine, Vistaril [hydroxyzine pamoate], and Latex OBJECT AGUSTINA: GEN: alert, no distress, appears oriented, pleasant, and cooperative and on oxygen by nasal canula. SKIN: Detailed exam of hair, face including lids and lips, neck, back, right lower ext. (lower leg), palpation of scalp, and fingernails completed: 1. L nasal sidewall-pale pink scaly papule. 2. Scalp-White greasy scale adherent to hair shafts, not on scalp. 3. Face-Few excoriated inflammatory papules. 4. Face/lower legs/back-Few sharply defined, variegated brown, waxy flat papules with velvety to finely verrucous surfaces. ASSESS MENT/PLAN: 1. Actinic keratosis on L nasal sidewall-Cryosurgery explained to the patient. Discussed risk of blistering, crusting, infection, scarring, reoccurrence of lesions, hypopigmentation, post inflammatory hyperpigmentation with pt prior to procedure. Verbal consent obtained. Time out called immediatelyprior to procedure and patient identification and site verified. Cryo therapy performed with LiquidNitrogen via cryo spray unit to lesion (s) noted above. Location noted in physical exam. Post op course explained. 2. Seborrheic dermatitis on scalp-Start ketoconazole 2% shampoo TIW 3. Acne vulgaris, inflammatory on face-Start benzoyl peroxide wash BID (Cerave acne foaming cleanser sample), clindamycin gel BID. 4. Seborrheic/Benign Keratosis(-es) on face/lower legs/back-no tx needed, pt given reassurance and written education about diagnosis. Patient alone today. Photo(s) of #1-4 taken, pt verbally consented to having photo(s) taken. Follow-up: 6 months for AK/deborah derm/acne Photos and chart reviewed by Dr. Yonis Arellano. Presum ed diagnoses, expected natural histories, and management options discussed with the patient at length. Questions were addressed and anticipatory guidance provided. They were instructed to contact me if additional questions, concerns, or problems develop in the interim. -There were no barriers to learning and no other pain was related to today's visit. The patient and/or person accompanying patient demonstrates understanding of the visit and treatment. Renetta Clay PA-C 01/11/2024 12:47 PM Ref: LAURENCE CUEVAS[[id number]] [address], [place] [id number] (office) [phone] (fax) PCP: LAURENCE CUEVAS [address] [place] [address] [phone] documented in this encounter Nursing Notes * Vivien Arango LPN - 01/11/2024 12:56 PM EDT Patient identified by full name and date of . Chief Complaint Patient presents with NEW PATIENT Referred for issues w/scalp, ?skin lesions documented in this encounter Plan of Treatment Upcoming Encounters Date Type Department Care Team (Late st Contact Info) Description 01/22/2024 1:00 PM EDT Imaging Radiology [address] [facility] [place] [address] 01/30/2024 1:00 PM EDT Telemedicine Psychiatry, [place] [address] [place] [address] [facility] [address] [place] [address] 01/31/2024 12:30 PM EDT Laboratory Laboratory, [place] [address] [place] [address] [facility] [address] [place] [address] 02/20/2024 10:30 AM EDT Office Visit Cardiology, [facility] [address] [facility] [place] [address] Leonel Wilde PA-C [address] [facility] [place] [address] 02/27/2024 1:15 PM EDT Imaging Radiology [address] [facility] [place] [address] Health Maintenance Due Date Last Done Comments [...] Procedure Name Priority Date/Time Associated Diagnosis Comments DERM IMAGE (SITE) Routine 01/11/2024 Seborrheic dermatitis of scalp Acne vulgaris Seborrheic keratosis Actinic keratosis documented in this encounter Results * DERM IMAGE (SITE) (01/11/2024) 01/11/2024 Renetta Clay PA-C DIGITAL PHOTOG DERICK documented in this encounter Visit Diagnoses Diagnosis Actinic keratosis- Primary Seborrheic dermatitis of scalp Other seborrheic dermatitis Acne vulgaris Other acne Seborrheic keratosis Other seborrheic keratosis documented in this encounter Advance Directives Documents on File Type Date Recorded Patient Delicatessen Manager Expl anation Power of Prosthodontist/Educator 02/14/2011 POWER OF A TTORNEY POA- UPDATE 06/17/20 Care Teams Planetarium Sky Show Technician Relationship Specialty Start Date End Date Laurence Cuevas MD [address] [place] [address] PCP - General Family Medicine 09/07/17 documented as of this encounter
--- OUTSIDE RECORDS SUMMARY | 2024-03-19 23:23 | External Medical Summary ---
Author Name Unknown Address Unknown Organization [id number]:[facility] - [address] [place] [address] Laboratory Report Ordering Provider Test Date Status MASON DANG 12/29/2023 11:10:04 Final Deficient: <20 ng/mL
Ins ufficient: 20-29 ng/mL
Recommended/Optimum:30-50 ng/mL

Vitamin D intoxication is rare. If suspicious of Vitamin D toxicity, evaluation of serum Calcium and PTH is recommended. Observation Date Value Abnormality Reference (Units ) Status 25-OH Vitamin D total 12/29/2023 11:10:04 82 >19 (ng/mL) Final Performing Location [facility] [place] [place] - [address] [place] [address]
--- OUTSIDE RECORDS SUMMARY | 2024-03-19 23:23 | External Medical Summary | Summary of Care ---
Author Name Unknown Organization [facility] Address [address] [place] [address] Phone [phone] Care Team Providers Care Filament Wound Parts Fabricator Name Role Phone Laurence Cuevas MD Primary Care Provider +1- [phone] Reason for Visit * Reason Comments NEW PATIENT Referred for issues w/scalp, ?skin lesions * Evaluate & Treat - Unlimited Visits (Within 30 days (routine)) - Closed Specialty Diagnoses / Procedures Referred By Grant alford Referred To Contact Dermatology Diagnoses Skin lesions Laurence Cuevas MD [address] [place] [address] Referral ID Status Reason Start Date Expiration Date V isits Requested Visits Authorized [id number] Closed Specialty Services Required 06/13/[phone] Encounter Details Date Type Department Care Team (Late st Contact Info) Description 01/11/2024 1:00 PM EDT [facility] [address] [place] [address] Renetta Clay PA-C [address] [place] [address] [place] [address] Actinic keratosis*; Seborrheic dermatitis of scalp; Acne [...] TIMES DAILY 90 Capsule 5 07/06/2022 Active Gleoenrsph-ALZT-Qvtz eine 50-300-40 MG Oral Capsule (Fioricet)Indication s:Pain [...] ANXIETY 180 Tablet 0 12/18/2023 Active Ipratropium [place] HFA 17 MCG/ACT Inhalation Aerosol Solution (Atrovent [...] Diagnosed Date Food insecurity 06/05/2023 Overview: Per [facility] Protocol Leg mass, left 10/13/2022 Migraine [...] Date Food insecurity 05/31/2021 02/03/2022 Overview: Per [facility] Protocol Chronic hypoxemic respiratory failure 03/28/2019 01/08/2024 SVT (supraventricular tachycardia) 03/20/2019 06/07/2020 Interstitial lung disease 03/20/2019 documented as of this encounter (statuses as of 01/11/2024) Immunizations Name Administration Dates Next Due COVID-19 mRNA, LNP-s, No Pre serve, 2-Dose Series (Moderna) 08/31/2021,12/25/2020,11/27/2020 COVID-19, LNP-s, No Preserve , Bk-sucrose, Ages 12+ (CIQUAL) 02/22/2022 Covid-19, Mrna, Lnp-s, Pf, B ivalent, [...] Product examples; Think sport, Think baby, Hortencia, Agg[employer]yne, [employer], [place] baby. "Baby" products can be used [...] either or our main Dermatology office in [place] at [phone]. If an emergency, please go to your [...] can be found at all local pharmacies ([facility] has own brand of Cerave which is $1-2 cheaper per product). Coupons can be found online for most products. Ask pharmacist is not found on shelves, can order in for you at no additional charge. -Makeup: [employer]- more pure mineral and non pore clogging line Alternative: [employer] has a product called "Vegetable Preparer Kit"- the best cover up makeup I have found! Whole line of products (powder foundations especially) are acne-friendly and have a very pure mineral composition- I highly recommend them. Can buy online at various dermatology websites. -Dermatology at Lrntvydgd-[phone] for any questions or concerns. documented in [...] NONE Reviewed, same day as visit, 0 [facility] Dermatology lab work(s)/pathology report(s) as well as those sent by referring provider prior to seeing pt. Past Medical History: Diagnosis Date Cervical cancer ([facility]) 1982 Chronic hypoxemic respiratory failure ([facility]) 03/28/2019 Colon perforation ([facility]) pt reports colon perforation during colonoscopy with emergency surgery and ostomy; unsure of the year COPD (chronic obstructive pulmonary disease) ([facility]) COPD, group D, by GOLD 2017 classification ([facility]) 03/20/2019 Depression seen on scanned [...] MOUTH THREE TIMES DAILY 90 Capsule 5 Bobsoacvsi-SJSJ-Fjyvkaab 50-300-40 MG Oral Capsule (Fioricet) Take 1 [...] Ellipta 100-62.5-25 MCG/ACT Aerosol Powder Breath Activated (Szslehuqbfm-Zttoihcbghux-Sayorwytmf) INHALE ONE PUFF BY MOUTH daily. rinse [...] NEEDED FOR ANXIETY 180 Tablet 0 Ipratropium [place] HFA 17 MCG/ACT Inhalation Aerosol Solution (Atrovent [...] Clay PA-C 01/11/2024 12:47 PM Ref: LAURENCE CUEVAS[[id number]] [address], [place] [address] (office) [phone] (fax) PCP: LAURENCE CUEVAS [address] [place] [address] [phone] documented in this encounter Nursing Notes * Vivien Arango LPN - 01/11/2024 12:56 PM EDT Patient identified by full name and date of . Chief Complaint Patient presents with NEW PATIENT Referred for issues w/scalp, ?skin lesions documented in this encounter Plan of Treatment Upcoming Encounters Date Type Department Care Team (Late st Contact Info) Description 01/22/2024 1:00 PM EDT Imaging Radiology [address] [facility] [place] [address] 01/30/2024 1:00 PM EDT Telemedicine Psychiatry, [place] [address] [place] [address] [facility] [address] [place] [address] 01/31/2024 12:30 PM EDT Laboratory Laboratory, [place] [address] [place] [address] [facility] [address] [place] [address] 02/20/2024 10:30 AM EDT Office Visit Cardiology, [facility] [address] [facility] [place] [address] Leoenl Wilde PA-C 132 [facility] [place] [address] 02/27/2024 1:15 PM EDT Imaging Radiology [address] [facility] [place] [address] Health Maintenance Due Date Last Done Comments [...] Documents on File Type Date Recorded Patient [employer] Expl anation Power of Demand Equipment Repairer 02/14/2011 POWER OF A TTORNEY POA- UPDATE 06/17/20 Care Teams Filament Wound Parts Fabricator Relationship Specialty Start Date End Date Laurence Cuevas MD [address] [place] [address] PCP - General Family Medicine 09/07/17 documented as of this encounter
--- OUTSIDE RECORDS SUMMARY | 2024-03-19 23:23 | External Medical Summary | Summary of Care ---
Author Name Unknown Organization [facility] Address [address] [place] [address] Phone [phone] Care Team Providers Care Cloth Weaver Name Role Phone John Roa MD Primary Care Provider [phone]- [phone] Reason for Visit * Reason Onset Date Comments Appointment 12/18/2023 Cardiology Encounter Details Date Type Department Care Team (Late st Contact Info) Description 12/18/2023 Telephone [facility] [address] [place] [address] John Roa MD [address] [place] [address] Appointment (Cardiology) Allergies Active Allergy Reactions Criticality Noted Date Comments Acetaminophen Abdominal pain High 08/17/2017 Other reaction(s): ITCH ALL OVER Albuterol High 09/07/2017 States was given during a breathing test and had convulsions. Other reaction(s): CONVULSIONS Hydroxyzine High 06/07/2020 Other reaction(s): MOOD SWINGS / OUT OF CONTROL Latex Itching Low 11/27/2017 Hydroxyzine Pamoate Psych complications 017 documented as of this encounter (statuses as of 12/20/2023) Medications Medication Sig Dispensed Refills Start Date [...] TIMES DAILY 90 Capsule 5 07/06/2022 Active Hgvicpkhbr-WXVV-Wjto eine 50-300-40 MG Oral Capsule (Fioricet)Indication s:Pain [...] FOR ANXIETY 180 Tablet 0 12/18/2023 Active Azithromycin 250 MG Oral Tablet (Zithromax)Indicatio ns:Bronchitis, complicated Take 2 tabs by mouth on the first day, then 1 tab daily on days two through five 6 Tablet 0 12/18/2023 Active Ipratropium [place] HFA 17 MCG/ACT Inhalation Aerosol Solution (Atrovent Hfa)Indications:COPD , group D, by GOLD 2017 classification ([facility]) Inhale 2 puffs every 6 hours as needed 12.9 g 5 12/18/2023 Active documented as of this encounter (statuses as of 12/20/2023) Active Problems Problem Noted Date Diagnosed Date Food insecurity 06/05/2023 Overview: Per [facility] Protocol Leg mass, left 10/13/2022 Migraine [...] as of this encounter (statuses as of 12/20/2023) Resolved Problems Problem Noted Date Diagnosed Date Resolved Date Food insecurity 05/31/2021 02/03/2022 Overview: Per [facility] Protocol SVT (supraventricular tachycardia) 03/20/2019 06/07/2020 Interstitial lung disease 03/20/2019 documented as of this encounter (statuses as of 12/20/2023) Immunizations Name Administration Dates Next Due COVID-19 [...] Telephone Encounter - Renetta Avalos OSA - 12/19/2023 12:18 PM EST To clarify previous message: First available appointment for Cardio is 2024. Please call patient with sooner appointment. Patient placed on wait list. 12/19/2023 * Telephone Encounter - Natalie Hodge Student - 12/18/2023 2:41 PM EST Please call patient with sooner appointment available until November 2024. documented in this encounter Plan of Treatment Upcoming Encounters Date Type Department Care Team (Late st Contact Info) Description 12/25/2023 12:30 PM EST Telemedicine Psychiatry, [place] [address] [facility] [place] [place] [address] VerónicaArleen vieira, [address] [place] [facility] [place] [address] 12/27/2023 3:00 PM EST Telemedicine Pulmonary Medicine, [facility] [address] [facility] [place] [address] Gael [facility]ancuso [facility] [address] [facility] [address] 01/11/2024 1:00 PM EDT Office Visit Dermatology, [address], [place] [address] Renetta Clay, PA-C [address] [place] [address] [place] [address] 01/22/2024 1:00 PM EDT [facility] [address] [facility] [place] [address] 02/19/2024 3:00 PM EDT Office Visit Cardiology, [facility] [address] [facility] [place] [address] Leonel Wilde, PA-C 132 [facility] [place] [address] Health Maintenance Due Date Last Done Comments Alpha-1 Antitrypsin 1963 Hepatitis C Screening 1963 *ADVANCE DIRECTIVE NOT ON FILE 05/12/2019 Depression Screening 06/02/2023 06/02/2022 COVID-19 Vaccine ( season) 2023 09/29/2022, 07/29/2022, 02/22/2022, Additional history exists TSH 11/15/2024 11/15/2023, 100 03/2022, 01/20/2022, Additional history exists O2 ASSESSMENT [...] Documents on File Type Date Recorded Patient Cigarette Seller Expl anation Power of Meter Installer And Remover 02/14/2011 POWER OF A TTORNEY POA- UPDATE 06/17/20 Care Teams Cloth Weaver Relationship Specialty Start Date End Date John Roa MD [address] [place] [address] PCP - General Family Medicine 09/07/17 documented as of this encounter
--- OUTSIDE RECORDS SUMMARY | 2024-03-19 23:23 | External Medical Summary | Summary of Care ---
Author Name Unknown Organization [facility] Address [address] [facility] [place] [address] Phone [phone] Care Team Providers Care Gas Check Pad Maker Name Role Phone John Roa MD Primary Care Provider +1- [phone] Reason for Visit * Reason Onset Date Comments Follow Up 12/28/2023 Mammo order Encounter Details Date Type Department Care Team (Late st Contact Info) Description 12/28/[address] [facility] [address] [place] [address] John Roa MD [address] [place] [address] Follow Up (Mammo order ) Allergies Active Allergy Reactions Criticality Noted Date [...] TIMES DAILY 90 Capsule 5 07/06/2022 Active Xkpmtadpfr-DWPA-Hliu eine 50-300-40 MG Oral Capsule (Fioricet)Indication s:Pain [...] ANXIETY 180 Tablet 0 12/18/2023 Active Ipratropium [place] HFA 17 MCG/ACT Inhalation Aerosol Solution (Atrovent Hfa)Indications:COPD , group D, by GOLD 2017 classification ([facility]) Inhale 2 puffs every 6 [...] Diagnosed Date Food insecurity 06/05/2023 Overview: Per [facility] Protocol Leg mass, left 10/13/2022 [...] Date Food insecurity 05/31/2021 02/03/2022 Overview: Per [facility] Protocol SVT (supraventricular tachycardia) 03/20/2019 06/07/2020 [...] Telephone Encounter - Renetta Avalos OSA - 12/28/2023 12:48 PM EST Linked. 12/28/2023 * Telephone Encounter - John Roa MD - 12/28/2023 12:37 PM EST signed * Telephone Encounter - Kristen Weaver OSA - 12/28/2023 9:[address] order for may mammo that pt called to sched Thank you documented in this encounter Plan of Treatment Upcoming Encounters Date Type Department Care Team (Late st Contact Info) Description 12/29/2023 12:00 PM EST Laboratory Laboratory, [place] [address] [facility], [place] [address] [place], [facility] [address] [facility], [place] [address] 01/11/2024 1:00 PM EDT Office Visit Dermatology, [place] [address] [facility], [place] [address] Renetta Clay PA-C [address] [place] [address] [place] [address] 01/22/2024 1:00 PM EDT Imaging Radiology [address] [facility] [place] [address] 01/30/2024 1:00 PM EDT Telemedicine Psychiatry, [place] [address] [place] [address] PriftiArleen, [address] [place] [address] 01/31/2024 12:30 PM EDT Laboratory Laboratory, [place] [address] [facility], [place] [address] [facility] [address] [facility], [place] [address] 02/20/2024 10:30 AM EDT Office Visit Cardiology, [facility] [address] [facility] [place] [address] Leonel Wilde PA-C [address] [place] [address] 02/27/2024 1:15 PM EDT Imaging Radiology [address] [place] [address] [address] Scheduled Orders Name Type Priority Associated Diagnoses Orde r Schedule MAMMOGRAM SCREENING AALIYAH BILATERAL Medical Imaging Routine Encounter for screening mammogram for breast cancer Expected: 12/28/2023, Expires: 01/27/2025 Health Maintenance Due Date Last Done Comments [...] as of this encounter Visit Diagnoses Diagnosis Encounter for screening mammogram for breast cancer- Primary documented in this encounter Advance Directives Documents on File Type Date Recorded Patient Curriculum Facilitator Expl anation Power of First Coat Operator 02/14/2011 POWER OF A TTORNEY POA- UPDATE 06/17/20 Care Teams Gas Check Pad Maker Relationship Specialty Start Date End Date John Roa MD [address] [facility] [place] [address] PCP - General Family Medicine 09/07/17 documented as of this encounter
--- OUTSIDE RECORDS SUMMARY | 2024-03-19 23:23 | External Medical Summary | Summary of Care ---
Author Name Unknown Organization [facility] Address [address] [place] [address] Phone [phone] Care Team Providers Care Pants Busheler Name Role Phone John Roa MD Primary Care Provider +1- [phone] Reason for Visit * Reason Onset Date Comments Appointment 12/18/2023 Cardiology Encounter Details Date Type Department Care Team (Late st Contact Info) Description 12/18/2023 Telephone [facility] [address] [place] [address] John Roa MD [address] [place] [address] Appointment (Cardiology) Allergies Active Allergy [...] as of this encounter (statuses as of 12/28/2023) Medications Medication Sig Dispensed Refills Start Date [...] TIMES DAILY 90 Capsule 5 07/06/2022 Active Qbcxgtylhm-MEVA-Ktux eine 50-300-40 MG Oral Capsule (Fioricet)Indication s:Pain [...] ANXIETY 180 Tablet 0 12/18/2023 Active Ipratropium [place] HFA 17 MCG/ACT Inhalation Aerosol Solution (Atrovent Hfa)Indications:COPD , group D, by GOLD 2017 classification ([facility]) Inhale 2 puffs every 6 hours as needed 12.9 g 5 12/18/2023 Active Azithromycin 250 MG Oral Tablet (Zithromax)Indicatio ns:Bronchitis, complicated Take 2 tabs by mouth on the first day, then 1 tab daily on days two through five 6 Tablet 0 12/18/2023 4 documented as of this encounter (statuses as of 12/28/2023) Active Problems Problem Noted Date Diagnosed Date Food insecurity 06/05/2023 Overview: Per [facility] Protocol Leg mass, left 10/13/2022 Migraine [...] as of this encounter (statuses as of 12/28/2023) Resolved Problems Problem Noted Date Diagnosed Date Resolved Date Food insecurity 05/31/2021 02/03/2022 Overview: Per [facility] Protocol SVT (supraventricular tachycardia) 03/20/2019 06/07/2020 Interstitial lung disease 03/20/2019 documented as of this encounter (statuses as of 12/28/2023) Immunizations Name Administration Dates Next Due COVID-19 [...] encounter Miscellaneous Notes * Telephone Encounter - Chasity Ortiz OSA - 12/28/2023 10:04 AM EST Person calling: Brittany Relationship to patient: self Number to return call: [phone] Reason for call: appt time Pharmacy: na Provider Name:Leonel Wilde Patient's appt was move until February 18, however it is at 3pm and she uses rideshare which only runsuntil 4 and is worried she would miss it and would like appt earlier if possible. Please advise. Thanks * Telephone Encounter - Renetta Avalos OSA [...] Description 12/29/2023 12:00 PM EST Laboratory Laboratory, [place] [address] [place] [facility] [place] [id number] [facility] [address] [place] [place] [address] 01/11/2024 1:00 PM EDT Office Visit Dermatology, [place] [address] [place] [facility] [facility] [place] [address] Renetta Clay PA-C [address] [place] [address] [place] [address] 01/22/2024 1:00 PM EDT Imaging Radiology [address], [address] [place] [address] 01/30/2024 1:00 PM EDT Telemedicine Psychiatry, [place] [address] [facility] [address] Arleen Crowder, [address] [place] [address] 01/31/2024 12:30 PM EDT Laboratory Laboratory, [place] [address] [facility] [phone] [facility] [address] [place] [address] 02/20/2024 10:30 AM EDT Office Visit Cardiology, [facility] [address] [place] [address] Leonel Wilde PAHarrisonC [address] [place] [address] 02/27/2024 1:15 PM EDT Imaging Radiology [facility] [facility] [address] [place] [address] Health Maintenance Due Date Last Done Comments [...] Documents on File Type Date Recorded Patient File Keeper Expl anation Power of Hand Tire Trimmer 02/14/2011 POWER OF A TTORNEY POA- UPDATE 06/17/20 Care Teams Pants Busheler Relationship Specialty Start Date End Date John Roa MD [address] [place] [address] PCP - General Family Medicine 09/07/17 documented as of this encounter
--- OUTSIDE RECORDS SUMMARY | 2024-03-19 23:23 | External Medical Summary | Summary of Care ---
Author Name Unknown Organization [facility] Address [address] [place] [address] Phone [phone] Care Team Providers Care Chief Digital Officer Name Role Phone John Roa MD Primary Care Provider +1- [phone] Reason for Visit * Reason Onset Date Comments Med Request 01/10/2024 Encounter Details Date Type Department Care Team (Late st Contact Info) Description 01/10/2024 Telephone [facility] [address] [place] [address] John Roa MD [address] [place] [address] Med Request Allergies Active Allergy Reactions Criticality Noted Date Comments Acetaminophen Abdominal pain High 08/17/2017 Other reaction(s): ITCH ALL OVER Albuterol High 09/07/2017 States was given during a breathing test and had convulsions. Other reaction(s): CONVULSIONS Hydroxyzine High 06/07/2020 Other reaction(s): MOOD SWINGS / OUT OF CONTROL Latex Itching Low 11/27/2017 Hydroxyzine Pamoate Psych complications 017 documented as of this encounter (statuses as of 01/10/2024) Medications Medication Sig Dispensed Refills Start Date [...] 2.5 UNIT/ML Intramuscular Injectable (Rabies Virus Vaccine, [facility])Indications:Expo sure to bat without known bite 1 ml IM and repeat on day 0, 3, 7, 14 and 28 1 mL 4 06/23/2022 Active Additional Information Patient not taking.Reported on 06/13/2023 Loperamide HCl 2 MG Oral Capsule (Imodium) TAKE 1 CAPSULE BY MOUTH THREE TIMES DAILY 90 Capsule 5 07/06/2022 Active Hetxlebqpy-EBJS-Bxqy eine 50-300-40 MG Oral Capsule (Fioricet)Indication s:Pain [...] ANXIETY 180 Tablet 0 12/18/2023 Active Ipratropium [place] HFA 17 MCG/ACT Inhalation Aerosol Solution (Atrovent Hfa)Indications:COPD , group D, by GOLD 2017 classification ([facility]) Inhale 2 puffs every 6 hours as needed 12.9 g 5 12/18/2023 Active Azithromycin 250 MG Oral Tablet (Zithromax Z-Chandan) Please take 500 mg by mouth on day one, followed by 250 mg by mouth for four days. 6 Tablet 0 12/27/2023 Active documented as of this encounter (statuses as of 01/10/2024) Active Problems Problem Noted Date Diagnosed Date Food insecurity 06/05/2023 Overview: Per [facility] Protocol Leg mass, left 10/13/2022 Migraine 02/23/2022 Pulmonary nodule, right 05/17/2019 History of tobacco use 03/28/2019 COPD, group D, by GOLD 2017 classification 03/20 Bipolar disorder, in full re mission, most recent episode depressed 02/06/2018 Hypothyroidism 12/23/2017 Gastroesophageal reflux disease 12/23/2017 Major depressive disorder wi th single episode, in partial remission 12/23/2017 documented as of this encounter (statuses as of 01/10/2024) Resolved Problems Problem Noted Date Diagnosed Date Resolved Date Food insecurity 05/31/2021 02/03/2022 Overview: Per [facility] Protocol Chronic hypoxemic respiratory failure 03/28/2019 01/08/2024 SVT (supraventricular tachycardia) 03/20/2019 06/07/2020 Interstitial lung disease 03/20/2019 documented as of this encounter (statuses as of 01/10/2024) Immunizations Name Administration Dates Next Due COVID-19 [...] encounter Miscellaneous Notes * Telephone Encounter - Erika Garcia piece marker small arms - 01/10/2024 3:14 PM EDT Pt calling to request Ipratropium [place] HFA 17 MCG/ACT Inhalation Aerosol Solution (Atrovent Hfa). Informed pt that RX is available at their pharmacy. Pt verbalized understanding and stated they will check with their pharmacy regarding this medication. Thank you, Erika Garcia Seed Production Field Supervisor II Certified [facility] (formerly Telepharm[facility]) 01/10/2024,3:15 PM documented in this encounter Plan of Treatment Upcoming Encounters Date Type Department Care Team (Late st Contact Info) Description 01/11/2024 1:00 PM EDT Office Visit Dermatology[address] [place] [address] Renetta Clay PA-C [address] [place] [address] [place] [address] 01/22/2024 1:00 PM EDT Imaging Radiology [address] [facility] [place] [address] 01/30/2024 1:00 PM EDT Telemedicine Psychiatry, [place] [address] [place] [address] Arleen Crowder, [address] [place] [facility] [place] [facility] [address] 01/31/2024 12:30 PM EDT Laboratory Laboratory, [place] [address] [place] [phone] [facility] [address] [place] [address] 02/20/2024 10:30 AM EDT Office Visit Cardiology, [facility] [address] [facility] [place] [address] Leonel Wilde PA-C 132 [facility] [place] [address] 02/27/2024 1:15 PM EDT Imaging Radiology [address] [facility] [place] [address] Health Maintenance Due Date Last Done Comments [...] Documents on File Type Date Recorded Patient Competency Evaluated Nurse Aide Expl anation Power of Hydrogen Braze Furnace Operator 02/14/2011 POWER OF A TTORNEY POA- UPDATE 06/17/20 Care Teams Chief Digital Officer Relationship Specialty Start Date End Date John Roa MD [address] [place] [facility] [place] [address] PCP - General Family Medicine 09/07/17 documented as of this encounter
--- OUTSIDE RECORDS SUMMARY | 2024-03-19 23:23 | External Medical Summary | Summary of Care ---
Author Name Unknown Organization [facility] Address [address] [place] [address] Phone [phone] Care Team Providers Care Guidance And Control System Engineer Name Role Phone John Roa MD Primary Care Provider [phone]- [phone] Reason for Visit * Reason Onset Date Comments Appointment 12/18/2023 Cardiology Encounter Details Date Type Department Care Team (Late st Contact Info) Description 12/18/2023 Telephone [facility] [address] [place] [address] John Rao MD [address] [place] [address] Appointment (Cardiology) Allergies Active Allergy [...] TIMES DAILY 90 Capsule 5 07/06/2022 Active Vhtncysrln-HCVU-Rlzr eine 50-300-40 MG Oral Capsule (Fioricet)Indication s:Pain [...] ANXIETY 180 Tablet 0 12/18/2023 Active Ipratropium [place] HFA 17 MCG/ACT Inhalation Aerosol Solution (Atrovent Hfa)Indications:COPD , group D, by GOLD 2017 classification ([facility]) Inhale 2 puffs every 6 hours [...] Diagnosed Date Food insecurity 06/05/2023 Overview: Per [facility] Protocol Leg mass, left 10/13/2022 Migraine [...] Date Food insecurity 05/31/2021 02/03/2022 Overview: Per [facility] Protocol SVT (supraventricular tachycardia) 03/20/2019 06/07/2020 [...] to patient: self Number to return call: [phone] Reason for call: appt time Pharmacy: na [...] Description 12/29/2023 12:00 PM EST Laboratory Laboratory, [place] [address] [place] [facility] [place] [id number] [facility] [address] [place] [facility] [place] [address] 01/11/2024 1:00 PM EDT Office Visit Dermatology, [place] [address] [place] [facility] [place] [address] Renetta Clay PA-C [address] [place] [address] [place] [address] 01/22/2024 1:00 PM EDT Imaging Radiology [address], [address] [place] [address] 01/30/2024 1:00 PM EDT Telemedicine Psychiatry, [place] [address] [place] [facility] [place] [address] Arleen Crowder, [address] [place] [address] 01/31/2024 12:30 PM EDT Laboratory Laboratory, [place] [address] [facility] [phone] [facility] [address] [place] [facility] [place] [address] 02/19/2024 3:00 PM EDT Office Visit Cardiology, [facility] [address] [place] [address] Leonel Wilde PA-C [address] [place] [address] 02/27/2024 1:15 PM EDT Imaging Radiology [facility] [place] [address] [place] [address] Health Maintenance Due Date Last Done Comments [...] Documents on File Type Date Recorded Patient Cottage Supervisor Expl anation Power of Engraver Steel Plate 02/14/2011 POWER OF A TTORNEY POA- UPDATE 06/17/20 Care Teams Guidance And Control System Engineer Relationship Specialty Start Date End Date John Roa MD [address] [place] [address] PCP - General Family Medicine 09/07/17 documented as of this encounter
--- OUTSIDE RECORDS SUMMARY | 2024-03-19 23:23 | External Medical Summary | Summary of Care ---
Author Name Unknown Organization [facility] Address [address] [facility] [place] [address] Phone [phone] Care Team Providers Care Sporting Goods Salesperson Name Role Phone John Roa MD Primary Care Provider [phone]- [phone] Encounter Details Date Type Department Care Team (Late st Contact Info) Description 12/20/2023 Orders Only PATIENT PORTAL DO NOT DELETE THIS DEPT USED BY [place] [id number] Allergies Active Allergy Reactions Criticality Noted Date [...] 2.5 UNIT/ML Intramuscular Injectable (Rabies Virus Vaccine, [facility])Indications:Expo sure to bat without known bite 1 ml IM and repeat on day 0, 3, 7, 14 and 28 1 mL 4 06/23/2022 Active Additional Information Patient not taking.Reported on 06/13/2023 Loperamide HCl 2 MG Oral Capsule (Imodium) TAKE 1 CAPSULE BY MOUTH THREE TIMES DAILY 90 Capsule 5 07/06/2022 Active Jmlxhwvcii-ARBU-Grfg eine 50-300-40 MG Oral Capsule (Fioricet)Indication s:Pain [...] five 6 Tablet 0 12/18/2023 Active Ipratropium [place] HFA 17 MCG/ACT Inhalation Aerosol Solution (Atrovent Hfa)Indications:COPD , group D, by GOLD 2017 classification ([facility]) Inhale 2 puffs every 6 hours as needed 12.9 g 5 12/18/2023 Active documented as of this encounter (statuses as of 12/20/2023) Active Problems Problem Noted Date Diagnosed Date Food insecurity 06/05/2023 Overview: Per [facility] Protocol Leg mass, left 10/13/2022 Migraine [...] Date Food insecurity 05/31/2021 02/03/2022 Overview: Per [facility] Protocol SVT (supraventricular tachycardia) 03/20/2019 [...] Description 12/25/2023 12:30 PM EST Telemedicine Psychiatry, [place] [address] [place] [address] Arleen Crowder, [address] [place] [address] 12/27/2023 3:00 PM EST Telemedicine Pulmonary Medicine, [address] [place] [address] Gael Mancuso MD [address] [place] [address] 01/11/2024 1:00 PM EDT Office Visit Dermatology, [address] [place] [address] Renetta Clay, [place] [address] [place] [address] [place] [address] 01/22/2024 1:00 PM EDT Imaging Radiology [facility] [place] [address] [place] [address] 02/19/2024 3:00 PM EDT Office Visit Cardiology, [facility] [address] [place] [address] Leonel Wilde PA-C [address] [place] [address] Health Maintenance Due Date Last Done Comments [...] Documents on File Type Date Recorded Patient Heavy Equipment Plumbing Supervisor Expl anation Power of X Ray Technologist 02/14/2011 POWER OF A TTORNEY POA- UPDATE 06/17/20 Care Teams Sporting Goods Salesperson Relationship Specialty Start Date End Date John Roa MD [address] [place] [address] PCP - General Family Medicine 09/07/17 documented as of this encounter
--- OUTSIDE RECORDS SUMMARY | 2024-03-19 23:23 | External Medical Summary | Summary of Care ---
Author Name Unknown Organization [facility] Address [address] [place] [address] Phone [phone] Care Team Providers Care Side Piece Coverer Name Role Phone John Roa MD Primary Care Provider +1- [phone] Reason for Visit * Reason Onset Date Comments Appointment 12/18/2023 Cardiology Encounter Details Date Type Department Care Team (Late st Contact Info) Description 12/18/2023 Telephone [facility] [address] [place] [address] John Roa MD [address] [place] [address] Appointment (Cardiology) Allergies Active Allergy [...] as of this encounter (statuses as of 12/19/2023) Medications Medication Sig Dispensed Refills Start Date [...] TIMES DAILY 90 Capsule 5 07/06/2022 Active Hnnlctsupr-WPJE-Wckk eine 50-300-40 MG Oral Capsule (Fioricet)Indication s:Pain [...] five 6 Tablet 0 12/18/2023 Active Ipratropium [place] HFA 17 MCG/ACT Inhalation Aerosol Solution (Atrovent Hfa)Indications:COPD , group D, by GOLD 2017 classification ([facility]) Inhale 2 puffs every 6 hours as needed 12.9 g 5 12/18/2023 Active documented as of this encounter (statuses as of 12/19/2023) Active Problems Problem Noted Date Diagnosed Date Food insecurity 06/05/2023 Overview: Per [facility] Protocol Leg mass, left 10/13/2022 [...] as of this encounter (statuses as of 12/19/2023) Resolved Problems Problem Noted Date Diagnosed Date Resolved Date Food insecurity 05/31/2021 02/03/2022 Overview: Per [facility] Protocol SVT (supraventricular tachycardia) 03/20/2019 06/07/2020 Interstitial lung disease 03/20/2019 documented as of this encounter (statuses as of 12/19/2023) Immunizations Name Administration Dates Next Due COVID-19 [...] Description 12/25/2023 12:30 PM EST Telemedicine Psychiatry, [place] [address] [place] [facility] [place] [address] VerónicaArleen vieira, [address] [facility] [place] [address] 12/27/2023 3:00 PM EST Telemedicine Pulmonary Medicine, [facility] [address] [facility] [place] [address] [facility]anc[facility] [address] [facility] [address] 01/11/2024 1:00 PM EDT Office Visit Dermatology, [address], [place] [address] Renetta Clay, PA-C [address] [place] [address] [place] [address] 01/22/2024 1:00 PM EDT [facility] [address] [facility] [place] [address] 02/19/2024 3:00 PM EDT Office Visit Cardiology, [facility] [address] [facility] [place] [address] Leonel Wilde, PA-C [address] [facility] [place] [address] Health Maintenance Due Date Last Done Comments [...] Documents on File Type Date 

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
--- OUTSIDE RECORDS SUMMARY | 2024-03-19 23:24 | External Medical Summary ---
Author Name Unknown Address Unknown Organization K01:LABORATORY [address] [facility] [address] Laboratory Report Ordering Provider Test Date Status MASON DANG 11/15/2023 13:20:07 Final Observation Date Value Abnormality Reference (Units ) Status Nuclear IgG Ab [Ratio] in Serum by Immunoassay 11/15/2023 13:20:07 Positive Abnormal Negative Final DNA double strand Ab [Presence] in Serum 11/15/2023 13:20:07 Negative Negative Final DOUBLE STRANDED DNA VALUE - [facility] 11/15/2023 13:20:07 1.3 <20 (IU/mL) Final Extractable nuclear Ab [Presence] in Serum 11/15/2023 13:20:07 Positive Abnormal Negative Final Nuclear IgG Ab [Ratio] in Serum by Immunoassay 11/15/2023 13:20:07 24.0 <0.7 (Ratio) Final Screening is based on detect ion of the following antibodies: dsDNA, U1-HORTICULTURE WORKER (RNP70, A, C), SS-A/Ro, SS-B / La, Annmarie-1, Scl-70, Centromere B proteins and Sm proteins. In conjunction with clinical findings, this can aid in the diagnosis of systemic lupus erythematosous (SLE), mixed connective tissue disease (MCTD), Sjogren's syndrome, scleroderma and polymyositis/dermatomyositis.
However, a negative result does not rule out systemic rheumatic or other autoimmune disease. If clinically suspected, further evaluation and testing may be necessary. Please consult with Rheumatology Department.
Methodology: Fluorescent Enzyme Immunoassay. Performing Location LABORATORY [address] [facility] [address]
--- OUTSIDE RECORDS SUMMARY | 2024-03-19 23:24 | External Medical Summary ---
Author Name Unknown Address Unknown Organization [id number]:LABORATORY [facility] [place] - [facility] [address] [facility] [address] [place] [address] Laboratory Report Ordering Provider Test Date Status MASON DANG 11/15/2023 13:20:07 Final Observation Date Value Abnormality Reference (Units ) Status Ribonucleoprotein extractable nuclear Ab [Presence] in Serum by Immunoassay 11/15/2023 13:20:07 Negative Negative Final Ribonucleoprotein extractable nuclear IgG Ab [Units/volume] in Serum by Immunoassay 11/15/2023 13:20:07 0.6 <5 (U/mL) Final Reaves IgG 11/15/2023 13:20:07 Negative Negative Final Reaves extractable nuclear Ab [Units/volume] in Serum by Immunoassay 11/15/2023 13:20:07 <0.7 <7 (U/mL) Final Performing Location LABORATORY [facility] - [facility] [address] [place] [address]
--- OUTSIDE RECORDS SUMMARY | 2024-03-19 23:24 | External Medical Summary ---
Author Name Unknown Address Unknown Organization [id number]:LABORATORY [place] [address] [address] [facility] [address] [place] [address] Laboratory Report Ordering Provider Test Date Status MASON DANG 11/15/2023 13:20:07 Final Anticardiolipin / beta-2 gly coprotein antibodies must be detected on 2 or more occasions at least 12 weeks apart to fulfill the laboratory diagnostic criteria for Antiphospholipid Syndrome. Observation Date Value Abnormality Reference (Units ) Status Cardiolipin IgG Ab [Presence] in Serum by Immunoassay 11/15/2023 13:20:07 Negative Negative Final Cardiolipin IgG Ab [Units/volume] in Serum by Immunoassay 11/15/2023 13:20:07 1.0 <10 (GPL U/mL) Final Cardiolipin IgM Ab [Presence] in Serum by Immunoassay 11/15/2023 13:20:07 Negative Negative Final Cardiolipin IgM Ab [Units/volume] in Serum by Immunoassay 11/15/2023 13:20:07 6.5 <10 (MPL U/mL) Final Performing Location [facility] [facility] [place] [address]
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
--- OUTSIDE RECORDS SUMMARY | 2024-03-19 23:24 | External Medical Summary | Summary of Care ---
Author Name Unknown Organization [facility] Address [address] [facility] [address] Phone [phone] Care Team Providers Care Miniature Set Designer Name Role Phone John Roa MD Primary Care Provider [phone]- [phone] Encounter Details Date Type Department Care Team (Late st Contact Info) Description 11/10/2023 Orders Only PATIENT PORTAL DO NOT DELETE [...] 2.5 UNIT/ML Intramuscular Injectable (Rabies Virus Vaccine, [facility])Indications:Exp osure to bat without known bite 1 ml IM and repeat on day 0, 3, 7, 14 and 28 1 mL 4 06/23/2022 Active Additional Information Patient not taking.Reported on 06/13/2023 Loperamide HCl 2 MG Oral Capsule (Imodium) TAKE 1 CAPSULE BY MOUTH THREE TIMES DAILY 90 Capsule 5 07/06/2022 Active Fefybzehmu-JHTT-Pqn feine 50-300-40 MG Oral Capsule (Fioricet)Indicatio ns:Pain [...] Diagnosed Date Food insecurity 06/05/2023 Overview: Per [facility] Protocol Leg mass, left 10/13/2022 Migraine [...] Date Food insecurity 05/31/2021 02/03/2022 Overview: Per [facility] Protocol SVT (supraventricular tachycardia) 03/20/2019 [...] Contact Info) Description 11/10/2023 9:30 AM EST [facility] [address] [place] [address] Samantha Magaña LCSW [address] [place] [address] 12/18/2023 1:00 PM EST Office Visit Family [place] [address] [place] [address] John Roa MD [address] [place] [address] 01/11/2024 1:00 PM EDT Office Visit Dermatology, [place] [address] [place] [address] Renetta Clay PA-C [address] [place] [address] [place] [address] Health Maintenance Due Date Last Done Comments Alpha-1 Antitrypsin 1963 Hepatitis C Screening 1963 *ADVANCE DIRECTIVE NOT ON FILE 05/12/2019 Depression Screening 06/02/2023 06/02/2022 COVID-19 Vaccine (2022-24 season) 2023 09/29/2022, 07/29/2022, 02/22/2022, Additional history [...] Documents on File Type Date Recorded 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
--- OUTSIDE RECORDS SUMMARY | 2024-03-19 23:24 | External Medical Summary | Summary of Care ---
Author Name Unknown Organization [facility] Address [address] [place] [address] Phone [phone] Care Team Providers Care Arcade Game Technician Name Role Phone John Roa MD Primary Care Provider +1- [phone] Reason for Visit * Reason Onset Date Comments Appointment 11/10/2023 Encounter Details Date Type Department Care Team (Late st Contact Info) Description 11/10/2023 Telephone [place], [place] [address] [place] [address] Samantha Magaña LCSW [address] [place] [address] Appointment Allergies Active Allergy Reactions Criticality Noted Date [...] TIMES DAILY 90 Capsule 5 07/06/2022 Active Kocrqdxkso-YWWF-Pjx feine 50-300-40 MG Oral Capsule (Fioricet)Indicatio ns:Pain [...] Diagnosed Date Food insecurity 06/05/2023 Overview: Per [facility] Protocol Leg mass, left 10/13/2022 Migraine [...] Date Food insecurity 05/31/2021 02/03/2022 Overview: Per [facility] Protocol SVT (supraventricular tachycardia) 03/20/2019 [...] encounter Miscellaneous Notes * Telephone Encounter - Marichuy Rankin OSA - 11/10/2023 10:14 AM EST Referral Details after Behavioral Health Intake: Referral: Internal Psych Resource: scheduled with acute psychiatry documented in this encounter Plan of Treatment Upcoming Encounters Date Type Department Care Team (Late st Contact Info) Description 11/14/2023 11:30 AM EST [facility] [address] [place] [address] Arleen Crowder DO [address] [place] [address] 12/18/2023 1:00 PM EST Office Visit [facility] [address] [place] [phone] John Roa MD [address] [place], [place] [phone] 01/11/2024 1:00 PM EDT Office Visit Dermatology, [place] [address] [facility], [place] [address] Renetta Clay PA-C [address] [place] [address] [place] [address] Health Maintenance Due Date Last Done Comments Alpha-1 Antitrypsin 1963 Hepatitis C Screening 1963 *ADVANCE DIRECTIVE NOT ON FILE 05/12/2019 Depression Screening 06/02/2023 06/02/2022 COVID-19 Vaccine ( season) 2023 09/29/2022, 07/29/2022, 02/22/2022, Additional history exists Influenza Vaccine (FLU shot) (#1) 2023 07/28/2022, 07/21/2021, 07/21/2021, Additional history exists TSH 07/28/2023 07/28/2022, /10/2021, 03/03/2021, Additional history exists O2 ASSESSMENT COMPLETED [...] Documents on File Type Date Recorded Patient Fortune Teller Expl anation Power of Filter Changing Technician 02/14/2011 POWER OF A TTORNEY POA- UPDATE 06/17/20 Care Teams Arcade Game Technician Relationship Specialty Start Date End Date John Roa MD [address] [place] [facility] [place] [address] PCP - General Family Medicine 09/07/17 documented as of this encounter
--- OUTSIDE RECORDS SUMMARY | 2024-03-19 23:24 | External Medical Summary ---
Author Name Unknown Address Unknown Organization [id number]:LABORATORY [facility] - [address] [place] [address] Laboratory Report Ordering Provider Test Date Status MASON DANG 11/15/2023 13:20:07 Final Observation Date Value Abnormality Reference (Units ) Status Parathyrin.intact [Mass/volume] in Serum or Plasma 11/15/2023 13:20:07 39 15-65 (pg/mL) Final Performing Location [facility]ORY [facility] - [address] [place] [address]
--- OUTSIDE RECORDS SUMMARY | 2024-03-19 23:24 | External Medical Summary | Summary of Care ---
Author Name Unknown Organization [facility] Address [address] [place] [address] Phone [phone] Care Team Providers Care Catalyst Manufacturing Operator Name Role Phone Laurence Cuevas MD Primary Care Provider +1- [phone] Reason for Visit * Reason Comments eRx-Medication Refill Encounter Details Date Type Department Care Team (Late st Contact Info) Description 11/13/2023 Refill [facility] [address] [place] [address] Laurence Cuevas MD [address] [place] [address] Allergies Active Allergy Reactions Criticality [...] as of this encounter (statuses as of 11/14/2023) Medications Medication Sig Dispensed Refills Start Date End Date Status Multiple Vitamins-Minerals (CENTRUM SILVER 50+WOMEN) TABS Take by mouth. 0 Active Cholecalciferol 25 MCG (1000 UT) Oral Tablet Take 1 Tablet by mouth in the morning. 0 Active Coenzyme Q10 50 MG Oral Tablet Chewable Take by mouth. 0 Active Turmeric 500 MG CapsuleIndications :Unsure of dosage Take 1 Capsule by mouth in the morning. 0 Active Cyanocobalamin (VITAMIN B12) 100 MCG TABSIndications:Un sure of dosage Take by mouth daily. 0 [...] Recomb Adjuvanted 50 MCG/0.5ML Intramuscular Suspension Reconstituted (SHINGRIX)Indicati ons:Need for prophylactic vaccination and inoculation against influenza Inject 0.5 mL into a large muscle now and repeat dose in 60 to 180 days 1 Each 1 0 Active Additional Information Patient not taking.Reported on 06/13/2023 Ginseng 100 MG Oral Capsule Take by mouth. 0 Active oxygen IN GASIndications:or as directed via nasal cannula 1 LPM with exertion, 2.5 LPM during sleep. Keep sats 89-94%. 1 Each 0 2 Active Betamethasone Dipropionate 0.05 % External Cream (Diprosone)Indicat ions:Dermatitis Apply sparingly to affected area of right hand twice per day as needed for up to 1 week 15 g 0 2 Active Imovax Rabies 2.5 UNIT/ML Intramuscular Injectable (Rabies Virus Vaccine, HDC)Indications:Ex posure to bat without known bite 1 ml IM and repeat on day 0, 3, 7, 14 and 28 1 mL 4 2 Active Additional Information Patient not taking.Reported on 06/13/2023 Loperamide HCl 2 MG Oral Capsule (Imodium) TAKE 1 CAPSULE BY MOUTH THREE TIMES DAILY 90 Capsule 5 2 Active Nuazxgthuu-GSGC-Ll ffeine 50-300-40 MG Oral Capsule (Fioricet)Indicati ons:Pain of left lower extremity Take 1 Capsule by mouth every 6 hours as needed for Pain, Severe. 15 Capsule 0 3 Active Fluocinonide 0.05 % External CreamIndications:D ermatitis Apply topically to affected area 2 times a day. Apply sparingly to affected area of hands twice per day as needed for up to 1 week at a time. 30 g 0 3 Active oxyCODONE HCl 5 MG Oral Tablet Abuse-DeterrentInd ications:Migraine without aura and without status migrainosus, not intractable Take 5 mg by mouth every 8 hours as needed for Pain, Severe. 6 Tablet 0 3 Active Dextromethorphan-g uaiFENesin 10-100 MG/5ML Oral Liquid (Robitussin DM) Take 5 mL by mouth every 4 hours as needed for Cough. 120 mL 0 3 Active Trelegy Ellipta 100-62.5-25 MCG/ACT Aerosol Powder Breath Activated (Fluticasone-Umecl idinium-Vilanterol )Indications:Chron ic hypoxemic respiratory failure (HCC) INHALE ONE PUFF BY MOUTH daily. rinse mouth after use 180 Blister Dosing Unit 3 3 Active ALPRAZolam 1 MG Oral Tablet (xaNAX) TAKE ONE TABLET BY MOUTH TWICE DAILY NEEDED FOR ANXIETY 180 Tablet 0 3 Active Levothyroxine Sodium 112 MCG Oral [...] BY MOUTH ONCE DAILY 90 Tablet 1 3 11/14/19 24 Discontinued traZODone HCl 100 MG Oral Tablet (Desyrel) TAKE 1 TABLET BY MOUTH ONCE DAILY 90 Tablet 1 3 11/14/19 24 Discontinued Hospital, Clinic, or Other Facility Administered Medication Ordered Dose Route Frequency Start Date End Date Status albuterol sulfate (PROVENTIL) (2.5 MG/3ML) 0.083% inhalation solution 2.5 mgIndications:ILD (interstitial lung disease) (HCC) 2.5 mg NEBULIZER Q4H PRN 11/11/2018 Active documented as of this encounter (statuses as of 11/14/2023) Active Problems Problem Noted Date Diagnosed Date Food insecurity 06/05/2023 Overview: Per [facility] Protocol Leg mass, left 10/13/2022 [...] as of this encounter (statuses as of 11/14/2023) Resolved Problems Problem Noted Date Diagnosed Date Resolved Date Food insecurity 05/31/2021 02/03/2022 Overview: Per [facility] Protocol SVT (supraventricular tachycardia) 03/20/2019 06/07/2020 Interstitial lung disease 03/20/2019 documented as of this encounter (statuses as of 11/14/2023) Immunizations Name Administration Dates Next Due COVID-19 [...] encounter Miscellaneous Notes * Telephone Encounter - Zaida Chung, [facility] - 11/14/2023 9:15 AM ESTSigned Prescriptions: Disp Refills traZODone HCl 100 MG Oral Tablet (Desyrel) 90 Tab*0 Sig: TAKE 1 TABLET BY MOUTH ONCE DAILYAuthorizing Provider: LAURENCE CUEVAS User: ZAIDA CHUNG Sertraline HCl 100 MG Oral Tablet (Zoloft) 90 Tab*0 Sig: TAKE 1 TABLET BY MOUTH ONCE DAILYAuthorizing Provider: LAURENCE CUEVAS User: ZAIDA CHUNG * Telephone Encounter - Zaida Chung RPh - 11/14/2023 9:15 AM EST RX authorized. Zero refills given until upcoming OV. Thank you, Zaida Chung, PharmD. Clinical Pharmacist [facility] ([facility]) (formerly Telepharmacy) 11/14/2023, 9:15 AM documented in this encounter Plan of Treatment Upcoming Encounters Date Type Department Care Team (Late st Contact Info) Description 11/14/2023 11:30 AM EST Telemedicine Psychiatry, [place] [address] [place] [address] Arleen Crowder, [address] [place] [address] 12/18/2023 1:00 PM EST Office Visit Family [facility] [address] [place] [address] Laurence Cuevas MD [address] [place] [address] 01/11/2024 1:00 PM EDT [facility] [address] [place] [address] Renetta Clay PA-C [address] [place] [address] ERIN Manriquez [address] Health Maintenance Due Date Last Done Comments Alpha-1 Antitrypsin 1963 Hepatitis C Screening 1963 *ADVANCE DIRECTIVE NOT ON FILE 05/12/2019 Depression Screening 06/02/2023 06/02/2022 COVID-19 Vaccine (7 - 2023-24 season) 2023 09/29/2022, 07/29/2022, 02/22/2022, Additional history [...] Documents on File Type Date Recorded Patient Special Effects Technician Expl anation Power of Irrigation Worker 02/14/2011 POWER OF A TTORNEY POA- UPDATE 06/17/20 Care Teams Catalyst Manufacturing Operator Relationship Specialty Start Date End Date Laurence Cuevas MD [address] [place] [facility] [place] [id number] PCP - General Family Medicine 09/07/17 documented as of this encounter
--- OUTSIDE RECORDS SUMMARY | 2024-03-19 23:24 | External Medical Summary | Summary of Care ---
Author Name Unknown Organization [facility] Address [address] [place] [address] Phone [phone] Care Team Providers Care Pile Fabric Knitter Name Role Phone John Roa MD Primary Care Provider +1- [phone] Reason for Visit * Reason Comments Outpatient Testing Encounter Details Date Type Department Care Team (Late st Contact Info) Description 11/15/2023 1:30 PM EST Laboratory Laboratory, [place] [address] [place] [address] [facility] [address], [place] [id number] Vitamin D deficiency; Encounter for long-term (current) use of medications; Acquired hypothyroidism; Lymphocytopenia; Hirsutism; Hypercalcemia; Leg mass, left Allergies Active Allergy Reactions Criticality Noted Date Comments Acetaminophen Abdominal pain High 08/17/2017 Other reaction(s): ITCH ALL OVER Albuterol High 09/07/2017 States was given during a breathing test and had convulsions. Other reaction(s): CONVULSIONS Hydroxyzine High 06/07/2020 Other reaction(s): MOOD SWINGS / OUT OF CONTROL Latex Itching Low 11/27/2017 Hydroxyzine Pamoate Psych complications 017 documented as of this encounter (statuses as of 11/15/2023) Medications Medication Sig Dispensed Refills Start Date [...] TIMES DAILY 90 Capsule 5 07/06/2022 Active Cqhwknucou-AYFY-Eca feine 50-300-40 MG Oral Capsule (Fioricet)Indicatio ns:Pain [...] ONCE DAILY 90 Tablet 0 11/14/2023 Active documented as of this encounter (statuses as of 11/15/2023) Active Problems Problem Noted Date Diagnosed Date Food insecurity 06/05/2023 Overview: Per [facility] Protocol Leg mass, left 10/13/2022 Migraine [...] as of this encounter (statuses as of 11/15/2023) Resolved Problems Problem Noted Date Diagnosed Date Resolved Date Food insecurity 05/31/2021 02/03/2022 Overview: Per [facility] Protocol SVT (supraventricular tachycardia) 03/20/2019 06/07/2020 Interstitial lung disease 03/20/2019 documented as of this encounter (statuses as of 11/15/2023) Immunizations Name Administration Dates Next Due COVID-19 [...] Description 12/18/2023 1:00 PM EST Office Visit Family Practice, [place] [address] [place] [address] John Roa MD [address] [place] [address] 12/25/2023 12:30 PM EST [facility] [address] [place] [address] Arleen Crowder, [address] [place] [address] 01/11/2024 1:00 PM EDT Office Visit Dermatology, [place] [address] [place] [address] Renetta Clay PA-C [address] [place] [address] ERIN Manriquez [address] Pending Results Name Type Priority Associated Diagnoses Date /Time 25-HYDROXY VITAMIN D Lab Routine Vitamin D deficiency 11/15/2023 1:20 PM EST VITAMIN B12 Lab Routine Encounter for long-term (current) use of medications 11/15/2023 1:20 PM EST TSH WITH FREE T4 IF INDICATED Lab Routine Acquired hypothyroidism 11/15/2023 1:20 PM EST CBC WITH WBC DIFFERENTIAL Lab Routine Lymphocytopenia 11/15/2023 1:20 PM EST MAGNESIUM Lab Routine Encounter for long-term (current) use of medications 11/15/2023 1:20 PM EST COMPREHENSIVE METABOLIC PANEL Lab Routine Hirsutism Hypercalcemia Encounter for long-term (current) use of medications 11/15/2023 1:20 PM EST PTH Lab Routine Hypercalcemia 11/15/2023 1:20 PM EST ERYTHROCYTE SEDIMENTATION RATE (ESR) Lab Routine Leg mass, left 11/15/2023 1:20 PM EST SYSTEMIC LUPUS ERYTHEMATOSUS REFLEX PROFILE Lab Routine Leg mass, left 11/15/2023 1:20 PM EST CORTISOL Lab Routine Leg mass, left 11/15/2023 1:20 PM EST CBC Lab Routine Lymphocytopenia 11/15/2023 1:20 PM EST DIFFERENTIAL, AUTOMATED Lab Routine Lymphocytopenia 11/15/2023 1:20 PM EST ANTINUCLEAR ANTIBODY (SAMIRA) SCREEN, RULA Lab Routine Leg mass, left 11/15/2023 1:20 PM EST Health Maintenance Due Date Last Done Comments Alpha-1 Antitrypsin 1963 Hepatitis C Screening 1963 *ADVANCE DIRECTIVE NOT ON FILE 05/12/2019 Depression Screening 06/02/2023 06/02/2022 COVID-19 Vaccine ( season) 2023 09/29/2022, 07/29/2022, 02/22/2022, Additional history exists Influenza Vaccine (FLU shot) (#1) 2023 07/28/2022, 07/21/2021, 07/21/2021, Additional history exists TSH 07/28/2023 07/28/2022, 03/3 10/2021, 03/03/2021, Additional history exists O2 ASSESSMENT COMPLETED [...] Vitamin D deficiency Unspecified vitamin D deficiency Encounter for long-term (current) use of medications Encounter for long-term (current) use of other medications Acquired hypothyroidism Unspecified hypothyroidism Lymphocytopenia Hirsutism Hypercalcemia Leg mass, left documented in this encounter Advance Directives Documents on File Type Date Recorded Patient Saw Boss Expl anation Power of Head Of Ict 02/14/2011 POWER OF A TTORNEY POA- UPDATE 06/17/20 Care Teams Pile Fabric Knitter Relationship Specialty Start Date End Date John Roa MD [address] [place] [address] PCP - General Family Medicine 09/07/17 documented as of this encounter
--- OUTSIDE RECORDS SUMMARY | 2024-03-19 23:24 | External Medical Summary ---
Author Name Unknown Address Unknown Organization [id number]:LABORATORY [facility] - [address] [place] [address] Laboratory Report Ordering Provider Test Date Status MASON DANG 11/15/2023 13:20:07 Final Observation Date Value Abnormality Reference (Units ) Status Cortisol 11/15/2023 13:20:07 6.1 2.5-19.5 ( ug/dL) Final AM Reference Range: 4.8 - 19 .5 ug/dL
PM Reference Range: 2.5 - 11.9 ug/dL Performing Location LABORATORY C - [address] [place] [address]
--- OUTSIDE RECORDS SUMMARY | 2024-03-19 23:24 | External Medical Summary ---
Author Name Unknown Address Unknown Organization [id number]:LAB[facility]ATORY [facility] - [address] [place] [address] Laboratory Report Ordering Provider Test Date Status MASON DANG 11/15/2023 13:20:07 Final Observation Date Value Abnormality Reference (Units ) Status TSH 11/15/2023 13:20:07 0.28 0.27-4.20 (uIU/mL) Final Performing Location LAB[facility]ORY [facility] - [address] [place] [address]
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
--- OUTSIDE RECORDS SUMMARY | 2024-03-19 23:24 | External Medical Summary | Summary of Care ---
Author Name Unknown Organization [facility] Address [address] [place] [address] Phone [phone] Care Team Providers Care Management Supervisor Name Role Phone John Roa MD Primary Care Provider +1- [phone] Encounter Details Date Type Department Care Team (Late st Contact Info) Description 11/08/2023 Telephone [facility] [address] [place] [address] John Roa MD [address] [place] [address] Allergies Active Allergy Reactions Criticality [...] as of this encounter (statuses as of 11/09/2023) Medications Medication Sig Dispensed Refills Start Date [...] 2.5 UNIT/ML Intramuscular Injectable (Rabies Virus Vaccine, [facility])Indications:Exp osure to bat without known bite 1 ml IM and repeat on day 0, 3, 7, 14 and 28 1 mL 4 06/23/2022 Active Additional Information Patient not taking.Reported on 06/13/2023 Loperamide HCl 2 MG Oral Capsule (Imodium) TAKE 1 CAPSULE BY MOUTH THREE TIMES DAILY 90 Capsule 5 07/06/2022 Active Tftbpnaqnp-BDLL-Sqq feine 50-300-40 MG Oral Capsule (Fioricet)Indicatio ns:Pain [...] as of this encounter (statuses as of 11/09/2023) Active Problems Problem Noted Date Diagnosed Date Food insecurity 06/05/2023 Overview: Per [facility] Protocol Leg mass, left 10/13/2022 Migraine [...] as of this encounter (statuses as of 11/09/2023) Resolved Problems Problem Noted Date Diagnosed Date Resolved Date Food insecurity 05/31/2021 02/03/2022 Overview: Per [facility] Protocol SVT (supraventricular tachycardia) 03/20/2019 06/07/2020 Interstitial lung disease 03/20/2019 documented as of this encounter (statuses as of 11/09/2023) Immunizations Name Administration Dates Next Due COVID-19 [...] encounter Miscellaneous Notes * Telephone Encounter - Lucille Silver LPN - 11/09/2023 10:12 AM EST Call placed to patient and she was given below message, Patient planning to come in next week for blood work, and is scheduled to see Dr. Roa on November 18 at 940 am and psych November 10 at 930 * Telephone Encounter - John Roa MD - 11/08/2023 3:54 PM EST Please apologize for me to the pt if there was follow up missed from the May office visit. Looks like a video visit with mental health has already been arranged. For the labs, I have entered studies - should be drawn in the morning and fasting, if possible. If she would like to be seen sooner than scheduled in Nov, can offer at the end of my schedule Mon11/13/23 or 11/16/23 or can schedule when I am in weekened clinic 11/18/23 (but should be 40 min if on Sat). documented in this encounter Plan of Treatment Upcoming Encounters Date Type Department Care Team (Late st Contact Info) Description 11/10/2023 9:30 AM EST Telemedicine [facility] [address] [place] [address] FebruarySamantha LCSW [address] [place], [place] [id number] 11/18/2023 9:40 AM EST Office Visit Family [facility] [address] [facility] [place] [address] John Roa MD [address] [place] [address] 12/18/2023 1:00 PM EST Office Visit Family [facility] [address] [place] [phone] John Roa MD [address] [place] [address] 01/11/2024 1:00 PM EDT [place] [address] [place] [address] Renetta Clay PA-C [address] [place] [address] [place] [address] Scheduled Orders Name Type Priority Associated Diagnoses Orde r Schedule 25-HYDROXY VITAMIN D Lab Routine Vitamin D deficiency Expected: 11/08/2023 (Approximate), Expires: 11/07/2024 VITAMIN B12 Lab Routine Encounter for long-term (current) use of medications Expected: 11/08/2023 (Approximate), Expires: 11/07/2024 TSH WITH FREE T4 IF INDICATED Lab Routine Acquired hypothyroidism Expected: 11/08/2023 (Approximate), Expires: 11/07/2024 CBC WITH WBC DIFFERENTIAL Lab Routine Lymphocytopenia Expected: 11/08/2023 (Approximate), Expires: 11/08/2024 MAGNESIUM Lab Routine Encounter for long-term (current) use of medications Expected: 11/08/2023 (Approximate), Expires: 11/07/2024 COMPREHENSIVE METABOLIC PANEL Lab Routine Hirsutism Hypercalcemia Encounter for long-term (current) use of medications Expected: 11/08/2023 (Approximate), Expires: 11/07/2024 PTH Lab Routine Hypercalcemia Expected: 11/08/2023 (Approximate), Expires: 11/07/2024 ERYTHROCYTE SEDIMENTATION RATE (ESR) Lab Routine Leg mass, left Expected: 11/08/2023 (Approximate), Expires: 11/07/2024 SYSTEMIC LUPUS ERYTHEMATOSUS REFLEX PROFILE Lab Routine Leg mass, left Expected: 11/08/2023 (Approximate), Expires: 11/07/2024 CORTISOL Lab Routine Leg mass, left Expected: 11/08/2023 (Approximate), Expires: 11/07/2024 Health Maintenance Due Date Last Done Comments Alpha-1 Antitrypsin 1963 Hepatitis C Screening 1963 *ADVANCE DIRECTIVE NOT ON FILE 05/12/2019 Depression Screening 06/02/2023 06/02/2022 COVID-19 Vaccine (2022- season) 2023 09/29/2022, 07/29/2022, 02/22/2022, Additional history [...] as of this encounter Visit Diagnoses Diagnosis Leg mass, left- Primary Acquired hypothyroidism Unspecified hypothyroidism Hirsutism Hypercalcemia Vitamin D deficiency Unspecified vitamin D deficiency Encounter for long-term (current) use of medications Encounter for long-term (current) use of other medications Lymphocytopenia documented in this encounter Advance Directives Documents on File Type Date Recorded Patient Body Stylist Expl anation Power of Silk Spooler 02/14/2011 POWER OF A TTORNEY POA- UPDATE 06/17/20 Care Teams Management Supervisor Relationship Specialty Start Date End Date John Roa MD [address] [place] [address] PCP - General Family Medicine 09/07/17 documented as of this encounter
--- OUTSIDE RECORDS SUMMARY | 2024-03-19 23:24 | External Medical Summary ---
Author Name Unknown Address Unknown Organization [id number]:LABORATORY [facility] - [facility] [address] [facility] [address] Laboratory Report Ordering Provider Test Date Status MASON DANG 11/15/2023 13:20:07 Final Observation Date Value Abnormality Reference (Units ) Status WBC, Total 11/15/2023 13:20:07 5.11 4.00-10.80 (K/uL) Final RBC 11/15/2023 13:20:07 4.24 3.85-5.15 (M/uL) Final Hemoglobin 11/15/2023 13:20:07 12.8 12.0-15.3 (g/dL) Final HCT 11/15/2023 13:20:07 40.6 36.0-45.2 (%) Final MCV 11/15/2023 13:20:07 95.8 81.5-97.5 (fL) Final MCH 11/15/2023 13:20:07 30.2 27.0-34.0 (pg) Final MCHC 11/15/2023 13:20:07 31.5 32.0-36.0 (g/dL) Final RDW 11/15/2023 13:20:07 14.2 11.5-15.5 (%) Final Platelets 11/15/2023 13:20:07 190 140-400 (K/uL) Final MPV 11/15/2023 13:20:07 12.2 6.6-11.1 (fL) Final Nucleated erythrocytes/100 leukocytes [Ratio] in Blood by Automated count 11/15/2023 13:20:07 0 <=0 (/100 WBCs) Final Performing Location LABORATORY [facility] - [address] [facility] [address]
--- OUTSIDE RECORDS SUMMARY | 2024-03-19 23:24 | External Medical Summary ---
Author Name Unknown Address Unknown Organization [id number]:LABORATORY [facility] - [address] [place] [address] Laboratory Report Ordering Provider Test Date Status MASON DANG 11/15/2023 13:20:07 Final Observation Date Value Abnormality Reference (Units ) Status Vitamin B12 11/15/2023 13:20:07 >2000 Above high normal 232-1245 (pg/mL) Final Performing Location LABORATORY [facility] - [address] [place] [address]
--- OUTSIDE RECORDS SUMMARY | 2024-03-19 23:24 | External Medical Summary ---
Author Name Unknown Address Unknown Organization [id number]:LABORATORY [facility] - [address] [place] [address] Laboratory Report Ordering Provider Test Date Status MASON DANG 11/15/2023 13:20:07 Final Observation Date Value Abnormality Reference (Units ) Status Erythrocyte sedimentation rate by Photometric method 11/15/2023 13:20:07 29 <30 (mm/hour) Final Performing Location LABORATORY [facility] - [address] [place] [address]
--- OUTSIDE RECORDS SUMMARY | 2024-03-19 23:24 | External Medical Summary ---
Author Name Unknown Address Unknown Organization [id number]:LABORATORY [facility] - [address] [place] [address] Laboratory Report Ordering Provider Test Date Status MASON DANG 11/15/2023 13:20:07 Final Deficient: <20 ng/mL
Ins ufficient: 20-29 ng/mL
Recommended/Optimum:30-50 ng/mL

Vitamin D intoxication is rare. If suspicious of Vitamin D toxicity, evaluation of serum Calcium and PTH is recommended. Observation Date Value Abnormality Reference (Units ) Status 25-OH Vitamin D total 11/15/2023 13:20:07 >120 >19 (ng/mL) Final Performing Location LABORATORY [facility] - [address] [place] [address]
--- OUTSIDE RECORDS SUMMARY | 2024-03-19 23:24 | External Medical Summary ---
Author Name Unknown Address Unknown Organization [id number]:[facility] [place] [address] [facility] [address] [place] [address] Laboratory Report Ordering Provider Test Date Status LAURENCEHILARYVICKI 11/15/2023 13:20:07 Final Observation Date Value Abnormality Reference (Units ) Status SYNC LEUKOCYTES IN BLOOD BY AUTOMATED COUNT 11/15/2023 13:20:07 5.11 4.00-10.80 (K/uL) Final Segs 11/15/2023 13:20:07 66.8 40.0-75.0 (%) Final Lymphs % 11/15/2023 13:20:07 20.7 18.0-42.0 (%) Final Monos 11/15/2023 13:20:07 7.4 1.0-11.0 (%) Final Eosinophils 11/15/2023 13:20:07 4.1 0.0-6.0 (%) Final Basos 11/15/2023 13:20:07 0.8 0.0-2.0 (%) Final Immature Granulocyte, Percent 11/15/2023 13:20:07 0.2 0.0-2.0 (%) Final Absolute Segs 11/15/2023 13:20:07 3.41 1.80-7.70 (K/uL) Final Lymphs, absolute 11/15/2023 13:20:07 1.06 1.00-4.80 (K/ul) Final Monos, Abs 11/15/2023 13:20:07 0.38 0.00-1.10 (K/uL) Final Eos, Abs 11/15/2023 13:20:07 0.21 0.00-0.70 (K/uL) Final Basos, Abs 11/15/2023 13:20:07 0.04 0.00-0.20 (K/uL) Final Immature Granulocytes, Number 11/15/2023 13:20:07 0.01 0.00-0.20 (K/uL) Final Performing Location [facility] [address] [facility] [address]
--- OUTSIDE RECORDS SUMMARY | 2024-03-19 23:24 | External Medical Summary ---
Author Name Unknown Address Unknown Organization [id number]:[facility] [place] [address] [place] [address] Laboratory Report Ordering Provider Test Date Status HILARY DANGGRETELJOHNNY 11/15/2023 13:20:07 Final Observation Date Value Abnormality Reference (Units ) Status BUN 11/15/2023 13:20:07 21 Above high normal 6-20 (mg/dL) Final Creatinine 11/15/2023 13:20:07 0.9 0.5-1.0 (mg/dL) Final Glomerular filtration rate/1.73 sq M.predicted [Volume Rate/Area] in Serum, Plasma or Blood by Creatinine-based formula (CKD-EPI) 11/15/2023 13:20:07 65 >=60 (mL/min) Final eGFR is calculated based on the CKD-EPI 2020 equation SODIUM 11/15/2023 13:20:07 141 135-146 (m mol/L) Final Potassium 11/15/2023 13:20:07 4.3 3.5-5.1 (m mol/L) Final Cl 11/15/2023 13:20:07 103 98-107 (mm ol/L) Final CO2 11/15/2023 13:20:07 30 22-32 (mmo l/L) Final Anion gap 11/15/2023 13:20:07 8 7-15 (mmol /L) Final Glucose 11/15/2023 13:20:07 103 70-120 (mg /dL) Final Albumin 11/15/2023 13:20:07 4.4 3.8-5.0 (g /dL) Final AST (Aspartate aminotransferase) 11/15/2023 13:20:07 18 10-35 (U/L) Fin al Alk Phos 11/15/2023 13:20:07 122 35-130 (U/ L) Final Bilirubin, Total 11/15/2023 13:20:07 0.5 <=1 .2 (mg/dL) Final Calcium 11/15/2023 13:20:07 10.6 Above high normal 8. 4-10.2 (mg/dL) Final Protein 11/15/2023 13:20:07 6.9 6.0-8.3 (g /dL) Final ALT (Alanine aminotransferase) 11/15/2023 13:20:07 22 10-35 (U/L) Jeremiah castillo Performing Location [facility] [place] [address] [facility] [address]
--- OUTSIDE RECORDS SUMMARY | 2024-03-19 23:24 | External Medical Summary ---
Author Name Unknown Address Unknown Organization K01:[facility] [address] [place] [address] Laboratory Report Ordering Provider Test Date Status MASON DANG 11/15/2023 13:20:07 Final Observation Date Value Abnormality Reference (Units ) Status Magnesium 11/15/2023 13:20:07 2.1 1.5-2.6 (m g/dL) Final Performing Location LABORATORY [facility] - [address] [place] [address]
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
--- OUTSIDE RECORDS SUMMARY | 2024-03-19 23:24 | External Medical Summary ---
Author Name Unknown Address Unknown Organization K01:LABORATORY [place] [address] [address] [facility] [place] [place] [address] Laboratory Report Ordering Provider Test Date Status MASON DANG 11/15/2023 13:20:07 Final Observation Date Value Abnormality Reference (Units ) Status Cardiolipin IgA Ab [Presence] in Serum 11/15/2023 13:20:07 Negative Negative Final Cardiolipin IgA Ab [Units/volume] in Serum by Immunoassay 11/15/2023 13:20:07 6.3 <14 (APL U/mL) Final Performing Location LABORATORY [facility] - [facility] [address] [place] [address]
--- OUTSIDE RECORDS SUMMARY | 2024-03-19 23:24 | External Medical Summary | Summary of Care ---
Author Name Unknown Organization [facility] Address [address] [place] [address] Phone [phone] Care Team Providers Care Sustainability Officer Name Role Phone John Roa MD Primary Care Provider +1- [phone] Reason for Visit * Reason Comments eRx-Medication Refill Encounter Details Date Type Department Care Team (Late st Contact Info) Description 11/14/[address] [facility] [address] [place] [address] John Roa MD [address] [place] [address] Allergies Active Allergy Reactions Criticality [...] TIMES DAILY 90 Capsule 5 07/06/2022 Active Yysrlnrigv-RSMO-Gnu feine 50-300-40 MG Oral Capsule (Fioricet)Indicatio ns:Pain [...] Diagnosed Date Food insecurity 06/05/2023 Overview: Per [facility] Protocol Leg mass, left 10/13/2022 Migraine [...] Date Food insecurity 05/31/2021 02/03/2022 Overview: Per [facility] Protocol SVT (supraventricular tachycardia) 03/20/2019 06/07/2020 [...] encounter Miscellaneous Notes * Telephone Encounter - Dax Peterson [facility] - 11/15/2023 10:51 AM EST Refused Prescriptions: Disp Refills Sertraline HCl 100 MG Oral Tablet (Zoloft) 90 Tab*0 Sig: TAKE 1TABLET BY MOUTH ONCE DAILYRefused By: DAX PETERSON for Refusal: Duplicate Request--- documented in this encounter Plan of Treatment Upcoming Encounters Date Type Department Care Team (Late st Contact Info) Description 11/15/2023 1:30 PM EST Laboratory Laboratory, [place] [address] [facility] [address] Sharon Perea [address] [facility] [place] [address] 12/18/2023 1:00 PM EST Office Visit [facility] [address] [facility] [place] [address] John Roa MD [address] [place] [address] 12/25/2023 12:30 PM EST Telemedicine Psychiatry, [place] [address] [place] [address] Arleen Crowder DO [address] [place] [address] 01/11/2024 1:00 PM EDT Office Visit Dermatology, [place] [address] [place] [address] Renetta Clay PA-C [address] [place] [address] [place] [address] Health Maintenance Due Date Last Done Comments [...] Documents on File Type Date Recorded Patient Bag Patcher Expl anation Power of Dust Brush Assembler 02/14/2011 POWER OF A TTORNEY POA- UPDATE 06/17/20 Care Teams Sustainability Officer Relationship Specialty Start Date End Date John Roa MD [address] [place] [address] PCP - General Family Medicine 09/07/17 documented as of this encounter
[2024-03-20] MEDS: KETOROLAC TROMETHAMINE 15 MG/ML VIAL IV PRN (02:21)
[2024-03-20] MEDS: LEVOTHYROXINE SODIUM 112 MCG TABLET PO SCH (05:35)
--- NOTE | 2024-03-20 07:10 | CT Scan Report ---
CT OF THE THORACIC SPINE CLINICAL HISTORY: evaluation of T11 fx, recon films COMPARISON STUDY: Chest CT March 19, 2024. TECHNIQUE: Helical axial images of the thoracic spine were obtained. Sagittal and coronal reconstru ctions were viewed. Automated exposure control was utilized for the study. A dose lowering techniqu e was utilized adhering to the principles of ALARA. FINDINGS: Alignment of the thoracic spine is anatomic. There is an acute compression fracture of the inferior endplate of T11 with concavity and 30% loss of vertebral body height. Paravertebral strandin g is present. Posterior cortex is intact. There is no extension into the posterior elements. There is no retropulsion. No additional acute thoracic spine fractures are present. Mild loss of height of th e superior endplate of T4 represents an old mild compression fracture. Mild multilevel degenerative d isc disease and facet arthrosis within the thoracic spine is present. There are trace bilateral pleur al effusions. Emphysematous incidentally noted. A 1.9 cm low-attenuation right adrenal nodule favors an adenoma. IMPRESSION: 1. Acute compression fracture of the inferior endplate of T11 with 30% loss of vertebral body height. No retropulsion. No extension into the posterior elements. 2. Old mild T4 compression fracture. 3. Mild multilevel degenerative changes within the thoracic spine. 4. Trace bilateral pleural effusions. 5. Emphysema. ACT 112: Negative or not required by law. Electronically signed by: Terry López M.D. 03/20/2024 7:08 AM
[2024-03-20 07:39] LABS: Hemoglobin 12.7 g/dl (12.0-16.0); Mean Corpuscular Hemoglobin 30.8 pg (25.0-34.0); Mean Corpuscular Hgb Conc 32.6 g/dL (32.0-36.0); Mean Corpuscular Volume 94.7 fL (80.0-100.0); Mean Platelet Volume 9.3 fL (9.4-12.4); Platelet Count 215 K/uL (130-400); RDW Coefficient of Variation 14.4 % (11.5-14.5); Red Blood Count 4.12 M/uL (4.20-5.40); White Blood Count 6.12 K/ul (4.8-10.8)
[2024-03-20 08:04] LABS: BUN Creatinine Ratio 27.6 (10-20); Calcium 9.5 mg/dl (8.6-10.3); Creatinine Clr Calc Pharmacy 53.8 ml/min; Est GFR (African American) 74.5 ml/min; Est GFR (Non-African American) 64.3 ml/min
[2024-03-20] MEDS ORDERED: NON-FORMULARY MEDICATION (Coenzyme Q10 [Coq-10] 100 mg Capsule) PO SCH (09:00)
[2024-03-20] MEDS ORDERED: NON-FORMULARY MEDICATION (Fluticasone-Umeclidin-Vilanter [Trelegy Ellipta] 100-62.5-25 mcg INH SCH (09:00)
[2024-03-20] MEDS: CYANOCOBALAMIN (B-12) 100 MCG TABLET PO SCH (09:38)
[2024-03-20] MEDS: ASPIRIN 81 MG ECTAB PO SCH (09:38)
[2024-03-20] MEDS: ATORVASTATIN 20 MG TAB PO SCH (09:38)
[2024-03-20] MEDS: SERTRALINE HCL 100 MG TABLET PO SCH (09:39)
[2024-03-20] MEDS: FLUTICASONE FUROATE 100MCG 14 PUFFS/INHALER INH SCH (09:39)
[2024-03-20] MEDS: UMECLIDINIUM/VILANTEROL 62.5/25MCG 7 PUFFS/INHALER INH SCH (09:45)
--- NOTE | 2024-03-20 09:45 | Consultation ---
Date of Consultation March 20, 2024 Assessment & Plan (1) Compression fracture of T11 vertebra: Gisela presents with an acute T11 compression fracture status post fall. Dr. Vee has reviewed imaging and treatment plan. Treatment plan is conservative. TLSO brace has been ordered. Recommend wearing it when she is up and active and ambulating/standing. May remove when sleeping or in a seated position. Lifting over 5 pounds. She can follow-up in the office in 2 weeks. She might be a candidate for rehab upon discharge. History of Present Illness Reason for Consultation: Thoracic compression fracture Attending Physician: Spencer Gore MD History of Present Illness Is a very pleasant 78-year-old female who sustained a fall a few days ago when she was standing on a small stepstool to try and unhook the chain on a ceiling fan. She lost her balance and fell with her back hitting trunk that she was leaning against. She lives at home. She states she ambulates independently. No radicular pain. Allergies Allergy/AdvReac Type Severity Reaction Status Date / Time albuterol Allergy Severe CONVULSIONS Verified 03/19/24 16:19 latex Allergy Severe ITCH/RASH/H Verified 03/19/24 16:19 MAIA acetaminophen Allergy Intermediate ITCH ALL Verified 03/19/24 16:19 OVER hydroxyzine AdvReac Severe MOOD Verified 03/19/24 16:19 SWINGS / OUT OF CONTROL Home Medications Medication Instructions Recorded Confirmed Type alprazolam 1 mg tablet (Xanax) 0.5 mg PO DAILY PRN Anxiety 07/15/19 03/19/24 History coenzyme Q10 100 mg capsule 50 mg PO DAILY 07/15/19 03/19/24 History (CoQ-10) cyanocobalamin (vitamin B-12) 100 100 mcg PO .MON/WED/FRI ONLY 07/15/19 03/19/24 History mcg tablet (Vitamin B-12) levothyroxine 112 mcg tablet 112 mcg PO DAILY 07/15/19 03/19/24 History aspirin 81 mg tablet,delayed 81 mg PO DAILY #90 tabs 07/17/19 03/19/24 Rx release fluticasone fur. 100 mcg-umeclid 1 inh inhalation DAILY 06/07/20 03/19/24 History 62.5 mcg-vilant 25 mcg inhalat.powder (Trelegy Ellipta) omeprazole magnesium 20 mg 20 mg PO DAILY PRN Acid Reflux 06/07/20 03/19/24 History tablet,delayed release (Prilosec OTC) sertraline 100 mg tablet (Zoloft) 100 mg PO DAILY 06/07/20 03/19/24 History trazodone 100 mg tablet 100 mg PO HS 06/07/20 03/19/24 History atorvastatin 20 mg tablet 20 mg PO DAILY 03/19/24 03/19/24 History clindamycin phosphate 1 % topical 1 applic topical BID PRN acne 03/19/24 03/19/24 History gel flares doxycycline hyclate 100 mg capsule 100 mg PO AMHS 03/19/24 03/19/24 History ipratropium bromide 17 2 puff inhalation Q6 PRN as 03/19/24 03/19/24 History mcg/actuation HFA aerosol inhaler directed (Atrovent HFA) ketoconazole 2 % shampoo 1 applic topical 3XWK 03/19/24 03/19/24 History uzhtotnw-cgjo-bsss 8 mg-folic 400 1 tab PO DAILY 03/19/24 03/19/24 History mcg-K 50 mcg-lutein 300 mcg tablet (Centrum Silver Women) Patient History Surgical History History of colonoscopy History of cholecystectomy Family History Denies family history of Diabetes Heart disease Social History Smoking Status: Former smoker Tobacco Type: Cigarettes packs per day: 1; Second Hand Exposure: No; Do You Dip or Chew Tobacco: No; Hx Alcohol Use: Yes Alcohol type: wine Alcohol Intake Frequency: 2-3 x/Week Hx Substance Use: No Preferred Language: Moldovan Communication Ability: Effective Electric Bath Attendant Required: No Beliefs That Will Affect Care: None marital status: Single Current Living Situation: Alone Other Information That Helps Us Care for You: No Feels Safe at Home: Yes Safety Concerns: Feels Safe At This Time Assistive Devices: Cane, Oxygen - Continuous and Walker Review of Systems Review of Systems: All systems reviewed & are unremarkable except as noted in HPI & below Physical Exam Physical Exam: She is laying in bed in no acute distress alert and oriented x 3 Strength is intact bilateral lower extremities Results & Data Vital Signs (Past 12 Hours) Vital Signs Temp Pulse Resp BP Pulse Ox O2 Del Method O2 Flow Rate 03/20/24 07:28 36.6 C 60 16 121/66 98 Room Air 03/19/24 22:42 Room Air 2.5 Diagnostic Findings [place], [place] [phone] CT Scan Report Patient: ALIX ANTONY Admit Date: 03/19/24 MR#: [id number] Address1: [address] Acct ID:[id number] Address2: Date: 1945 [facility] Zip: [place] [address] Age: 78 Location: 3N Sex: F Room/Bed: N383-1 Att Phy: Mali Hooker MD Diagnosis: T11 COMPRESSION FRACTURE Verónica Phy: John Roa MD Service Date: 03/20/24 Fam Phy: Interpreting Phy: Terry López MDAdmit Phy: Mali Hooker MD Ordering Phy: Justin VeeDMatthew. cc: ~ CT OF THE THORACIC SPINE CLINICAL HISTORY: evaluation of T11 fx, recon films COMPARISON STUDY: Chest CT March 19, 2024. TECHNIQUE: Helical axial images of the thoracic spine were obtained. Sagittal and coronal reconstructions were viewed. Automated exposure control was utilized for the study. A dose lowering technique was utilized adhering to the principles of ALARA. FINDINGS: Alignment of the thoracic spine is anatomic. There is an acute compression fracture of the inferior endplate of T11 with concavity and 30% loss of vertebral body height. Paravertebral stranding is present. Posterior cortex is intact. There is no extension into the posterior elements. There is no retropulsion. No additional acute thoracic spine fractures are present. Mild loss of height of the superior endplate of T4 represents an old mild compression fracture. Mild multilevel degenerative disc disease and facet arthrosis within the thoracic spine is present. There are trace bilateral pleural effusions. Emphysematous incidentally noted. A 1.9 cm low-attenuation right adrenal nodule favors an adenoma. IMPRESSION: 1. Acute compression fracture of the inferior endplate of T11 with 30% loss of vertebral body height. No retropulsion. No extension into the posterior elements. 2. Old mild T4 compression fracture. 3. Mild multilevel degenerative changes within the thoracic spine. 4. Trace bilateral pleural effusions. 5. Emphysema. ACT 112: Negative or not required by law. Electronically signed by: Terry López M.D. 03/20/2024 7:08 AM Dictated: 03/20/24 07 Transcribed: 03/20/24 07
[2024-03-20] MEDS: ALPRAZolam 0.5 MG TABLET PO PRN ×2 (09:46→18:11)
[2024-03-20] MEDS: oxyCODONE HCL IR 5 MG TAB (IMMEDIATE RELEASE) PO PRN (12:00)
--- NOTE | 2024-03-20 13:11 | XRay Report ---
XR thoracic spine 3V routine CLINICAL HISTORY: t11 fracture on CT chest COMPARISON STUDY: Chest CT March 19, 2024. Thoracic spine CT March 20, 2024. FINDINGS: Mild compression fracture of the inferior endplate of T11 is noted. This is similar to prio r chest CT and thoracic spine CT. No additional acute thoracic spine fractures are present. Slight lo ss of height of the superior endplate of T4 is likely chronic. Minimal multilevel endplate osteophyto sis is present. IMPRESSION: Mild compression fracture involving the inferior endplate of T11 with 30% loss of verteb ral body height. ACT 112: Negative or not required by law. Electronically signed by: Terry López M.D. 03/20/2024 1:09 PM
--- NOTE | 2024-03-20 17:27 | Hospitalist Progress Note ---
Date of Service March 20, 2024 Assessment & Plan (1) Compression fracture of T11 vertebra: (2) GERD (gastroesophageal reflux disease): (3) Hypothyroidism: (4) Chronic respiratory failure: (5) COPD (chronic obstructive pulmonary disease): (6) Interstitial lung disease: Plan: Acute T11 compression fracture - CT reviewed- Acute compression fracture of the inferior endplate of T11 with 30% loss of vertebral body height. No retropulsion. No extension into the posterior elements. - Fall 4 days ago, from small step stool while reaching to turn on a ceiling fan - Seen by ortho- recommended conservative treatment with TLSO. Patient does not want kyphoplasty. TLSO awaited, PT OT eval. Continue oxy for pain and bowel regimen. Lidoderm patch. - Per ortho- "Recommend wearing it when she is up and active and ambulating/standing. May remove when sleeping or in a seated position. Lifting over 5 pounds. She can follow-up in the office in 2 weeks. She might be a candidate for rehab upon discharge." Chronic respiratory failure on 2 L supplemental O2 at all times History of COPD/ILD, remote tobacco abuse -Patient recently completed a course of Medrol Dosepak last evening, and is on doxycycline 100 mg twice daily which is scheduled to finish on 03/25 for COPD exacerbation -She reports her breathing is improved at this point - Cont trelegy, and rescue inhalers GERD/Hiatal hernia -states hiatal hernia is stable, follows with GI as outpatient Hypothyroidism- Chronic, stable, continue levothyroxine Anxiety/Depression - Continue on sertraline 100 mg daily - Pt uses lorazepam for anxiety: takes 0.5 mg maybe 2-3 times per week per report, is prescribed 1 mg BID daily on Rx. DVT ppx: sc lovenox Dispo: Pending TLSO brace and PT OT eval Time spent: Approx 35 mins Admission and Anticipated Discharge Date Admission Date: March 19, 2024 Subjective Patient was seen and examined at bedside. States she took oxy at home from before and it helped her pain. She had pain this morning after the tests, she took oxy and it made such a difference. She is clear she does not want surgery. She tried the TLSO brace but felt it was too big and she would like to try a smaller one. No fever, chills, CP, SOB, N/V. Review of Systems Review of Systems: All systems reviewed & are unremarkable except as noted in Subjective Physical Exam Physical Exam: General: Lying comfortably in bed, not in acute distress, on room air HEENT: EOMI, ANKITA, MMM Chest: Clear breath sounds bilaterally, no wheezes or crackles CVS: Regular rate and rhythm, normal heart sounds, no murmur Abdomen: Soft, non tender, not distended, normal bowel sounds Neuro: Awake, alert, oriented, conversing well, non focal Extremities: No edema Back- tender on palpation Results & Data Results & Data Vital Signs (Past 12 Hours) Vital Signs Temp Pulse Resp BP Pulse Ox O2 Del Method O2 Flow Rate 03/20/24 15:27 36.6 C 73 20 104/69 94 Nasal Cannula 2 03/20/24 09:00 Nasal Cannula 2.5 03/20/24 07:28 36.6 C 60 16 121/66 98 Room Air Laboratory Results Short CBC 03/20/24 Range/Units 07:02 WBC 6.12 (4.8-10.8) K/ul Hgb 12.7 (12.0-16.0) g/dl Hct 39.0 (37.0-47.0) % Plt Count 215 (130-400) K/uL BMP 03/20/24 07:02 Sodium 138 Potassium 4.0 Chloride 102 Carbon Dioxide 32 BUN 24 H Creatinine 0.87 Glucose 81 Calcium 9.5 (5) COPD (chronic obstructive pulmonary disease) COPD type: unspecified COPD Qualified Code(s): J44.9 - Chronic obstructive pulmonary disease, unspecified
[2024-03-20] MEDS: DOCUSATE SODIUM/SENNA 50/8.6MG TAB PO SCH (17:48)
[2024-03-20] MEDS: ENOXAPARIN INJ 40 MG/0.4 ML SYR SQ SCH (21:25)
[2024-03-20] MEDS: LIDOCAINE 5% 1 PATCH TD SCH (21:26)
[2024-03-21] MEDS ORDERED: Nursing to Pharmacy Communication SCH (05:00)
[2024-03-21] MEDS: IBUPROFEN 200 MG TAB PO ONE (14:38)
--- NOTE | 2024-03-21 14:43 | Hospitalist Progress Note ---
Date of Service March 21, 2024 Assessment & Plan (1) Compression fracture of T11 vertebra: (2) GERD (gastroesophageal reflux disease): (3) Hypothyroidism: (4) Chronic respiratory failure: (5) COPD (chronic obstructive pulmonary disease): (6) Interstitial lung disease: Plan: Acute T11 compression fracture due to mechanical fall at home - CT reviewed- Acute compression fracture of the inferior endplate of T11 with 30% loss of vertebral body height. No retropulsion. No extension into the posterior elements. - Seen by ortho- recommended conservative treatment with TLSO. Patient does not want kyphoplasty. TLSO awaited, PT OT eval. Continue oxy for pain and bowel regimen. Lidoderm patch. - Per ortho- "Recommend wearing it when she is up and active and ambulating/standing. May remove when sleeping or in a seated position. Lifting over 5 pounds. She can follow-up in the office in 2 weeks. She might be a candidate for rehab upon discharge." Chronic respiratory failure on 2 L supplemental O2 at all times History of COPD/ILD, remote tobacco abuse -Patient recently completed a course of Medrol Dosepak last evening, and is on doxycycline 100 mg twice daily which is scheduled to finish on 03/25 for COPD exacerbation -She reports her breathing is improved at this point - Cont trelegy, and rescue inhalers GERD/Hiatal hernia -states hiatal hernia is stable, follows with GI as outpatient Hypothyroidism- Chronic, stable, continue levothyroxine Anxiety/Depression - Continue on sertraline 100 mg daily, on xanax prn for anxiety DVT ppx: sc lovenox Dispo: Pending TLSO brace and PT OT eval Time spent: Approx 35 mins Admission and Anticipated Discharge Date Admission Date: March 19, 2024 Subjective Patient was seen and examined at bedside. She feels oxycodone is helping her pain. No BM yet. She is waiting for the TLSO brace to arrive. She states she is hoping to go home with home PT and she does not want to go to rehab. Review of Systems Review of Systems: All systems reviewed & are unremarkable except as noted in Subjective Physical Exam Physical Exam: General: Lying comfortably in bed, not in acute distress, on room air HEENT: EOMI, ANKITA, MMM Chest: Clear breath sounds bilaterally, no wheezes or crackles CVS: Regular rate and rhythm, normal heart sounds, no murmur Abdomen: Soft, non tender, not distended, normal bowel sounds Neuro: Awake, alert, oriented, conversing well, non focal Extremities: No edema Back- tender on palpation Results & Data Results & Data Vital Signs (Past 12 Hours) Vital Signs Temp Pulse Resp BP Pulse Ox O2 Del Method O2 Flow Rate 03/21/24 10:53 94 03/21/24 07:45 Room Air 03/21/24 07:35 36.7 C 64 20 110/68 95 Nasal Cannula 2 (5) COPD (chronic obstructive pulmonary disease) COPD type: unspecified COPD Qualified Code(s): J44.9 - Chronic obstructive pulmonary disease, unspecified
[2024-03-21] MEDS: diphenhydrAMINE Capsule 25 MG CAP PO PRN (17:22)
[2024-03-21] MEDS: PANTOprazole 40 MG TAB PO PRN (18:26)
[2024-03-21] MEDS: SERTRALINE HCL 100 MG TABLET PO SCH (20:15)
[2024-03-22] MEDS: POLYETHYLENE (MIRALAX) 17 GM PACK PO SCH (11:17)
--- NOTE | 2024-03-22 16:36 | Hospitalist Progress Note ---
Date of Service March 22, 2024 Assessment & Plan (1) Compression fracture of T11 vertebra: (2) GERD (gastroesophageal reflux disease): (3) Hypothyroidism: (4) Chronic respiratory failure: (5) COPD (chronic obstructive pulmonary disease): (6) Interstitial lung disease: Plan Acute T11 compression fracture due to mechanical fall at home - CT reviewed- Acute compression fracture of the inferior endplate of T11 with 30% loss of vertebral body height. No retropulsion. No extension into the posterior elements. - Seen by ortho- recommended conservative treatment with TLSO. Patient does not want kyphoplasty. TLSO awaited, PT OT eval. Continue oxy for pain and bowel regimen. Lidoderm patch. - Per ortho- "Recommend wearing it when she is up and active and ambulating/standing. May remove when sleeping or in a seated position. Lifting over 5 pounds. She can follow-up in the office in 2 weeks. She might be a candidate for rehab upon discharge." Patient demanding to see Dr Vee, Informed Dr Vee and he is aware. Chronic respiratory failure on 2 L supplemental O2 at all times History of COPD/ILD, remote tobacco abuse -Patient recently completed a course of Medrol Dosepak, and is on doxycycline 100 mg twice daily which is scheduled to finish on 03/25 for COPD exacerbation -She reports her breathing is improved at this point - Cont trelegy, and rescue inhalers GERD/Hiatal hernia -states hiatal hernia is stable, follows with GI as outpatient Hypothyroidism- Chronic, stable, continue levothyroxine Anxiety/Depression- Continue on sertraline 100 mg daily, on xanax prn for anxiety constipation- bowel regimen intensified. DVT ppx: sc lovenox Dispo: Pending TLSO brace and PT OT eval Time spent: Approx 35 mins Admission and Anticipated Discharge Date Admission Date: March 19, 2024 Subjective Patient was seen and examined at bedside. She states she is in pain while moving. Oxycodone seems to be helping and it seems she is requiring it every 4 hours. She states she is still waiting for the right size TLSO brace. She reiterates again today that she has not been seen by Dr. Vee yet and it's insulting to her, he would definitely want to see Dr Vee. No bowel movement since admission. She absolutely declines any surgical procedures as well as rehab and would like to go home when pain controlled and brace arrives. She is unhappy with the heart healthy diet and decaff coffee. Review of Systems Review of Systems: All systems reviewed & are unremarkable except as noted in Subjective Physical Exam Physical Exam: General: Lying comfortably in bed, not in acute distress, on room air HEENT: EOMI, ANKITA, MMM Chest: Clear breath sounds bilaterally, no wheezes or crackles CVS: Regular rate and rhythm, normal heart sounds, no murmur Abdomen: Soft, non tender, not distended, normal bowel sounds Neuro: Awake, alert, oriented, conversing well, non focal Extremities: No edema Back- tender on palpation Results & Data Results & Data Vital Signs (Past 12 Hours) Vital Signs Temp Pulse Resp BP Pulse Ox O2 Del Method O2 Flow Rate 03/22/24 15:11 37.1 C 61 16 144/85 H 95 Room Air 03/22/24 07:40 Nasal Cannula 2.5 03/22/24 07:28 36.9 C 64 18 120/75 94 Room Air (5) COPD (chronic obstructive pulmonary disease) COPD type: unspecified COPD Qualified Code(s): J44.9 - Chronic obstructive pulmonary disease, unspecified
[2024-03-22] MEDS: CALAMINE/PRAMOXINE LOTION 180 APPLN/180 ML BTL EXT PRN (18:19)
--- NOTE | 2024-03-23 10:22 | Orthopedic Progress Note ---
Date of Service March 23, 2024 Assessment & Plan (1) Compression fracture of T11 vertebra: Plan: At this time encouraged her to ambulate as tolerated. Hopefully her new brace with more tolerable. Emphasized majority these fractures heal on their own and do not require surgical intervention. She understands we will see her in the office in the next few weeks for x-rays. Admission and Anticipated Discharge Date Admission Date: March 19, 2024 Subjective Patient states that her back pain is present but controlled. She has been up and ambulating the halls as well as the bathroom without difficulty. She did not appreciate the first brace that was trialed. We are awaiting a second brace. Physical Exam Physical Exam: On exam patient is comfortable she is in bed. She is constricted testing. Results & Data Vital Signs (Past 12 Hours) Vital Signs Temp Pulse Resp BP Pulse Ox O2 Del Method O2 Flow Rate 03/23/24 08:00 36.5 C 83 18 113/69 98 Nasal Cannula 2
[2024-03-23] MEDS: IPRATROPIUM BROMIDE HFA INHALER INH PRN (14:25)
--- NOTE | 2024-03-23 18:54 | Hospitalist Progress Note ---
Date of Service March 23, 2024 Assessment & Plan (1) Compression fracture of T11 vertebra: (2) GERD (gastroesophageal reflux disease): (3) Hypothyroidism: (4) Chronic respiratory failure: (5) COPD (chronic obstructive pulmonary disease): (6) Interstitial lung disease: Plan Acute T11 compression fracture due to mechanical fall at home - CT reviewed- Acute compression fracture of the inferior endplate of T11 with 30% loss of vertebral body height. No retropulsion. No extension into the posterior elements. - Seen by ortho- recommended conservative treatment with TLSO. TLSO awaited, PT OT eval. Continue oxy for pain and bowel regimen. Lidoderm patch. - Per ortho- "Recommend wearing it when she is up and active and ambulating/standing. May remove when sleeping or in a seated position. Lifting over 5 pounds. She can follow-up in the office in 2 weeks. She might be a candidate for rehab upon discharge." Seen by Dr. Vee this morning. Recommendations noted. Chronic respiratory failure on 2 L supplemental O2 at all times History of COPD/ILD, remote tobacco abuse -Patient recently completed a course of Medrol Dosepak, and is on doxycycline 100 mg twice daily which is scheduled to finish on 03/25 for COPD exacerbation -She reports her breathing is improved at this point - Cont trelegy, and rescue inhalers GERD/Hiatal hernia -states hiatal hernia is stable, follows with GI as outpatient Hypothyroidism- Chronic, stable, continue levothyroxine Anxiety/Depression- Continue on sertraline 100 mg daily, on xanax prn for anxiety Constipation- Continue bowel regimen DVT ppx: sc lovenox Dispo: Pending TLSO brace and PT OT eval for discharge Time spent: Approx 35 mins Admission and Anticipated Discharge Date Admission Date: March 19, 2024 Subjective patient was seen and examined bedside. States that she was seen by Dr. Vee this morning. she complains of pain at her fracture site and is requiring oxycodone every 4 hours. She did have a bowel movement yet but feels she was going to have one today. She was complaining of the diet and wanted it to change to regular. Her TLSO brace has not arrived yet. Review of Systems Review of Systems: All systems reviewed & are unremarkable except as noted in Subjective Physical Exam Physical Exam: General: Lying comfortably in bed, not in acute distress, on room air HEENT: EOMI, ANKITA, MMM Chest: Clear breath sounds bilaterally, no wheezes or crackles CVS: Regular rate and rhythm, normal heart sounds, no murmur Abdomen: Soft, non tender, not distended, normal bowel sounds Neuro: Awake, alert, oriented, conversing well, non focal Extremities: No edema Back- tender on palpation Results & Data Results & Data Vital Signs (Past 12 Hours) Vital Signs Temp Pulse Resp BP Pulse Ox O2 Del Method O2 Flow Rate 03/23/24 15:56 36.3 C L 66 16 112/70 98 Nasal Cannula 2.5 03/23/24 14:26 75 16 97 Nasal Cannula 2.5 03/23/24 09:30 Nasal Cannula 2.5 03/23/24 08:00 36.5 C 83 18 113/69 98 Nasal Cannula 2 (5) COPD (chronic obstructive pulmonary disease) COPD type: unspecified COPD Qualified Code(s): J44.9 - Chronic obstructive pulmonary disease, unspecified
[2024-03-24 06:14] LABS: Hematocrit (blood only) 36.9 % (37.0-47.0); Hemoglobin 12.2 g/dl (12.0-16.0); Mean Corpuscular Hemoglobin 31.1 pg (25.0-34.0); Mean Corpuscular Hgb Conc 33.1 g/dL (32.0-36.0); Mean Corpuscular Volume 94.1 fL (80.0-100.0); Mean Platelet Volume 9.7 fL (9.4-12.4); Platelet Count 176 K/uL (130-400); RDW Coefficient of Variation 14.1 % (11.5-14.5); Red Blood Count 3.92 M/uL (4.20-5.40); White Blood Count 6.43 K/ul (4.8-10.8)
[2024-03-24 06:46] LABS: BUN Creatinine Ratio 29.1 (10-20); Calcium 9.2 mg/dl (8.6-10.3); Creatinine Clr Calc Pharmacy 59.3 ml/min; Est GFR (African American) 83.7 ml/min; Est GFR (Non-African American) 72.2 ml/min; Potassium 3.9 mmol/L (3.5-5.1)
--- NOTE | 2024-03-24 15:55 | Hospitalist Progress Note ---
Date of Service March 24, 2024 Assessment & Plan (1) Compression fracture of T11 vertebra: (2) GERD (gastroesophageal reflux disease): (3) Hypothyroidism: (4) Chronic respiratory failure: (5) COPD (chronic obstructive pulmonary disease): (6) Interstitial lung disease: Plan Acute T11 compression fracture due to mechanical fall at home - CT reviewed- Acute compression fracture of the inferior endplate of T11 with 30% loss of vertebral body height. No retropulsion. No extension into the posterior elements. - Seen by ortho- recommended conservative treatment with TLSO. TLSO awaited, PT OT eval. Continue oxy for pain and bowel regimen. Lidoderm patch. - Per ortho- "Recommend wearing it when she is up and active and ambulating/standing. May remove when sleeping or in a seated position. Lifting over 5 pounds. She can follow-up in the office in 2 weeks. She might be a candidate for rehab upon discharge." Chronic respiratory failure on 2 L supplemental O2 at all times History of COPD/ILD, remote tobacco abuse -Patient recently completed a course of Medrol Dosepak, and is on doxycycline 100 mg twice daily which is scheduled to finish on 03/25 for COPD exacerbation -She reports her breathing is improved at this point - Cont trelegy, and rescue inhalers GERD/Hiatal hernia -states hiatal hernia is stable, follows with GI as outpatient Hypothyroidism- Chronic, stable, continue levothyroxine Anxiety/Depression- Continue on sertraline 100 mg daily, on xanax prn for anxiety Constipation- Continue bowel regimen DVT ppx: sc lovenox Dispo: Pending TLSO brace and PT OT eval for discharge Time spent: Approx 35 mins Admission and Anticipated Discharge Date Admission Date: March 19, 2024 Subjective Patient was seen and examined at bedside. Still has pain. No bowel movement yet. Now happy with the diet. Her back brace has not arrived yet. No fever, chills, chest pain or shortness of breath, nausea or vomiting. Review of Systems Review of Systems: All systems reviewed & are unremarkable except as noted in Subjective Physical Exam Physical Exam: General: Lying comfortably in bed, not in acute distress, on room air HEENT: EOMI, ANKITA, MMM Chest: Clear breath sounds bilaterally, no wheezes or crackles CVS: Regular rate and rhythm, normal heart sounds, no murmur Abdomen: Soft, non tender, not distended, normal bowel sounds Neuro: Awake, alert, oriented, conversing well, non focal Extremities: No edema Back- tender on palpation Results & Data Results & Data Vital Signs (Past 12 Hours) Vital Signs Temp Pulse Resp BP Pulse Ox O2 Del Method O2 Flow Rate 03/24/24 15:29 36.9 C 64 18 116/68 96 Nasal Cannula 2.5 03/24/24 10:44 Nasal Cannula 2.5 03/24/24 07:21 36.6 C 63 16 138/85 95 Nasal Cannula 2.5 (5) COPD (chronic obstructive pulmonary disease) COPD type: unspecified COPD Qualified Code(s): J44.9 - Chronic obstructive pulmonary disease, unspecified
[2024-03-24] MEDS: MAGNESIUM HYDROXIDE SUSP 30 ML UDC PO ONE (17:44)
--- NOTE | 2024-03-25 14:12 | Hospitalist Progress Note ---
Date of Service March 25, 2024 Assessment & Plan (1) Compression fracture of T11 vertebra: (2) GERD (gastroesophageal reflux disease): (3) Hypothyroidism: (4) Chronic respiratory failure: (5) COPD (chronic obstructive pulmonary disease): (6) Interstitial lung disease: Plan Acute T11 compression fracture due to mechanical fall at home - CT reviewed- Acute compression fracture of the inferior endplate of T11 with 30% loss of vertebral body height. No retropulsion. No extension into the posterior elements. - Seen by ortho- recommended conservative treatment with TLSO. TLSO awaited, PT OT eval. Continue oxy for pain and bowel regimen. Lidoderm patch. - Per ortho- "Recommend wearing it when she is up and active and ambulating/standing. May remove when sleeping or in a seated position. Lifting over 5 pounds. She can follow-up in the office in 2 weeks. She might be a candidate for rehab upon discharge." Chronic respiratory failure on 2 L supplemental O2 at all times History of COPD/ILD, remote tobacco abuse -Patient recently completed a course of Medrol Dosepak, and is on doxycycline 100 mg twice daily which is scheduled to finish on 03/25 for COPD exacerbation -She reports her breathing is improved at this point - Cont trelegy, and rescue inhalers GERD/Hiatal hernia -states hiatal hernia is stable, follows with GI as outpatient Hypothyroidism- Chronic, stable, continue levothyroxine Anxiety/Depression- Continue on sertraline 100 mg daily, on xanax prn for anxiety Constipation- Resolved. Continue bowel regimen DVT ppx: sc lovenox Dispo: Pending TLSO brace and PT OT eval for discharge Time spent: Approx 35 mins Admission and Anticipated Discharge Date Admission Date: March 19, 2024 Subjective Patient was seen and examined at bedside. She has multiple complaints. Asking to get her pneumonia vaccine. Brace has not arrived yet. Diet issues have resolved. Had BM yesterday. Pain is controlled. No fever, chills, CP, SOB, N/V. Review of Systems Review of Systems: All systems reviewed & are unremarkable except as noted in Subjective Physical Exam Physical Exam: General: Lying comfortably in bed, not in acute distress, on room air HEENT: EOMI, ANKITA, MMM Chest: Clear breath sounds bilaterally, no wheezes or crackles CVS: Regular rate and rhythm, normal heart sounds, no murmur Abdomen: Soft, non tender, not distended, normal bowel sounds Neuro: Awake, alert, oriented, conversing well, non focal Extremities: No edema Results & Data Results & Data Vital Signs (Past 12 Hours) Vital Signs Temp Pulse Resp BP Pulse Ox O2 Del Method O2 Flow Rate 03/25/24 08:30 Nasal Cannula 2.5 03/25/24 07:12 36.6 C 63 18 119/76 99 Room Air (5) COPD (chronic obstructive pulmonary disease) COPD type: unspecified COPD Qualified Code(s): J44.9 - Chronic obstructive pulmonary disease, unspecified
--- NOTE | 2024-03-26 12:39 | Hospitalist Progress Note ---
Date of Service March 26, 2024 Assessment & Plan (1) Compression fracture of T11 vertebra: (2) GERD (gastroesophageal reflux disease): (3) Hypothyroidism: (4) Chronic respiratory failure: (5) COPD (chronic obstructive pulmonary disease): (6) Interstitial lung disease: Plan Acute T11 compression fracture due to mechanical fall at home - CT reviewed- Acute compression fracture of the inferior endplate of T11 with 30% loss of vertebral body height. No retropulsion. No extension into the posterior elements. - Seen by ortho- recommended conservative treatment with TLSO. TLSO awaited, PT OT eval. Continue oxy for pain and bowel regimen. Lidoderm patch. - Per ortho- "Recommend wearing it when she is up and active and ambulating/standing. May remove when sleeping or in a seated position. Lifting over 5 pounds. She can follow-up in the office in 2 weeks. She might be a candidate for rehab upon discharge." Chronic respiratory failure on 2 L supplemental O2 at all times History of COPD/ILD, remote tobacco abuse -Patient recently completed a course of Medrol Dosepak, and is on doxycycline 100 mg twice daily which is scheduled to finish on 03/25 for COPD exacerbation -She reports her breathing is improved at this point - Cont trelegy, and rescue inhalers GERD/Hiatal hernia -states hiatal hernia is stable, follows with GI as outpatient Hypothyroidism- Chronic, stable, continue levothyroxine Anxiety/Depression- Continue on sertraline 100 mg daily, on xanax prn for anxiety Constipation- Resolved. Continue bowel regimen DVT ppx: sc lovenox Dispo: Pending TLSO brace and PT OT eval for discharge Time spent: Approx 35 mins Admission and Anticipated Discharge Date Admission Date: March 19, 2024 Subjective Patient was seen and examined at bedside. She feels the same. Still with pain and getting q4hr oxy. Had BM yesterday. She has not got her new brace yet and that is limiting PT OT eval. I have placed another orthotics consult and [facility] staff regarding the delay. No other issues. Review of Systems Review of Systems: All systems reviewed & are unremarkable except as noted in Subjective Physical Exam Physical Exam: General: Lying comfortably in bed, not in acute distress, on room air HEENT: EOMI, ANKITA, MMM Chest: Clear breath sounds bilaterally, no wheezes or crackles CVS: Regular rate and rhythm, normal heart sounds, no murmur Abdomen: Soft, non tender, not distended, normal bowel sounds Neuro: Awake, alert, oriented, conversing well, non focal Extremities: No edema Results & Data Results & Data Vital Signs (Past 12 Hours) Vital Signs Temp Pulse Resp BP Pulse Ox O2 Del Method 03/26/24 07:18 36.7 C 61 18 131/83 96 Room Air (5) COPD (chronic obstructive pulmonary disease) COPD type: unspecified COPD Qualified Code(s): J44.9 - Chronic obstructive pulmonary disease, unspecified
--- NOTE | 2024-03-26 15:52 | Discharge Summary ---
Date of Service March 26, 2024 Admission HPI Per Admitting Provider This is a 78 yo F with PMHx of chronic respiratory failure secondary to COPD on 2 L nasal cannula O2 at all times, hypothyroidism, hiatal hernia, hx of severe colon injury during colonoscopy s/p colostomy and reversal over 10 years ago, bipolar disorder, depression, GERD, history of TIA, migraine mitral regurg who presents with complaints of back pain. Pt with recent bronchitis/pneumonia where she completed a course of steroid yesterday and was placed on a course of doxycycline for suspected COPD exacerbation. Pt has been home and fell 4 days ago while she was reaching up with her cane on a small step stool while trying trying to turn the ceiling fan on by pulling the little cord. She admits to some weakness back at that time, but didn't seem out of the normal. She was sore around both sides of her chest, the following day after her fall. She did not seek out medical care at that time as her son is currently out of town, scheduled to come back at the end of the week from a trip. The pain seems to have concentrated around the left flank region. Pt reports at home trialed tylenol, aleve and even had a leftover oxycodone tablet which she took last night to help her sleep her pain was so bad. She now presents with flank pain, back pain, and feeling sore all over. She has a life alert bracelet and hit the button this morning due to her pain and was transported by EMS here to the hospital. Pt is slightly nauseated here and vomited up a sandwich in the ER. She has been found to have a new T11 compression fracture. Admission Exam Per Admitting Provider General: awake, alert, no apparent distress, unkempt Head: Normocephalic, atraumatic ENT: PERRL, EOMI, no pharyngeal exudate, mucous membranes moist Chest: Clear to auscultation, on 2L via NC, no adventitious breath sounds Cardiac: Regular rate and rhythm, no murmur, no JVD, normal peripheral pulses, good capillary refill Abdominal: NABS x 4 quadrants, soft, nondistended, nontender to palpation, no rebound or guarding Back: tenderness over T11 spinal process, radiates pain around the left flank region Extremities: Normal inspection, no peripheral edema or erythema, calfs nontender to palpation, + lesion over the left grove, R hand with increased erythema Psych: Normal mood and affect Neuro: AAO x 3, strength intact bilaterally and rated 5/5, no motor deficits, speech is clear, no peripheral sensory deficits Principal Diagnosis T11 compression fracture Discharge Exam General: Lying comfortably in bed, not in acute distress, on room air HEENT: EOMI, ANKITA, MMM Chest: Clear breath sounds bilaterally, no wheezes or crackles CVS: Regular rate and rhythm, normal heart sounds, no murmur Abdomen: Soft, non tender, not distended, normal bowel sounds Neuro: Awake, alert, oriented, conversing well, non focal Extremities: No edema Discharge Data Allergies Allergy/AdvReac Type Severity Reaction Status Date / Time albuterol Allergy Severe CONVULSIONS Verified 03/19/24 16:19 latex Allergy Severe ITCH/RASH/H Verified 03/19/24 16:19 MAIA acetaminophen Allergy Intermediate ITCH ALL Verified 03/19/24 16:19 OVER hydroxyzine AdvReac Severe MOOD Verified 03/19/24 16:19 SWINGS / OUT OF CONTROL Consultations 03/19/24 15:53 ED Decision to Admit Stat 03/19/24 17:15 Consult Orthopedic Spine Surgery Routine Ordered Studies 03/19/24 13:13 CT abd pelvis IV con only Stat CT angio chest PE protocol Stat 03/19/24 13:14 CT head/brain wo con Stat 03/20/24 06:08 CT thoracic spine wo con Stat Laboratory Results WBC 6.43 K/ul (4.8-10.8) 03/24/24 05:49 RBC 3.92 M/uL (4.20-5.40) L 03/24/24 05:49 Hgb 12.2 g/dl (12.0-16.0) 03/24/24 05:49 Hct 36.9 % (37.0-47.0) L 03/24/24 05:49 MCV 94.1 fL (80.0-100.0) 03/24/24 05:49 MCH 31.1 pg (25.0-34.0) 03/24/24 05:49 MCHC 33.1 g/dL (32.0-36.0) 03/24/24 05:49 RDW Std Deviation 49.0 fL (36.4-46.3) H 03/24/24 05:49 RDW Coeff of Kimberly 14.1 % (11.5-14.5) 03/24/24 05:49 Plt Count 176 K/uL (130-400) 03/24/24 05:49 MPV 9.7 fL (9.4-12.4) 03/24/24 05:49 Immature Gran % (Auto) 0.4 % 03/19/24 11:46 Neut % (Auto) 70.3 % 03/19/24 11:46 Lymph % (Auto) 11.8 % 03/19/24 11:46 Victoria % (Auto) 7.5 % 03/19/24 11:46 Eos % (Auto) 9.4 % 03/19/24 11:46 Baso % (Auto) 0.6 % 03/19/24 11:46 Neut # (Auto) 5.53 K/uL (1.40-6.50) 03/19/24 11:46 Lymph # (Auto) 0.93 K/uL (1.20-3.40) L 03/19/24 11:46 Victoria # (Auto) 0.59 K/uL (0.11-0.59) 03/19/24 11:46 Eos # (Auto) 0.74 K/uL (0.00-0.50) H 03/19/24 11:46 Baso # (Auto) 0.05 K/uL (0.00-0.20) 03/19/24 11:46 Immature Gran # (Auto) 0.03 K/uL (0.01-0.20) 03/19/24 11:46 Sodium 137 mmol/L (136-145) 03/24/24 05:49 Potassium 3.9 mmol/L (3.5-5.1) 03/24/24 05:49 Chloride 103 mmol/L (98-107) 03/24/24 05:49 Carbon Dioxide 31 mmol/L (21-32) 03/24/24 05:49 Anion Gap 3 (3-11) 03/24/24 05:49 BUN 23 mg/dl (6-23) 03/24/24 05:49 Creatinine 0.79 mg/dl (0.6-1.2) 03/24/24 05:49 Est Cr Clr Drug Dosing 59.3 ml/min 03/24/24 05:49 Est GFR ( Amer) 83.7 ml/min 03/24/24 05:49 Est GFR (Non-Af Amer) 72.2 ml/min 03/24/24 05:49 BUN/Creatinine Ratio 29.1 (10-20) H 03/24/24 05:49 Glucose 95 mg/dl (70-99(Fasting)) 03/24/24 05:49 Calcium 9.2 mg/dl (8.6-10.3) 03/24/24 05:49 Total Bilirubin 0.6 mg/dl (0.2-1.0) 03/19/24 11:46 AST 16 U/L (13-39) 03/19/24 11:46 ALT 24 U/L (7-52) 03/19/24 11:46 Alkaline Phosphatase 248 U/L (34-104) H 03/19/24 11:46 Troponin I High Sens 2.6 pg/ml (0-14) 03/19/24 13:50 Total Protein 6.8 gm/dl (6.0-8.3) 03/19/24 11:46 Albumin 4.0 gm/dl (3.4-5.0) 03/19/24 11:46 Globulin 2.8 gm/dl (2.5-4.0) 03/19/24 11:46 Albumin/Globulin Ratio 1.4 (0.9-2) 03/19/24 11:46 Urine Color Yellow 03/19/24 13:40 Urine Appearance Clear (Clear) 03/19/24 13:40 Urine pH 6.5 (4.5-7.5) 03/19/24 13:40 Ur Specific [place] 1.012 (1.000-1.030) 03/19/24 13:40 Urine Protein Negative (Negative) 03/19/24 13:40 Urine Glucose (UA) Negative (Negative) 03/19/24 13:40 Urine Ketones Negative (Negative) 03/19/24 13:40 Urine Blood Negative (Negative) 03/19/24 13:40 Urine Nitrite Negative (Negative) 03/19/24 13:40 Urine Bilirubin Negative (Negative) 03/19/24 13:40 Urine Urobilinogen Negative (Negative) 03/19/24 13:40 Ur Leukocyte Esterase Trace (Negative) H 03/19/24 13:40 Urine WBC (Auto) 0-5 /hpf (0-5) 03/19/24 13:40 Urine RBC (Auto) 0-2 /hpf (0-2) 03/19/24 13:40 U Hyaline Cast (Auto) 0-2 /lpf (0-2) 03/19/24 13:40 U Epithel Cells (Auto) 0-2 /hpf (0-2) 03/19/24 13:40 Urine Bacteria (Auto) None Seen (None Seen) 03/19/24 13:40 Adenovirus (PCR) Not Detected (NotDetected) 03/19/24 13:50 B. pertussis DNA (PCR) Not Detected (NotDetected) 03/19/24 13:50 B.parapertussis DNA PCR Not Detected (NotDetected) 03/19/24 13:50 C. pneumoniae DNA (PCR) Not Detected (NotDetected) 03/19/24 13:50 Coronavirus OC43 (PCR) Not Detected (NotDetected) 03/19/24 13:50 Coronavirus HKU1 (PCR) Not Detected (NotDetected) 03/19/24 13:50 Coronavirus 229E (PCR) Not Detected (NotDetected) 03/19/24 13:50 SARS-CoV-2 (PCR) Not Detected (NotDetected) 03/19/24 13:50 Coronavirus NL63 (PCR) Not Detected (NotDetected) 03/19/24 13:50 Human Metapneumovir PCR Not Detected (NotDetected) 03/19/24 13:50 Influenza Type A (PCR) Not Detected (NotDetected) 03/19/24 13:50 Influenza Type B (PCR) Not Detected (NotDetected) 03/19/24 13:50 M. pneumoniae (PCR) Not Detected (NotDetected) 03/19/24 13:50 Parainfluenza 1 (PCR) Not Detected (NotDetected) 03/19/24 13:50 Parainfluenza 2 (PCR) Not Detected (NotDetected) 03/19/24 13:50 Parainfluenza 3 (PCR) Not Detected (NotDetected) 03/19/24 13:50 Parainfluenza 4 (PCR) Not Detected (NotDetected) 03/19/24 13:50 RSV (PCR) Not Detected (NotDetected) 03/19/24 13:50 Entero/Rhino (PCR) Not Detected (NotDetected) 03/19/24 13:50 Impressions Abdomen/Pelvis CT 03/19/24 13:13 CT abd pelvis IV con only CLINICAL HISTORY: left flank pain urinary symptoms, sob TECHNIQUE: Helical axial images of the abdomen and pelvis were obtained and displayed. Automated dose lowering techniques and/or adjustment according to patient size were utilized for this exam. This exam was performed with intravenous contrast. COMPARISON: None available at the time of this dictation. FINDINGS: Lower chest: Emphysema is seen. Liver: Unremarkable. No focal lesions are seen. Gallbladder and biliary tree: Patient is status post cholecystectomy. Physiologic prominence of the biliary ducts is noted. Pancreas: Unremarkable, no focal lesions. Spleen: Hypodensity in the spleen measuring 14 mm. Adrenals: Right adrenal nodule measuring 16 mm noted. Kidneys and ureters: Renal cysts are seen. Bladder: Limited evaluation due to underdistention. Reproductive organs: Patient is status post hysterectomy. Bowel: Postsurgical changes of partial colectomy noted. Diverticulosis without diverticulitis. Patient is status post appendectomy. There is a small hiatal hernia. Lymph nodes Retroperitoneal: Unremarkable. Pelvic: Unremarkable. Mesenteric: Unremarkable. Peritoneum: Normal. Vessels: Atherosclerotic calcifications are seen. Infrarenal aortic aneurysm measures 23 mm. Abdominal wall: Fat-containing midline hernia is seen above the umbilicus. Bones: Minimal degenerative changes are seen. IMPRESSION: 1. No acute abnormality to explain left-sided flank pain, in particular there is no evidence of obstructive stones. 2. Postsurgical changes of cholecystomy. 3. Right adrenal nodule is seen. If not previously evaluated, nonemergent adrenal mass protocol CT or MRI can be performed. 4. Additional findings as above. ACT 112: Negative or not required by law. Electronically signed by: Harpreet Sommer M.D. 03/19/2024 2:15 PM Chest CTA 03/19/24 13:13 CT ANGIOGRAPHY OF THE CHEST, PULMONARY EMBOLUS PROTOCOL CLINICAL HISTORY: PE, cough, recent pna, Left chest to flank pain COMPARISON STUDY: Chest radiograph March 14, 2023. TECHNIQUE: Following IV administration of 120 mL of Optiray, helical axial images of the chest were obtained utilizing the pulmonary embolus protocol. Maximal intensity projections and sagittal and coronal reformats were viewed on an independent 3D workstation. IV contrast was administered without complication. Automated exposure control was utilized for the study. A dose lowering technique was utilized adhering to the principles of ALARA. CT DOSE: 2889.39 mGy.cm FINDINGS: No pulmonary emboli are identified. There is no pericardial effusion. Size of the heart is at the upper limits of normal. There is no thoracic aortic dissection although opacification is suboptimal. No enlarged thoracic lymph nodes are present. Mild wall thickening of the midesophagus is present. There is moderate emphysema. Groundglass subpleural right lower opacities favor atelectasis. There is no consolidation to suggest pneumonia. There are no pulmonary nodules. No pneumothorax or pleural effusion is present. No acute rib fractures are identified. Concavity of the inferior endplate of T11 is noted with 30% loss of vertebral body height. There is no retropulsion. There is mild paravertebral stranding. Slight loss of height of the superior endplate of T4 is likely chronic. IMPRESSION: 1. No pulmonary emboli identified. 2. Mild compression fracture of the inferior endplate of T11 with 30% loss of vertebral body height. This fracture is likely acute. No acute rib fractures. 3. Emphysema. No consolidation to suggest pneumonia. 4. Mild circumferential wall thickening of the mid esophagus. This may reflect esophagitis. ACT 112: Negative or not required by law. Electronically signed by: Terry López M.D. 03/19/2024 2:[address] 03/19/24 13:14 CT SCAN OF THE BRAIN WITHOUT IV CONTRAST CLINICAL HISTORY: Fall. Head injury. COMPARISON STUDY: CT of the brain dated 03/11/2022. TECHNIQUE: Unenhanced axial CT scan of the brain is performed from the vertex to the skull base. A dose lowering technique was utilized adhering to the principles of ALARA. FINDINGS: Brain parenchyma: There is age-related involutional change noting mild to modera te subcortical and periventricular microangiopathic disease. There is no hemorrhage, mass effect, or evidence of acute territorial ischemia by CT criteria. Tracy-white matter differentiation is preserved. No extra-axial fluid collection is seen. Ventricles, sulci, cisterns: Prominent secondary to involutional change. Intracranial vasculature: There is atherosclerotic calcification of the cavern ous carotid arteries. Aneurysm coils are noted in the right suprasellar region. Calvarium: Unremarkable. Sinuses and mastoids: The visualized paranasal sinuses are clear. The mastoid air cells are well pneumatized. Orbits: The bony orbits are grossly intact. There are bilateral ocular lens implants. IMPRESSION: There is no hemorrhage, mass effect, or evidence of acute territorial ischemia by CT criteria. ACT 112: Negative or not required by law. Electronically signed by: Sean Baugh M.D. 03/19/2024 2:[address] 03/20/24 06:08 CT OF THE THORACIC SPINE CLINICAL HISTORY: evaluation of T11 fx, recon films COMPARISON STUDY: Chest CT March 19, 2024. TECHNIQUE: Helical axial images of the thoracic spine were obtained. Sagittal and coronal reconstructions were viewed. Automated exposure control was utilized for the study. A dose lowering technique was utilized adhering to the principles of ALARA. FINDINGS: Alignment of the thoracic spine is anatomic. There is an acute compression fracture of the inferior endplate of T11 with concavity and 30% loss of vertebral body height. Paravertebral stranding is present. Posterior cortex is intact. There is no extension into the posterior elements. There is no retropulsion. No additional acute thoracic spine fractures are present. Mild loss of height of the superior endplate of T4 represents an old mild compression fracture. Mild multilevel degenerative disc disease and facet arthrosis within the thoracic spine is present. There are trace bilateral pleural effusions. Emphysematous incidentally noted. A 1.9 cm low-attenuation right adrenal nodule favors an adenoma. IMPRESSION: 1. Acute compression fracture of the inferior endplate of T11 with 30% loss of v ertebral body height. No retropulsion. No extension into the posterior elements. 2. Old mild T4 compression fracture. 3. Mild multilevel degenerative changes within the thoracic spine. 4. Trace bilateral pleural effusions. 5. Emphysema. ACT 112: Negative or not required by law. Electronically signed by: Terry López M.D. 03/20/2024 7:08 AM Thoracic Spine X-Ray 03/20/24 08:00 XR thoracic spine 3V routine CLINICAL HISTORY: t11 [address] chest COMPARISON STUDY: Chest CT March 19, 2024. Thoracic spine CT March 20, 2024. FINDINGS: Mild compression fracture of the inferior endplate of T11 is noted. This is similar to prior chest CT and thoracic spine CT. No additional acute thoracic spine fractures are present. Slight loss of height of the superior endplate of T4 is likely chronic. Minimal multilevel endplate osteophytosis is present. IMPRESSION: Mild compression fracture involving the inferior endplate of T11 with 30% loss of vertebral body height. ACT 112: Negative or not required by law. Electronically signed by: Terry López M.D. 03/20/2024 1:09 PM Hospital Course (1) Compression fracture of T11 vertebra: (2) GERD (gastroesophageal reflux disease): (3) Hypothyroidism: (4) Chronic respiratory failure: (5) COPD (chronic obstructive pulmonary disease): (6) Interstitial lung disease: Plan Acute T11 compression fracture due to mechanical fall at home - CT reviewed- Acute compression fracture of the inferior endplate of T11 with 30% loss of vertebral body height. No retropulsion. No extension into the posterior elements. - Seen by ortho- recommended conservative treatment with TLSO. Hospital course prolonged awaiting delivery of modified TLSO brace. TLSO brace arrived today, it was fitted, she seemed to do very well with it. Seen by therapy. She is anxious to go home. Per CM, home health has been arranged as she refused rehab. PDMP reviewed. She will be discharged on 16 pills of oxy for pain control while she sees her PCP on 03/29 who will resume care after that. Will also send on pericolace. - Per ortho- "Recommend wearing it when she is up and active and ambulating/standing. May remove when sleeping or in a seated position. Lifting over 5 pounds. She can follow-up in the office in 2 weeks." Chronic respiratory failure on 2 L supplemental O2 at all times History of COPD/ILD, remote tobacco abuse -Patient recently completed a course of Medrol Dosepak, and completed doxycycline course on 03/25 for COPD exacerbation - Cont trelegy, and rescue inhalers GERD/Hiatal hernia -states hiatal hernia is stable, follows with GI as outpatient Hypothyroidism- Chronic, stable, continue levothyroxine Anxiety/Depression- Continue on sertraline 100 mg daily, on xanax prn for anxiety Constipation- Resolved. Continue bowel regimen Home Health Attestation I certify that this patient is under my care and that I, or a physicians title assistant working with me, had a face to-face encounter that meets the home health [id number] encounter requirements with this patient. The encounter with the patient was in whole, or in part, for the following medical condition, which is the primary reason for home health care (list medical condition): I certify that, based on my findings, the following services are medically necessary home health services: My clinical findings support the need for the above services because: Further, I certify that my clinical findings support that this patient is homebound (i.e. absences from home require considerable and taxing effort and are for medical reasons or sikh services or infrequently or of short duration when for other reasons) because: Certification for Home Health Services: Based on the above findings, I certify that this patient is confined to the home and needs intermittent alf care, physical therapy and/or speech therapy or continues to need occupational therapy. The patient is under my care, and I have initiated the establishment of the plan of care. This patient will be followed by a physician who will periodically review the plan of care. Total Time Total Time Spent Total Time Spent (In Minutes): 40 Discharge Plan Discharge Items Patient Disposition: Home - Home Health Services Reason For Visit: T11 COMPRESSION FRACTURE Discharge Diagnosis: T11 compression fracture Activity: Per Instructions section Lifting: No more than 5 pounds Non-emergency contact: Primary Care Provider Call non-emergency contact if: you have any medication questions, your symptoms worsen, your pain is not controlled and your pain is concerning for you Follow-up/Referrals: Justin Vee DO [Surgeon] - (follow up in 2 weeks) John Roa MD [Primary Care Provider] - (Date & Time 03/29/2024 2:00 PM Provider John Roa MD [facility] ) Diet: Regular Addtl Attending Provider Instructions: Per orthopedics, Recommend wearing the brace when up and active and ambulating/standing. May remove when sleeping or in a seated position. No lifting over 5 pounds. Take pain medications as needed. Bowel regimen while on pain meds. Follow up with family doctor on 03/29 who can further refill your pain meds as needed. Follow-up in the orthopedic office in 2 weeks for follow up Pending Studies at Discharge: No Stand-Alone Forms: My [employer], Smoking Cessation Medications and DC Order Prescriptions: New oxycodone 5 mg Tablet 5 mg PO Q6H PRN (Reason: pain) 4 Days Qty: 16 0RF sennosides-docusate sodium 8.6-50 mg tablet 1 tab-cap PO DAILY Qty: 10 0RF Continued cyanocobalamin (vitamin B-12) [Vitamin B-12] 100 mcg Tablet 100 mcg PO .MON/WED/FRI ONLY alprazolam [Xanax] 1 mg Tablet 0.5 mg PO DAILY PRN (Reason: Anxiety) levothyroxine 112 mcg tablet 112 mcg PO DAILY coenzyme Q10 [CoQ-10] 100 mg Capsule 50 mg PO DAILY aspirin 81 mg tablet,delayed release (DR/EC) 81 mg PO DAILY Qty: 90 1RF sertraline [Zoloft] 100 mg tablet 100 mg PO DAILY trazodone 100 mg tablet 100 mg PO HS omeprazole magnesium [Prilosec OTC] 20 mg Tablet,Delayed Release (Dr/Ec) 20 mg PO DAILY PRN (Reason: Acid Reflux) Trelegy Ellipta 100-62.5-25 mcg blister with device 1 inh INHALATION DAILY atorvastatin 20 mg tablet 20 mg PO DAILY Atrovent HFA 17 mcg/actuation HFA aerosol inhaler 2 puff INHALATION Q6 PRN (Reason: as directed) Centrum Silver Women 8 mg iron-400 mcg-50 mcg Tablet 1 tab PO DAILY ketoconazole 2 % shampoo 1 applic TOPICAL 3XWK clindamycin phosphate 1 % gel 1 applic TOPICAL BID PRN (Reason: acne flares) Discontinued doxycycline hyclate 100 mg capsule 100 mg PO [facility] Rx Instructions: start 03/15/24 and end 03/25/24 Discharge Orders: Discharge Order (Routine); Ordered 03/26/24 Ordered By: Spencer Gore Admission Data Admit Date/Time: 03/19/24 17:15 Attending Provider: Spencer Gore Admit Provider: Mali Hooker Primary Care Provider: John Roa Other Providers: Justin Vee; Mali Hooker; [facility] Fax
== END 2024-03-26 17:41 | disposition home health service (06) | DRG 552 ==
LOC: ED 11:38 → 3N 17:15 → SUATTDRO 17:15 → 3N 21:28

== ENCOUNTER 2025-05-13 12:56 | Inpatient (IN) ==
[2025-05-13] MEDS: ONDANSETRON INJ 2 MG/ML 2 ML VIAL IV STA (13:27)
[2025-05-13] MEDS: MoRPHine SULFATE 2 MG/ML CARP IV STA ×2 (13:27→15:55)
--- NOTE | 2025-05-13 13:27 | Emergency Department Note ---
Impression & Plan Dizziness, Nausea, Stroke-like symptoms, Headache, Brain aneurysm ED Provider Note NAME: ALIX ANTONY AGE: 80 SEX: F : 1945 ARRIVES VIA: Ambulance INFORMANT: [Patient] ED PROVIDER(S): [Sean Vuong MD] CHIEF COMPLAINT: Dizziness, headache HISTORY OF PRESENT ILLNESS: Patient is a 80-year-old female who presents with the sudden onset of a spinning sensation that began about 2-1/2 hours ago. She complained of nausea as well as a left frontal headache. She complains of photophobia. The patient states that things have improved a bit although the headache is still persisting. There was no one-sided weakness. She did not lose consciousness. No palpitations or chest pain. The patient presents by ambulance. She has a history of brain aneurysms, she states that 2 of the 3 have been clipped or coiled. In addition, the patient has complained of some right lung pain for the last 3 days. PMHx/PSHx/Social Hx: See Below PHYSICAL EXAM: GENERAL: Patient is in no acute distress. HEENT: No acute trauma, normocephalic atraumatic, mucous membranes moist, no nasal congestion. NECK: No stridor, no adenopathy, no meningismus, trachea is midline. LUNGS: Clear to auscultation bilaterally, no wheeze, no rhonchi, breath sounds equal. HEART: Without murmurs gallops or rubs, regular rate and rhythm. ABDOMEN: Soft, nontender, no peritonitis. EXTREMITIES: No cyanosis, full range of motion of all the joints without pain or difficulty. NEUROLOGIC: Oriented x 3, no acute motor deficit, no focal weakness. No cerebellar deficits or extremity drift, no speech slur or facial droop. SKIN: No jaundice, no diaphoresis. DIFFERENTIAL DIAGNOSIS: Stroke, vertigo, intracranial bleeding, aneurysm rupture, electrolyte balance, UTI, among others. EMERGENCY DEPARTMENT PROCEDURES: MEDICAL DECISION MAKING: There is no leukocytosis. A mild anemia was seen. There was a normal platelet count. No coagulopathy. No renal failure or significant electrolyte abnormality. There were some liver enzyme elevations however, the bilirubin was normal. ECG showed a sinus bradycardia, no dysrhythmia or ischemia. Cardiac enzyme testing x 1 was not consistent with acute cardiac injury. Urinalysis did not show findings of infection. Chest x-ray did not show pneumonia or mediastinal widening. Brain CT showed no acute bleed or mass effect. CTA of the head and neck were performed. There was evidence for her prior aneurysm work, there was no large clot, there was no significant stenosis, no new aneurysm visualized. On my exam, the patient had no focal neurologic findings, no speech slur. The patient received IV morphine and IV Zofran. She still complained of a headache and some nausea. She was given IV Compazine and IV Benadryl. The patient is still having symptoms, she still feels quite dizzy, I do not think she is safe to be discharged home. She would benefit from a complete stroke workup in our hospital. The patient is not a candidate for TNK as she has had prior brain aneurysms. Additionally, there are no focal neurologic findings, her stroke scale is 0. I did talk with the patient at length. Hospitalization, further workup, maybe even a neurology consult was felt warranted. I did speak with case management. The on-call hospice was consulted. Of note, the patient does have a history of migraines. With her one-sided headache complaint, her nausea and photophobia, her presentation today may be migraine related. I did discuss this possibility with her. Prior/Outside records/notes reviewed: Today's EMS notes describing her presentation and transport to this hospital. ECG per my interpretation: Indication was possible stroke. The ECG shows what appears to be a sinus bradycardia with a rate of 53. There was no acute ST elevation, no PVCs. The QTc was 395. There is a potential old septal infarct. Continuous Cardiac Monitoring per my interpretation: An order was placed for continuous cardiac monitoring. The monitor shows a rate of 52 with sinus bradycardia. Imaging/x-ray results per my interpretation: Chest x-ray shows a bit of a tortuous aorta, there was no pneumonia or pneumothorax. Film looks similar to previous films. Chronic Medical/Social conditions affecting care: Advanced age, history of previous brain aneurysm. Care/Management discussed with: Case management, the on-call hospitalist. Level of care consideration(s): After review of the information above and other included data: --I believe the patient requires escalation of care to admission DISPOSITION: Admission Past Med/Surg History Problem List (Updated 05/13/25 @ 18:35 by Sean Vuong MD) Brain aneurysm (Acute) Headache (Acute) Stroke-like symptoms (Acute) Nausea (Acute) Dizziness (Acute) COPD (chronic obstructive pulmonary disease) Stroke-like symptoms GERD (gastroesophageal reflux disease) (Acute) Nausea (Acute) Depression Hypothyroidism History of migraine Medical History Chronic respiratory failure Brain aneurysm IBS (irritable bowel syndrome) Hypotension Interstitial lung disease History of CVA (cerebrovascular accident) Headache TIA (transient ischemic attack) Chest pain COPD exacerbation Hypersomnolence DVT prophylaxis Abnormal albumin Mitral regurgitation Compression fracture of T11 vertebra Surgical History (Updated 05/13/25 @ 16:00 by CATE Jasso) History of brain surgery s/p coil and stent History of hysterectomy History of colonoscopy History of cholecystectomy Family History Denies family history of Diabetes Heart disease Social History Smoking Status: Former smoker Tobacco Type: Cigarettes packs per day: 1; Second Hand Exposure: No; Do You Dip or Chew Tobacco: No; Hx Alcohol Use: Yes Alcohol type: wine Alcohol Intake Frequency: 2-3 x/Week Hx Substance Use: No Preferred Language: Tamazight Communication Ability: Effective Box Tender Required: No Beliefs That Will Affect Care: None marital status: Single Current Living Situation: Alone Feels Safe at Home: Yes Assistive Devices: Cane, Oxygen - Continuous and Walker Allergies Allergies Allergy/AdvReac Type Severity Reaction Status Date / Time albuterol Allergy Severe CONVULSIONS--DURING Verified 05/13/25 14:54 BREATHING TEST latex Allergy Severe ITCH/RASH/H Verified 05/13/25 14:54 MAIA acetaminophen Allergy Intermediate ITCH ALL Verified 05/13/25 14:54 OVER cortisone Allergy Mild Rash Verified 05/13/25 14:54 prednisone Allergy Mild Rash Verified 05/13/25 14:54 hydroxyzine AdvReac Severe MOOD Verified 05/13/25 14:54 SWINGS / OUT OF CONTROL Home Meds Home Medications Medication Instructions Recorded Confirmed alprazolam 1 mg tablet (Xanax) 0.5 mg PO BID PRN Anxiety 07/15/19 05/13/25 cyanocobalamin (vitamin B-12) 100 100 mcg PO 3XWK 07/15/19 05/13/25 mcg tablet (Vitamin B-12) fluticasone fur. 100 mcg-umeclid 1 inh inhalation DAILY 06/07/20 05/13/25 62.5 mcg-vilant 25 mcg inhalat.powder (Trelegy Ellipta) omeprazole magnesium 20 mg 20 mg PO DAILY 06/07/20 05/13/25 tablet,delayed release (Prilosec OTC) sertraline 100 mg tablet (Zoloft) 100 mg PO DAILY 06/07/20 05/13/25 trazodone 100 mg tablet 100 mg PO HS 06/07/20 05/13/25 atorvastatin 20 mg tablet 20 mg PO DAILY 03/19/24 05/13/25 clindamycin phosphate 1 % topical 1 applic topical BID PRN acne 03/19/24 05/13/25 gel flares ketoconazole 2 % shampoo 1 applic topical 3XWK 03/19/24 05/13/25 [id number] 8 mg-folic 400 1 tab PO DAILY 03/19/24 05/13/25 mcg-K 50 mcg-lutein 300 mcg tablet (Centrum Silver Women) alendronate 70 mg tablet 70 mg PO WK 05/13/25 05/13/25 ginseng 100 mg capsule 100 mg PO DAILY 05/13/25 05/13/25 ibuprofen 200 mg tablet 200 mg PO Q4H PRN Pain 05/13/25 05/13/25 ipratropium bromide 17 2 puff inhalation Q6H PRN COPD 05/13/25 05/13/25 mcg/actuation HFA aerosol inhaler levothyroxine 75 mcg tablet 75 mcg PO DAILYBB 05/13/25 05/13/25 Previous Rx's Medication Instructions Recorded aspirin 81 mg tablet,delayed 81 mg PO DAILY #90 tabs 07/17/19 release Results & Data (ED) Vital Signs Vital Signs - 24 hr 05/13/25 13:05 05/13/25 13:09 05/13/25 14:26 Temperature 36.5 C Temperature Source Oral Pulse Rate 55 L 52 L Pulse Rate [Apical] 81 Pulse Rhythm Regular Pulse Rhythm [Apical] Pulse Strength [Apical] Respiratory Rate 14 20 Respiratory Effort / Characteristics Non-Labored Spontaneous Non-Labored Respiratory Depth Normal Normal Respiratory Pattern Regular Blood Pressure 150/87 H Blood Pressure [Right Arm] 142/70 H Blood Pressure Mean 108 Blood Pressure Mean [Right Arm] 94 Blood Pressure Position Semi-fowlers Blood Pressure Position [Right Arm] Pulse Oximetry 98 98 Oxygen Delivery Method Nasal Cannula Room Air Oxygen Flow Rate 2.5 Sepsis Recent Fever Within 48 Hours No Sepsis New/Unexplained Change in Mental Status No Sepsis Action Taken by Nursing No Action Required 05/13/25 15:09 05/13/25 16:12 05/13/25 16:50 Temperature Temperature Source Pulse Rate 51 L Pulse Rate [Apical] 52 L 56 L Pulse Rhythm Pulse Rhythm [Apical] Regular Irregular Pulse Strength [Apical] Normal Respiratory Rate 18 18 Respiratory Effort / Characteristics Non-Labored Spontaneous Non-Labored Spontaneous Respiratory Depth Normal Normal Respiratory Pattern Regular Regular Blood Pressure Blood Pressure [Right Arm] 129/72 97/85 L Blood Pressure Mean Blood Pressure Mean [Right Arm] 91 89 Blood Pressure Position Blood Pressure Position [Right Arm] Semi-fowlers Pulse Oximetry 98 96 Oxygen Delivery Method Nasal Cannula Nasal Cannula Oxygen Flow Rate 2.5 2.5 Sepsis Recent Fever Within 48 Hours Sepsis New/Unexplained Change in Mental Status Sepsis Action Taken by Nursing 05/13/25 17:32 Temperature Temperature Source Pulse Rate Pulse Rate [Apical] 83 Pulse Rhythm Pulse Rhythm [Apical] Pulse Strength [Apical] Respiratory Rate 20 Respiratory Effort / Characteristics Non-Labored Respiratory Depth Normal Respiratory Pattern Blood Pressure Blood Pressure [Right Arm] Blood Pressure Mean Blood Pressure Mean [Right Arm] Blood Pressure Position Blood Pressure Position [Right Arm] Pulse Oximetry 98 Oxygen Delivery Method Room Air Oxygen Flow Rate Sepsis Recent Fever Within 48 Hours Sepsis New/Unexplained Change in Mental Status Sepsis Action Taken by Assisted Medications Current Medication List: was personally reviewed by me Laboratory Data Attestation: I reviewed the patient's lab results. 05/13/25 13:01 05/13/25 13:01 Lab Results 05/13/25 05/13/25 Range/Units 13:01 13:15 WBC 5.24 (4.8-10.8) K/ul RBC 3.85 L (4.20-5.40) M/uL Hgb 11.9 L (12.0-16.0) g/dl Hct 36.4 L (37.0-47.0) % MCV 94.5 (80.0-100.0) fL MCH 30.9 (25.0-34.0) pg MCHC 32.7 (32.0-36.0) g/dL RDW Std Deviation 51.3 H (36.4-46.3) fL RDW Coeff of Kimberly 14.8 H (11.5-14.5) % Plt Count 184 (130-400) K/uL MPV 10.2 (9.4-12.4) fL Immature Gran % (Auto) 0.4 % Neut % (Auto) 67.4 % Lymph % (Auto) 19.3 % [place] % (Auto) 9.0 % Eos % (Auto) 3.1 % Baso % (Auto) 0.8 % Neut # (Auto) 3.54 (1.40-6.50) K/uL Lymph # (Auto) 1.01 L (1.20-3.40) K/uL [place] # (Auto) 0.47 (0.11-0.59) K/uL Eos # (Auto) 0.16 (0.00-0.50) K/uL Baso # (Auto) 0.04 (0.00-0.20) K/uL Immature Gran # (Auto) 0.02 (0.01-0.20) K/uL PT 10.5 (9.0-12.0) Seconds INR 1.0 (0.9-1.1) APTT 27 (21-31) Seconds PTT Ratio 1.0 Sodium 136 (136-145) mmol/L Potassium 4.0 (3.5-5.1) mmol/L Chloride 101 (98-107) mmol/L Carbon Dioxide 30 (21-32) mmol/L Anion Gap 5 (3-11) BUN 13 (6-23) mg/dl Creatinine 0.61 (0.6-1.2) mg/dl Est Cr Clr Drug Dosing 72.7 ml/min eGFR 90.89 BUN/Creatinine Ratio 21.3 H (10-20) Glucose 83 (70-99(Fasting)) mg/dl Calcium 9.5 (8.6-10.3) mg/dl Magnesium 1.9 (1.7-2.4) mg/dl Total Bilirubin 0.9 (0.2-1.0) mg/dl AST 70 H (13-39) U/L ALT 69 H (7-52) U/L Alkaline Phosphatase 235 H (34-104) U/L Troponin I High Sens 3.1 (0-14) pg/ml Total Protein 7.0 (6.0-8.3) gm/dl Albumin 3.5 (3.4-5.0) gm/dl Globulin 3.5 (2.5-4.0) gm/dl Albumin/Globulin Ratio 1.0 (0.9-2) Urine Color Yellow Urine Appearance Clear (Clear) Urine pH 7.0 (4.5-7.5) Ur Specific [place] 1.004 (1.000-1.030) Urine Protein Negative (Negative) Urine Glucose (UA) Negative (Negative) Urine Ketones Negative (Negative) Urine Blood Negative (Negative) Urine Nitrite Negative (Negative) Urine Bilirubin Negative (Negative) Urine Urobilinogen Negative (Negative) Ur Leukocyte Esterase Negative (Negative) Urine Comment Administered Medications Discontinued Medications Diphenhydramine HCl (Diphenhydramine 50 Mg/Ml Vial) 12.5 mg IV NOW STA Stop: 05/13/25 15:19 Last Admin: 05/13/25 15:54 Dose: 12.5 mg Documented By: DANYEL Prochlorperazine 5 mg/ Syringe 5 mls @ 5 mls/min IV ONE ONE Stop: 05/13/25 15:46 Last Admin: 05/13/25 15:56 Dose: 5 mls/min Documented By: FG Pantoprazole Sodium (Protonix) 40 mg in 10 mls @ 5 mls/min IV NOW ONE Stop: 05/13/25 16:47 Last Admin: 05/13/25 17:15 Dose: 5 mls/min Documented By: DANYEL Ioversol (Optiray 320 125ml) 120 ml IV ONCE ONE Stop: 05/13/25 14:18 Last Admin: 05/13/25 14:17 Dose: 120 ml Documented By: JAR Morphine Sulfate (Morphine Sulfate 2 Mg/Ml Carp) 2 mg IV NOW STA Stop: 05/13/25 13:19 Last Admin: 05/13/25 13:27 Dose: 2 mg Documented By: FG Morphine Sulfate (Morphine Sulfate 2 Mg/Ml Carp) 2 mg IV NOW STA Stop: 05/13/25 15:19 Last Admin: 05/13/25 15:55 Dose: 2 mg Documented By: FG Ondansetron HCl (Ondansetron Inj 2 Mg/Ml 2 Ml Vial) 4 mg IV NOW STA Stop: 05/13/25 13:16 Last Admin: 05/13/25 13:27 Dose: 4 mg Documented By: DANYEL Imaging Data Radiologist's Impression: Chest X-Ray 05/13/25 13:15 XR chest 1V portable CLINICAL HISTORY: neuro deficit, acute stroke suspected COMPARISON STUDY: 10/27/2024 FINDINGS: Heart size and pulmonary vasculature are normal. Stable mild elevation of the right hemidiaphragm. No consolidation or pleural effusion. No pneumothorax. IMPRESSION: No acute findings. ACT 112: Negative or not required by law. Electronically signed by: John Don M.D. 05/13/2025 1:[address] 05/13/25 13:15 CT head/brain wo con CLINICAL HISTORY: 80 years-old Female with neuro deficit, acute stroke suspected. Acute dizziness TECHNIQUE: Multiple axial CT images of the head were obtained without contrast. A dose lowering technique was utilized adhering to the principles of ALARA. COMPARISON: CTA had of same day, head CT 03/19/2024 FINDINGS: No acute intracranial hemorrhage, midline shift, intracranial mass, hydrocephalus, territorial ischemia or abnormal extra-axial collection. Involutional changes with chronic microvascular ischemic disease redemonstrated. Aneurysm coils are again noted within the right suprasellar distribution. The calvarium is intact. The paranasal sinuses, mastoid air cells, and middle ear cavities are clear. IMPRESSION: No acute intracranial abnormality. ACT 112: Negative or not required by law. The above report was generated using voice recognition software. It may contain grammatical, syntax or spelling errors. Electronically signed by: Christophe Serrano M.D. 05/13/2025 2:40 PM Head CTA 05/13/25 13:15 CTA ANGIOGRAPHY OF THE HEAD CLINICAL HISTORY: neuro deficit, acute stroke suspected. Dizziness. COMPARISON STUDY: CTA of the head July 15, 2019. Head CT March 19, 2024. TECHNIQUE: Helical axial images of the head were obtained following uneventful intravenous administration of 120 cc of Optiray. Sagittal and coronal reconstructions were viewed as well as maximal intensity projections on an independent 3-D workstation. Automated exposure control was utilized for the study. A dose lowering technique was utilized adhering to the principles of ALARA. 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 This exam is mildly compromised given extensive associated streak artifact. The bilateral M1, M2, A1 and A2 segments are patent. No additional intracranial aneurysms are identified. The posterior circulation is intact. The left vertebral artery is dominant. No intracranial vessel occlusion is identified. Irregularity proximal right posterior cerebral artery is noted. This may be artifactual however mild to moderate stenoses could appear similar. IMPRESSION: 1. 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 2. No large vessel occlusion. 3. Mild to moderate stenosis of the proximal right posterior cerebral artery, possibly artifactual. ACT 112: Negative or not required by law. Electronically signed by: Terry López M.D. 05/13/2025 2:48 PM Neck CTA 05/13/25 13:15 CT angio neck with con CLINICAL HISTORY: neuro deficit, acute stroke suspected. TECHNIQUE: Following the IV administration of 120 of Optiray, CT angiogram of the neck was performed from the aortic arch to the skull base. Images are reviewed in the axial, sagittal, and coronal planes. 3-D MIPS images are created and assessed. IV contrast was administered without complication. All measurements were calculated based on NASCET criteria. A dose lowering technique was utilized adhering to the principles of ALARA. CT DOSE: 1013.55 mGy.cm COMPARISON STUDY: None FINDINGS: Straight artifact from aneurysm coils obscures the distal most aspect of the right internal carotid artery. There are mild calcifications at the carotid bulbs and distally at the internal carotid arteries bilaterally. Left vertebral artery is dominant and the right vertebral artery is diminutive beyond PICA, anatomic variant. No significant narrowing or occlusion seen at the common or internal carotid arteries or vertebral arteries bilaterally. IMPRESSION: No significant arterial narrowing or occlusion seen at the neck. ACT 112: Negative or not required by law. The above report was generated using voice recognition software. It may contain grammatical, syntax or spelling errors. Electronically signed by: John Don M.D. 05/13/2025 2:40 PM Discharge Plan Visit Data Chief Complaint: Dizziness Stated Complaint: hx of aneurysm ED Provider: Sean Vuong Discharge Problem: Dizziness, Nausea, Stroke-like symptoms, Headache, Brain aneurysm Patient Disposition: Admitted As Inpatient Condition: Fair Discharge Instructions Interventions: ED Discharge Assessment Last Done: 05/13/25 18:35 Forms Stand Alone Forms: [facility] biometrics, Important Visit Information Prescriptions Prescriptions: No Action cyanocobalamin (vitamin B-12) [Vitamin B-12] 100 mcg Tablet 100 mcg PO 3XWK Rx Instructions: MON, WED, & FRI alprazolam [Xanax] 1 mg Tablet 0.5 mg PO BID PRN (Reason: Anxiety) aspirin 81 mg tablet,delayed release (DR/EC) 81 mg PO DAILY Qty: 90 1RF sertraline [Zoloft] 100 mg tablet 100 mg PO DAILY trazodone 100 mg tablet 100 mg PO HS omeprazole magnesium [Prilosec OTC] 20 mg Tablet,Delayed Release (Dr/Ec) 20 mg PO DAILY Trelegy Ellipta 100-62.5-25 mcg blister with device 1 inh INHALATION DAILY ginseng 100 mg Capsule 100 mg PO DAILY alendronate 70 mg tablet 70 mg PO WK levothyroxine 75 mcg tablet 75 mcg PO DAILYBB ibuprofen 200 mg Tablet 200 mg PO Q4H PRN (Reason: Pain) ipratropium bromide 17 mcg/actuation Hfa Aerosol Inhaler 2 puff INHALATION Q6H PRN (Reason: COPD) atorvastatin 20 mg tablet 20 mg PO DAILY Centrum Silver Women 8 mg iron-400 mcg-50 mcg Tablet 1 tab PO DAILY ketoconazole 2 % shampoo 1 applic TOPICAL 3XWK clindamycin phosphate 1 % gel 1 applic TOPICAL BID PRN (Reason: acne flares) Referrals Referrals: John Roa MD [Primary Care Provider] - Discharge Problem: Headache Qualifiers: Headache type: unspecified Headache chronicity pattern: acute headache I ntractability: not intractable Qualified Code(s): R51.9 - Headache, unspecified
[2025-05-13 13:44] LABS: Appearance Urine Clear (Clear); Glucose Urine UA Negative (Negative)
--- NOTE | 2025-05-13 13:49 | XRay Report ---
XR chest 1V portable CLINICAL HISTORY: neuro deficit, acute stroke suspected COMPARISON STUDY: 10/27/2024 FINDINGS: Heart size and pulmonary vasculature are normal. Stable mild elevation of the right hemidia phragm. No consolidation or pleural effusion. No pneumothorax. IMPRESSION: No acute findings. ACT 112: Negative or not required by law. Electronically signed by: John Don M.D. 05/13/2025 1:48 PM
[2025-05-13 13:57] LABS: Hematocrit (blood only) 36.4 % (37.0-47.0); Hemoglobin 11.9 g/dl (12.0-16.0); Immature Granulocytes # (auto) 0.02 K/uL (0.01-0.20); Immature Granulocytes % (auto) 0.4 %; Mean Corpuscular Hemoglobin 30.9 pg (25.0-34.0); Mean Corpuscular Volume 94.5 fL (80.0-100.0); Platelet Count 184 K/uL (130-400); RDW Standard Deviation 51.3 fL (36.4-46.3); Red Blood Count 3.85 M/uL (4.20-5.40); White Blood Count 5.24 K/ul (4.8-10.8)
[2025-05-13 14:02] LABS: Alanine Aminotransferase 69.0 U/L (7-52); Albumin Globulin Ratio 1.0 (0.9-2); Alkaline Phosphatase 235.0 U/L (34-104); Anion Gap 5.0 (3-11); Bilirubin,Total 0.9 mg/dl (0.2-1.0); Blood Urea Nitrogen 13.0 mg/dl (6-23); Calcium 9.5 mg/dl (8.6-10.3); Carbon Dioxide 30.0 mmol/L (21-32); Chloride 101.0 mmol/L (98-107); Creatinine Clr Calc Pharmacy 72.7 ml/min; Globulin 3.5 gm/dl (2.5-4.0); Glucose 83.0 mg/dl (70-99(Fasting)); Magnesium 1.9 mg/dl (1.7-2.4); Potassium 4.0 mmol/L (3.5-5.1); Sodium 136.0 mmol/L (136-145); Total Protein 7.0 gm/dl (6.0-8.3)
[2025-05-13 14:06] LABS: INR 1.0 (0.9-1.1); Partial Thromboplastin Time 27 Seconds (21-31); Prothrombin Time 10.5 Seconds (9.0-12.0)
[2025-05-13] MEDS: OPTIRAY 320 125ml IV ONE (14:17)
--- NOTE | 2025-05-13 14:41 | CT Scan Report ---
CT angio neck with con CLINICAL HISTORY: neuro deficit, acute stroke suspected. TECHNIQUE: Following the IV administration of 120 of Optiray, CT angiogram of the neck was performed from the aortic arch to the skull base. Images are reviewed in the axial, sagittal, and coronal plane s. 3-D MIPS images are created and assessed. IV contrast was administered without complication. All m easurements were calculated based on NASCET criteria. A dose lowering technique was utilized adherin g to the principles of ALARA. CT DOSE: 1013.55 mGy.cm COMPARISON STUDY: None FINDINGS: Straight artifact from aneurysm coils obscures the distal most aspect of the right internal carotid artery. There are mild calcifications at the carotid bulbs and distally at the internal roberts tid arteries bilaterally. Left vertebral artery is dominant and the right vertebral artery is diminut elena beyond PICA, anatomic variant. No significant narrowing or occlusion seen at the common or graduate internship al carotid arteries or vertebral arteries bilaterally. IMPRESSION: No significant arterial narrowing or occlusion seen at the neck. ACT 112: Negative or not required by law. The above report was generated using voice recognition software. It may contain grammatical, syntax o r spelling errors. Electronically signed by: John Don M.D. 05/13/2025 2:40 PM
--- NOTE | 2025-05-13 14:42 | CT Scan Report ---
CT head/brain wo con CLINICAL HISTORY: 80 years-old Female with neuro deficit, acute stroke suspected. Acute dizziness TECHNIQUE: Multiple axial CT images of the head were obtained without contrast. A dose lowering tech nique was utilized adhering to the principles of ALARA. COMPARISON: CTA had of same day, head CT 03/19/2024 FINDINGS: No acute intracranial hemorrhage, midline shift, intracranial mass, hydrocephalus, territorial ischem ia or abnormal extra-axial collection. Involutional changes with chronic microvascular ischemic disea se redemonstrated. Aneurysm coils are again noted within the right suprasellar distribution. The calvarium is intact. The paranasal sinuses, mastoid air cells, and middle ear cavities are clear . IMPRESSION: No acute intracranial abnormality. ACT 112: Negative or not required by law. The above report was generated using voice recognition software. It may contain grammatical, syntax o r spelling errors. Electronically signed by: Christophe Serrano M.D. 05/13/2025 2:40 PM
--- NOTE | 2025-05-13 14:49 | CT Scan Report ---
CTA ANGIOGRAPHY OF THE HEAD CLINICAL HISTORY: neuro deficit, acute stroke suspected. Dizziness. COMPARISON STUDY: CTA of the head July 15, 2019. Head CT March 19, 2024. TECHNIQUE: Helical axial images of the head were obtained following uneventful intravenous administr ation of 120 cc of Optiray. Sagittal and coronal reconstructions were viewed as well as maximal inten sity projections on an independent 3-D workstation. Automated exposure control was utilized for the study. A dose lowering technique was utilized adhering to the principles of ALARA. 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 This exam is mildly compromised given extensive associated streak artifact. The bilatera l M1, M2, A1 and A2 segments are patent. No additional intracranial aneurysms are identified. The pos terior circulation is intact. The left vertebral artery is dominant. No intracranial vessel occlusion is identified. Irregularity proximal right posterior cerebral artery is noted. This may be artifactu al however mild to moderate stenoses could appear similar. IMPRESSION: 1. 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 2. No large vessel occlusion. 3. Mild to moderate stenosis of the proximal right posterior cerebral artery, possibly artifactual. ACT 112: Negative or not required by law. Electronically signed by: Terry López M.D. 05/13/2025 2:48 PM
[2025-05-13] MEDS ORDERED: PROCHLORPERAZINE 5 MG in SYRINGE 8 ML IV ONE (15:18)
[2025-05-13] MEDS: diphenhydrAMINE 50 MG/ML VIAL IV STA (15:54)
[2025-05-13] MEDS: PROCHLORPERAZINE 5 MG in SYRINGE 4 ML IV ONE (15:56)
--- NOTE | 2025-05-13 16:03 | History & Physical Report ---
Date of Service May 13, 2025 Assessment & Plan (1) Stroke-like symptoms: (2) History of CVA (cerebrovascular accident): (3) History of migraine: (4) GERD (gastroesophageal reflux disease): (5) COPD (chronic obstructive pulmonary disease): (6) Hypothyroidism: (7) Depression: Plan 80 year old female with PMH significant for hypothyroidism, chronic hypoxemic respiratory failure, COPD, right pulmonary nodule, GERD, osteoporosis, history of migraines, depression and bipolar disorder who presented to the ED on 05/13/2025 with acute onset of dizziness and possible stroke like symptoms and is being admitted for further workup. Stroke-like symptoms History of CVA History of brain aneurysm History of migraine Acute onset of dizziness with impaired motor function of hands and numbness of bottom lip that resolved Differentials include TIA, atypical migraine, vertigo Head CT negative Head CTA with stable findings following treatment of BERTHA aneurysm, no large vessel occlusion, mild to moderate stenosis of proximal right posterior cerebral artery but possibly artifact Neck CTA negative Obtain MRI w/wo contrast Neuro consult given symptoms and complex history PT/OT/ST Continue baby aspirin and atorvastatin GERD Patient reporting indigestion in the ED IV protonix x1 Continue oral PPI Clear liquid diet Antiemetics PRN COPD On 2.5L continuously at home Continue inhalers Hypothyroidism Continue levothyroxine Depression Bipolar disorder Continue alprazolam, sertraline, trazodone DVT Prophylaxis: SCDs for now Code Status: FULL CODE - As per discussion at bedside with the patient. PCP: John Roa Disposition: admit to med surg tele Patient seen in collaboration with Dr Abdi. Please see addendum. I spent a total of 70 minutes coordinating, documenting and providing care for this patient excluding time spent in the performance of separately billed services or time spent by another provider/QHP. Admission and Anticipated Discharge Date Admission Date: 05/13/2025 History of Present Illness Chief Complaint: dizziness Primary Care Provider: John Roa MD 80 year old female with PMH significant for hypothyroidism, chronic hypoxemic respiratory failure, COPD, right pulmonary nodule, GERD, osteoporosis, history of migraines, depression and bipolar disorder who presented to the ED on 05/13/2025 with acute onset of dizziness today. Patient reports that she was on her computer playing Word[employer] and Spelling [employer] when she felt like the room started spinning. She felt as though she couldn't move her hands in the way she was trying to and endorses numbness of her bottom lip. She felt like she was going to pass out, but did not. The sensation of room spinning resolved but patient reports she continued to not feel well and notes she was shaking, had a headache, nausea without vomiting, and photophobia. She has a history of migraines where she describes visual disturbances are typical for her. This episode did not feel like her typical migraine. She denies visual disturbances during this episode, also denies weakness in her extremities, changes in speech or balance. Currently, she has a headache and nausea as well as epigastric discomfort with a lot of indigestion. Denies fevers, chills, cough, cold symptoms, chest pain, SOB outside of her baseline with COPD, abdominal pain, diarrhea. Notes dysuria over the last week. She lives at home alone and had a PT coming to her house for exercises twice a week. Denies recent falls. Allergies Allergy/AdvReac Type Severity Reaction Status Date / Time albuterol Allergy Severe CONVULSIONS--DURING Verified 05/13/25 14:54 BREATHING TEST latex Allergy Severe ITCH/RASH/H Verified 05/13/25 14:54 MAIA acetaminophen Allergy Intermediate ITCH ALL Verified 05/13/25 14:54 OVER cortisone Allergy Mild Rash Verified 05/13/25 14:54 prednisone Allergy Mild Rash Verified 05/13/25 14:54 hydroxyzine AdvReac Severe MOOD Verified 05/13/25 14:54 SWINGS / OUT OF CONTROL Home Medications Medication Instructions Recorded Confirmed Type alprazolam 1 mg tablet (Xanax) 0.5 mg PO BID PRN Anxiety 07/15/19 05/13/25 History cyanocobalamin (vitamin B-12) 100 100 mcg PO 3XWK 07/15/19 05/13/25 History mcg tablet (Vitamin B-12) aspirin 81 mg tablet,delayed 81 mg PO DAILY #90 tabs 07/17/19 05/13/25 Rx release fluticasone fur. 100 mcg-umeclid 1 inh inhalation DAILY 06/07/20 05/13/25 History 62.5 mcg-vilant 25 mcg inhalat.powder (Trelegy Ellipta) omeprazole magnesium 20 mg 20 mg PO DAILY 06/07/20 05/13/25 History tablet,delayed release (Prilosec OTC) sertraline 100 mg tablet (Zoloft) 100 mg PO DAILY 06/07/20 05/13/25 History trazodone 100 mg tablet 100 mg PO HS 06/07/20 05/13/25 History atorvastatin 20 mg tablet 20 mg PO DAILY 03/19/24 05/13/25 History clindamycin phosphate 1 % topical 1 applic topical BID PRN acne 03/19/24 05/13/25 History gel flares ketoconazole 2 % shampoo 1 applic topical 3XWK 03/19/24 05/13/25 History tbxjpqgy-jgkz-isse 8 mg-folic 400 1 tab PO DAILY 03/19/24 05/13/25 History mcg-K 50 mcg-lutein 300 mcg tablet (Centrum Silver Women) alendronate 70 mg tablet 70 mg PO WK 05/13/25 05/13/25 History ginseng 100 mg capsule 100 mg PO DAILY 05/13/25 05/13/25 History ibuprofen 200 mg tablet 200 mg PO Q4H PRN Pain 05/13/25 05/13/25 History ipratropium bromide 17 2 puff inhalation Q6H PRN COPD 05/13/25 05/13/25 History mcg/actuation HFA aerosol inhaler levothyroxine 75 mcg tablet 75 mcg PO DAILYBB 05/13/25 05/13/25 History Past Med/Surg History Problem List (Updated 05/13/25 @ 18:35 by Sean Vuong MD) Brain aneurysm (Acute) Headache (Acute) Stroke-like symptoms (Acute) Nausea (Acute) Dizziness (Acute) COPD (chronic obstructive pulmonary disease) Stroke-like symptoms GERD (gastroesophageal reflux disease) (Acute) Nausea (Acute) Depression Hypothyroidism History of migraine Medical History Chronic respiratory failure Brain aneurysm IBS (irritable bowel syndrome) Hypotension Interstitial lung disease History of CVA (cerebrovascular accident) Headache TIA (transient ischemic attack) Chest pain COPD exacerbation Hypersomnolence DVT prophylaxis Abnormal albumin Mitral regurgitation Compression fracture of T11 vertebra Surgical History (Updated 05/13/25 @ 16:00 by CATE Jasso) History of brain surgery s/p coil and stent History of hysterectomy History of colonoscopy History of cholecystectomy Family History Denies family history of Diabetes Heart disease Social History Smoking Status: Former smoker Tobacco Type: Cigarettes packs per day: 1; Second Hand Exposure: No; Do You Dip or Chew Tobacco: No; Hx Alcohol Use: Yes Alcohol type: wine Alcohol Intake Frequency: 2-3 x/Week Hx Substance Use: No Preferred Language: Slovenian Communication Ability: Effective Locator Required: No Beliefs That Will Affect Care: None marital status: Single Current Living Situation: Alone Feels Safe at Home: Yes Assistive Devices: Cane, Oxygen - Continuous and Walker Review of Systems Review of Systems: All systems reviewed & are unremarkable except as noted in HPI & below Physical Exam Physical Exam: General/Psych: WD/WN, sitting up in bed, NAD, conversing easily, euthymic affect Head: normocephalic, atraumatic Eyes: normal inspection, PERRL, conjunctivae pink, anicteric sclerae ENT: external ear and nose normal, oropharynx normal Neck: normal visual inspection, trachea midline, no thyromegaly Respiratory: normal respiratory effort, lungs clear to auscultation, no wheeze/rales/rhonchi, no accessory muscle use Cardiovascular: regular rate and rhythm, no murmur/rub/gallop, no JVD Extremities: no cyanosis or clubbing, normal peripheral pulses, no BLE edema Abdomen/GI: normal bowel sounds, soft, nontender, no hepatosplenomegaly Neurologic/MSK: A+Ox3, CN's II-XI intact bilaterally, motor strength 5/5, moves all extremities, no neuro deficits appreciated Skin: no rashes, normal color, warm and dry Results & Data Results & Data Vital Signs (Past 12 Hours) Vital Signs Temp Pulse Pulse Resp BP BP Pulse Ox 05/13/25 15:09 52 L 18 129/72 98 05/13/25 14:26 81 20 142/70 H 98 05/13/25 13:09 36.5 C 52 L 14 150/87 H 98 05/13/25 13:05 55 L O2 Del Method O2 Flow Rate 05/13/25 15:09 Nasal Cannula 2.5 05/13/25 14:26 Room Air 05/13/25 13:09 Nasal Cannula 2.5 05/13/25 13:05 Laboratory Results Short CBC 05/13/25 Range/Units 13:01 WBC 5.24 (4.8-10.8) K/ul Hgb 11.9 L (12.0-16.0) g/dl Hct 36.4 L (37.0-47.0) % Plt Count 184 (130-400) K/uL BMP 05/13/25 13:01 Sodium 136 Potassium 4.0 Chloride 101 Carbon Dioxide 30 BUN 13 Creatinine 0.61 Glucose 83 Calcium 9.5 Liver Function 05/13/25 Range/Units 13:01 Total Bilirubin 0.9 (0.2-1.0) mg/dl AST 70 H (13-39) U/L ALT 69 H (7-52) U/L Alkaline Phosphatase 235 H (34-104) U/L Albumin 3.5 (3.4-5.0) gm/dl Urine 05/13/25 Range/Units 13:15 Urine Color Yellow Urine Appearance Clear (Clear) Urine pH 7.0 (4.5-7.5) Ur Specific [place] 1.004 (1.000-1.030) Urine Protein Negative (Negative) Urine Glucose (UA) Negative (Negative) I have independently reviewed and interpreted patient's admitting labs including CBC, CMP, PTT, PT/INR, mag and troponin, UA Diagnostic Findings Chest X-Ray 05/13/25 13:15 XR chest 1V portable CLINICAL HISTORY: neuro deficit, acute stroke suspected COMPARISON STUDY: 10/27/2024 FINDINGS: Heart size and pulmonary vasculature are normal. Stable mild elevation of the right hemidiaphragm. No consolidation or pleural effusion. No pneumothor ax. IMPRESSION: No acute findings. ACT 112: Negative or not required by law. Electronically signed by: John Don M.D. 05/13/2025 1:[address] 05/13/25 13:15 CT head/brain wo con CLINICAL HISTORY: 80 years-old Female with neuro deficit, acute stroke suspected. Acute dizziness TECHNIQUE: Multiple axial CT images of the head were obtained without contrast. A dose lowering technique was utilized adhering to the principles of ALARA. COMPARISON: CTA had of same day, head CT 03/19/2024 FINDINGS: No acute intracranial hemorrhage, midline shift, intracranial mass, hydrocephalus, territorial ischemia or abnormal extra-axial collection. Involutional changes with chronic microvascular ischemic disease redemonstrated. Aneurysm coils are again noted within the right suprasellar distribution. The calvarium is intact. The paranasal sinuses, mastoid air cells, and middle ear cavities are clear. IMPRESSION: No acute intracranial abnormality. ACT 112: Negative or not required by law. The above report was generated using voice recognition software. It may contain grammatical, syntax or spelling errors. Electronically signed by: Christophe Serrano M.D. 05/13/2025 2:40 PM Head CTA 05/13/25 13:15 CTA ANGIOGRAPHY OF THE HEAD CLINICAL HISTORY: neuro deficit, acute stroke suspected. Dizziness. COMPARISON STUDY: CTA of the head July 15, 2019. Head CT March 19, 2024. TECHNIQUE: Helical axial images of the head were obtained following uneventful intravenous administration of 120 cc of Optiray. Sagittal and coronal reconstructions were viewed as well as maximal intensity projections on an independent 3-D workstation. Automated exposure control was utilized for the study. A dose lowering technique was utilized adhering to the principles of ALARA. 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 This exam is mildly compromised given extensive associated streak artifact. The bilateral M1, M2, A1 and A2 segments are patent. No additional intracranial aneurysms are identified. The posterior circulation is intact. The left vertebral artery is dominant. No intracranial vessel occlusion is identified. Irregularity proximal right posterior cerebral artery is noted. This may be artifactual however mild to moderate stenoses could appear similar. IMPRESSION: 1. 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 2. No large vessel occlusion. 3. Mild to moderate stenosis of the proximal right posterior cerebral artery, possibly artifactual. ACT 112: Negative or not required by law. Electronically signed by: Terry López M.D. 05/13/2025 2:48 PM Neck CTA 05/13/25 13:15 CT angio neck with con CLINICAL HISTORY: neuro deficit, acute stroke suspected. TECHNIQUE: Following the IV administration of 120 of Optiray, CT angiogram of the neck was performed from the aortic arch to the skull base. Images are reviewed in the axial, sagittal, and coronal planes. 3-D MIPS images are created and assessed. IV contrast was administered without complication. All measurements were calculated based on NASCET criteria. A dose lowering technique was utilized adhering to the principles of ALARA. CT DOSE: 1013.55 mGy.cm COMPARISON STUDY: None FINDINGS: Straight artifact from aneurysm coils obscures the distal most aspect of the right internal carotid artery. There are mild calcifications at the carotid bulbs and distally at the internal carotid arteries bilaterally. Left vertebral artery is dominant and the right vertebral artery is diminutive beyond PICA, anatomic variant. No significant narrowing or occlusion seen at the common or internal carotid arteries or vertebral arteries bilaterally. IMPRESSION: No significant arterial narrowing or occlusion seen at the neck. ACT 112: Negative or not required by law. The above report was generated using voice recognition software. It may contain grammatical, syntax or spelling errors. Electronically signed by: John Don M.D. 05/13/2025 2:40 PM ECG Additional Comments: I have independently reviewed and interpreted patient's admitting EKG which revealed: sinus my at a rate of 53 bpm Code Status & VTE Plan Code Status Full Code Supervising Physician Co-Signing Physician Notes I have seen and discussed the case with the collaborating advanced practitioner. I agree with the above H&P. I have reviewed and confirmed the patients medical history, the findings on physical examination, and the patients diagnosis and treatment plan with Brad ESPOSITO and agree with the information documented. In short, Brittany is a 74 year old female with a H brain aneurysm s/p coiling, stroke, IBS, COPD admitted for stroke like symptoms. She reports an episode of room spinning that felt like she "was dying" as her lip went numb and she couldnt move her hands. She denies any residual symptoms at time of exam and reports feeling scared. Reassurance provided. Repeat blood pressures in 130s despite documented 90s. Patient without chest pain, residual neuro deficit, or other acute concerns. She states this is not like prior migraines. Exam is without focal deficit. no nystagmus noted. cranial nerves II-XII intact. #Dizziness #Stroke like symptoms #Hx of migraines CTA without stenosis noted or acute process MRI to r/o vestibular process suspect possible migrainous process, however given history patient feels more comfortable with neuro consult rest of plan as above I spent a total of 25 minutes coordinating, documenting, and providing care for this patient excluding time spent in the performance of separately billed services. All of the aforementioned completed outside of collaborating with the assigned advanced practitioner for a full treatment plan. I have reviewed the advanced practitioner's documentation, and I agree with, and take responsibility for the plan of care (5) COPD (chronic obstructive pulmonary disease) COPD type: unspecified COPD Qualified Code(s): J44.9 - Chronic obstructive pulmonary disease, unspecified
[2025-05-13] MEDS: PANTOprazole 40 MG/10 ML SYR IV ONE (17:15)
[2025-05-13] MEDS: GADOBUTROL 65ML VIAL IV ONE (18:56)
--- NOTE | 2025-05-13 19:27 | Magnetic Resonance Report ---
MRI of the brain performed with and without IV contrast History: Dizziness Comparison: 07/16/2019 Technique: Multiplanar T1 weighted, axial T2/FLAIR, and susceptibility images were obtained without intravenous contrast. Following intravenous gadolinium based contrast administration, axial T2 weighted, diffusion, and T1-weighted images were obtained. Findings: No evidence for intracranial mass lesion, mass-effect, midline shift, or abnormal extra-axial fluid collection. Postcontrast images demonstrate no abnormal intracranial enhancement. The orbits are grossly unremarkable. Moderate cerebral atrophy. Mild chronic microvascular ischemic changes in the white matter vascular coil about the right frontal circulation. No abnormally reduced diffusion or evidence for acute infarct. Normal intravascular flow voids. Bilateral pseudophakia. Bilateral mastoid air cell effusions. Impression: Normal brain MRI with and without IV contrast Electronically signed by Abiel Reaves 05-13-2025 7:27 PM
[2025-05-13] MEDS ORDERED: POLYETHYLENE (MIRALAX) 17 GM PACK PO PRN (19:49)
[2025-05-13] MEDS ORDERED: MAGNESIUM HYDROXIDE SUSP 30 ML UDC PO PRN (19:49)
[2025-05-13] MEDS ORDERED: IPRATROPIUM BROMIDE HFA INHALER INH PRN (19:49)
[2025-05-13] MEDS ORDERED: ONDANSETRON INJ 2 MG/ML 2 ML VIAL IV PRN (19:49)
[2025-05-13] MEDS: SERTRALINE HCL 100 MG TABLET PO SCH (22:41)
[2025-05-13] MEDS: PROMETHAZINE 12.5 MG/50.5 ML BAG IV STA (22:41)
[2025-05-14] MEDS: LEVOTHYROXINE SODIUM 75 MCG TABLET PO SCH (06:38)
[2025-05-14 07:56] LABS: Hematocrit (blood only) 34.4 % (37.0-47.0); Hemoglobin 11.3 g/dl (12.0-16.0); Mean Corpuscular Hemoglobin 31.1 pg (25.0-34.0); Mean Corpuscular Volume 94.8 fL (80.0-100.0); Platelet Count 175 K/uL (130-400); RDW Standard Deviation 50.2 fL (36.4-46.3); Red Blood Count 3.63 M/uL (4.20-5.40); White Blood Count 4.15 K/ul (4.8-10.8)
[2025-05-14 08:14] LABS: Anion Gap 3.0 (3-11); Blood Urea Nitrogen 13.0 mg/dl (6-23); Calcium 9.2 mg/dl (8.6-10.3); Carbon Dioxide 32.0 mmol/L (21-32); Chloride 104.0 mmol/L (98-107); Creatinine Clr Calc Pharmacy 69.3 ml/min; Glucose 77.0 mg/dl (70-99(Fasting)); Potassium 4.0 mmol/L (3.5-5.1); Sodium 139.0 mmol/L (136-145)
[2025-05-14] MEDS: ATORVASTATIN 20 MG TAB PO SCH (08:26)
[2025-05-14] MEDS: ASPIRIN 81 MG ECTAB PO SCH (08:26)
[2025-05-14] MEDS: FLUTICASONE FUROATE 100MCG 14 PUFFS/INHALER INH SCH (08:27)
[2025-05-14] MEDS: UMECLIDINIUM/VILANTEROL 62.5/25MCG 7 PUFFS/INHALER INH SCH (08:28)
[2025-05-14] MEDS ORDERED: NON-FORMULARY MEDICATION (Fluticasone-Umeclidin-Vilanter [Trelegy Ellipta] 100-62.5-25 mcg INH SCH (09:00)
[2025-05-14] MEDS ORDERED: SERTRALINE HCL 100 MG TABLET PO SCH (09:00)
[2025-05-14 12:24] VITALS: BP 97/58; RESP 18; TEMP 98.8; O2SAT 93
--- NOTE | 2025-05-14 12:40 | Neurology Consultation ---
Date of Consultation May 14, 2025 Assessment & Plan (1) Headache: -- Treat with migraine cocktail including IV Toradol, Magnesium, IVF, +/- IV compazine and benadryl (may have negative effect in elderly age) -- Can attempt low dose muscle relaxant given neck stiffness (low dose tizanidine to start and monitor for side effect) -- Consider Rheumatologic consult given recently taken off medication -- Neurology follow-up -- If symptoms improve, pt is ok for discharge from neuro standpoint. (2) Vertigo: -- If recurs can attempt meclizine v low dose valium for symptomatic treatment and consider balance center referral. Plan 80 yo woman w/ h/o R ICA aneurysm clipping, migraines, RA who presents for sudden onset vertigo, clumsiness in setting of headache N/V. Negative MRI for stroke makes this presentation most consistent with migraine phenomenon. If vertigo recurs may need to consider additional peripheral cause such as BPPV. Would treat as below: Telehealth Consultation Telehealth Information Telehealth Information: I performed this visit using a real-time telehealth connection between my location and the patients location ([facility]). After connecting through interactive tele-video, patient was identified by name and date of and/or wristband check.Patient (or authorized healthcare business banking representative) was informed that this was a telemedicine visit and it was being conducted confidentially over secure lines. My office door was closed and no one else was present in the room with me.Patient (or authorized healthcare business banking representative) provided consent to proceed with the visit, expressed an understanding of privacy and security of the telemedicine visit, and gave permission to have a hospital business banking representative in the room in order to assist with the visit and to conduct portions of the visit, as needed. I informed the patient (or authorized healthcare business banking representative) that I reviewed their record and presented the opportunity for them to ask any questions regarding the visit today. The patient agreed to participate. History of Present Illness Reason for Consultation: vertigo, headache Requesting Physician: Dr. Granados Attending Physician: Vernon Granados DO History of Present Illness Patient presented to ED yesterday after sudden onset room spinning difficulty that lasted 20 minutes and was accompanied by b/l hand clumsiness, imbalance, N/V, lower lip numbness. Today she states she only has a headache. She states that the vertigo has not recurred since yesterday. She does have a history of migraines but has never had dizziness associated with it. Per chart review she was seen in 2019 for AMS and headache with a negative MRI. She states about four days prior she had neck pain and her neck has been stiff since. She has a history of multiple neck fractures and T8 fractures due to trauma. She currently denies numbness/weakness. Allergies Allergy/AdvReac Type Severity Reaction Status Date / Time albuterol Allergy Severe CONVULSIONS--DURING Verified 05/13/25 14:54 BREATHING TEST latex Allergy Severe ITCH/RASH/H Verified 05/13/25 14:54 MAIA acetaminophen Allergy Intermediate ITCH ALL Verified 05/13/25 14:54 OVER cortisone Allergy Mild Rash Verified 05/13/25 14:54 prednisone Allergy Mild Rash Verified 05/13/25 14:54 hydroxyzine AdvReac Severe MOOD Verified 05/13/25 14:54 SWINGS / OUT OF CONTROL Home Medications Medication Instructions Recorded Confirmed Type alprazolam 1 mg tablet (Xanax) 0.5 mg PO BID PRN Anxiety 07/15/19 05/13/25 History cyanocobalamin (vitamin B-12) 100 100 mcg PO 3XWK 07/15/19 05/13/25 History mcg tablet (Vitamin B-12) aspirin 81 mg tablet,delayed 81 mg PO DAILY #90 tabs 07/17/19 05/13/25 Rx release fluticasone fur. 100 mcg-umeclid 1 inh inhalation DAILY 06/07/20 05/13/25 History 62.5 mcg-vilant 25 mcg inhalat.powder (Trelegy Ellipta) omeprazole magnesium 20 mg 20 mg PO DAILY 06/07/20 05/13/25 History tablet,delayed release (Prilosec OTC) sertraline 100 mg tablet (Zoloft) 100 mg PO DAILY 06/07/20 05/13/25 History trazodone 100 mg tablet 100 mg PO HS 06/07/20 05/13/25 History atorvastatin 20 mg tablet 20 mg PO DAILY 03/19/24 05/13/25 History clindamycin phosphate 1 % topical 1 applic topical BID PRN acne 03/19/24 05/13/25 History gel flares ketoconazole 2 % shampoo 1 applic topical 3XWK 03/19/24 05/13/25 History ombcoamm-ftnj-qyan 8 mg-folic 400 1 tab PO DAILY 03/19/24 05/13/25 History mcg-K 50 mcg-lutein 300 mcg tablet (Centrum Silver Women) alendronate 70 mg tablet 70 mg PO WK 05/13/25 05/13/25 History ginseng 100 mg capsule 100 mg PO DAILY 05/13/25 05/13/25 History ibuprofen 200 mg tablet 200 mg PO Q4H PRN Pain 05/13/25 05/13/25 History ipratropium bromide 17 2 puff inhalation Q6H PRN COPD 05/13/25 05/13/25 History mcg/actuation HFA aerosol inhaler levothyroxine 75 mcg tablet 75 mcg PO DAILYBB 05/13/25 05/13/25 History Patient History Medical History Chronic respiratory failure Brain aneurysm IBS (irritable bowel syndrome) Hypotension Interstitial lung disease History of CVA (cerebrovascular accident) Headache TIA (transient ischemic attack) Chest pain COPD exacerbation Hypersomnolence DVT prophylaxis Abnormal albumin Mitral regurgitation Compression fracture of T11 vertebra Surgical History (Updated 05/13/25 @ 16:00 by CATE Jasso) History of brain surgery s/p coil and stent History of hysterectomy History of colonoscopy History of cholecystectomy Family History Denies family history of Diabetes Heart disease Social History Smoking Status: Former smoker Tobacco Type: Cigarettes packs per day: 1; Second Hand Exposure: No; Do You Dip or Chew Tobacco: No; Hx Alcohol Use: Yes Alcohol type: wine Alcohol Intake Frequency: 2-3 x/Week Hx Substance Use: No Preferred Language: Tamazight Communication Ability: Effective Intelligence Director Required: No Beliefs That Will Affect Care: None marital status: Single Current Living Situation: Alone Current Living Situation Comment: Home alone Other Information That Helps Us Care for You: No Feels Safe at Home: Yes Assistive Devices: Cane and Glasses Review of Systems Negative aside from HPI Physical Exam Patient resting comfortably in bed, fully conversant, NC in place. pupils equal and symmetric in size, EOM intact, no facial droop. Able to lift all four extremities against gravity, no ataxia, no sensory deficit. Overall unremarkable neuro exam Results & Data Vital Signs (Past 12 Hours) Vital Signs Temp Pulse Pulse Resp BP Pulse Ox O2 Del Method 05/14/25 08:36 Nasal Cannula 05/14/25 07:24 56 L 05/14/25 03:21 36.9 C 68 20 111/72 95 Nasal Cannula O2 Flow Rate 05/14/25 08:36 2.5 05/14/25 07:24 05/14/25 03:21 2.5 Laboratory Results Per Chart Diagnostic Findings CT/CTA: Unremarkable for acute ischemia, visible R ICA aneurysmal coil MRI Brain: Unremarkable for acute stroke. (1) Headache Headache chronicity pattern: acute headache Headache type: unspecified Intractability: not intractable Qualified Code(s): R51.9 - Headache, unspecified
--- NOTE | 2025-05-14 13:19 | Discharge Summary ---
Discharge Summary Date of Service May 14, 2025 Principal Dx & Hospital Course #1 = Principal Diagnosis (1) Atypical migraine: (2) Vertigo: (3) Osteoarthritis involving multiple joints on both sides of body: (4) Chronic respiratory failure: (5) Interstitial lung disease: (6) Depression: (7) GERD (gastroesophageal reflux disease): (8) COPD (chronic obstructive pulmonary disease): (9) Hypothyroidism: (10) History of CVA (cerebrovascular accident): Plan Patient 80-year-old female presented to the emergency room with complaints of acute onset of vertigo. Evaluation in the emergency department was negative for large vessel occlusion. Patient was admitted for further monitoring and stroke eval. Patient's vertigo completely resolved during her hospital stay. MRI of the brain was negative for acute infarct. A stroke was ruled out. Patient was evaluated by neurology. Patient also has a history of migraines, depression and significant osteoarthritis. Her history is much more consistent with a migraine. Time of discharge she had no further headache and vertigo had resolved. She had also stopped some of her arthritis medication and was having a fair amount of pain which may be contributing some of her symptoms as well. She was seen by therapies. She was up and ambulatory without any shortness of breath. She was being maintained on her usual oxygen flow. Will give a trial of some scheduled Tylenol. Feel the benefits of some pain control for her outweigh the potential pruritus that this is may be caused in the past. She will be discharged home continue with home health care and follow-up with her outpatient provider. Notes For Next Care Provider Medication Changes From Visit Tylenol scheduled for arthritic pain Tizanidine for muscle spasms Admission HPI Per Admitting Provider 80 year old female with PMH significant for hypothyroidism, chronic hypoxemic respiratory failure, COPD, right pulmonary nodule, GERD, osteoporosis, history of migraines, depression and bipolar disorder who presented to the ED on 05/13/2025 with acute onset of dizziness today. Patient reports that she was on her computer playing [employer]elling [employer] when she felt like the room started spinning. She felt as though she couldn't move her hands in the way she was trying to and endorses numbness of her bottom lip. She felt like she was going to pass out, but did not. The sensation of room spinning resolved but patient reports she continued to not feel well and notes she was shaking, had a headache, nausea without vomiting, and photophobia. She has a history of migraines where she describes visual disturbances are typical for her. This episode did not feel like her typical migraine. She denies visual disturbances during this episode, also denies weakness in her extremities, changes in speech or balance. Currently, she has a headache and nausea as well as epigastric discomfort with a lot of indigestion. Denies fevers, chills, cough, cold symptoms, chest pain, SOB outside of her baseline with COPD, abdominal pain, diarrhea. Notes dysuria over the last week. She lives at home alone and had a PT coming to her house for exercises twice a week. Denies recent falls. Admission Exam Per Admitting Provider See H&P Discharge Exam Constitutional: Alert, nontoxic HEENT: Mucous membranes moist. Lungs: Decreased breath sounds, prolonged expiratory phase CV: S1-S2, regular Abdomen: Soft, nontender, nondistended Extremities: No significant edema Neuro: No focal deficits, no vertigo Psych: Cooperative, normal mood Updated Medication List Medication Instructions Recorded Confirmed Type alprazolam 1 mg tablet (Xanax) 0.5 mg PO BID PRN Anxiety 07/15/19 05/13/25 History cyanocobalamin (vitamin B-12) 100 100 mcg PO 3XWK 07/15/19 05/13/25 History mcg tablet (Vitamin B-12) aspirin 81 mg tablet,delayed 81 mg PO DAILY #90 tabs 07/17/19 05/13/25 Rx release fluticasone fur. 100 mcg-umeclid 1 inh inhalation DAILY 06/07/20 05/13/25 History 62.5 mcg-vilant 25 mcg inhalat.powder (Trelegy Ellipta) omeprazole magnesium 20 mg 20 mg PO DAILY 06/07/20 05/13/25 History tablet,delayed release (Prilosec OTC) sertraline 100 mg tablet (Zoloft) 100 mg PO DAILY 06/07/20 05/13/25 History trazodone 100 mg tablet 100 mg PO HS 06/07/20 05/13/25 History atorvastatin 20 mg tablet 20 mg PO DAILY 03/19/24 05/13/25 History clindamycin phosphate 1 % topical 1 applic topical BID PRN acne 03/19/24 05/13/25 History gel flares ketoconazole 2 % shampoo 1 applic topical 3XWK 03/19/24 05/13/25 History qqgoksgl-kaqj-lwvp 8 mg-folic 400 1 tab PO DAILY 03/19/24 05/13/25 History mcg-K 50 mcg-lutein 300 mcg tablet (Centrum Silver Women) alendronate 70 mg tablet 70 mg PO WK 05/13/25 05/13/25 History ginseng 100 mg capsule 100 mg PO DAILY 05/13/25 05/13/25 History ibuprofen 200 mg tablet 200 mg PO Q4H PRN Pain 05/13/25 05/13/25 History ipratropium bromide 17 2 puff inhalation Q6H PRN COPD 05/13/25 05/13/25 History mcg/actuation HFA aerosol inhaler levothyroxine 75 mcg tablet 75 mcg PO DAILYBB 05/13/25 05/13/25 History acetaminophen 500 mg tablet 1,000 mg (2 x 500 mg) PO TID pain 05/14/25 Rx (Tylenol Extra Strength) #360 tabs tizanidine 2 mg capsule 2 mg PO BID PRN muscle spasticity 05/14/25 Rx #30 caps Hospital Stay Data Consultations 05/13/25 15:52 ED Decision to Admit Stat 05/13/25 19:49 Consult Neurology Routine Diagnostic Imagining Performed 05/13/25 13:15 CT angio head w con Stat CT angio neck with con Stat CT head/brain wo con Stat 05/13/25 16:45 MRI Brain [MR brain wo/w con] Urgent Reviewed imaging, laboratory and diagnostic studies. Pertinent findings as below. MRI negative for acute infarct electrolytes stable Creatinine 0.64 WBCs 4.1 Hemoglobin 11.3 Pending Results Patient Have Any Pending Studies at Discharge: No Discharge Instructions Given to Patient (Per Discharging Provider) Continue to work with your primary care provider to manage your arthritic pains Home Health Attestation I certify that this patient is under my care and that I, or a physicians talent acquisition assistant working with me, had a face to-face encounter that meets the home health [id number] encounter requirements with this patient. The encounter with the patient was in whole, or in part, for the following medical condition, which is the primary reason for home health care (list medical condition): I certify that, based on my findings, the following services are medically necessary home health services: My clinical findings support the need for the above services because: Further, I certify that my clinical findings support that this patient is homebound (i.e. absences from home require considerable and taxing effort and are for medical reasons or hindu services or infrequently or of short duration when for other reasons) because: Certification for Home Health Services: Based on the above findings, I certify that this patient is confined to the home and needs intermittent jail care, physical therapy and/or speech therapy or continues to need occupational therapy. The patient is under my care, and I have initiated the establishment of the plan of care. This patient will be followed by a physician who will periodically review the plan of care. Total Time Total Time Spent Total Time Spent (In Minutes): 36
[2025-05-14] MEDS: ACETAMINOPHEN 500 MG TAB PO SCH (14:02)
[2025-05-14] MEDS: CYCLOBENZAPRINE HCL 5 MG TAB PO ONE (14:02)
[2025-05-14 15:18] VITALS: PULSE 65
--- NOTE | 2025-05-14 17:03 | Communication Note ---
Date of Service: May 14, 2025 By CMS guidelines, a determination that the admission or continued stay is not medically necessary has been made by a member of the UR committee and a physi justin for this hospital stay, therefore a Code 44 will be completed and the Inpatient admission will be changed to outpatient.
--- NOTE | 2025-05-17 06:58 | Electrocardiogram Report ---
Test Reason : Blood Pressure : */* mmHG Vent. Rate : 53 BPM Atrial Rate : * BPM P-R Int : * ms QRS Dur : 72 ms QT Int : 422 ms P-R-T Axes : * -8 64 degrees QTcB Int : 395 ms Sinus bradycardia Low voltage QRS Septal infarct , age undetermined Abnormal ECG When compared with ECG of 19-Mar-2024 13:43, Sinus bradycardia has replaced Sinus rhythm Septal infarct is now Present Nonspecific T wave abnormality no longer evident in Inferior leads Nonspecific T wave abnormality, improved in Anterior leads Confirmed by Kevin Holden ([id number]) on 05/17/2025 6:58:00 AM Referred By: REFERRED SELF Confirmed By: Kevin Holden
== END 2025-05-14 16:06 | disposition home health service (06) | DRG 103 ==
LOC: ED 12:56 → SUATTDRO 16:44 → 2W 16:44